=== PATIENT | male | born 1945 | race Caucasian/White ===

== ENCOUNTER → 2017-10-06 17:02 | Outpatient (CLI) | payer MEDICARE, OTHER, SELFPAY | PROVIDERS: Family Provider Family Medicine; PCP Family Medicine; Visit Provider Urology | DX: R30.0 Dysuria (principal) | CPT/HCPCS: 87086; 87088 ==

== ENCOUNTER → 2017-11-27 08:29 | Outpatient (CLI) | payer MEDICARE, OTHER, SELFPAY ==
[2017-11-27 11:16] LABS: Vitamin D,25 Hydroxy 25.7 ng/mL (29.95-100.01)
[2017-11-27 12:20] LABS: PSA,Total - Annual Screen 0.66 ng/mL (0.00-4.00)
== END ==
PROVIDERS: Family Provider Family Medicine; PCP Family Medicine; Referring Provider Family Medicine; Visit Provider Family Medicine
DX: E78.5 Hyperlipidemia, unspecified (principal); E55.9 Vitamin D deficiency, unspecified; E11.9 Type 2 diabetes mellitus without complications; I10 Essential (primary) hypertension; Z12.5 Encounter for screening for malignant neoplasm of prostate
CPT/HCPCS: 36415; 82306; 84153; G0103

== ENCOUNTER → 2018-05-14 10:02 | Outpatient (CLI) | payer MEDICARE, OTHER, SELFPAY ==
[2018-05-14 12:35] LABS: Absolute Lymphocyte Count 1.92 X10^3/ul (0.83-4.51); Absolute Neutrophil Count 3.7 X10^3/uL (2.0-7.7); Basophil# 0.01 X10^3/uL; Basophil% 0.2 % (0-1); Eosinophil# 0.13 X10^3/uL; Hematocrit 42.5 % (40-54); Hemoglobin 13.8 g/dl (13.0-16.5); Lymphocyte # 1.92 X10^3/ul (4.0); Mean Corp Hgb Conc 32.5 g/gl (32-36); Mean Corpuscular Hgb 29.9 pg (27.0-32.0); Mean Corpuscular Volume 92.2 fL (80-94); Mean Platelet Vol. 10.4 fl (6.2-12.0); Monocyte% 9.4 % (0-10); Neutrophil # 3.71 X10^3/uL (2.7-7.7); Neutrophil % 57.9 % (47-70); Platelet Count 213 K/mm3 (150-450); RBC Distribution Width CV 14.4 % (11.6-14.6); RBC Distribution Width SD 48.6 fl (35.1-43.9); Red Blood Count 4.61 M/mm3 (4.6-6.2); White Blood Count 6.4 K/mm3 (4.4-11.0)
[2018-05-14 12:37] LABS: POSITIVE COUNT NO; POSITIVE DIFFERENTIAL NO; POSITIVE MORPHOLOGY NO
[2018-05-14 12:51] LABS: Anion Gap 8 (5-15); BUN 19 mg/dL (7-18); BUN/Creat Ratio 20.5 RATIO (10-20); Calcium,Total 9.5 mg/dL (8.5-10.1); Chloride 108 mmol/L (98-107); Cholesterol 135 mg/dL (200); Creatinine, Serum 0.93 mg/dL (0.70-1.30); EST Glomerular Filtration Rate 85 mL/min (>60); Est Glom Filt Rate - Afr Amer 102 mL/min (>60); Glucose 148 mg/dL (74-106); High Density Lipoprotein 42 mg/dL; Potassium 4.3 mmol/L (3.5-5.1); Sodium Level 140 mmol/L (136-145); Triglycerides 131 mg/dL; Very Low Density Lipoprotein 26 mg/dL (5-40)
[2018-05-14 13:04] LABS: Vitamin D,25 Hydroxy 47.9 ng/mL (29.95-100.01)
[2018-05-14 13:07] LABS: Hemoglobin A1c 7.2 % (4.2-6.3)
== END ==
PROVIDERS: Family Provider Family Medicine; PCP Family Medicine; Referring Provider Family Medicine; Visit Provider Family Medicine
DX: I10 Essential (primary) hypertension (principal); E11.9 Type 2 diabetes mellitus without complications; E78.5 Hyperlipidemia, unspecified; E55.9 Vitamin D deficiency, unspecified
CPT/HCPCS: 36415; 80048; 80061; 82306; 83036; 85025

== ENCOUNTER → 2018-11-11 08:19 | Outpatient (CLI) | payer MEDICARE, OTHER, SELFPAY ==
[2018-11-11 10:29] LABS: Absolute Lymphocyte Count 2.22 X10^3/uL (0.83-4.51); Absolute Neutrophil Count 2.9 X10^3/uL (2.0-7.7); Basophil# 0.02 X10^3/uL; Basophil% 0.3 % (0-1); Eosinophil# 0.17 X10^3/uL; Eosinophils% 2.9 % (0-5); Hematocrit 40.7 % (40-54); Hemoglobin 13.2 g/dL (13.0-16.5); Lymphocyte # 2.22 X10^3/ul (4.0); Lymphocyte % 37.3 % (19-41); Mean Corp Hgb Conc 32.4 g/dL (32-36); Mean Corpuscular Volume 92.5 fL (80-94); Mean Platelet Vol. 10.1 fl (6.2-12.0); Monocyte# 0.55 X10^3/uL; Monocyte% 9.2 % (0-10); NRBC Flagged by Analyzer 0 % (0-5); Neutrophil # 2.92 X10^3/uL (2.7-7.7); Neutrophil % 49.1 % (47-70); Platelet Count 192 K/mm3 (150-450); RBC Distribution Width CV 13.9 % (11.6-14.6); RBC Distribution Width SD 47.8 fl (35.1-43.9)
[2018-11-11 10:51] LABS: Anion Gap 8 (5-15); BUN 20 mg/dL (7-18); BUN/Creat Ratio 22.9 RATIO (10-20); Chloride 107 mmol/L (98-107); Cholesterol 158 mg/dL (200); Creatinine, Serum 0.87 mg/dL (0.70-1.30); EST Glomerular Filtration Rate 90 mL/min (>60); Est Glom Filt Rate - Afr Amer 109 mL/min (>60); Glucose 152 mg/dL (74-106); High Density Lipoprotein 49 mg/dL; Potassium 4.4 mmol/L (3.5-5.1); Sodium Level 143 mmol/L (136-145); Triglycerides 152 mg/dL; Very Low Density Lipoprotein 30 mg/dL (5-40)
[2018-11-11 10:55] LABS: Hemoglobin A1c 7.5 % (4.2-6.3)
== END ==
PROVIDERS: Family Provider Family Medicine; PCP Family Medicine; Referring Provider Family Medicine; Visit Provider Family Medicine
DX: E11.9 Type 2 diabetes mellitus without complications (principal); E78.5 Hyperlipidemia, unspecified; E55.9 Vitamin D deficiency, unspecified; I10 Essential (primary) hypertension
CPT/HCPCS: 36415; 80048; 80061; 82306; 83036; 85025

== ENCOUNTER 2018-11-25 12:47 | Emergency (ER) | payer MEDICARE, OTHER, SELFPAY ==
[2018-11-25 12:48] VITALS: BP 189/96; PULSE 90; RESP 18; TEMP 35.8; O2SAT 94; BMI 35.9
--- NOTE | 2018-11-25 13:01 | EKG12_ITS ---
Test Reason : HALL/SCHWKENDRA Blood Pressure : / mmHG Vent. Rate : 080 BPM Atrial Rate : 080 BPM P-R Int : 210 ms QRS Dur : 086 ms QT Int : 370 ms P-R-T Axes : 027 -03 010 degrees QTc Int : 426 ms Sinus rhythm with 1st degree A-V block Inferior infarct , age undetermined Abnormal ECG Confirmed by ARLETTE REED ([id number]), magazine editor LA ARRINGTON ([id number]) on 11/29/2018 12:25:06 PM Referred By: DIZZINESS Confirmed By:ARLETTE REED
[2018-11-25] MEDS: Ondansetron 4 MG/2 ML Vial IV ×2 (13:04→14:05)
--- NOTE | 2018-11-25 13:34 | CT_ITS ---
STUDY: CT BRAIN WITHOUT CONTRAST REASON FOR EXAM: Male, 73 years old. Dizziness. RADIATION DOSAGE (If Supplied By Facility): CTDIvol = ( 44.99 ) mGy, DLP = ( 846.73 ) mGycm TECHNIQUE: Transaxial CT imaging of the brain was performed without administration of intravenous contrast material. Individualized dose optimization techniques were used for this CT. COMPARISON: No relevant priors. FINDINGS: Normal soft tissue structures. Normal calvarium. There is mild cerebral atrophy with widening of the extra-axial spaces and ventricular dilatation. There are areas of decreased attenuation within the white matter tracts of the supratentorial brain, consistent with microvascular disease changes. Normal basal ganglia and thalami. Normal brainstem. Normal cerebellum. There is no intracranial hemorrhage. There are no findings of an acute ischemic infarction. Atherosclerotic calcification of the cavernous portions of the internal carotid arteries bilaterally. Opacification of the right maxillary sinus and right ethmoid sinus with soft tissue prominence in the right ostiomeatal complex suggestive of nasal polyposis. CT/Brain/Head without Contrast IMPRESSION: Chronic involutional changes of the brain. Opacification of the right maxillary sinus and right ethmoid sinus. Electronically Signed: Souleymane So, at 14:55 EDT , Service support ,
--- NOTE | 2018-11-25 13:39 | ED.DCSUM_ITS ---
- ER Visit Summary Date of Service: 11/25/18 Chief Complaint: Severe dizziness had nausea and vomiting History of Present Illness: The patient is a 73 M history of jxg-knlcrxu-qhknroret diabetes and kidney stones. States he ate lunch and he had sudden onset of right spinning dizziness. Really denied any headache. No chest pain or shortness of breath. No abdominal pain. No recent falls or trauma. He is on no blood thinners. He states never had anything like this before. Said to move his head against a lot worse and starts throwing up. Physical Examination: Older male vital signs stable afebrile. Does not look septic or toxic. Holding an emesis bag. HEENT exam pupils are unreactive light. No facial droop. Normal speech. No signs of trauma to his face or head. Neck nontender. Lungs clear to auscultation. Heart regular rhythm rate about 85 no murmur. Chest were nontender. Abdomen soft nontender. Normal bowel sounds no peritoneal signs. Nondistended. No signs of obstruction. Patient is moving all 4 extremities. Neurovascular intact. Calves are nonten nadira without edema. Equal symmetrical bull bucker strength 5 out of 5. Dorsi plantarflexion intact. Neurologically is awake and alert. He has a positive Hallpike. Otherwise his NIH is negative. He has normal bull bucker strength bilaterally. And dorsi and plantarflexion intact. Test Results: CBC normal. Chemistries normal. EKG sinus rhythm no acute signs of IL or ischemia. No dysrhythmia. CT of his brain showed chronic changes but no acute process. No bleed, mass or stroke. Read by the radiologist. Emergency Department Course and Treatment: Treated with IV fluids. He was given Zofran initially still nausea give a second dose. Also be given p.o. Valium. Multiple repeat exams patient progressively is getting better. Currently his dizziness is resolved at 1720. He has no neurological findings. He was able to ambulate with nurses on any difficulty. He and his are comfortable being discharged home. He feels much improved. Treatment Plan: Antivert 3 times a day. Valium as needed. Follow-up with primary care physician. Return if worse. Disposition: Discharge Impression: Acute sudden onset dizziness secondary to vertigo This note was generated with [employer] dictation software. It may contain incorrect words, spelling, and punctuation that were not noted in review of the chart prior to signing ED Disposition - Plan for ED Patient: Disposition: Home or Assisted Living Instructions: VERTIGO, Unspecified Prescriptions: Meclizine HCl [Antivert] 25 mg PO TID PRN PRN #20 tab PRN Reason: Vertigo Transmission Status: Sent to [facility] #30 Diazepam [Valium] 5 mg PO Q8 PRN #14 tab PRN Reason: Muscle Spasm Transmission Status: Received by [facility] #30 Referrals: Anup Mcadams MD [STAFF PHYSICIAN] - 3-5 Days if not improving Additional Instructions: Fluids and rest. Antivert 1 pill 3 times a day for the next 3 days. Valium if the Antivert is not controlling her dizziness. Do not drive if you are taking the Valium. I would not drive for the next couple days until you are sure that her dizziness is resolved. Follow-up with your doctor for further evaluation. Return to the ER if you are feeling worse or develop any strokelike symptoms such as weakness in your arms or legs or numbness.
[2018-11-25 13:57] LABS: Absolute Lymphocyte Count 2.91 X10^3/uL (0.83-4.51); Basophil# 0.05 X10^3/uL; Basophil% 0.6 % (0-1); Eosinophil# 0.13 X10^3/uL; Eosinophils% 1.6 % (0-5); Hematocrit 40.6 % (40-54); Hemoglobin 13.2 g/dL (13.0-16.5); Lymphocyte # 2.91 X10^3/ul (4.0); Lymphocyte % 36.8 % (19-41); Mean Corp Hgb Conc 32.5 g/dL (32-36); Mean Corpuscular Hgb 30.4 pg (27.0-32.0); Mean Corpuscular Volume 93.5 fL (80-94); Mean Platelet Vol. 9.8 fl (6.2-12.0); Monocyte% 8.8 % (0-10); NRBC Flagged by Analyzer 0 % (0-5); Neutrophil # 3.98 X10^3/uL (2.7-7.7); Neutrophil % 50.4 % (47-70); Platelet Count 200 K/mm3 (150-450); RBC Distribution Width CV 13.7 % (11.6-14.6); RBC Distribution Width SD 47.1 fl (35.1-43.9); Red Blood Count 4.34 M/mm3 (4.6-6.2); White Blood Count 7.9 K/mm3 (4.4-11.0)
[2018-11-25] MEDS: diazePAM 5 MG Tablet PO (14:05)
[2018-11-25 14:10] LABS: Anion Gap 7 (5-15); BUN 21 mg/dL (7-18); BUN/Creat Ratio 22.4 RATIO (10-20); Chloride 107 mmol/L (98-107); Creatinine, Serum 0.94 mg/dL (0.70-1.30); EST Glomerular Filtration Rate 83 mL/min (>60); Est Glom Filt Rate - Afr Amer 101 mL/min (>60); Estimated Creatinine Clearance 70.11 ml/min; Glucose 170 mg/dL (74-106); Potassium 3.7 mmol/L (3.5-5.1); Sodium Level 138 mmol/L (136-145)
[2018-11-25] MEDS: proMETHazine 25 MG/ML Syringe 12.5 MG IV (15:28)
[2018-11-25 15:29] VITALS: BP 164/95; PULSE 80; RESP 16; O2SAT 99
--- NOTE | 2018-11-25 16:45 | ED.RN ---
PATIENT AMBULATED IN HALLWAY WITH NO DIZZINESS OR LIGHTHEADEDNESS.
--- NOTE | 2018-11-25 17:14 | ED.DEP ---
ED Disposition - Plan for ED Patient: Disposition: Home or Assisted Living Instructions: VERTIGO, Unspecified Prescriptions: Meclizine HCl [Antivert] 25 mg PO TID PRN PRN #20 tab PRN Reason: Vertigo Transmission Status: Pending to [facility] #30 Diazepam [Valium] 5 mg PO Q8 PRN #14 tablet PRN Reason: Muscle Spasm Transmission Status: Sent to [facility] #30 Referrals: Anup Mcadams MD [STAFF PHYSICIAN] - 3-5 Days if not improving Additional Instructions: Fluids and rest. Antivert 1 pill 3 times a day for the next 3 days. Valium if the Antivert is not controlling her dizziness. Do not drive if you are taking the Valium. I would not drive for the next couple days until you are sure that her dizziness is resolved. Follow-up with your doctor for further evaluation. Return to the ER if you are feeling worse or develop any strokelike symptoms such as weakness in your arms or legs or numbness.
--- NOTE | 2018-11-25 17:24 | ED.DEP ---
ED Disposition - Plan for ED Patient: Disposition: Home or Assisted Living Instructions: VERTIGO, Unspecified Prescriptions: Meclizine HCl [Antivert] 25 mg PO TID PRN PRN #20 tab PRN Reason: Vertigo Transmission Status: Sent to [facility] #30 Diazepam [Valium] 5 mg PO Q8 PRN #14 tab PRN Reason: Muscle Spasm Transmission Status: Received by [facility] #30 Referrals: Anup Mcadams MD [STAFF PHYSICIAN] - 3-5 Days if not improving Additional Instructions: Fluids and rest. Antivert 1 pill 3 times a day for the next 3 days. Valium if the Antivert is not controlling her dizziness. Do not drive if you are taking the Valium. I would not drive for the next couple days until you are sure that her dizziness is resolved. Follow-up with your doctor for further evaluation. Return to the ER if you are feeling worse or develop any strokelike symptoms such as weakness in your arms or legs or numbness.
[2018-11-25 17:31] VITALS: BP 150/85; PULSE 90; RESP 18; O2SAT 96
== END 2018-11-25 17:32 | disposition home or self-care (01) ==
PROVIDERS: Emergency Provider Emergency Medicine; Family Provider Family Medicine; PCP Family Medicine
DX: R42 Dizziness and giddiness (principal); R11.2 Nausea with vomiting, unspecified; E11.9 Type 2 diabetes mellitus without complications; Z79.84 Long term (current) use of oral hypoglycemic drugs; Z79.899 Other long term (current) drug therapy
CPT/HCPCS: 70450; 80048; 85025; 93005; 96374; 96375; 96376; 99285; A4216; J2405

== ENCOUNTER → 2019-08-15 09:52 | Outpatient (CLI) | payer MEDICARE, OTHER, SELFPAY ==
[2019-08-15 12:24] LABS: Absolute Lymphocyte Count 2.04 X10^3/uL (0.83-4.51); Absolute Neutrophil Count 3.8 X10^3/uL (2.0-7.7); Basophil# 0.04 X10^3/uL; Basophil% 0.6 % (0-1); Eosinophil# 0.14 X10^3/uL; Eosinophils% 2.1 % (0-5); Hematocrit 42.5 % (40-54); Hemoglobin 13.6 g/dL (13.0-16.5); Lymphocyte # 2.04 X10^3/ul (4.0); Lymphocyte % 30.6 % (19-41); Mean Corpuscular Hgb 30.2 pg (27.0-32.0); Mean Corpuscular Volume 94.4 fL (80-94); Mean Platelet Vol. 10.6 fl (6.2-12.0); Monocyte# 0.57 X10^3/uL; Monocyte% 8.5 % (0-10); NRBC Flagged by Analyzer 0 % (0-5); Platelet Count 210 K/mm3 (150-450); RBC Distribution Width CV 14.2 % (11.6-14.6); RBC Distribution Width SD 49.2 fl (35.1-43.9); White Blood Count 6.7 K/mm3 (4.4-11.0)
[2019-08-15 12:47] LABS: Thyroid Stim Hormone (TSH) 1.53 uIU/mL (0.358-3.74)
[2019-08-15 13:54] LABS: Vitamin B12 436 pg/mL (211-911); Vitamin D,25 Hydroxy 37.3 ng/mL
[2019-08-16 17:20] LABS: PSA,Total - Annual Screen 0.65 ng/mL (0.00-4.00)
== END ==
PROVIDERS: PCP Family Medicine; Referring Provider Family Medicine; Visit Provider Family Medicine
DX: R53.83 Other fatigue (principal); Z12.5 Encounter for screening for malignant neoplasm of prostate
CPT/HCPCS: 36415; 82306; 82607; 84153; 84443; 85025; G0103

== ENCOUNTER → 2019-08-25 13:57 | Outpatient (CLI) | payer MEDICARE, OTHER, SELFPAY ==
--- NOTE | 2019-08-25 14:05 | ECHOD_ITS ---
Reason For Study: MURMUR Procedure This was a 2D Doppler, Color Flow transthoracic echocardiogram. The study was technically difficult. Due to body habitus. Contrast injection was performed. Exam performed in department. Left Ventricle Mild concentric left ventricular hypertrophy. The estimated ejection fraction is 65 %. Stage 1 diastolic dysfunction. No regional wall motion abnormalities noted. Right Ventricle Moderately dilated right ventricle. Normal systolic function. Atria Normal left atrium. Normal right atrium. Normal atrial septum. Mitral Valve The mitral valve is structurally normal. No prolapse or stenosis seen. Tricuspid Valve Normal tricuspid valve. Unable to estimate RV systolic pressure due to insufficient tricuspid regurgitant envelope. Aortic Valve Trisinus/trileaflet aortic valve. Mild diffuse aortic valve thickening. Moderate focal aortic valve thickening. Mild aortic stenosis. Peak aortic valve gradient 15 mmHg. Mean aortic valve gradient 8 mmHg. Pulmonic Valve The pulmonic valve is not well visualized. Great Vessels Normal aortic root. Mild atherosclerosis of the aortic arch. Normal inferior vena cava. Inferior vena cava collapse with sniff. Pericardium/Pleural No pericardial effusion. Medication 22 gauge I.V. with prn adaptor inserted into left arm. Diluted definity 3.0ml given slow IV push to enhance endocardial definition. MMode/2D Measurements & Calculations LVIDd: 4.4 cm IVSd: 1.3 cm Ao root diam: 3.6 cm LVIDs: 3.4 cm LVPWd: 1.2 cm RVDd: 3.8 cm FS: 23.4 % LAV(MOD-bp): 68.4 ml EDV(MOD-sp4): 116.5 ml EDV(MOD-sp2): 67.4 ml LAV(MOD-bp) Indexed: 30.5 ml/m2 ESV(MOD-sp4): 49.5 ml EF(MOD-sp2): 54.9 % LAV(MOD-sp2): 67.2 ml EF(MOD-sp4): 57.5 % LAV(MOD-sp4): 66.2 ml SV(MOD-sp4): 67.0 ml SV(MOD-sp2): 37.0 ml LA A4 area: 21.3 cm2 LA dimension(2D): 4.9 cm Time Measurements MV dec time: 0.20 sec Doppler Measurements & Calculations MV E max jose angel: 92.1 cm/sec Lat Peak E' Jose Angel: 4.9 cm/sec Med Peak E' Jose Angel: 4.7 cm/sec MV A max jose angel: 133.5 cm/sec E/E' lat: 18.8 E/E' med: 19.6 MV E/A: 0.69 Ao V2 max: 193.7 cm/sec LV V1 max: 110.9 cm/sec PA V2 max: 151.9 cm/sec Ao max P.0 mmHg LV V1 max P.9 mmHg Ao V2 mean: 132.5 cm/sec LV V1 mean P.6 mmHg Ao mean P.9 mmHg LV V1 mean: 76.8 cm/sec Ao V2 VTI: 34.6 cm LV V1 VTI: 19.6 cm Interpretation Summary Mild concentric left ventricular hypertrophy. The estimated ejection fraction is 65 %. Stage 1 diastolic dysfunction. Moderately dilated right ventricle. Mild aortic stenosis. Peak aortic valve gradient 15 mmHg. Mean aortic valve gradient 8 mmHg. The study was technically difficult. Contrast injection was performed. There is no comparison study available. Ordering Physician: Anup Wu Referring Physician: Anup Wu Performed By: Rhoda Marti, KELSY, RVT
== END ==
PROVIDERS: PCP Family Medicine; Referring Provider Family Medicine; Visit Provider Family Medicine
DX: R01.1 Cardiac murmur, unspecified (principal)
CPT/HCPCS: 93306; Q9957; A4216

== ENCOUNTER 2020-01-25 10:12 | Emergency (ER) | payer MEDICARE, OTHER, SELFPAY ==
[2020-01-25 10:13] VITALS: BP 154/85; PULSE 103; RESP 16; TEMP 36.3; O2SAT 97; BMI 31.4
--- NOTE | 2020-01-25 10:22 | US_ITS ---
STUDY: SCROTUM ULTRASOUND REASON FOR EXAM: Male, 74 years old. SWELLING AND ABRUPT LEFT TESTICULAR PAIN BEGINNING AT 8AM THIS MORNING TECHNIQUE: Ultrasound evaluation of the scrotum was performed with color Doppler and static jaime-scale imaging. COMPARISON: None. FINDINGS: RIGHT TESTICLE INTRATESTICULAR: There is a normal size of the right testicle. The right testicle measures 4.2 cm x 3.2 cm x 2.8 cm. There is a homogenous echotexture. There is normal arterial and normal venous vascularity. There is no demonstrated right testicular mass or cyst. EXTRATESTICULAR: The epididymis is normal in size. The epididymis head measures 0.9 cm x 1.5 cm x 1.2 cm. There is normal vascularity of the epididymis. There is no demonstrated epididymal cystic structure. There is a small hydrocele. There is no demonstrated varicocele. There is no demonstrated extratesticular mass or cyst. LEFT TESTICLE INTRATESTICULAR: There is a normal size of the left testicle. The left testicle measures 4.6 cm x 2.3 cm x 3.0 cm. There is a homogenous echotexture. There is normal arterial and normal venous vascularity. There is a 3 mm x 3 mm x 4 mm testicular cyst. EXTRATESTICULAR: The epididymis is normal in size. The epididymis head measures 0.8 cm x 1.1 cm x 1.1 cm. There is normal vascularity of the epididymis. There is a well-defined cystic structure within the epididymis, without internal echoes, consistent with an epididymal cyst. This measures 8 mm x 6 mm x 6 mm. There is a small hydrocele. There is no demonstrated varicocele. There is no demonstrated extratesticular mass or cyst. US/Testicular with Arterial Flow IMPRESSION: Small bilateral hydroceles. Small left epididymal cyst. Small left testicular cyst. Electronically Signed: Souleymane So, at 11:17 EST , Service support ,
--- NOTE | 2020-01-25 10:30 | ED.VISSUMM ---
- ER Visit Summary Date of Service: 01/25/20 Chief Complaint: Left testicle pain History of Present Illness: The patient is a [address] Wu and Dr. Gordon. He reports that he woke up at 8:00 this morning with the abrupt onset of severe left testicle pain. He reports the pain is 10 of 10 with touching it and 2 out of 10 at rest. Describes it as an aching pain. He denies any flank pain. He denies abdominal pain. No nausea, vomiting, dysuria or frequency. He has never had anything like this before. Physical Examination: Vitals: Stable. Afebrile. General: Well-nourished and well-developed. Head: Normocephalic atraumatic. Neck: Supple, no lymphadenopathy. No JVD. Nontender. Cardiovascular: Regular rate and rhythm. No murmurs. Respiratory: No respiratory distress. Clear to auscultation bilaterally. Abdominal: Soft, nontender, nondistended, normal bowel sounds. No guarding, rebound, or peritoneal signs. : Normal circumcised male. He has no inguinal hernias bilaterally. He was examined while standing. He has moderate tenderness to palpation over the left testicle. He does have a normal lie and he does have a cremasteric reflex. There is no tenderness to palpation over his epididymis. He does have mild tenderness palpation over the lower pole of the left testicle. There is no palpable mass. There is no scrotal swelling. There is no erythema or induration to suggest infection. Back: Nontender. Extremities: Nontender, no edema. Skin: Normal color, no rash. Neurologic: Alert and oriented ?3. Cranial nerves II through XII are intact. Normal strength and sensation. Psych: Normal affect. Test Results: Clinical Impression(s) from Imaging Studies Testicular Ultrasound 01/25/20 10:22 IMPRESSION: Small bilateral hydroceles. Small left epididymal cyst. Small left testicular cyst. Electronically Signed: Souleymane So, at 11:17 EST , Service support , Emergency Department Course and Treatment: Patient refused pain medications. He is resting comfortably. Treatment Plan: Patient will be discharged with symptomatic care. Use supportive underwear, ice, Tylenol/ibuprofen for pain. He will be given a prescription for 10 [place] for severe pain. Follow-up with Dr. Gordon in 3 to 5 days if not improving. Return to the emergency department for any worsening symptoms. Disposition: To home in improved and stable condition. Impression: 1. Left testicle pain, acute. This note was generated with [employer] dictation software. It may contain incorrect words, spelling, and punctuation that were not noted in review of the chart prior to signing ED Disposition - Plan for ED Patient: Instructions: ED Orchitis Prescriptions: Docusate Sodium [Colace] 100 mg PO DAILY #20 capsule Hydrocodone Bitart/Apap 5-325 [[place] 5MG-325MG] 1 tablet PO Q4H PRN PRN 2 Days #10 tablet PRN Reason: Pain Referrals: Ronald Gordon MD [STAFF PHYSICIAN] - 3-5 Days if not improving
[2020-01-25 11:45] VITALS: BP 137/66; PULSE 82; RESP 15; O2SAT 98
== END 2020-01-25 11:47 | disposition home or self-care (01) ==
PROVIDERS: Emergency Provider Emergency Medicine; PCP Family Medicine
DX: N44.2 Benign cyst of testis (principal); N50.3 Cyst of epididymis; N43.3 Hydrocele, unspecified; E11.9 Type 2 diabetes mellitus without complications; Z79.84 Long term (current) use of oral hypoglycemic drugs; Z79.899 Other long term (current) drug therapy
CPT/HCPCS: 76870; 93976; 99282; A4216

== ENCOUNTER → 2020-01-26 08:29 | Outpatient (CLI) | payer MEDICARE, OTHER, SELFPAY ==
[2020-01-25 10:13] VITALS: BMI 31.4
== END ==
PROVIDERS: PCP Family Medicine; Referring Provider Urology; Visit Provider Urology
DX: Z12.5 Encounter for screening for malignant neoplasm of prostate (principal)

== ENCOUNTER 2020-03-13 12:14 | Emergency (ER) | payer MEDICARE, OTHER, SELFPAY ==
[2020-03-13 12:15] VITALS: BP 132/78; PULSE 108; RESP 16; TEMP 36.6; O2SAT 96; BMI 33.7
--- NOTE | 2020-03-13 12:26 | EKG12_ITS ---
Test Reason : GENERAL ILLNESS Blood Pressure : / mmHG Vent. Rate : 101 BPM Atrial Rate : 101 BPM P-R Int : 176 ms QRS Dur : 086 ms QT Int : 318 ms P-R-T Axes : 032 003 030 degrees QTc Int : 412 ms Sinus tachycardia Inferior infarct (cited on or before 25-NOV-2018) Abnormal ECG Confirmed by SANGITA ALICEA, LM ([id number]), slot editor LA ARRINGTON ([id number]) on 03/19/2020 12:46:11 PM Referred By: TAYLOR Confirmed By:LM QUESADA MD
--- NOTE | 2020-03-13 12:29 | ED.DCSUM_ITS ---
History of Present Illness Chief Complaint: General Illness Informant: Patient Onset: Days Context: Gradual Onset Timing: Continuous Current Severity: Mild Maximum Severity: Moderate Narrative: Patient is a 74-year-old male with history of pcs-cqucbxp-uhjjmkeij diabetes and hypertension who presents to the emergency department with generalized malaise. The patient is Covid positive. He did test positive on the 14th of this month. He states that he has been monitoring his pulse ox at home. He states sometimes, it will be around 90. He states that today was actually the best that he is felt. He had discussed this with his primary care who was trying to set the patient up with outpatient monoclonal antibody, but given his reported hypoxia he was sent in for further evaluation. He states is not had a fever in 3 days. Has been mildly nauseated, but still states he has been eating and drinking. He had a scant cough. He denies any chest pain orthopnea. Prior similar symptoms: No Recent Illness/Hospitalization: No Past Medical History - Allergies and Home Meds Allergies/Adverse Reactions: Allergies Penicillins [PCN] Allergy (Verified 03/13/20 12:19) Hives tolmetin [From Tolectin] Allergy (Verified 03/13/20 12:19) Hives Primary Care Physician: Anup Wu MD [Primary Care Provider] - Prior records reviewed: Yes Past Medical History: - - Diabetes, hypertension Surgical History: noncontributory Smoking Status: Former smoker Review of Systems General: Reports: Malaise. Denies: Chills, Fever, Sweats Eyes: Denies: Visual changes - bilaterally, Diplopia ENT: Denies: Rhinorrhea, Sore throat Cardiovascular: Denies: Chest pain, Palpitations Respiratory: Reports: Cough. Denies: Dyspnea, Dyspnea on exertion Gastrointestinal: Reports: Nausea. Denies: Abdominal pain, Vomiting, Diarrhea, Melena, Hematochezia Genitourinary: Denies: Dysuria, Hematuria, Frequency Musculoskeletal: Denies: Back pain, Extremity Pain Skin: Denies: Rash, Wounds Neurological: Denies: Headache, Weakness, Numbness Physical Exam Vital Signs/Narrative: Vital Signs Temp Pulse Resp BP Pulse Ox 03/13/20 12:15 97.8 F 108 H 16 132/78 H 96 Inital Vital Signs reviewed: Yes General: Well nourished, Well developed, No Acute Distress Head: Normocephalic, Atraumatic Eyes: Perrl, EOMI ENT: Moist mucous membranes, No rhinorrhea Neck: Supple, Nontender Cardiovascular: Regular rate, Regular rhythm, No murmurs Respiratory: No distress, CTA bilaterally, Chest nontender Abdomen: Soft, Nontender, Nondistended, Normal bowel sounds Back: Nontender, Normal Inspection Extremities: Nontender, No edema Skin: Normal color, No rash Neurological: Alert, Oriented x3, Cranial nerves II-XII grossly intact, Normal Strength, Normal Sensation Psychological: Normal affect, Normal Mood Diagnostic/Tx/Re-eval Clinical Impression(s) from Imaging Studies Chest X-Ray 03/13/20 12:45 IMPRESSION: Mild degree of increased linear markings at the lung bases. These have improved as compared to prior study. Electronically Signed: Souleymane So MD at 13:03 EST , Service support , Abnormal Lab Results 03/13/20 03/13/20 13:05 13:05 WBC 4.8 RBC 4.40 L Hgb 13.6 Hct 39.8 L MCV 90.5 MCH 30.9 MCHC 34.2 RDW Std Deviation 45.6 H RDW Coeff of Osman 13.6 Plt Count 143 L MPV 9.6 Immature Gran % (Auto) 1.300 H Neut % (Auto) 63.0 Lymph % (Auto) 24.4 Woodson % (Auto) 9.2 Eos % (Auto) 1.5 Baso % (Auto) 0.6 Absolute Neuts (auto) 3.0 Absolute Lymphs (auto) 1.17 Nucleated RBC % 0 Sodium 135 L Potassium 4.2 Chloride 104 Carbon Dioxide 26.0 Anion Gap 5 BUN 20 H Creatinine 1.00 Estim Creat Clear Calc 64.89 Est GFR (MDRD) Af Amer 93 Est GFR (MDRD) Non-Af 77 BUN/Creatinine Ratio 20.0 Glucose 209 H Calcium 8.8 Total Bilirubin 0.50 AST 17 ALT 18 Alkaline Phosphatase 90 Total Protein 7.1 Albumin 3.3 Globulin 3.8 Albumin/Globulin Ratio 0.9 - Medical Decision Making The patient's Covid symptoms and was concerned because he had some borderline hypoxia at home. On arrival, the patient is not tachypneic or hypoxic. His oxygen saturations have been 93 to 95% without supplemental oxygen. EKG was obtained. He was sinus rhythm without evidence of acute ischemia. Patient states he is actually started to feel improvement over the past 24 hours. Labs were obtained were unremarkable. The patient is resting comfortably. He is interested in getting referral for monoclonal antibodies. I do feel that he meets criteria. Referral was made. At this point, the patient to be discharged home with outpatient follow-up for potential enrollment for antibiotic treatment. Impression 1. COVID-19 ED Disposition - Plan for ED Patient: Instructions: ED - COVID Monoclonal AB Infusion ..., Coronavirus Disease 2019 (COVID-19): Overview Referrals: Anup Wu MD [Primary Care Provider] -
--- NOTE | 2020-03-13 12:45 | RAD_ITS ---
STUDY: X-RAY CHEST REASON FOR EXAM: Male, 74 years old. RECENT COVID Dx. WEAKNESS, BODY ACHES TECHNIQUE: Single AP portable view of the chest. COMPARISON: Comparison is made with prior study dated 11/16/2015. FINDINGS: Mild residual increased linear markings at the lung bases although these have improved as compared to prior examination. No focal infiltrate is seen. The lungs are clear and expanded. There is no demonstrated pleural abnormality. Normal size heart. Normal mediastinum and robe. Normal visualized pulmonary arteries. There is atherosclerotic tortuosity of the aortic arch and descending thoracic aorta. There are diffuse degenerative changes of the visualized thoracic spine. Normal visualized ribs, clavicles, and shoulders. There is no demonstrated abnormality of the visualized soft tissue structures of the upper abdomen. RAD/Chest 1 View (Portable) IMPRESSION: Mild degree of increased linear markings at the lung bases. These have improved as compared to prior study. Electronically Signed: Souleymane So MD at 13:03 EST , Service support ,
[2020-03-13] MEDS: Acetaminophen 500 MG Tablet 1000 MG PO (12:55)
[2020-03-13 13:25] LABS: Absolute Lymphocyte Count 1.17 X10^3/uL (0.83-4.51); Basophil# 0.03 X10^3/uL; Basophil% 0.6 % (0-1); Eosinophil# 0.07 X10^3/uL; Eosinophils% 1.5 % (0-5); Hematocrit 39.8 % (40-54); Hemoglobin 13.6 g/dL (13.0-16.5); Lymphocyte # 1.17 X10^3/ul (4.0); Lymphocyte % 24.4 % (19-41); Mean Corp Hgb Conc 34.2 g/dL (32-36); Mean Corpuscular Hgb 30.9 pg (27.0-32.0); Mean Corpuscular Volume 90.5 fL (80-94); Mean Platelet Vol. 9.6 fl (6.2-12.0); Monocyte# 0.44 X10^3/uL; Monocyte% 9.2 % (0-10); NRBC Flagged by Analyzer 0 % (0-5); Neutrophil # 3.02 X10^3/uL (2.7-7.7); Platelet Count 143 K/mm3 (150-450); RBC Distribution Width CV 13.6 % (11.6-14.6); RBC Distribution Width SD 45.6 fl (35.1-43.9); White Blood Count 4.8 K/mm3 (4.4-11.0)
[2020-03-13 13:33] LABS: ALB/GLOB Ratio 0.9 RATIO (0.9-2.4); AST(SGOT) 17 U/L (15-37); Alanine Aminotransfer ALT/SGPT 18 U/L (16-61); Albumin, Serum 3.3 g/dL (3.2-5.0); Alkaline Phosphatase 90 U/L (45-117); Anion Gap 5 (5-15); BUN 20 mg/dL (7-18); Calcium,Total 8.8 mg/dL (8.5-10.1); Chloride 104 mmol/L (98-107); EST Glomerular Filtration Rate 77 mL/min (>60); Est Glom Filt Rate - Afr Amer 93 mL/min (>60); Estimated Creatinine Clearance 64.89 ml/min; Globulin 3.8 g/dL (2.2-4.2); Glucose 209 mg/dL (74-106); Potassium 4.2 mmol/L (3.5-5.1); Protein, Total 7.1 g/dL (6.4-8.2); Sodium Level 135 mmol/L (136-145)
[2020-03-13 13:51] VITALS: O2SAT 94
== END 2020-03-13 13:52 | disposition home or self-care (01) ==
LOC: ED 12:39
PROVIDERS: Emergency Provider Emergency Medicine; PCP Family Medicine
DX: U07.1 COVID-19 (principal); I10 Essential (primary) hypertension; E11.9 Type 2 diabetes mellitus without complications; Z79.84 Long term (current) use of oral hypoglycemic drugs; Z87.891 Personal history of nicotine dependence
CPT/HCPCS: 36415; 71045; 80053; 85025; 93005; 99285; A4216

== ENCOUNTER 2020-03-15 12:09 | Outpatient (CLI) | payer MEDICARE, OTHER, SELFPAY ==
[2020-03-15] VITALS (7 sets, daily range): BP systolic 117–141; BP diastolic 60–69; PULSE 103–111; RESP 18; TEMP 36.7–37.8; O2SAT 93–96; BMI 32.8
== END 2020-03-15 15:49 | disposition home or self-care (01) ==
LOC: MS2OUT 12:09
PROVIDERS: PCP Family Medicine; Referring Provider Nurse Practitioner Acute Care; Visit Provider Nurse Practitioner Acute Care
DX: U07.1 COVID-19 (principal)
CPT/HCPCS: J7050; M0239; Q0239

== ENCOUNTER → 2020-03-20 11:49 | Outpatient (CLI) | payer MEDICARE, OTHER, SELFPAY ==
[2020-03-15 12:37] VITALS: BMI 32.8
[2020-03-20 15:59] LABS: ALB/GLOB Ratio 0.8 RATIO (0.9-2.4); AST(SGOT) 15 U/L (15-37); Alanine Aminotransfer ALT/SGPT 18 U/L (16-61); Alkaline Phosphatase 85 U/L (45-117); Anion Gap 8 (5-15); BUN 19 mg/dL (7-18); BUN/Creat Ratio 20.5 RATIO (10-20); Calcium,Total 9.2 mg/dL (8.5-10.1); Chloride 105 mmol/L (98-107); Creatinine, Serum 0.93 mg/dL (0.70-1.30); EST Glomerular Filtration Rate 84 mL/min (>60); Est Glom Filt Rate - Afr Amer 102 mL/min (>60); Glucose 178 mg/dL (74-106); Potassium 4.1 mmol/L (3.5-5.1); Sodium Level 138 mmol/L (136-145)
[2020-03-20 16:02] LABS: Microalbumin,Random Urine 23.9 mg/L (NO RANGE EST.); Microalbumin:Creatinine Ratio 13.7 mg/g CRE (<30 mg/g CRE)
[2020-03-20 16:20] LABS: Hemoglobin A1c 7.6 % (3.8-5.6)
== END ==
PROVIDERS: PCP Family Medicine; Referring Provider Family Medicine; Visit Provider Family Medicine
DX: E11.9 Type 2 diabetes mellitus without complications (principal)
CPT/HCPCS: 36415; 80053; 82043; 82570; 83036

== ENCOUNTER → 2020-06-12 15:21 | Outpatient (CLI) | payer MEDICARE, OTHER, SELFPAY ==
[2020-03-15 12:37] VITALS: BMI 32.8
[2020-06-12 18:49] LABS: ALB/GLOB Ratio 1.2 RATIO (0.9-2.4); AST(SGOT) 16 U/L (15-37); Alanine Aminotransfer ALT/SGPT 23 U/L (16-61); Albumin, Serum 3.9 g/dL (3.2-5.0); Alkaline Phosphatase 87 U/L (45-117); Anion Gap 8 (5-15); BUN 21 mg/dL (7-18); BUN/Creat Ratio 22.8 RATIO (10-20); Calcium,Total 9.4 mg/dL (8.5-10.1); Chloride 107 mmol/L (98-107); Cholesterol 151 mg/dL (200); Creatinine, Serum 0.92 mg/dL (0.70-1.30); EST Glomerular Filtration Rate 85 mL/min (>60); Est Glom Filt Rate - Afr Amer 102 mL/min (>60); Globulin 3.3 g/dL (2.2-4.2); Glucose 113 mg/dL (74-106); High Density Lipoprotein 43 mg/dL; Potassium 4.5 mmol/L (3.5-5.1); Protein, Total 7.2 g/dL (6.4-8.2); Sodium Level 140 mmol/L (136-145); Triglycerides 245 mg/dL; Very Low Density Lipoprotein 49 mg/dL (5-40)
[2020-06-12 19:05] LABS: Microalbumin,Random Urine 17.6 mg/L (NO RANGE EST.); Microalbumin:Creatinine Ratio 9.9 mg/g CRE (<30 mg/g CRE)
== END ==
PROVIDERS: PCP Family Medicine; Visit Provider Family Medicine
DX: E11.9 Type 2 diabetes mellitus without complications (principal)
CPT/HCPCS: 36415; 80053; 80061; 82043; 82570

== ENCOUNTER → 2020-08-14 08:14 | Outpatient (CLI) | payer MEDICARE, OTHER, SELFPAY ==
[2020-03-15 12:37] VITALS: BMI 32.8
[2020-08-14 10:51] LABS: PSA,Total - Annual Screen 0.69 ng/mL (0.00-4.00)
== END ==
PROVIDERS: PCP Family Medicine; Referring Provider Urology; Visit Provider Urology
DX: Z12.5 Encounter for screening for malignant neoplasm of prostate (principal)
CPT/HCPCS: 36415; 84153; G0103

== ENCOUNTER → 2020-12-10 14:34 | Outpatient (CLI) | payer MEDICARE, OTHER, SELFPAY ==
--- NOTE | 2020-12-10 14:37 | CT_ITS ---
INDICATION: LLQ pain EXAMINATION: CT Abdomen And Pelvis W/ Contrast Injection TECHNIQUE: Helically acquired images were obtained of the abdomen and pelvis after IV contrast. A radiation dose optimization technique was used for this scan. IV Contrast dosage and agent: Oral and amp;amp; IV Gastrografin and amp;amp; 100mL Isovue-300 Oral contrast: Yes. COMPARISON: None. FINDINGS: Visualized lung bases: Unremarkable Liver: Unremarkable Gallbladder: Few small intraluminal stones seen. Spleen: Unremarkable Pancreas: Fatty atrophic changes. Adrenal Glands: Unremarkable Kidneys: Unremarkable Vasculature: Unremarkable GI Tract: Scattered diverticula throughout the colon without evidence of inflammation. Lymphadenopathy: None Peritoneum: No ascites. Bladder: Unremarkable Reproductive organs: The prostate is mildly enlarged. Bones/Soft tissues: Mild scattered degenerative changes of the visualized spine. CT/Abdomen/Pelvis WITH Contrast IMPRESSION: No acute abnormalities in the abdomen or pelvis. Diverticulosis. Cholelithiasis. Mild prostatomegaly. Correlate with PSA levels. Electronically Signed: John Sheikh MD at 18:28 EDT Tel , Service support ,
[2020-12-10 15:46] LABS: Hematocrit 39.5 % (40-54); Hemoglobin 13.1 g/dL (13.0-16.5); Mean Corp Hgb Conc 33.2 g/dL (32-36); Mean Corpuscular Hgb 30.5 pg (27.0-32.0); Mean Corpuscular Volume 92.1 fL (80-94); Mean Platelet Vol. 10.4 fl (6.2-12.0); Platelet Count 230 K/mm3 (150-450); RBC Distribution Width CV 13.5 % (11.6-14.6); RBC Distribution Width SD 45.2 fl (35.1-43.9); Red Blood Count 4.29 M/mm3 (4.6-6.2); White Blood Count 8.1 K/mm3 (4.4-11.0)
[2020-12-10 15:52] LABS: Anion Gap 7 (5-15); BUN 19 mg/dL (7-18); BUN/Creat Ratio 23.7 RATIO (10-20); Calcium,Total 9.2 mg/dL (8.5-10.1); Chloride 106 mmol/L (98-107); EST Glomerular Filtration Rate 99 mL/min (>60); Est Glom Filt Rate - Afr Amer 120 mL/min (>60); Glucose 159 mg/dL (74-106); Potassium 4.1 mmol/L (3.5-5.1); Sodium Level 139 mmol/L (136-145)
== END ==
PROVIDERS: PCP Family Medicine; Referring Provider Nurse Practitioner Family; Visit Provider Nurse Practitioner Family
DX: N20.0 Calculus of kidney (principal); N39.0 Urinary tract infection, site not specified; K80.20 Calculus of gallbladder without cholecystitis without obstruction; K57.92 Diverticulitis of intestine, part unspecified, without perforation or abscess without bleeding
CPT/HCPCS: 36415; 74177; 80048; 85027; 87086; Q9967

== ENCOUNTER 2021-04-09 09:51 | Outpatient (CLI) | payer MEDICARE, OTHER, SELFPAY ==
[2021-04-09 12:14] LABS: Absolute Neutrophil Count 5.2 X10^3/uL (2.0-7.7); Basophil# 0.06 X10^3/uL; Basophil% 0.7 % (0-1); Eosinophil# 0.17 X10^3/uL; Hematocrit 42.8 % (40-54); Hemoglobin 14.5 g/dL (13.0-16.5); Lymphocyte % 26.4 % (19-41); Mean Corp Hgb Conc 33.9 g/dL (32-36); Mean Corpuscular Hgb 31.2 pg (27.0-32.0); Mean Platelet Vol. 10.2 fl (6.2-12.0); Monocyte# 0.61 X10^3/uL; Monocyte% 7.3 % (0-10); NRBC Flagged by Analyzer 0 % (0-5); Neutrophil # 5.19 X10^3/uL (2.7-7.7); Neutrophil % 62.5 % (47-70); Platelet Count 200 K/mm3 (150-450); RBC Distribution Width CV 13.2 % (11.6-14.6); RBC Distribution Width SD 44.4 fl (35.1-43.9); Red Blood Count 4.65 M/mm3 (4.6-6.2); White Blood Count 8.3 K/mm3 (4.4-11.0)
[2021-04-09 12:41] LABS: AST(SGOT) 20 U/L (15-37); Alanine Aminotransfer ALT/SGPT 33 U/L (16-61); Albumin, Serum 3.6 g/dL (3.2-5.0); Alkaline Phosphatase 85 U/L (45-117); Anion Gap 8 (5-15); BUN 14 mg/dL (7-18); BUN/Creat Ratio 16.1 RATIO (10-20); Chloride 106 mmol/L (98-107); Cholesterol 168 mg/dL (200); Creatinine, Serum 0.87 mg/dL (0.70-1.30); EST Glomerular Filtration Rate 91 mL/min (>60); Est Glom Filt Rate - Afr Amer 110 mL/min (>60); Globulin 3.6 g/dL (2.2-4.2); Glucose 209 mg/dL (74-106); High Density Lipoprotein 46 mg/dL; Potassium 3.9 mmol/L (3.5-5.1); Protein, Total 7.2 g/dL (6.4-8.2); Sodium Level 139 mmol/L (136-145); Triglycerides 240 mg/dL; Very Low Density Lipoprotein 48 mg/dL (5-40)
[2021-04-09 12:46] LABS: Hemoglobin A1c 7.6 % (3.8-5.6)
[2021-04-09 15:37] LABS: Microalbumin,Random Urine 23.9 mg/L (NO RANGE EST.); Microalbumin:Creatinine Ratio 23.9 mg/g CRE (<30 mg/g CRE)
== END 2021-04-09 23:59 | disposition home or self-care (01) ==
LOC: MTLAB 09:53
PROVIDERS: PCP Family Medicine; Referring Provider Family Medicine; Visit Provider Family Medicine
DX: E11.9 Type 2 diabetes mellitus without complications (principal)
CPT/HCPCS: 36415; 80053; 80061; 82043; 82570; 83036; 85025

== ENCOUNTER 2021-04-25 16:59 | Outpatient (CLI) | payer MEDICARE, OTHER, SELFPAY ==
--- NOTE | 2021-04-25 17:02 | RAD_ITS ---
STUDY: X-RAY - RIGHT KNEE REASON FOR EXAM: Male, 75 years old. Pain TECHNIQUE: 3 view(s) of the knee. COMPARISON: None. FINDINGS: Normal visualized distal femur. Normal visualized proximal tibia and fibula. Normal proximal tibiofibular articulation. Normal medial femorotibial compartment. Normal lateral femorotibial compartment. Normal patellofemoral articulation. There are atherosclerotic calcifications. RAD/Knee 3 Views IMPRESSION: Normal x-ray examination of the knee. Electronically Signed: Perry Pardo MD at 10:53 EST ,
--- NOTE | 2021-04-25 17:05 | RAD_ITS ---
STUDY: X-RAY - PELVIS AND RIGHT HIP REASON FOR EXAM: Male, 75 years old. Pain, decreased range of motion TECHNIQUE: 3 views of the pelvis and hip. COMPARISON: None. FINDINGS: There is a non-specific bowel gas pattern. Normal visualized soft tissue structures. There is diffuse demineralization of the osseous structures. There is narrowing with cortical sclerosis and osteophyte formation of the sacroiliac joint consistent with degenerative osteoarthritic changes. Normal bilateral superior and inferior pubic rami. Normal pubic symphysis. Normal bilateral ischial tuberosities. Normal visualized femoral head. Normal acetabulum. There is moderate articular joint space narrowing of the hip. RAD/HIP, UNI W/ Pelvis 2-3 Views IMPRESSION: Age consistent degenerative changes, no acute findings. However, hip and pelvic fractures in patients of this age can be subtle, if there is strong clinical suspicion of a fracture, recommend further evaluation with CT Electronically Signed: Perry Pardo MD at 10:53 EST ,
== END 2021-04-25 23:59 | disposition home or self-care (01) ==
LOC: MTRAD 17:01
PROVIDERS: PCP Family Medicine; Referring Provider Nurse Practitioner Family; Visit Provider Nurse Practitioner Family
DX: M25.551 Pain in right hip (principal); M25.561 Pain in right knee
CPT/HCPCS: 73502; 73562

== ENCOUNTER 2021-05-30 08:42 | Outpatient (CLI) | payer MEDICARE, OTHER, SELFPAY ==
--- NOTE | 2021-05-30 08:48 | ECHOCS_ITS ---
Reason For Study: MURMUR Procedure This was a 2D Doppler, Color Flow transthoracic echocardiogram. The study was technically difficult. Exam performed in department. Left Ventricle Normal LV size. Left ventricular systolic function is normal. The estimated ejection fraction is 60 %. Stage 1 diastolic dysfunction. No regional wall motion abnormalities noted. Right Ventricle Normal RV size. Normal systolic function. Atria Normal left atrium. Normal right atrium. Mitral Valve Normal mitral valve. Tricuspid Valve Normal tricuspid valve. Aortic Valve Trisinus/trileaflet aortic valve. Peak aortic valve gradient 21 mmHg. Mean aortic valve gradient 11 mmHg. Mild aortic stenosis. Pulmonic Valve The pulmonic valve is not well visualized. Great Vessels Normal aortic root. The pulmonary artery is normal size. Normal inferior vena cava. Pericardium/Pleural No pericardial effusion. Medication 22 gauge I.V. with prn adaptor inserted into right arm. Diluted definity 3ml given slow IV push to enhance endocardial definition. MMode/2D Measurements & Calculations RVDd: 3.4 cm LVOT diam: 2.1 cm Ao root diam: 3.6 cm LVOT area: 3.3 cm2 LAV(MOD-sp4): 44.7 ml LVAd ap4: 34.0 cm2 LVAd ap2: 31.6 cm2 LVLd ap4: 8.2 cm LVLd ap2: 8.6 cm EDV(MOD-sp4): 113.0 ml EDV(MOD-sp2): 95.2 ml EDV(sp4-el): 120.0 ml EDV(sp2-el): 97.7 ml LVAs ap4: 20.6 cm2 LVAs ap2: 19.1 cm2 LVLs ap4: 7.5 cm LVLs ap2: 7.9 cm ESV(MOD-sp4): 50.7 ml ESV(MOD-sp2): 40.6 ml ESV(sp4-el): 48.0 ml ESV(sp2-el): 39.3 ml EF(MOD-sp4): 55.1 % EF(MOD-sp2): 57.3 % EF(sp4-el): 60.0 % SV(MOD-sp4): 62.3 ml SV(MOD-sp2): 54.6 ml SV(sp4-el): 72.0 ml LA A4 area: 16.6 cm2 LA dimension(2D): 4.3 cm RA A4 area: 7.7 cm2 Doppler Measurements & Calculations MV E max jose angel: 85.8 cm/sec Lat Peak E' Jose Angel: 3.8 cm/sec Med Peak E' Jose Angel: 2.8 cm/sec MV A max jose angel: 139.6 cm/sec E/E' lat: 22.5 E/E' med: 30.8 MV E/A: 0.61 MV V2 max: 133.3 cm/sec Ao V2 max: 231.4 cm/sec LV V1 max: 88.0 cm/sec MV max P.1 mmHg Ao max P.4 mmHg LV V1 max P.1 mmHg MV V2 mean: 82.7 cm/sec Ao V2 mean: 155.1 cm/sec LV V1 mean P.3 mmHg MV mean P.1 mmHg Ao mean P.2 mmHg LV V1 mean: 52.7 cm/sec MV V2 VTI: 25.3 cm Ao V2 VTI: 39.5 cm LV V1 VTI: 15.8 cm MVA(VTI): 2.1 cm2 TRACY(I,D): 1.3 cm2 TRACY(V,D): 1.3 cm2 SV(LVOT): 52.4 ml PA V2 max: 121.2 cm/sec ECHO/Echo Complete W/ Contrast Interpretation Summary Normal LV size. Left ventricular systolic function is normal. The estimated ejection fraction is 60 %. Stage 1 diastolic dysfunction. Mild aortic stenosis. Mean aortic valve gradient 11 mmHg. Contrast injection was performed. Ordering Physician: Leti^Anup^Lennie^^ Referring Physician: Anup Landeros Performed By: Pinky Mora RCS
== END 2021-05-30 23:59 | disposition home or self-care (01) ==
LOC: CVS 08:44
PROVIDERS: PCP Family Medicine; Referring Provider Family Medicine; Visit Provider Family Medicine
DX: R01.1 Cardiac murmur, unspecified (principal)
CPT/HCPCS: 93306; Q9957; A4216; C8929

== ENCOUNTER → 2021-07-31 | Outpatient (CLI) | payer MEDICARE, OTHER, SELFPAY ==
[2021-07-31 10:21] LABS: Absolute Lymphocyte Count 2.72 X10^3/uL (0.83-4.51); Absolute Neutrophil Count 4.6 X10^3/uL (2.0-7.7); Basophil# 0.05 X10^3/uL; Basophil% 0.6 % (0-1); Eosinophil# 0.44 X10^3/uL; Eosinophils% 5.1 % (0-5); Hemoglobin 14.8 g/dL (13.0-16.5); Lymphocyte # 2.72 X10^3/ul (0.83-4.51); Lymphocyte % 31.4 % (19-41); Mean Corp Hgb Conc 32.9 g/dL (32-36); Mean Corpuscular Hgb 30.4 pg (27.0-32.0); Mean Corpuscular Volume 92.4 fL (80-94); Mean Platelet Vol. 10.1 fl (6.2-12.0); Monocyte# 0.79 X10^3/uL; Monocyte% 9.1 % (0-10); NRBC Flagged by Analyzer 0 % (0-5); Neutrophil # 4.56 X10^3/uL (2.7-7.7); Neutrophil % 52.6 % (47-70); Platelet Count 206 K/mm3 (150-450); RBC Distribution Width CV 13.8 % (11.6-14.6); RBC Distribution Width SD 46.5 fl (35.1-43.9); Red Blood Count 4.87 M/mm3 (4.6-6.2); White Blood Count 8.7 K/mm3 (4.4-11.0)
[2021-07-31 10:39] LABS: Hemoglobin A1c 6.7 % (3.8-5.6); Vitamin D,25 Hydroxy 30.5 ng/mL
[2021-07-31 10:41] LABS: AST(SGOT) 15 U/L (15-37); Alanine Aminotransfer ALT/SGPT 28 U/L (16-61); Albumin, Serum 3.7 g/dL (3.2-5.0); Alkaline Phosphatase 94 U/L (45-117); Anion Gap 8 (5-15); BUN 14 mg/dL (7-18); Calcium,Total 9.3 mg/dL (8.5-10.1); Chloride 108 mmol/L (98-107); Cholesterol 139 mg/dL (200); Creatinine, Serum 0.93 mg/dL (0.70-1.30); EST Glomerular Filtration Rate 83 mL/min (>60); Est Glom Filt Rate - Afr Amer 101 mL/min (>60); Globulin 3.6 g/dL (2.2-4.2); Glucose 159 mg/dL (74-106); High Density Lipoprotein 41 mg/dL; Potassium 3.9 mmol/L (3.5-5.1); Protein, Total 7.3 g/dL (6.4-8.2); Sodium Level 140 mmol/L (136-145); Triglycerides 155 mg/dL; Very Low Density Lipoprotein 31 mg/dL (5-40)
[2021-07-31 18:26] LABS: Microalbumin,Random Urine 8.4 mg/L (NO RANGE EST.)
== END | disposition home or self-care (01) ==
LOC: MTLAB 08:09
PROVIDERS: PCP Family Medicine; Referring Provider Family Medicine; Visit Provider Family Medicine
DX: E11.9 Type 2 diabetes mellitus without complications (principal); E55.9 Vitamin D deficiency, unspecified
CPT/HCPCS: 36415; 80053; 80061; 82043; 82306; 82570; 83036; 85025

== ENCOUNTER → 2021-11-06 | Outpatient (CLI) | payer MEDICARE, OTHER, SELFPAY ==
[2021-11-06 12:18] LABS: Absolute Lymphocyte Count 2.28 X10^3/uL (0.83-4.51); Absolute Neutrophil Count 5.3 X10^3/uL (2.0-7.7); Basophil# 0.05 X10^3/uL; Basophil% 0.6 % (0-1); Eosinophil# 0.15 X10^3/uL; Eosinophils% 1.7 % (0-5); Hematocrit 48.1 % (40-54); Hemoglobin 15.6 g/dL (13.0-16.5); Lymphocyte # 2.28 X10^3/ul (0.83-4.51); Lymphocyte % 26.4 % (19-41); Mean Corp Hgb Conc 32.4 g/dL (32-36); Mean Corpuscular Hgb 30.1 pg (27.0-32.0); Mean Corpuscular Volume 92.9 fL (80-94); Mean Platelet Vol. 10.3 fl (6.2-12.0); Monocyte# 0.72 X10^3/uL; Monocyte% 8.3 % (0-10); NRBC Flagged by Analyzer 0 % (0-5); Neutrophil # 5.33 X10^3/uL (2.7-7.7); Neutrophil % 61.8 % (47-70); Platelet Count 195 K/mm3 (150-450); RBC Distribution Width CV 14.6 % (11.6-14.6); RBC Distribution Width SD 49.7 fl (35.1-43.9); Red Blood Count 5.18 M/mm3 (4.6-6.2); White Blood Count 8.6 K/mm3 (4.4-11.0)
[2021-11-06 12:33] LABS: Vitamin D,25 Hydroxy 32.3 ng/mL
[2021-11-06 12:42] LABS: AST(SGOT) 14 U/L (15-37); Alanine Aminotransfer ALT/SGPT 27 U/L (16-61); Albumin, Serum 3.6 g/dL (3.2-5.0); Alkaline Phosphatase 95 U/L (45-117); Anion Gap 7 (5-15); BUN 17 mg/dL (7-18); BUN/Creat Ratio 16.7 RATIO (10-20); Calcium,Total 9.5 mg/dL (8.5-10.1); Chloride 108 mmol/L (98-107); Cholesterol 159 mg/dL (200); Creatinine, Serum 1.02 mg/dL (0.70-1.30); EST Glomerular Filtration Rate 75 mL/min (>60); Est Glom Filt Rate - Afr Amer 91 mL/min (>60); Globulin 3.6 g/dL (2.2-4.2); Glucose 157 mg/dL (74-106); High Density Lipoprotein 42 mg/dL; Potassium 4.2 mmol/L (3.5-5.1); Protein, Total 7.2 g/dL (6.4-8.2); Sodium Level 140 mmol/L (136-145); Triglycerides 211 mg/dL; Very Low Density Lipoprotein 42 mg/dL (5-40)
[2021-11-06 13:06] LABS: Hemoglobin A1c 7.3 % (3.8-5.6)
== END | disposition home or self-care (01) ==
LOC: MFPLAB 10:30
PROVIDERS: PCP Family Medicine; Referring Provider Family Medicine; Visit Provider Family Medicine
DX: E11.69 Type 2 diabetes mellitus with other specified complication (principal); E55.9 Vitamin D deficiency, unspecified
CPT/HCPCS: 36415; 80053; 80061; 82306; 83036; 85025

== ENCOUNTER → 2022-04-02 | Outpatient (CLI) | payer MEDICARE, OTHER, SELFPAY ==
[2022-04-02 10:13] LABS: Absolute Lymphocyte Count 2.72 X10^3/uL (0.83-4.51); Absolute Neutrophil Count 4.2 X10^3/uL (2.0-7.7); Basophil# 0.06 X10^3/uL; Basophil% 0.7 % (0-1); Eosinophil# 0.31 X10^3/uL; Eosinophils% 3.7 % (0-5); Hematocrit 48.8 % (40-54); Hemoglobin 15.8 g/dL (13.0-16.5); Lymphocyte # 2.72 X10^3/ul (0.83-4.51); Lymphocyte % 32.9 % (19-41); Mean Corp Hgb Conc 32.4 g/dL (32-36); Mean Corpuscular Hgb 30.6 pg (27.0-32.0); Mean Corpuscular Volume 94.4 fL (80-94); Mean Platelet Vol. 10.1 fl (6.2-12.0); Monocyte# 0.88 X10^3/uL; Monocyte% 10.6 % (0-10); NRBC Flagged by Analyzer 0 % (0-5); Neutrophil % 50.9 % (47-70); Platelet Count 186 K/mm3 (150-450); RBC Distribution Width SD 48.6 fl (35.1-43.9); Red Blood Count 5.17 M/mm3 (4.6-6.2); White Blood Count 8.3 K/mm3 (4.4-11.0)
[2022-04-02 10:27] LABS: Vitamin D,25 Hydroxy 47.5 ng/mL
[2022-04-02 10:30] LABS: Hemoglobin A1c 6.8 % (3.8-5.6)
[2022-04-02 10:36] LABS: AST(SGOT) 17 U/L (15-37); Alanine Aminotransfer ALT/SGPT 25 U/L (16-61); Albumin, Serum 3.7 g/dL (3.2-5.0); Alkaline Phosphatase 90 U/L (45-117); Anion Gap 7 (5-15); BUN 18 mg/dL (7-18); Calcium,Total 9.3 mg/dL (8.5-10.1); Chloride 110 mmol/L (98-107); Cholesterol 158 mg/dL (200); EST Glomerular Filtration Rate 77 mL/min (>60); Est Glom Filt Rate - Afr Amer 93 mL/min (>60); Globulin 3.6 g/dL (2.2-4.2); Glucose 154 mg/dL (74-106); High Density Lipoprotein 39 mg/dL; Potassium 4.3 mmol/L (3.5-5.1); Protein, Total 7.3 g/dL (6.4-8.2); Sodium Level 142 mmol/L (136-145); Thyroid Stim Hormone (TSH) 1.74 uIU/mL (0.358-3.74); Triglycerides 185 mg/dL; Very Low Density Lipoprotein 37 mg/dL (5-40)
[2022-04-02 10:39] LABS: Microalbumin,Random Urine 6.6 mg/L (NO RANGE EST.); Microalbumin:Creatinine Ratio 7.4 mg/g CRE (<30 mg/g CRE)
== END | disposition home or self-care (01) ==
PROVIDERS: PCP Family Medicine; Referring Provider Family Medicine; Visit Provider Family Medicine
DX: E11.9 Type 2 diabetes mellitus without complications (principal); E55.9 Vitamin D deficiency, unspecified
CPT/HCPCS: 36415; 80053; 80061; 82043; 82306; 82570; 83036; 84443; 85025

== ENCOUNTER → 2022-07-07 | Outpatient (CLI) | payer MEDICARE, OTHER, SELFPAY ==
[2022-07-07 10:27] LABS: Absolute Lymphocyte Count 2.37 X10^3/uL (0.83-4.51); Absolute Neutrophil Count 4.4 X10^3/uL (2.0-7.7); Basophil# 0.05 X10^3/uL; Basophil% 0.6 % (0-1); Eosinophil# 0.14 X10^3/uL; Eosinophils% 1.8 % (0-5); Hematocrit 49.3 % (40-54); Hemoglobin 16.2 g/dL (13.0-16.5); Lymphocyte # 2.37 X10^3/ul (0.83-4.51); Lymphocyte % 30.7 % (19-41); Mean Corp Hgb Conc 32.9 g/dL (32-36); Mean Corpuscular Hgb 31.3 pg (27.0-32.0); Mean Corpuscular Volume 95.4 fL (80-94); Mean Platelet Vol. 9.9 fl (6.2-12.0); Monocyte# 0.69 X10^3/uL; Monocyte% 8.9 % (0-10); NRBC Flagged by Analyzer 0 % (0-5); Neutrophil # 4.39 X10^3/uL (2.7-7.7); Neutrophil % 56.8 % (47-70); Platelet Count 178 K/mm3 (150-450); RBC Distribution Width CV 14.1 % (11.6-14.6); RBC Distribution Width SD 49.9 fl (35.1-43.9); Red Blood Count 5.17 M/mm3 (4.6-6.2); White Blood Count 7.7 K/mm3 (4.4-11.0)
[2022-07-07 10:42] LABS: Vitamin D,25 Hydroxy 65.7 ng/mL
[2022-07-07 10:50] LABS: ALB/GLOB Ratio 1.1 RATIO (0.9-2.4); AST(SGOT) 17 U/L (15-37); Alanine Aminotransfer ALT/SGPT 28 U/L (16-61); Albumin, Serum 3.7 g/dL (3.2-5.0); Alkaline Phosphatase 92 U/L (45-117); Anion Gap 6 (5-15); BUN 16 mg/dL (7-18); BUN/Creat Ratio 17.4 RATIO (10-20); Calcium,Total 9.2 mg/dL (8.5-10.1); Chloride 109 mmol/L (98-107); Cholesterol 157 mg/dL (200); Creatinine, Serum 0.92 mg/dL (0.70-1.30); EST Glomerular Filtration Rate 84 mL/min (>60); Est Glom Filt Rate - Afr Amer 102 mL/min (>60); Globulin 3.5 g/dL (2.2-4.2); Glucose 150 mg/dL (74-106); High Density Lipoprotein 44 mg/dL; PSA,Total - Annual Screen 0.77 ng/mL (0.00-4.00); Potassium 3.9 mmol/L (3.5-5.1); Protein, Total 7.2 g/dL (6.4-8.2); Sodium Level 141 mmol/L (136-145); Triglycerides 194 mg/dL; Very Low Density Lipoprotein 39 mg/dL (5-40)
[2022-07-07 10:55] LABS: Hemoglobin A1c 6.9 % (3.8-5.6)
== END | disposition home or self-care (01) ==
LOC: MTLAB 08:30
PROVIDERS: PCP Family Medicine; Referring Provider Urology; Visit Provider Urology
DX: Z12.5 Encounter for screening for malignant neoplasm of prostate (principal); E11.9 Type 2 diabetes mellitus without complications; E55.9 Vitamin D deficiency, unspecified
CPT/HCPCS: 36415; 80053; 80061; 82306; 83036; 84153; 85025; G0103

== ENCOUNTER → 2022-09-22 | Outpatient (CLI) | payer MEDICARE, OTHER, SELFPAY ==
[2022-09-22 10:15] LABS: Absolute Lymphocyte Count 2.56 X10^3/uL (0.83-4.51); Absolute Neutrophil Count 7.7 X10^3/uL (2.0-7.7); Basophil# 0.04 X10^3/uL; Basophil% 0.4 % (0-1); Eosinophil# 0.19 X10^3/uL; Eosinophils% 1.7 % (0-5); Hematocrit 48.2 % (40-54); Hemoglobin 16.4 g/dL (13.0-16.5); Lymphocyte # 2.56 X10^3/ul (0.83-4.51); Lymphocyte % 22.6 % (19-41); Mean Corpuscular Hgb 31.7 pg (27.0-32.0); Mean Corpuscular Volume 93.2 fL (80-94); Mean Platelet Vol. 9.9 fl (6.2-12.0); Monocyte# 0.77 X10^3/uL; Monocyte% 6.8 % (0-10); NRBC Flagged by Analyzer 0 % (0-5); Neutrophil # 7.67 X10^3/uL (2.7-7.7); Neutrophil % 67.7 % (47-70); Platelet Count 176 K/mm3 (150-450); RBC Distribution Width CV 13.8 % (11.6-14.6); RBC Distribution Width SD 47.6 fl (35.1-43.9); Red Blood Count 5.17 M/mm3 (4.6-6.2); White Blood Count 11.3 K/mm3 (4.4-11.0)
[2022-09-22 10:38] LABS: Microalbumin,Random Urine 8.1 mg/L (NO RANGE EST.)
[2022-09-22 10:39] LABS: ALB/GLOB Ratio 1.1 RATIO (0.9-2.4); AST(SGOT) 17 U/L (15-37); Alanine Aminotransfer ALT/SGPT 26 U/L (16-61); Albumin, Serum 3.7 g/dL (3.2-5.0); Alkaline Phosphatase 98 U/L (45-117); Anion Gap 5 (5-15); BUN 13 mg/dL (7-18); BUN/Creat Ratio 14.3 RATIO (10-20); Calcium,Total 9.1 mg/dL (8.5-10.1); Chloride 106 mmol/L (98-107); Cholesterol 159 mg/dL (200); Creatinine, Serum 0.91 mg/dL (0.70-1.30); EST Glomerular Filtration Rate 85 mL/min (>60); Est Glom Filt Rate - Afr Amer 103 mL/min (>60); Globulin 3.4 g/dL (2.2-4.2); Glucose 156 mg/dL (74-106); Hemoglobin A1c 6.3 % (3.8-5.6); High Density Lipoprotein 40 mg/dL; Potassium 3.8 mmol/L (3.5-5.1); Protein, Total 7.1 g/dL (6.4-8.2); Sodium Level 136 mmol/L (136-145); Triglycerides 244 mg/dL; Very Low Density Lipoprotein 49 mg/dL (5-40)
[2022-09-22 11:58] LABS: Vitamin D,25 Hydroxy 70.7 ng/mL
== END | disposition home or self-care (01) ==
PROVIDERS: PCP Family Medicine; Referring Provider Family Medicine; Visit Provider Family Medicine
DX: E11.69 Type 2 diabetes mellitus with other specified complication (principal); E55.9 Vitamin D deficiency, unspecified
CPT/HCPCS: 36415; 80053; 80061; 82043; 82306; 82570; 83036; 85025

== ENCOUNTER → 2022-11-12 | Outpatient (CLI) | payer MEDICARE, OTHER, SELFPAY ==
[2022-11-14 14:08] LABS: Deamidated Gliadin IgA 5 units (0-19); Deamidated Gliadin IgG 3 units (0-19); Endomysial Antibody IgA Negative (Negative); Immunoglobulin A 347 mg/dL (61-437); t-Transglutaminase IgA <2 U/mL (0-3)
[2022-11-17 19:08] LABS: Fats, Neutral Normal (.); Fats, Total Normal (.)
[2022-11-20 14:09] LABS: Pancreatic Elastase, Fecal 58 (>200)
== END | disposition home or self-care (01) ==
PROVIDERS: PCP Family Medicine; Referring Provider Family Medicine; Visit Provider Family Medicine
DX: R19.7 Diarrhea, unspecified (principal)
CPT/HCPCS: 36415; 82653; 82705; 82784; 83516; 83630; 86255

== ENCOUNTER → 2022-12-26 | Outpatient (CLI) | payer MEDICARE, OTHER, SELFPAY ==
[2022-12-26 10:12] LABS: Absolute Lymphocyte Count 2.38 X10^3/uL (0.83-4.51); Absolute Neutrophil Count 3.8 X10^3/uL (2.0-7.7); Basophil# 0.05 X10^3/uL; Basophil% 0.7 % (0-1); Eosinophil# 0.22 X10^3/uL; Hematocrit 48.4 % (40-54); Lymphocyte # 2.38 X10^3/ul (0.83-4.51); Lymphocyte % 32.6 % (19-41); Mean Corp Hgb Conc 33.1 g/dL (32-36); Mean Corpuscular Hgb 31.3 pg (27.0-32.0); Mean Corpuscular Volume 94.5 fL (80-94); Mean Platelet Vol. 10.2 fl (6.2-12.0); Monocyte# 0.74 X10^3/uL; Monocyte% 10.1 % (0-10); NRBC Flagged by Analyzer 0 % (0-5); Neutrophil # 3.84 X10^3/uL (2.7-7.7); Neutrophil % 52.5 % (47-70); Platelet Count 170 K/mm3 (150-450); RBC Distribution Width CV 13.6 % (11.6-14.6); RBC Distribution Width SD 47.6 fl (35.1-43.9); Red Blood Count 5.12 M/mm3 (4.6-6.2); White Blood Count 7.3 K/mm3 (4.4-11.0)
[2022-12-26 10:32] LABS: AST(SGOT) 14 U/L (15-37); Alanine Aminotransfer ALT/SGPT 27 U/L (16-61); Albumin, Serum 3.5 g/dL (3.2-5.0); Alkaline Phosphatase 80 U/L (45-117); Anion Gap 4 (5-15); BUN 17 mg/dL (7-18); BUN/Creat Ratio 17.7 RATIO (10-20); Calcium,Total 9.1 mg/dL (8.5-10.1); Chloride 109 mmol/L (98-107); Cholesterol 162 mg/dL (200); Creatinine, Serum 0.96 mg/dL (0.70-1.30); EST Glomerular Filtration Rate 80 mL/min (>60); Est Glom Filt Rate - Afr Amer 97 mL/min (>60); Globulin 3.4 g/dL (2.2-4.2); Glucose 169 mg/dL (74-106); High Density Lipoprotein 44 mg/dL; Potassium 4.3 mmol/L (3.5-5.1); Protein, Total 6.9 g/dL (6.4-8.2); Sodium Level 138 mmol/L (136-145); Triglycerides 138 mg/dL; Very Low Density Lipoprotein 28 mg/dL (5-40)
[2022-12-26 10:33] LABS: Hemoglobin A1c 7.2 % (3.8-5.6)
[2022-12-26 10:36] LABS: Vitamin D,25 Hydroxy 85.1 ng/mL
[2022-12-26 10:46] LABS: Microalbumin,Random Urine < 5.0 mg/L (NO RANGE EST.)
== END | disposition home or self-care (01) ==
LOC: MTLAB 08:33
PROVIDERS: PCP Family Medicine; Referring Provider Family Medicine; Visit Provider Family Medicine
DX: E11.8 Type 2 diabetes mellitus with unspecified complications (principal); E55.9 Vitamin D deficiency, unspecified
CPT/HCPCS: 36415; 80053; 80061; 82043; 82306; 82570; 83036; 85025

== ENCOUNTER → 2023-03-30 | Outpatient (CLI) | payer MEDICARE, OTHER, SELFPAY ==
--- OUTSIDE RECORDS SUMMARY | 2023-03-30 08:56 | XMS RPT_ITS | CCD ---
Author Name Unknown Address [address] [place] [address] [facility], [place] [address] [place] [address] Organization [facility] Care Team Providers Care Election Assistant Name Role Phone KATHY APONTE Attending KATHY Kendall Primary Care Unavailable KATHY APONTE Admitting Unavailable Problems Problem Classification Problem Date Documented Da te Episodic/Chronic Unclassified (2 sources) Invalid ICD10 Description; Translations: [Invalid ICD10 Description] Onset: 03-08-2020 Unclassified (1 source) COVID-19; Translations: [COVID-19] Onset: 03-08-2020 Results Test Name Value Interpretation Reference Range Facil ity Encounters Encounter Date Encounter Type Care Provider Facility Start: 03-08-2020 End: 03-08-2020 Patient encounter procedure KATHY APONTE [facility] Payers Date Payer Category Payer Unknown [id number] Medicare [id number] Unknown [id number] Summary Purpose Family History No Family History Records Found Advance Directives No Advanced Directives Records Found Additional Source Comments (unrecognized sect ion and content) No Status Records Found INFORMATION SOURCE (unrecogn ized section and content) FOR RECORDS PERTAINING TO PATIENTS WHO ARE OR HAVE BEEN ENROLLED IN A CHEMICAL DEPENDENCY/SUBSTANCEABUSE PROGRAM, SOME INFORMATION MAY BE OMITTED. This clinical summary was aggregated from multiple sources. Caution should be exercised in using it in the provision of clinical care. This summary normalizes information from multiple sources, and as a consequence, information in this document may materially change the coding, format and clinical context of patient data. In addition, data may be omitted in some cases. CLINICAL DECISIONS SHOULD BE BASED ON THE PRIMARY CLINICAL RECORDS. [facility] [email or web address] [facility]. provides no warranty or guarantee of the accuracy or completeness of information in this document.
[2023-03-30 10:15] LABS: Absolute Lymphocyte Count 2.53 X10^3/uL (0.83-4.51); Absolute Neutrophil Count 4.3 X10^3/uL (2.0-7.7); Basophil# 0.07 X10^3/uL; Basophil% 0.9 % (0-1); Eosinophil# 0.29 X10^3/uL; Eosinophils% 3.6 % (0-5); Hematocrit 46.3 % (40-54); Hemoglobin 15.5 g/dL (13.0-16.5); Lymphocyte # 2.53 X10^3/ul (0.83-4.51); Lymphocyte % 31.7 % (19-41); Mean Corp Hgb Conc 33.5 g/dL (32-36); Mean Corpuscular Hgb 31.3 pg (27.0-32.0); Mean Corpuscular Volume 93.3 fL (80-94); Mean Platelet Vol. 10.1 fl (6.2-12.0); Monocyte# 0.69 X10^3/uL; Monocyte% 8.7 % (0-10); NRBC Flagged by Analyzer 0 % (0-5); Neutrophil # 4.31 X10^3/uL (2.7-7.7); Neutrophil % 54.1 % (47-70); Platelet Count 166 K/mm3 (150-450); RBC Distribution Width CV 13.4 % (11.6-14.6); RBC Distribution Width SD 45.3 fl (35.1-43.9); Red Blood Count 4.96 M/mm3 (4.6-6.2)
[2023-03-30 10:32] LABS: Vitamin D,25 Hydroxy 114.8 ng/mL
[2023-03-30 10:47] LABS: ALB/GLOB Ratio 0.9 RATIO (0.9-2.4); AST(SGOT) 14 U/L (15-37); Alanine Aminotransfer ALT/SGPT 23 U/L (16-61); Albumin, Serum 3.5 g/dL (3.2-5.0); Alkaline Phosphatase 90 U/L (45-117); Anion Gap 6 (5-15); BUN 17 mg/dL (7-18); BUN/Creat Ratio 17.6 RATIO (10-20); Calcium,Total 9.6 mg/dL (8.5-10.1); Chloride 109 mmol/L (98-107); Cholesterol 177 mg/dL (200); Creatinine, Serum 0.97 mg/dL (0.70-1.30); EST Glomerular Filtration Rate 79 mL/min (>60); Est Glom Filt Rate - Afr Amer 96 mL/min (>60); Globulin 3.9 g/dL (2.2-4.2); Glucose 161 mg/dL (74-106); High Density Lipoprotein 48 mg/dL; Protein, Total 7.4 g/dL (6.4-8.2); Sodium Level 139 mmol/L (136-145); Triglycerides 192 mg/dL; Very Low Density Lipoprotein 38 mg/dL (5-40)
[2023-03-30 12:00] LABS: Hemoglobin A1c 7.4 % (3.8-5.6)
== END | disposition home or self-care (01) ==
LOC: MTLAB 08:22
PROVIDERS: PCP Family Medicine; Referring Provider Family Medicine; Visit Provider Family Medicine
DX: E11.8 Type 2 diabetes mellitus with unspecified complications (principal); E55.9 Vitamin D deficiency, unspecified
CPT/HCPCS: 36415; 80053; 80061; 82306; 83036; 85025

== ENCOUNTER 2023-06-18 17:30 | Outpatient (RCR) | payer SELFPAY | END 2023-06-23 23:59 | LOC: NS 17:30 | PROVIDERS: PCP Family Medicine | DX: Z71.3 Dietary counseling and surveillance (principal) ==

== ENCOUNTER → 2023-06-29 | Outpatient (CLI) | payer MEDICARE, OTHER, SELFPAY ==
[2023-06-29 10:30] LABS: Absolute Lymphocyte Count 2.45 X10^3/uL (0.83-4.51); Absolute Neutrophil Count 3.7 X10^3/uL (2.0-7.7); Basophil# 0.06 X10^3/uL; Basophil% 0.8 % (0-1); Eosinophil# 0.13 X10^3/uL; Eosinophils% 1.8 % (0-5); Hematocrit 47.5 % (40-54); Hemoglobin 15.8 g/dL (13.0-16.5); Lymphocyte # 2.45 X10^3/ul (0.83-4.51); Lymphocyte % 34.6 % (19-41); Mean Corp Hgb Conc 33.3 g/dL (32-36); Mean Corpuscular Hgb 30.9 pg (27.0-32.0); Monocyte# 0.68 X10^3/uL; Monocyte% 9.6 % (0-10); NRBC Flagged by Analyzer 0 % (0-5); Neutrophil # 3.69 X10^3/uL (2.7-7.7); Neutrophil % 52.2 % (47-70); Platelet Count 175 K/mm3 (150-450); RBC Distribution Width CV 13.7 % (11.6-14.6); RBC Distribution Width SD 46.5 fl (35.1-43.9); Red Blood Count 5.11 M/mm3 (4.6-6.2); White Blood Count 7.1 K/mm3 (4.4-11.0)
[2023-06-29 11:02] LABS: Hemoglobin A1c 7.3 % (3.8-5.6)
[2023-06-29 11:29] LABS: ALB/GLOB Ratio 1.1 RATIO (0.9-2.4); AST(SGOT) 16 U/L (15-37); Alanine Aminotransfer ALT/SGPT 21 U/L (16-61); Albumin, Serum 3.6 g/dL (3.2-5.0); Alkaline Phosphatase 69 U/L (45-117); Anion Gap 4 (5-15); BUN 17 mg/dL (7-18); BUN/Creat Ratio 20.6 RATIO (10-20); Calcium,Total 9.5 mg/dL (8.5-10.1); Chloride 108 mmol/L (98-107); Cholesterol 163 mg/dL (200); Creatinine, Serum 0.83 mg/dL (0.70-1.30); EST Glomerular Filtration Rate 95 mL/min (>60); Est Glom Filt Rate - Afr Amer 115 mL/min (>60); Globulin 3.2 g/dL (2.2-4.2); Glucose 163 mg/dL (74-106); High Density Lipoprotein 47 mg/dL; Potassium 4.6 mmol/L (3.5-5.1); Protein, Total 6.8 g/dL (6.4-8.2); Sodium Level 137 mmol/L (136-145); Triglycerides 155 mg/dL; Very Low Density Lipoprotein 31 mg/dL (5-40)
== END | disposition home or self-care (01) ==
PROVIDERS: PCP Family Medicine; Referring Provider Family Medicine; Visit Provider Family Medicine
DX: E11.8 Type 2 diabetes mellitus with unspecified complications (principal); E55.9 Vitamin D deficiency, unspecified
CPT/HCPCS: 36415; 80053; 80061; 82306; 83036; 85025

== ENCOUNTER → 2023-07-09 | Outpatient (CLI) | payer MEDICARE, OTHER, SELFPAY | END | disposition home or self-care (01) | LOC: MTLAB 15:06 | PROVIDERS: PCP Family Medicine; Referring Provider Urology; Visit Provider Urology | DX: R97.20 Elevated prostate specific antigen [PSA] (principal) | CPT/HCPCS: 36415; 84153 ==

== ENCOUNTER → 2023-08-10 | Outpatient (CLI) | payer MEDICARE, OTHER, SELFPAY ==
[2023-08-10 12:45] LABS: Vitamin D,25 Hydroxy 62.6 ng/mL
[2023-08-10 12:46] LABS: Absolute Lymphocyte Count 2.14 X10^3/uL (0.83-4.51); Absolute Neutrophil Count 4.3 X10^3/uL (2.0-7.7); Basophil# 0.06 X10^3/uL; Basophil% 0.8 % (0-1); Eosinophil# 0.11 X10^3/uL; Eosinophils% 1.5 % (0-5); Hematocrit 45.5 % (40-54); Hemoglobin 15.1 g/dL (13.0-16.5); Lymphocyte # 2.14 X10^3/ul (0.83-4.51); Lymphocyte % 29.2 % (19-41); Mean Corp Hgb Conc 33.2 g/dL (32-36); Mean Corpuscular Hgb 31.1 pg (27.0-32.0); Mean Corpuscular Volume 93.8 fL (80-94); Mean Platelet Vol. 10.6 fl (6.2-12.0); Monocyte# 0.62 X10^3/uL; Monocyte% 8.5 % (0-10); NRBC Flagged by Analyzer 0 % (0-5); Neutrophil # 4.33 X10^3/uL (2.7-7.7); Platelet Count 186 K/mm3 (150-450); RBC Distribution Width CV 13.9 % (11.6-14.6); RBC Distribution Width SD 47.4 fl (35.1-43.9); Red Blood Count 4.85 M/mm3 (4.6-6.2); White Blood Count 7.3 K/mm3 (4.4-11.0)
[2023-08-10 12:50] LABS: Hemoglobin A1c 7.2 % (3.8-5.6)
[2023-08-10 13:42] LABS: ALB/GLOB Ratio 1.1 RATIO (0.9-2.4); AST(SGOT) 18 U/L (15-37); Alanine Aminotransfer ALT/SGPT 22 U/L (16-61); Albumin, Serum 3.5 g/dL (3.2-5.0); Alkaline Phosphatase 69 U/L (45-117); Anion Gap 9 (5-15); BUN 22 mg/dL (7-18); BUN/Creat Ratio 21.6 RATIO (10-20); Calcium,Total 9.6 mg/dL (8.5-10.1); Chloride 108 mmol/L (98-107); Cholesterol 164 mg/dL (200); Creatinine, Serum 1.02 mg/dL (0.70-1.30); EST Glomerular Filtration Rate 75 mL/min (>60); Est Glom Filt Rate - Afr Amer 90 mL/min (>60); Globulin 3.2 g/dL (2.2-4.2); Glucose 184 mg/dL (74-106); High Density Lipoprotein 43 mg/dL; Potassium 3.6 mmol/L (3.5-5.1); Protein, Total 6.7 g/dL (6.4-8.2); Sodium Level 140 mmol/L (136-145); Triglycerides 190 mg/dL; Very Low Density Lipoprotein 38 mg/dL (5-40)
== END | disposition home or self-care (01) ==
LOC: MFPLAB 09:44
PROVIDERS: PCP Family Medicine; Visit Provider Family Medicine
DX: E11.8 Type 2 diabetes mellitus with unspecified complications (principal); E55.9 Vitamin D deficiency, unspecified
CPT/HCPCS: 36415; 80053; 80061; 82306; 83036; 85025

== ENCOUNTER → 2023-08-31 | Outpatient (CLI) | payer MEDICARE, OTHER, SELFPAY ==
--- NOTE | 2023-08-31 11:02 | ECHOD_ITS ---
Reason For Study: AORTIC STENOSIS Procedure This was a 2D Doppler, Color Flow transthoracic echocardiogram. The study was technically difficult. Exam performed in department. Left Ventricle Normal LV size. Left ventricular systolic function is normal. Stage 1 diastolic dysfunction. No regional wall motion abnormalities noted. Right Ventricle Normal RV size. Normal systolic function. Atria Normal left atrium. Normal right atrium. Mitral Valve There is mild mitral annular calcification. Tricuspid Valve Normal tricuspid valve. Aortic Valve Trisinus/trileaflet aortic valve. Mild focal aortic valve calcification. Peak aortic valve gradient 27 mmHg. Mean aortic valve gradient 16 mmHg. Mild aortic stenosis. Pulmonic Valve Normal pulmonic valve. Great Vessels Normal aortic root. The pulmonary artery is normal size. Normal inferior vena cava. Pericardium/Pleural No pericardial effusion. MMode/2D Measurements & Calculations LVIDd: 4.0 cm IVSd: 0.97 cm LVOT diam: 2.1 cm LVIDs: 2.1 cm LVPWd: 0.92 cm LVOT area: 3.5 cm2 RVDd: 3.3 cm FS: 48.3 % Ao root diam: 3.8 cm LAV(MOD-bp): 61.2 ml LVAd ap4: 24.5 cm2 LAV(MOD-bp) Indexed: 29.0 ml/m2 LVLd ap4: 7.7 cm LAV(MOD-sp2): 68.7 ml EDV(MOD-sp4): 62.2 ml LAV(MOD-sp4): 54.9 ml EDV(sp4-el): 66.3 ml LVAs ap4: 13.9 cm2 LVLs ap4: 6.7 cm ESV(MOD-sp4): 24.3 ml ESV(sp4-el): 24.5 ml EF(MOD-sp4): 60.9 % EF(sp4-el): 63.0 % LVAd ap2: 20.8 cm2 SV(MOD-sp4): 37.9 ml SV(MOD-sp2): 28.5 ml LVLd ap2: 7.6 cm EDV(MOD-sp2): 46.7 ml EDV(sp2-el): 48.2 ml LVAs ap2: 11.6 cm2 LVLs ap2: 6.2 cm ESV(MOD-sp2): 18.2 ml ESV(sp2-el): 18.5 ml EF(MOD-sp2): 61.1 % SV(sp4-el): 41.8 ml LA dimension(2D): 4.4 cm LA A4 area: 19.6 cm2 RA A4 area: 11.0 cm2 TAPSE: 1.4 cm Time Measurements MV dec time: 0.23 sec Doppler Measurements & Calculations MV E max jose angel: 94.4 cm/sec Lat Peak E' Jose Angel: 4.9 cm/sec Med Peak E' Jose Angel: 3.5 cm/sec MV A max jose angel: 130.2 cm/sec E/E' lat: 19.2 E/E' med: 27.3 MV E/A: 0.73 MV V2 max: 150.0 cm/sec Ao V2 max: 262.7 cm/sec MV max P.0 mmHg MV dec slope: 411.1 cm/sec2 Ao max P.7 mmHg MV V2 mean: 87.4 cm/sec Ao V2 mean: 189.3 cm/sec MV mean P.4 mmHg Ao mean P.0 mmHg MV V2 VTI: 32.4 cm Ao V2 VTI: 50.9 cm AV (velocity ratio): 0.28 MVA(VTI): 1.5 cm2 TRACY(I,D): 0.98 cm2 TRACY(V,D): 1.0 cm2 LV V1 max: 76.7 cm/sec SV(LVOT): 49.8 ml PA V2 max: 153.7 cm/sec LV V1 max P.4 mmHg PA max PG (full): 12.2 mmHg LV V1 mean P.1 mmHg PA V2 mean: 166.0 cm/sec LV V1 mean: 50.5 cm/sec LV V1 VTI: 14.4 cm ECHO/Echo Complete Interpretation Summary Normal LV size. Left ventricular systolic function is normal. No regional wall motion abnormalities noted. Stage 1 diastolic dysfunction. Mean aortic valve gradient 16 mmHg. Mild focal aortic valve calcification. Mild aortic stenosis. Ordering Physician: Wood Harris Referring Physician: Anup Landeros Performed By: Stacie Downing RDCS
== END | disposition home or self-care (01) ==
LOC: CVS 10:59
PROVIDERS: PCP Family Medicine; Referring Provider Family Medicine; Visit Provider Family Medicine
DX: I35.0 Nonrheumatic aortic (valve) stenosis (principal)
CPT/HCPCS: 93306

== ENCOUNTER → 2024-01-01 | Outpatient (CLI) | payer MEDICARE, OTHER, SELFPAY ==
[2024-01-01 10:18] LABS: Absolute Lymphocyte Count 2.53 X10^3/uL (0.83-4.51); Absolute Neutrophil Count 4.1 X10^3/uL (2.0-7.7); Basophil# 0.06 X10^3/uL; Basophil% 0.8 % (0-1); Eosinophil# 0.15 X10^3/uL; Hematocrit 47.5 % (40-54); Hemoglobin 15.7 g/dL (13.0-16.5); Lymphocyte # 2.53 X10^3/ul (0.83-4.51); Lymphocyte % 32.9 % (19-41); Mean Corp Hgb Conc 33.1 g/dL (32-36); Mean Corpuscular Hgb 30.4 pg (27.0-32.0); Mean Corpuscular Volume 92.1 fL (80-94); Mean Platelet Vol. 9.9 fl (6.2-12.0); Monocyte# 0.71 X10^3/uL; Monocyte% 9.2 % (0-10); NRBC Flagged by Analyzer 0 % (0-5); Neutrophil # 4.14 X10^3/uL (2.7-7.7); Neutrophil % 53.9 % (47-70); Platelet Count 173 K/mm3 (150-450); RBC Distribution Width CV 13.4 % (11.6-14.6); RBC Distribution Width SD 45.5 fl (35.1-43.9); Red Blood Count 5.16 M/mm3 (4.6-6.2); White Blood Count 7.7 K/mm3 (4.4-11.0)
[2024-01-01 10:59] LABS: ALB/GLOB Ratio 1.2 RATIO (0.9-2.4); AST(SGOT) 16 U/L (15-37); Alanine Aminotransfer ALT/SGPT 22 U/L (16-61); Albumin, Serum 3.9 g/dL (3.2-5.0); Alkaline Phosphatase 89 U/L (45-117); Anion Gap 6 (5-15); BUN 18 mg/dL (7-18); BUN/Creat Ratio 19.9 RATIO (10-20); Calcium,Total 9.3 mg/dL (8.5-10.1); Chloride 108 mmol/L (98-107); Cholesterol 178 mg/dL (200); EST Glomerular Filtration Rate 86 mL/min (>60); Est Glom Filt Rate - Afr Amer 104 mL/min (>60); Globulin 3.2 g/dL (2.2-4.2); Glucose 158 mg/dL (74-106); High Density Lipoprotein 47 mg/dL; Potassium 4.3 mmol/L (3.5-5.1); Protein, Total 7.1 g/dL (6.4-8.2); Sodium Level 139 mmol/L (136-145); Triglycerides 163 mg/dL; Very Low Density Lipoprotein 33 mg/dL (5-40)
[2024-01-01 11:10] LABS: Hemoglobin A1c 7.6 % (3.8-5.6)
[2024-01-01 11:31] LABS: Microalbumin,Random Urine < 5.0 mg/L (NO RANGE EST.)
== END | disposition home or self-care (01) ==
LOC: MTLAB 08:50
PROVIDERS: PCP Family Medicine; Referring Provider Family Medicine; Visit Provider Family Medicine
DX: E11.8 Type 2 diabetes mellitus with unspecified complications (principal); E55.9 Vitamin D deficiency, unspecified
CPT/HCPCS: 36415; 80053; 80061; 82043; 82306; 82570; 83036; 85025

== ENCOUNTER → 2024-04-05 | Outpatient (CLI) | payer MEDICARE, OTHER, SELFPAY ==
[2024-04-05 10:07] LABS: Color, Urine Yellow (Yellow); Glucose, Dipstick 1000 mg/dl (Normal); Ketone-Dipstick Negative (Negative); Leukocyte Esterase-Dipstick Negative /ul (Negative); Nitrite-Dipstick Negative (Negative); Occult Blood-Urine Negative /ul (Negative); Protein-Dipstick Negative (Negative); Urine Bilirubin Dipstick Negative (Negative); Urine Clarity Clear (Clear); Urine Urobilinogen Normal (Normal)
[2024-04-05 10:16] LABS: Absolute Lymphocyte Count 2.74 X10^3/uL (0.83-4.51); Basophil# 0.09 X10^3/uL; Basophil% 1.2 % (0-1); Eosinophil# 0.19 X10^3/uL; Eosinophils% 2.4 % (0-5); Hematocrit 47.2 % (40-54); Hemoglobin 16.3 g/dL (13.0-16.5); Lymphocyte # 2.74 X10^3/ul (0.83-4.51); Lymphocyte % 35.1 % (19-41); Mean Corp Hgb Conc 34.5 g/dL (32-36); Mean Corpuscular Hgb 31.8 pg (27.0-32.0); NRBC Flagged by Analyzer 0 % (0-5); Neutrophil # 3.96 X10^3/uL (2.7-7.7); Neutrophil % 50.8 % (47-70); Platelet Count 167 K/mm3 (150-450); RBC Distribution Width SD 47.2 fl (35.1-43.9); Red Blood Count 5.13 M/mm3 (4.6-6.2); White Blood Count 7.8 K/mm3 (4.4-11.0)
[2024-04-05 10:25] LABS: Vitamin D,25 Hydroxy 37.7 ng/mL
[2024-04-05 11:01] LABS: ALB/GLOB Ratio 1.1 RATIO (0.9-2.4); AST(SGOT) 19 U/L (15-37); Alanine Aminotransfer ALT/SGPT 24 U/L (16-61); Albumin, Serum 3.6 g/dL (3.2-5.0); Alkaline Phosphatase 78 U/L (45-117); Anion Gap 7 (5-15); BUN 19 mg/dL (7-18); BUN/Creat Ratio 22.9 RATIO (10-20); Calcium,Total 9.5 mg/dL (8.5-10.1); Chloride 110 mmol/L (98-107); Cholesterol 161 mg/dL (200); Creatinine, Serum 0.83 mg/dL (0.70-1.30); EST Glomerular Filtration Rate 95 mL/min (>60); Est Glom Filt Rate - Afr Amer 115 mL/min (>60); Globulin 3.4 g/dL (2.2-4.2); Glucose 132 mg/dL (74-106); High Density Lipoprotein 49 mg/dL; Potassium 3.7 mmol/L (3.5-5.1); Sodium Level 140 mmol/L (136-145); Triglycerides 201 mg/dL; Very Low Density Lipoprotein 40 mg/dL (5-40)
[2024-04-05 11:10] LABS: Microalbumin,Random Urine 5.1 mg/L (NO RANGE EST.); Microalbumin:Creatinine Ratio 6.9 mg/g CRE (<30 mg/g CRE)
[2024-04-05 14:14] LABS: Hemoglobin A1c 6.9 % (3.8-5.6)
== END | disposition home or self-care (01) ==
LOC: MTLAB 07:45
PROVIDERS: PCP Family Medicine; Referring Provider Family Medicine; Visit Provider Family Medicine
DX: E55.9 Vitamin D deficiency, unspecified (principal); E11.69 Type 2 diabetes mellitus with other specified complication
CPT/HCPCS: 36415; 80053; 80061; 81002; 82043; 82306; 82570; 83036; 85025

== ENCOUNTER → 2024-05-13 | Outpatient (CLI) | payer MEDICARE, OTHER, SELFPAY ==
--- NOTE | 2024-05-13 13:17 | RAD_ITS ---
EXAM: XR Lumbosacral Spine, 2 or 3 Views CLINICAL INDICATION: PAIN, FACET ARTHROPATHY TECHNIQUE: Frontal and lateral views of the lumbar spine and sacrum. COMPARISON: No relevant prior studies available. FINDINGS: VERTEBRAE: Moderate endplate degenerative changes of L3-S1. Moderate facet arthropathy of L4-S1. No acute fracture. Normal alignment. SACRUM/COCCYX: Unremarkable as visualized. No acute fracture. DISC SPACES: No acute findings. No significant narrowing. SOFT TISSUES: Unremarkable. VASCULATURE: Scattered calcified atherosclerotic disease of aorta. RAD/Lumbar Spine 2 or 3 Views IMPRESSION: Degenerative changes as above. Reading Location: [facility]
--- NOTE | 2024-05-13 13:17 | RAD_ITS ---
EXAM: XR Right Knee, 3 Views CLINICAL INDICATION: PAIN TECHNIQUE: Three views of the right knee. COMPARISON: No relevant prior studies available. FINDINGS: BONES/JOINTS: Mild joint space narrowing of the medial compartment of the knee joint. No acute fracture. No dislocation. SOFT TISSUES: Unremarkable. RAD/Knee 3 Views IMPRESSION: Degenerative changes as above. Reading Location: [facility]
--- NOTE | 2024-05-13 13:17 | RAD_ITS ---
EXAM: XR Right Hip With Pelvis When Performed, 2 or 3 Views CLINICAL INDICATION: PAIN TECHNIQUE: Two or three views of the right hip with pelvis when performed. COMPARISON: No relevant prior studies available. FINDINGS: BONES/JOINTS: Mild to moderate degenerative changes of the right hip joint. No acute fracture. No dislocation. SOFT TISSUES: Soft tissue swelling. RAD/HIP, UNI W/ Pelvis 2-3 Views IMPRESSION: Degenerative changes as above. Reading Location[facility]
== END | disposition home or self-care (01) ==
LOC: MTRAD 13:13
PROVIDERS: PCP Family Medicine; Referring Provider Family Medicine; Visit Provider Family Medicine
DX: M25.561 Pain in right knee (principal); M47.819 Spondylosis without myelopathy or radiculopathy, site unspecified
CPT/HCPCS: 72100; 73502; 73562

== ENCOUNTER → 2024-07-05 | Outpatient (CLI) | payer MEDICARE, OTHER, SELFPAY ==
--- NOTE | 2024-07-05 15:42 | MRI_ITS ---
PROCEDURE: SPINE LUMBAR (ROUTINE) 07/05/2024 REASON FOR EXAM: RADICULOPATHY TECHNIQUE: Multiplanar and multisequence images were obtained without IV contrast administration. COMPARISON: Lumbar spine radiograph from 05/13/2024. FINDINGS: Lumbar vertebral bodies maintain a normal height and alignment. Multilevel vertebral body hemangiomas are identified with the largest at T12 and L1. There is diminished signal intensity involving the discs from L2-L5 related to degenerative disc disease with mild disc space narrowing. No acute fracture or subluxation is identified. The tip of the conus medullaris terminates at L1 and signal intensity of the included spinal cord is within normal limits. There is mild atrophy of the paraspinous musculature. Individual levels: L1-L2: Minimal disc bulge and facet arthropathy with no significant central canal stenosis or neural foraminal narrowing. L2-L3: Mild disc bulge with facet/flavum hypertrophy results in mild central canal stenosis. There is mild left neural foraminal narrowing. Right neural foramina is patent. L3-L4: Disc bulge and facet/flavum hypertrophy with no significant central canal stenosis. Moderate right and mild left neural foraminal narrowing is present. L4-L5: Disc bulge and facet/flavum hypertrophy with no significant central canal stenosis. Moderate bilateral neural foraminal narrowing is present. L5-S1: Mild disc bulge with mild facet arthropathy. No significant central canal stenosis. Moderate left and mild right neural foraminal narrowing is present. MRI/Spine Lumbar (Routine) IMPRESSION: Multilevel degenerative disc disease and spondylosis with mild central canal st enosis at L2-L3. Multilevel varying degrees of neural foraminal narrowing are identified as above. Reading Location: [facility]
== END | disposition home or self-care (01) ==
LOC: MRI 15:35
PROVIDERS: PCP Family Medicine; Referring Provider Anesthesiology; Visit Provider Anesthesiology
DX: M54.16 Radiculopathy, lumbar region (principal)
CPT/HCPCS: 72148

== ENCOUNTER → 2024-07-20 | Outpatient (CLI) | payer MEDICARE, OTHER, SELFPAY ==
[2024-07-20 11:07] LABS: Absolute Lymphocyte Count 2.41 X10^3/uL (0.83-4.51); Absolute Neutrophil Count 6.8 X10^3/uL (2.0-7.7); Basophil% 0.9 % (0-1); Eosinophil# 0.28 X10^3/uL; Eosinophils% 2.6 % (0-5); Hematocrit 47.7 % (40-54); Hemoglobin 16.1 g/dL (13.0-16.5); Lymphocyte # 2.41 X10^3/ul (0.83-4.51); Lymphocyte % 22.8 % (19-41); Mean Corp Hgb Conc 33.8 g/dL (32-36); Mean Corpuscular Hgb 31.9 pg (27.0-32.0); Mean Corpuscular Volume 94.5 fL (80-94); Mean Platelet Vol. 10.3 fl (6.2-12.0); Monocyte# 0.82 X10^3/uL; Monocyte% 7.8 % (0-10); NRBC Flagged by Analyzer 0 % (0-5); Neutrophil # 6.76 X10^3/uL (2.7-7.7); Neutrophil % 63.9 % (47-70); Platelet Count 197 K/mm3 (150-450); RBC Distribution Width CV 14.1 % (11.6-14.6); RBC Distribution Width SD 48.7 fl (35.1-43.9); Red Blood Count 5.05 M/mm3 (4.6-6.2); White Blood Count 10.6 K/mm3 (4.4-11.0)
[2024-07-20 11:23] LABS: Hemoglobin A1c 7.6 % (<=5.6)
[2024-07-20 13:25] LABS: ALB/GLOB Ratio 1.5 RATIO (0.9-2.4); AST(SGOT) 16 U/L (<=37); Alanine Aminotransfer ALT/SGPT 11 U/L (<=46); Albumin, Serum 4.2 g/dL (3.4-4.8); Alkaline Phosphatase 97 U/L (40-129); Anion Gap 13 (5-15); BUN 29 mg/dL (4-19); BUN/Creat Ratio 31.3 RATIO (10-20); Calcium,Total 9.9 mg/dL (7.6-11.0); Carbon Dioxide 20.9 mmol/L (21.0-32.0); Chloride 103 mmol/L (98-108); Cholesterol 167 mg/dL (<=200); Creatinine, Serum 0.94 mg/dL (0.70-1.20); EST Glomerular Filtration Rate 82 (>60); Globulin 2.8 g/dL (2.2-4.2); Glucose 149 mg/dL (70-99); High Density Lipoprotein 43 mg/dL; Low Density Lipoprotein Calc. 97 mg/dL; PSA,Total- Diagnostic 0.98 ng/mL (0.00-4.00); Potassium 4.4 mmol/L (3.3-5.1); Protein, Total 6.9 g/dL (5.9-8.4); Sodium Level 137 mmol/L (133-145); Triglycerides 133 mg/dL; Very Low Density Lipoprotein 27 mg/dL (5-40); Vitamin D,25 Hydroxy 49.4 ng/mL (30-100); cholesterol:hdl ratio screen 3.87
== END | disposition home or self-care (01) ==
LOC: MTLAB 07:23
PROVIDERS: PCP Family Medicine; Referring Provider Family Medicine; Visit Provider Family Medicine
DX: E11.8 Type 2 diabetes mellitus with unspecified complications (principal); E55.9 Vitamin D deficiency, unspecified; R97.20 Elevated prostate specific antigen [PSA]
CPT/HCPCS: 36415; 80053; 80061; 82306; 83036; 84153; 85025

== ENCOUNTER 2024-09-28 14:07 | Emergency (ER) | payer MEDICARE, OTHER, SELFPAY ==
[2024-09-28 14:07] VITALS: BP 115/76; PULSE 100; RESP 16; TEMP 36.7; O2SAT 96; BMI 30.9
--- NOTE | 2024-09-28 14:26 | CT_ITS ---
PROCEDURE: BRAIN/HEAD WITHOUT CONTRAST 09/28/2024 REASON FOR EXAM: TRAUMA, GCS 14 Laceration to the left side of the skull. Confusion. TECHNIQUE: BRAIN/HEAD WITHOUT CONTRAST Coronal and Sagittal reconstruction series were provided. One or more dose reduction techniques were used (e.g., Automated exposure control, adjustment of the mA and/or kV according to patient size, use of iterative reconstruction technique. RADIATION DOSE SUMMARY: CTDlvol: 44.99 mGy DLP: 846.73 mGycm COMPARISON: Prior study dated November 25, 2018. FINDINGS: Brain: Low density in the periventricular white matter suggests mild chronic small vessel ischemic changes. CSF Spaces: Mild generalized cerebral atrophy atherosclerotic calcification of the cavernous portions of the internal carotid arteries. Sinuses/Mastoids: Opacification of the right maxillary sinus. Partial opacification of the right ethmoid sinus. Bones: There is evidence of scalp hematoma overlying the left posterior parietal occipital bone. CT/Brain/Head without Contrast IMPRESSION: CHRONIC CHANGES. Scalp hematoma overlying the posterior left parietal bone and left occipital bone. Reading Location: [id number]
--- NOTE | 2024-09-28 14:27 | EDS_ITS ---
HPI History of Present Illness Chief Complaint: Laceration Detail of Chief Complaint: Fall with head trauma Informant: patient Onset/Context/Timing Onset: Today and Hours Mechanism/Context: Blunt Injury and Fall Location of pain/injuries: - (Occiput region) Quality of Pain: Dull Location: Back of the head Current Severity: Mild Maximum Severity: Moderate Worsened by: Fall and blunt trauma Relieved by: Nothing Associated Symptoms Associated Symptoms: Positive for Loss of consciousness; Negative for Parasthesias, Weakness, Loss of function, Inability to ambulate or Amnesia Length of loss of consciousness: Uncertain, suspect brief per 's account of what happened Narrative Narrative: Patient is an 79-year-old male. He has history of hypertension, hyperlipidemia, type 2 diabetes, mild aortic stenosis, BPH who presents after mechanical fall. He was going up the steps. He lost his balance and fell backwards. He had brief loss of conscious. states he was not appropriate. He does complain of headache. He is on no antithrombotic or anticoagulant. He denies double vision, blurred vision or loss of vision. Eyes casey ears or decreased hearing. He does complain of jaw pain. He denies chest pain. He denies shortness of breath. He denies nausea or vomiting. He denies low back pain. He denies pain in his upper or lower extremity other than hip pain is chronic and scheduled for total hip arthroplasty. Prior similar symptoms: No Recent Illness/Hospitalization: No [facility] Medical History Benign essential hypertension Hyperlipidemia Type 2 diabetes mellitus Mild aortic stenosis Hypotension Obesity BPH (benign prostatic hyperplasia) Urine frequency History of colon polyps Acute maxillary sinusitis, unspecified Diabetes Home Medications ?Medication ?Instructions ?Recorded ?Last Taken ?Type cholecalciferol (vitamin D3) 25 1,000 unit PO DAILY Unknown History mcg (1,000 unit) capsule finasteride 5 mg tablet 5 mg PO DAILY 04/25/16 Unkno wn History tamsulosin 0.4 mg capsule 0.4 mg PO BID 04/25/16 Unkno wn History ascorbic acid (vitamin C) 1,000 mg 1,000 mg PO DAILY 0 03/13/20 Unknown History tablet cyanocobalamin (vitamin B-12) 5,000 mcg PO DAILY 03/13 Unknown History 1,000 mcg capsule glucosamine HCl 500 mg tablet 1,000 mg PO DAILY Unknown History rosuvastatin 5 mg tablet 5 mg PO QHS 03/13/20 Unknown History vitamin E 100 unit capsule 100 unit PO DAILY 03/13/20 Unknown History zinc 50 mg tablet 50 mg PO DAILY 03/13/20 Unkn own History empagliflozin 25 mg tablet 25 mg PO DAILY 08/18/23 Unk nown History (Jardiance) ketoconazole 2 % shampoo topical 08/18/23 Unknown His tory semaglutide 2 mg/dose (8 mg/3 mL) mg subcut 08/18/23 U nknown History subcutaneous pen injector (Ozempic) duloxetine 30 mg capsule,delayed 30 mg PO DAILY Unknown History release glimepiride 2 mg tablet 2 mg PO DAILY 09/28/24 Unkno wn History naproxen 500 mg tablet 500 mg PO BID PRN PRN pain 0 09/28/24 Unknown History Allergy/AdvReac Type Severity Reaction Status Date / Time Penicillins (PCN) Allergy Hives Verified 09/28/24 14:10 tolmetin (From Tolectin) Allergy Hives Verified 09/28/24 14:10 metformin AdvReac Diarrhea Verified 09/28/24 14:10 Family History Mother Heart disease Father Cancer Myocardial infarction Brother Cancer Surgical History History of wisdom tooth extraction History of bunionectomy History of adenoidectomy History of bilateral cataract extraction History of tonsillectomy Social History (Updated 09/28/24 @ 14:[address] Karthik Shaw MD) household members: spouse Smoking Status: Former smoker how long ago did patient quit smokin years ago alcohol intake: never substance use type: does not use caffeine: Yes ROS ROS ED Constitutional Constitutional ED: Denies chills or fever(s) Eyes Eyes: Denies blurry vision or change in vision ENT ENT ED: Denies rhinorrhea Cardiovascular Cardiovascular: Denies chest pain or palpitations Respiratory/Chest Respiratory/Chest: Denies cough, dyspnea or dyspnea on exertion Gastrointestinal Gastrointestinal: Denies nausea or vomiting Musculoskeletal Musculoskeletal: Denies back pain or neck pain Integumentary Reports other Details: Laceration occipital area. Neurologic Neurologic: Reports headache(s); Denies paresthesias or weakness Hematologic/Lymphatic Hematologic/Lymphatic: Denies easy bleeding or easy bruising EXAM Physical Exam Const Vital Signs: 09/28/24 14:07 Temperature 98.1 F Temperature Source Oral Pulse Rate 100 Respiratory Rate 16 Blood Pressure 115/76 Blood Pressure Mean 89 Pulse Ox 96 Oxygen Delivery Method Room Air Positive well nourished and well developed General Appearance ED: well developed and NAD HEENT HEENT Narrative: Occipital area. There is no depression. There is no clinical findings of basilar skull fracture. There is no tenderness over the right or left TMJ joint. He is able to open and close his mouth completely. His teeth are ali gned. There is no dental trauma. There is no epistaxis. trauma and tenderness Nose: Negative for septum abnormal Eyes PERRL and EOMs intact bilaterally General Eye ED: Yes other Other Details: There is no subconjunctival hemorrhage. There is no nystagmus. Neck full ROM Neck Narrative: There is no midline posterior neck pain he has full active range of motion without discomfort. General: Negative for tenderness Resp normal respiratory effort and clear to auscultation bilaterally Cardio regular rhythm, S1 normal heart sound, S2 normal heart sound and no murmurs Rate: regular rate GI normal to inspection, nondistended, normoactive bowel sounds, non-tender and no masses Back/Spine normal to inspection Extremity normal to inspection and full ROM Neuro No oriented x3, CN's II-XII intact bilaterally, moves all extremities, no focal motor deficits and no sensory deficits noted Neuro Narrative: Equivocal Babinski on the left. There is no clonus at the ankles. There is no dysmetria. Sasabe Coma Scale: document GCS findings Spontaneous Obeys Commands Confused 14 Psych mental status grossly normal and thought process normal Skin no rashes or lesions noted, No no wounds, skin turgor normal and no jaundice Skin Narrative: Scalp laceration occipital region. PROC Procedures Other Procedures Procedure(s): Scalp laceration 1.3 cm Patient was prepped draped sterile manner. The wound was cleansed. There is no palpable pression. There is no foreign body noted. Patient's wound was anesthetized with 1% lidocaine by local infiltration. A total of 1 cc was infiltrated. Wound was closed using sona. 2 sona were placed. Patient tolerated procedure. He was informed of the CAT scan results. MDM MDM MDM Narrative Medical decision making narrative: With complaint of headache, loss of conscious, GCS of [address] head rule imaging is required. Imaging of the head was obtained. Since he has no midline posterior neck pain full active range of motion without pain and a nonfocal neurologic exam imaging of the neck was not obtained. Will staple his laceration once imaging has been done and I have reviewed. He has been made NPO. Prior records were reviewed. History & Record Review Additional record(s) reviewed:: Prior outpatient record (Outpatient cardiovascular exam for orthopedic clearance. Seen at urgent care for sinusitis. Seen at urgent care November 2021 for upper respiratory tract infection.) and Prior ED visit (Most recent ER visit was November 2018 for dizziness. He was seen by Dr. Cohen.) Radiography Diagnostic Testing: Clinical Impression(s) from Imaging Studies Brain CT 09/28/24 14:26 IMPRESSION: CHRONIC CHANGES. Scalp hematoma overlying the posterior left parietal bone and left occipital bone. Reading Location: [id number] of the head reveals no evidence of subdural hematoma, epidural hematoma, traumatic subarachnoid hemorrhage or intraparenchymal contusion. There is ev idence of right frontal and maxillary sinus disease and some mild right sided ethmoid disease. Awaiting formal read by radiologist [id number]. Discharge Plan Triage Chief Complaint: Laceration ED Provider: Karthik Shaw Dx/Rx/DC Orders Clinical Impression: Concussion with loss of consciousness, Type 2 diabetes mellitus, Hyperlipidemia, Benign essential hypertension, Aortic valve stenosis, Laceration of occipital region of scalp, Skin tear of left elbow without complication, Injury due to fall Instructions: ED Concussion, ED Laceration Scalp Stitches or [place] Prescriptions: No Action Jardiance 25 mg tablet 25 mg PO DAILY Patient Comments: TAKE 1 TABLET BY MOUTHCONCE DAILYC Ozempic 2 mg/dose (8 mg/3 mL) pen injector subcut Patient Comments: INJECT 2MG SUBCUTANEOUSLYNONCE A WEEK ketoconazole 2 % shampoo topical Patient Comments: Use one Application twice a week, leave in for 5 minutes before rinsing out tamsulosin 0.4 MG capsule 0.4 mg PO BID finasteride 5 MG tablet 5 mg PO DAILY cholecalciferol (vitamin D3) 1,000 UNIT capsule 1,000 unit PO DAILY rosuvastatin 5 MG tablet 5 mg PO QHS ascorbic acid (vitamin C) 1,000 MG tablet 1,000 mg PO DAILY vitamin E 100 UNIT capsule 100 unit PO DAILY zinc 50 MG tablet 50 mg PO DAILY glucosamine HCl 500 MG tablet 1,000 mg PO DAILY cyanocobalamin (vitamin B-12) 1,000 MCG capsule 5,000 mcg PO DAILY duloxetine 30 mg capsule,delayed release(DR/EC) 30 mg PO DAILY glimepiride 2 mg tablet 2 mg PO DAILY naproxen 500 mg tablet 500 mg PO BID PRN PRN (Reason: pain) Primary Care Provider: Anup Landeros Referrals: Anup Landeros MD [Primary Care Provider] - 10 Day for suture removal Print Language: Nepali Disposition Disposition: Home, Self Care
[2024-09-28] MEDS: Lidocaine 1% (20 ml mdv) 20 ML Vial INFILT (14:38)
[2024-09-28 15:10] VITALS: BP 136/78; PULSE 100; RESP 18; TEMP 36.8; O2SAT 95
== END 2024-09-28 15:21 | disposition home or self-care (01) ==
PROVIDERS: Emergency Provider Emergency Medicine; PCP Family Medicine; Visit Provider Emergency Medicine
DX: S06.0X9A Concussion with loss of consciousness of unspecified duration, initial encounter (principal); E11.9 Type 2 diabetes mellitus without complications; S01.01XA Laceration without foreign body of scalp, initial encounter; S59.902A Unspecified injury of left elbow, initial encounter; I10 Essential (primary) hypertension; E78.5 Hyperlipidemia, unspecified; I35.0 Nonrheumatic aortic (valve) stenosis; Z87.891 Personal history of nicotine dependence; W10.9XXA Fall (on) (from) unspecified stairs and steps, initial encounter
CPT/HCPCS: 12001; 70450; 99285

== ENCOUNTER 2024-09-30 10:52 | Outpatient (CLI) | payer MEDICARE, OTHER, SELFPAY ==
--- NOTE | 2024-09-30 11:03 | RAD_ITS ---
PROCEDURE: HIPS B/L MIN 2 VIEWS W/ PELVIS 09/30/2024 REASON FOR EXAM: RECENT FALL, BACK AND HIP PAIN TECHNIQUE: HIPS B/L MIN 2 VIEWS W/ PELVIS Laterality: Bilateral. COMPARISON: Prior study dated May 13, 2024. FINDINGS: Marked degree of joint space narrowing of the right hip joint with a subchondral sclerosis. This is in keeping with severe osteoarthritis and possible avascular necrosis. This has worsened as compared to prior study. Moderate degree of joint space narrowing involving the left hip joint. Mild degenerative changes of the sacroiliac joints bilaterally. No acute fracture is seen. Calcified phleboliths. RAD/Hips B/L min 2 views w/ Pelvis IMPRESSION: Joint space narrowing of both hip joints worse on the right side with the marke d degree of osteoarthritis and possible avascular necrosis. This has progressed as compared to prior study. Reading Location: [id number]
--- NOTE | 2024-09-30 11:03 | RAD_ITS ---
PROCEDURE: CLAVICLE 09/30/2024 REASON FOR EXAM: FALL Pain following a fall. TECHNIQUE: CLAVICLE COMPARISON: None FINDINGS: RIGHT CLAVICLE: Bones right: No fracture seen. Joints right: Osteoarthritis of the acromioclavicular joint. Soft tissues right: No soft tissue swelling RAD/Clavicle IMPRESSION: Osteoarthritis of the acromioclavicular joint. No fracture seen. Reading Location: [id number]
--- NOTE | 2024-09-30 11:03 | RAD_ITS ---
PROCEDURE: L/S SPINE MIN 4 VIEWS 09/30/2024 REASON FOR EXAM: RECENT FALL, BACK AND HIP PAIN TECHNIQUE: L/S SPINE MIN 4 VIEWS COMPARISON: Prior study dated May 13, 2024. FINDINGS: Curvature: No significant scoliosis is seen. Other findings: Anterior spondylosis at the L1-L2 as well as the L3-L4 levels. Disc space narrowing at the L5-S1 level as well as at the T12-L1 and L1-L2 levels. Facet joint osteoarthritis. Degenerative changes of the sacroiliac joints as well as both hip joints worse on the right side. RAD/L/S Spine Min 4 Views IMPRESSION: Degenerative changes as described. There has been essentially no change. Reading Location: [facility]
--- NOTE | 2024-09-30 11:03 | RAD_ITS ---
PROCEDURE: CLAVICLE 09/30/2024 REASON FOR EXAM: RECENT FALL TECHNIQUE: CLAVICLE. Two views of the left clavicle were obtained COMPARISON: None FINDINGS: LEFT CLAVICLE: Osteoarthritis of the left acromioclavicular joint. No clavicular fracture or dislocation. RAD/Clavicle IMPRESSION: Degenerative changes of the left acromioclavicular joint. No evidence of fracture or dislocation. Reading Location: [facility]
--- NOTE | 2024-09-30 11:05 | RAD_ITS ---
PROCEDURE: RIBS BILAT 3V NO CXR 09/30/2024 REASON FOR EXAM: FELL 2 DAYS AGO, CHEST DISCOMFORT/PAIN TECHNIQUE: RIBS BILAT 3V NO CXR. Multiple views of both right and left ribs were obtained. COMPARISON: None FINDINGS: There is no evidence of rib fracture. Increased markings at the lung bases suggestive of bibasilar scarring. Osteoarthritis of both shoulder joints. RAD/Ribs Bilat 3V No CXR IMPRESSION: No acute fracture seen. Findings suggestive of mild bibasilar linear scarring. Reading Location: [id number]
--- NOTE | 2024-09-30 11:05 | RAD_ITS ---
PROCEDURE: STERNUM MIN 2 VIEWS 09/30/2024 REASON FOR EXAM: FALL TECHNIQUE: STERNUM MIN 2 VIEWS COMPARISON: None FINDINGS: Three views were obtained. No sternal fracture is seen. RAD/Sternum min 2 Views IMPRESSION: No sternal fracture is seen. Reading Location: [id number]
== END 2024-09-30 23:59 | disposition home or self-care (01) ==
LOC: MTRAD 10:53
PROVIDERS: PCP Family Medicine; Referring Provider Family Medicine; Visit Provider Family Medicine
DX: M25.551 Pain in right hip (principal); M25.552 Pain in left hip; M54.50 Low back pain, unspecified; R07.89 Other chest pain; W19.XXXA Unspecified fall, initial encounter
CPT/HCPCS: 71110; 71120; 72110; 73000; 73521

== ENCOUNTER → 2024-10-13 | Outpatient (CLI) | payer MEDICARE, OTHER, SELFPAY ==
[2024-10-13 13:41] LABS: AST(SGOT) 14 U/L (<=37); Alanine Aminotransfer ALT/SGPT 12 U/L (<=46); Albumin, Serum 4.0 g/dL (3.4-4.8); Alkaline Phosphatase 145 U/L (40-129); Anion Gap 16 (5-15); BUN 26 mg/dL (4-19); BUN/Creat Ratio 26.5 RATIO (10-20); Calcium,Total 9.9 mg/dL (7.6-11.0); Carbon Dioxide 19.4 mmol/L (21.0-32.0); Chloride 102 mmol/L (98-108); Globulin 2.9 g/dL (2.2-4.2); Glucose 141 mg/dL (70-99); Potassium 4.0 mmol/L (3.3-5.1)
== END | disposition home or self-care (01) ==
LOC: MFPLAB 10:54
PROVIDERS: PCP Family Medicine; Visit Provider Family Medicine
DX: R19.7 Diarrhea, unspecified (principal)
CPT/HCPCS: 36415; 80053; 87177; 87209; 87493

== ENCOUNTER → 2025-01-09 | Outpatient (CLI) | payer MEDICARE, OTHER, SELFPAY ==
--- OUTSIDE RECORDS SUMMARY | 2025-01-09 07:33 | XMS RPT_ITS | CCD ---
Author Organization [facility] Care Team Providers Care Ambulance Assistant Name Role Phone KATHY APONTE Attending Unavailable KATHY APONTE Primary Care Unavailable KATHY APONTE Admitting Unavailable Dr. Keke Landeros Primary Care Provider [phone] Dr. Xavier Huber Attending Provider Dr. Keke Landeros Primary Care Provider [phone] Dr. Keke Landeros Referring Provider [phone] KRUPA Cope Attending Provider Dr. Keke Landeros Primary Care Provider [phone] Dr. Keke Landeros Referring Provider KRUPA Leroy Attending Provider [phone] Keke Landeros Primary Care Provider [phone] Dr. Keke Landeros Referring Provider KRUPA Leroy Attending Provider [phone] Keke Landeros MD Primary Care Provider Dr. Keke Landeros MD Referring Provider [phone] Will Leroy Attending Provider [phone] Roof PUBLIC HEALTH POLICY ANALYST-C, Keke Henriquez Attending Provider Dr. Keke Landeros MD Attending Provider [phone] Dr. Orion Yadav MD Attending Provider Dr. Keke Landeros MD Primary Care Provider [phone] Dr. Keke Landeros MD Referring Provider [phone] Alesha ALICEA, Dr. Peraza Attending Provider Alesha ALICEA, Dr. Peraza Referring Provider Vani ALICEA, Dr. Ronald Arteaga Other Provider Leti ALICEA, Dr. Keke Hogue Primary Care Provider [phone] Leti ALICEA, Dr. Keke Hogue Attending Provider Leti ALICEA, Dr. Keke Hogue Referring Provider Colin ALICEA, Dr. Angeles Emergency Provider Colin ALICEA, Dr. Angeles Attending Provider Steven ALICEA, Dr. Muir Attending Provider Steven ALICEA, Dr. Muir Referring Provider LETI ALICEA, KEKE Primary Care Physician Yaima Gordon Attending Provider [phone] Mike SNELL, Dr. Oreilly Attending Provider Lisbeth Babcock Unavailable Unavailable Schinner, Keke E Primary Care Unavailable Stu Eduardo Attending Unavailable Stu Eduardo Referring Unavailable SchinnerKeke Attending Unavailable Ronald Ludwig Consulting Unavailable Schinner, Keke E Referring Unavailable Schinner, Keke E Primary Care Unavailable Schinner, Keke E Attending Unavailable Schinner, Keke E Primary Care Unavailable Wood Harris Attending Unavailable Wood Harris Referring Unavailable Schinner, Keke E Primary Care Unavailable Will Leroy Attending Unavailable Schinner, Keke E Referring Unavailable Schinner, Keke E Primary Care Unavailable Schinner, Keke E Referring Unavailable Schinner, Keke E Primary Care Unavailable Keke Mckeon NP Attending Unavailable Orion Yadav Attending Unavailable Schinner, Keke E Referring Unavailable Schinner, Keke E Primary Care Unavailable Yaima Gordon Attending Unavail able Schinner, Keke E Referring Unavailable Schinner, Keke E Primary Care Unavailable Schinner, Keke E Primary Care Unavailable Denilson Mckeon Attending Unavailable Schinner, Keke E Referring Unavailable Wood Harris Attending Unavailable Schinner, Keke E Primary Care Unavailable Schinner, Keke E Attending Unavailable Schinner, Keke E Primary Care Unavailable Schinner, Keke E Referring Unavailable Keke Landeros Primary Care Unavailable Keke Landeros Attending Unavailable Keke Landeros Referring Unavailable Keke Landeros Primary Care Unavailable Keke Landeros Attending Unavailable Keke Landeros Referring Unavailable Shaw, Karthik Attending Unavailable Keke Landeros Primary Care Unavailable ANAMIKA TUMBLING INSTRUCTOR-LIVERY CAR DRIVER, ADALBERTO M Consulting Capri SOSA MD, DR RHIANNON Morelos Admitting Telma Mercado MD, DR RHIANNON Morelos Attending Unavailab Pedro ALICEA, KEKE Primary Care Unavailable SHEILA ALICEA, DR RHIANNON Morelos Consulting Unavailab Jess ALICEA, DR RHIANNON Morelos Attending UnavailKEKE Law MD Primary Care Unavailable Allergies Allergy Classification Reported Allergen(s) Allergy Type Date of Onset Reaction(s) Facility (18 sources) Penicillins; Translations: [Penicillins] Allergy to substance 03-14-19 [facility] (19 sources) Tolmetin; Translations: [tolmetin] Drug Allergy 03-14-19 [facility] (15 sources) metFORMIN; Translations: [metformin] Drug Allergy 07-20-19 Gastrointestinal irritation (disorder) [facility] (2 sources) Penicillin; Translations: [penicillin] Drug Allergy [facility] (1 source) metFORMIN Drug Allergy 10-12-19 [facility] (1 source) Tolmetin Drug Allergy 10-12-19 [facility] Medications Current Medications Medication Drug Class(es) Dates Sig (Normalized) Sig (Original) 3 ML semaglutide 2.68 MG/ML Pen Injector [Ozempic] (2 sources) Start: 10-10-2024 inject 1 dose by subcutaneous injection every week Ozempic 8 mg/3 mL (2 mg dose) subcutaneous solution Dose : 2 mg =, Subcutaneous, qWeek, in the abdomen, thigh, or upper arm, # 3 mL, 0 Refill(s) Start Date: 10/10/24 Status: Ordered Medication Dispense Status: Completed Quantity: 3.0 Unit: mL Total Allowed Fills: 1 Fills Dispensed: 0 acetaminophen 1000 mg oral tablet (2 sources) Start: 11-02-2024 take 1 tablet by mouth once daily Tylenol Dose : 1,000 mg = 2 tab(s), Oral, TID, not to exceed 3000 mg/day, 0 Refill(s) Start Date: 11/02/24 Status: Ordered Medication Dispense Status: Completed Total Allowed Fills: 1 Fills Dispensed: 0 Start: 10-10-2024 acetaminophen 500 mg oral capsule Dose : 500 mg = 1 cap(s), Oral, q4h, PRN for pain, # 60 cap(s), 0 Refill(s) Start Date: 10/10/24 Status: Ordered Medication Dispense Status: Completed Quantity: 60.0 Unit: cap(s) Total Allowed Fills: 1 Fills Dispensed: 0 ascorbic acid 1000 mg oral tablet (17 sources) Vitamin C Start: 03-13-2020 take 1 tablet by mouth once daily Ascorbic Acid (Vitamin C) 1,000 MG tablet Active 1000 mg PO DAILY March 13, 2020 1:00am aspirin 81 mg oral tablet (1 source) Platelet Aggregation Inhibitor, Nonsteroidal Anti-inflammatory Drug Start: 11-02-2024 End: 12-01-2024 take 1 tablet by mouth twice daily at mealtime aspirin Dose : 81 mg = 1 tab(s), Oral, BIDM, Take 81 mg aspirin twice daily with food for 4 weeks postoperatively for DVT prophylaxis., 0 Refill(s) Start Date: 11/02/24 Stop Date: 12/01/24 Status: Ordered Medication Dispense Status: Completed Total Allowed Fills: 1 Fills Dispensed: 0 atropine sulfate 0.025 mg / diphenoxylate hydrochloride 2.5 mg oral tablet (1 source) Anticholinergic, Cholinergic Muscarinic Antagonist, Antidiarrheal Start: 10-19-2024 Diphenoxylate-Atrop ine (Lomotil) 2.5-0.025 mg tablet Active 1 {tbl} PO THREE TIMES A DAY as needed for diarrhea 90 0 October 19, 2024 12:00am cholecalciferol 0.125 mg oral capsule (20 sources) Vitamin D Start: 10-11-2024 take 1 capsule by mouth once daily Cholecalciferol (Vitamin D3) 125 mcg (5,000 unit) capsule Active 125 ug PO daily October 11, 2024 12:00am Start: 10-10-2024 take 1 capsule by mouth once V itamin D (3) 45 units oral capsule 0 Refill(s) Start Date: 10/10/24 Status: Ordered Medication Dispense Status: Completed Total Allowed Fills: 1 Fills Dispensed: 0 Start: 04-25-2016 End: 10-11-2024 take 1 capsule by mouth once daily Cholecalciferol (Vitamin D3) 1,000 UNIT capsule Discontinued 1000 U PO DAILY April 25, 2016 1:00am October 11, 2024 2:39pm cyclobenzaprine hydrochloride 5 mg oral tablet (5 sources) Muscle Relaxant Start: 10-10-2024 End: 10-19-2024 cyclobenzaprine 5 mg oral tablet Dose : 5 mg = 1 tab(s), Oral, TID, # 30 tab(s), 0 Refill(s) Start Date: 10/10/24 Status: Ordered Medication Dispense Status: Completed Quantity: 30.0 Unit: tab(s) Total Allowed Fills: 1 Fills Dispensed: 0 docusate sodium 50 mg / sennosides, nursing home 8.6 mg oral tablet (1 source) Start: 11-02-2024 End: 11-05-2024 take 1 tablet by mouth twice daily Senokot S 50 mg-8.6 mg oral tablet Dose = 2 tab(s), Oral, BID, Take until first bowel movement, then as needed, X 3 day(s), # 12 tab(s), 0 Refill(s), Pharmacy: [id number], 177.8, cm, 11/01/24 13:57:00 EDT, Height, kg, 11/01/24 13:57:00 EDT, Dosing Weight Start Date: 11/02/24 Stop Date: 11/05/24 Status: Ordered Medication Dispense Status: Completed Quantity: 12.0 Unit: tab(s) Total Allowed Fills: 1 Fills Dispensed: 0 DULoxetine 30 mg delayed release oral capsule (10 sources) Serotonin and Norepinephrine Reuptake Inhibitor Start: 10-10-2024 DULoxetine 30 mg oral delayed release capsule Dose : 30 mg = 1 cap(s), Oral, BID, 0 Refill(s) Start Date: 10/10/24 Status: Ordered Medication Dispense Status: Completed Total Allowed Fills: 1 Fills Dispensed: 0 Start: 09-28-2024 End: 10-11-2024 take 1 capsule by mouth once daily Duloxetine 30 mg capsule,delayed release(DR/EC) Discontinued 30 mg PO DAILY September 28, 2024 12:00am October 11, 2024 2:41pm empagliflozin 25 mg oral tablet (9 sources) Sodium-Glucose Cotransporter 2 Inhibitor Start: 08-18-2023 Jardiance 25 mg oral tablet Dose : 25 mg = 1 tab(s), Oral, qAM, # 30 tab(s), 0 Refill(s) Start Date: 10/10/24 Status: Ordered Medication Dispense Status: Completed Quantity: 30.0 Unit: tab(s) Total Allowed Fills: 1 Fills Dispensed: 0 famotidine 20 mg oral tablet (1 source) Histamine-2 Receptor Antagonist Start: 11-02-2024 Pepcid 20 mg oral tablet Dose : 20 mg = 1 tab(s), Oral, qDay, # 30 tab(s), 0 Refill(s), Pharmacy: [id number], 177.8, cm, 11/01/24 13:57:00 EDT, Height, kg, 11/01/24 13:57:00 EDT, Dosing Weight Start Date: 11/02/24 Status: Ordered Medication Dispense Status: Completed Quantity: 30.0 Unit: tab(s) Total Allowed Fills: 1 Fills Dispensed: 0 finasteride 5 mg oral tablet (19 sources) 5-alpha Reductase Inhibitor Start: 04-25-2016 finasteride 5 mg oral tablet Dose : 5 mg = 1 tab(s), Oral, Daily, 0 Refill(s) Start Date: 10/10/24 Status: Ordered Medication Dispense Status: Completed Total Allowed Fills: 1 Fills Dispensed: 0 glimepiride 2 mg oral tablet (14 sources) Sulfonylurea Start: 09-28-2024 glimepiride 2 mg oral tablet Dose : 2 mg = 1 tab(s), Oral, qDay, Take with food, 0 Refill(s) Start Date: 10/10/24 Status: Ordered Medication Dispense Status: Completed Total Allowed Fills: 1 Fills Dispensed: 0 Start: 04-19-2024 End: 09-28-2024 take 1 tablet by mouth once daily Glimepiride 1 mg tablet Discontinued 1 mg PO daily April 19, 2024 1:00am September 28, 2024 2:09pm ketoconazole 20 mg/ml medicated shampoo (7 sources) Azole Antifungal Start: 08-18-2023 Ketoconazole 2 % shampoo Active TOPICAL August 18, 2023 12:00am meloxicam 7.5 mg oral tablet (1 source) Nonsteroidal Anti-inflammatory Drug Start: 11-02-2024 Mobic 7.5 mg oral tablet Dose : 7.5 mg = 1 tab(s), Oral, BIDM, Do not take any other nonsteroidal anti-inflammatorie s while on meloxicam/Mobic., # 60 tab(s), 0 Refill(s), Pharmacy: [facility] #[id number], 177.8, cm, 11/01/24 13:57:00 EDT, Height, kg, 11/01/24 13:57:00 EDT, Dosing Weight Start Date: 11/02/24 Status: Ordered Medication Dispense Status: Completed Quantity: 60.0 Unit: tab(s) Total Allowed Fills: 1 Fills Dispensed: 0 oxyCODONE hydrochloride 5 mg oral tablet (1 source) Opioid Agonist Start: 11-02-2024 End: 11-09-2024 take 1-2 tablets by mouth every four hours as needed for pain oxyCODONE 5 mg oral tablet ( IMMEDIATE release ) See Instructions, PRN as needed for pain, 1-2 tab(s) Oral q4h, # 42 tab(s), 0 Refill(s), 11/09/24 7:56:00 AM EDT, Pharmacy: [facility] #[id number], S/P total right hip arthroplasty, 177.8, cm, 11/01/24 13:57:00 EDT, Height, 92.5, kg, 11/01/24 13:57:00 EDT, Dosing Weight Start Date: 11/02/24 Stop Date: 11/09/24 Status: Ordered Medication Dispense Status: Completed Quantity: 42.0 Unit: tab(s) Total Allowed Fills: 1 Fills Dispensed: 0 Indications: Presence of right artificial hip joint; Probiotic Formula (Bacillus Coagulans) oral capsule (2 sources) Start: 10-10-2024 take 1 capsule by mouth once daily Probiotic Formula (Bacillus Coagulans) oral capsule Dose = 1 cap(s), Oral, qDay, # 30 cap(s), 0 Refill(s) Start Date: 10/10/24 Status: Ordered Medication Dispense Status: Completed Quantity: 30.0 Unit: cap(s) Total Allowed Fills: 1 Fills Dispensed: 0 rosuvastatin calcium 5 mg oral tablet (19 sources) HMG-CoA Reductase Inhibitor Start: 03-13-2020 rosuvastatin 5 mg oral tablet Dose : 5 mg = 1 tab(s), Oral, Daily, 0 Refill(s) Start Date: 10/10/24 Status: Ordered Medication Dispense Status: Completed Total Allowed Fills: 1 Fills Dispensed: 0 Semaglutide (Ozempic) 2 mg/dose (8 mg/3 mL) pen injector (10 sources) Start: 10-11-2024 Semaglutide (Ozempic) 2 mg/dose (8 mg/3 mL) pen injector Active mg SC .weekly October 11, 2024 2:40pm Start: 08-18-2023 End: 10-11-2024 Semaglutide (Ozempic) 2 mg/d ose (8 mg/3 mL) pen injector Discontinued mg SC August 18, 2023 12:00am October 11, 2024 2:41pm Start: 08-18-2023 Semaglutide (O zempic) 2 mg/dose (8 mg/3 mL) pen injector Active mg SC August 18, 2023 12:00am tamsulosin hydrochloride 0.4 mg oral capsule (19 sources) alpha-Adrenergic Maris Start: 04-25-2016 tamsulosin 0.4 mg oral capsule Dose : 0.4 mg = 1 cap(s), Oral, BID, 0 Refill(s) Start Date: 10/10/24 Status: Ordered Medication Dispense Status: Completed Total Allowed Fills: 1 Fills Dispensed: 0 vitamin b12 1 mg oral capsule (17 sources) Vitamin B12 Start: 03-13-2020 take 5 capsules by mouth once daily Cyanocobalamin (Vitamin B-12) 1,000 MCG capsule Active 5000 ug PO DAILY March 13, 2020 1:00am Start: 03-13-2020 take 5000 ug by mout h once daily Cyanocobalamin (Vitamin B-12) Active 5000 MCG PO DAILY March 13, 2020 1:00am Vitamin B12 50 mcg oral tabl et (2 sources) Start: 10-10-2024 Vitamin B12 50 mcg oral tablet Dose : 50 mcg = 1 tab(s), Oral, Daily, 0 Refill(s) Start Date: 10/10/24 Status: Ordered Medication Dispense Status: Completed Total Allowed Fills: 1 Fills Dispensed: 0 Vitamin C 250 mg oral tablet (2 sources) Start: 10-10-2024 Vitamin C 250 mg oral tablet Dose : 250 mg = 1 tab(s), Oral, qDay, # 30 tab(s), 0 Refill(s) Start Date: 10/10/24 Status: Ordered Medication Dispense Status: Completed Quantity: 30.0 Unit: tab(s) Total Allowed Fills: 1 Fills Dispensed: 0 vitamin e 100 unt oral capsu le (19 sources) Start: 10-10-2024 vitamin E 100 intl units oral capsule Dose : 100 unit(s) = 1 cap(s), Oral, Daily, 0 Refill(s) Start Date: 10/10/24 Status: Ordered Medication Dispense Status: Completed Total Allowed Fills: 1 Fills Dispensed: 0 Start: 03-13-2020 take 1 capsule by mouth once d aily Vitamin E 100 UNIT capsule Active 100 U PO DAILY March 13, 2020 1:00am Start: 03-13-2020 take 100 [IU] by mouth once da tyra Vitamin E Active 100 UNIT PO DAILY March 13, 2020 12:00am Zinc (17 sources) Start: 03-13-2020 take 50 mg by mouth once daily Zinc Active 50 MG PO DAILY March 13, 2020 1:44pm Start: 03-13-2020 take 1 tablet by mouth once da tyra Zinc 50 MG tablet Active 50 mg PO DAILY March 13, 2020 1:00am Start: 03-13-2020 take 50 mg by mouth once daily Zinc Active 50 MG PO DAILY March 13, 2020 12:00am Start: 03-13-2020 take 50 mg by mouth once daily Zinc Active 50 MG PO DAILY March 13, 2020 1:00am zinc acetate 50 mg oral caps ule (2 sources) Start: 10-10-2024 zinc (as aceta te) 50 mg oral capsule Dose : 50 mg = 1 cap(s), Oral, TID, # 250 cap(s), 0 Refill(s) Start Date: 10/10/24 Status: Ordered Medication Dispense Status: Completed Quantity: 250.0 Unit: cap(s) Total Allowed Fills: 1 Fills Dispensed: 0 Completed/Discontinued Medications Medication Drug Class(es) Dates Sig (Normalized) Sig (Original) acetaminophen 325 mg / HYDROcodone bitartrate 5 mg oral tablet (17 sources) Opioid Agonist Start: 01-25-2020 End: 01-27-2020 Hydrocodone-Acetami nophen 1 TABLET tablet Discontinued 1 {tbl} PO EVERY 4 HOURS NEEDED as needed for Pain 10 2 January 25, 2020 January 26, 2020 1:00am January 27, 2020 1:03am Pain in testicle Testicular pain, unspecified Start: 01-25-2020 End: 01-27-2020 take 1 tablet by mouth every four hours as needed Hydrocodone-Acetaminophen Discontinued 1 TABLET PO EVERY 4 HOURS NEEDED 10 2 January 25, 2020 January 27, 2020 1:03am azithromycin 250 mg oral tablet (20 sources) Macrolide Antimicrobial Start: 02-21-2024 End: 04-19-2024 Azithromycin (Zithromax Z-Manoj) 250 mg tablet Discontinued 0 PO .COMPLEX 6 0 February 21, 2024 1:00am April 19, 2024 1:57pm For 250 mg dose pack: take 500 mg today (day 1), then 250 mg for 4 days (days 2-5) PO Start: 07-19-2022 End: 08-31-2023 Azithromycin 250 mg tablet D iscontinued 250 mg PO daily 12 July 19, 2022 12:00am August 31, 2023 1:00pm 2 tablets today, then 1 tablet daily on days 2 through 11 benzonatate 200 mg oral capsule (20 sources) Non-narcotic Antitussive Start: 07-19-2022 End: 08-31-2023 take 1 capsule by mouth three times daily as needed for cough Benzonatate 200 mg capsule Discontinued 200 mg PO THREE TIMES A DAY as needed for cough 20 July 19, 2022 12:00am August 31, 2023 1:00pm Start: 12-08-2021 End: 08-31-2023 take 1 capsule by mouth three times daily as needed for cough Benzonatate 100 mg capsule Discontinued 100 mg PO THREE TIMES A DAY as needed for cough 30 December 08, 2021 12:00am August 31, 2023 1:00pm doxycycline monohydrate 100 mg oral capsule (7 sources) Tetracycline-class Drug Start: 02-04-2024 End: 02-14-2024 take 1 capsule by mouth twice daily Doxycycline Monohydrate 100 mg capsule Discontinued 100 mg PO TWICE A DAY 20 10 February 04, 2024 1:00am February 13, 2024 1:00am February 14, 2024 1:11am glucosamine 500 mg oral tablet (17 sources) Start: 03-13-2020 End: 10-19-2024 take 2 tablets by mouth once daily Glucosamine Hcl 500 MG tablet Discontinued 1000 mg PO DAILY March 13, 2020 1:00am October 19, 2024 10:54am Start: 03-13-2020 take 1000 mg by mout h once daily Glucosamine Hcl Active 1000 MG PO DAILY March 13, 2020 1:00am meclizine hydrochloride 25 mg oral tablet (17 sources) Antiemetic Start: 11-25-2018 End: 08-31-2023 take 1 tablet by mouth three times daily as needed Meclizine 25 MG tablet Discontinued 25 mg PO 3 TIMES DAILY NEEDED as needed for Vertigo November 25, 2018 5:14pm August 31, 2023 1:00pm metFORMIN hydrochloride 850 mg oral tablet (17 sources) Biguanide Start: 04-25-2016 End: 08-31-2023 take 1 tablet by mouth twice daily at mealtime Metformin 850 MG tablet Discontinued 850 mg PO TWICE DAILY WITH MEALS April 25, 2016 1:00am August 31, 2023 1:00pm naproxen 500 mg oral tablet (5 sources) Nonsteroidal Anti-inflammatory Drug Start: 09-28-2024 End: 10-11-2024 take 1 tablet by mouth twice daily as needed for pain Naproxen 500 mg tablet Discontinued 500 mg PO TWICE DAILY NEEDED as needed for pain September 28, 2024 12:00am October 11, 2024 2:41pm pioglitazone 15 mg oral tablet (17 sources) Peroxisome Proliferator Receptor alpha Agonist, Peroxisome Proliferator Receptor gamma Agonist, Thiazolidinedione Start: 04-25-2016 End: 08-31-2023 take 2 tablets by mouth once daily Pioglitazone 15 MG tablet Discontinued 30 mg PO DAILY April 25, 2016 1:00am August 31, 2023 1:00pm Start: 04-25-2016 take 30 mg by mouth once daily Pioglitazone Active 30 MG PO DAILY April 25, 2016 1:00am predniSONE 20 mg oral tablet (7 sources) Start: 02-21-2024 End: 02-26-2024 take 2 tablets by mouth once daily Prednisone 20 mg tablet Discontinued 40 mg PO daily 10 5 0 February 21, 2024 1:00am February 25, 2024 1:00am February 26, 2024 1:11am Problems Active Problems Problem Classification Problem Date Documented Da te Episodic/Chronic Allergic reactions (1 source) Allergy status to other drugs, medicaments and biological substances status; Translations: [Allergy status to other drugs, medicaments and biological substances] Onset: 11-01-2024 Episodic Cardiac dysrhythmias (6 sources) Tachycardia; Translations: [Tachycardia, unspecified] Onset: 10-11-2024 10-11-2024 Episodic Diabetes mellitus with complications (1 source) Type 2 diabetes mellitus with unspecified complications; Translations: [Type 2 diabetes mellitus with unspecified complications] Onset: 08-16-2024 Chronic Diabetes mellitus without complication (20 sources) Diabetes mellitus; Translations: [Type 2 diabetes mellitus without complications] Onset: 11-01-2024 03-14-2020 Chronic Diseases of white blood cells (1 source) Other elevated white blood cell count; Translations: [Other elevated white blood cell count] Onset: 11-01-2024 Chronic Disorders of lipid metabolism (13 sources) Hyperlipidemia; Translations: [Hyperlipidemia, unspecified] Onset: 11-01-2024 08-31-2023 Chronic E Codes: Fall (5 sources) Falling injury; Translations: [Unspecified fall, initial encounter] 09-28-2024 Episodic Esophageal disorders (1 source) Gastro-esophageal reflux disease without esophagitis; Translations: [Gastro-esophageal reflux disease without esophagitis] Onset: 11-01-2024 Chronic Essential hypertension (10 sources) Benign essential hypertension; Translations: [Essential (primary) hypertension] 08-18-2023 Chronic Genitourinary symptoms and ill-defined conditions (7 sources) Increased frequency of urination; Translations: [Frequency of micturition] 08-18-2023 Episodic Headache; including migraine (1 source) Headache; including migraine; Translations: [Headache, unspecified] Onset: 10-03-2024 Heart valve disorders (19 sources) Aortic valve stenosis; Translations: [Nonrheumatic aortic (valve) stenosis] 08-31-2023 Chronic Hyperplasia of prostate (10 sources) Benign prostatic hyperplasia; Translations: [Benign prostatic hyperplasia without lower urinary tract symptoms] Onset: 11-01-2024 08-18-2023 Chronic Intracranial injury (5 sources) Concussion with loss of consciousness; Translations: [Concussion with loss of consciousness of unspecified duration, initial encounter] 09-28-2024 Episodic Nutritional deficiencies (1 source) Vitamin D deficiency, unspecified; Translations: [Vitamin D deficiency, unspecified] Onset: 04-20-2024 Chronic Open wounds of extremities (5 sources) Tear of skin; Translations: [Laceration without foreign body of left elbow, initial encounter] 09-28-2024 Episodic Open wounds of head; neck; and trunk (5 sources) Scalp laceration; Translations: [Laceration without foreign body of scalp, initial encounter] 09-28-2024 Episodic Osteoarthritis (1 source) Unilateral primary osteoarthritis, right hip; Translations: [Unilateral primary osteoarthritis, right hip] Onset: 11-01-2024 Chronic Other aftercare (1 source) penitentiary (current) use of oral hypoglycemic drugs; Translations: [penitentiary (current) use of oral hypoglycemic drugs] Onset: 11-01-2024 Episodic Other aftercare (1 source) Other prison (current) drug therapy; Translations: [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] Onset: 11-01-2024 Episodic Other aftercare (1 source) Encounter for therapeutic drug level monitoring; Translations: [Encounter for therapeutic drug level monitoring] Onset: 11-01-2024 Episodic Other circulatory disease (9 sources) Low blood pressure; Translations: [Hypotension, unspecified] 08-31-2023 Episodic Other connective tissue disease (1 source) Hip joint prosthesis present; Translations: [Presence of right artificial hip joint] Onset: 11-02-2024 Chronic Other connective tissue disease (1 source) Presence of right artificial hip joint; Translations: [Presence of right artificial hip joint] Onset: 11-01-2024 Chronic Other gastrointestinal disorders (2 sources) Diarrhea; Translations: [Diarrhea, unspecified] 10-19-2024 Episodic Other gastrointestinal disorders (1 source) Diarrhea, unspecified; Translations: [Diarrhea, unspecified] Onset: 10-20-2024 Episodic Other hematologic conditions (1 source) Precipitous drop in hematocrit; Translations: [Precipitous drop in hematocrit] Onset: 11-01-2024 Episodic Other non-traumatic joint disorders (1 source) Pain in right hip; Translations: [Pain in right hip] Onset: 10-06-2024 Episodic Other non-traumatic joint disorders (1 source) Osteophyte, right hip; Translations: [Osteophyte, right hip] Onset: 11-01-2024 Episodic Other nutritional; endocrine; and metabolic disorders (7 sources) Obesity; Translations: [Obesity, unspecified] 08-18-2023 Chronic Screening and history of mental health and substance abuse codes (1 source) Personal history of nicotine dependence; Translations: [Personal history of nicotine dependence] Onset: 11-01-2024 Episodic Unclassified (2 sources) Invalid ICD10 Description; Translations: [Invalid ICD10 Description] Onset: 03-08-2020 Unclassified (1 source) COVID-19; Translations: [COVID-19] Onset: 03-08-2020 Unclassified (1 source) Cough, unspecified; Translations: [Cough, unspecified] Onset: 02-04-2024 Unclassified (1 source) Long-term (current) use of injectable non-insulin antidiabetic drugs; Translations: [Long-term (current) use of injectable non-insulin antidiabetic drugs] Onset: 11-01-2024 Viral infection (12 sources) Disease caused by 2019-nCoV; Translations: [COVID-19] 02-25-2023 Episodic Past or Other Problems Problem Classification Problem Date Documented Da te Episodic/Chronic Other non-traumatic joint disorders (2 sources) Pain in right knee; Translations: [Pain in right knee] Onset: 05-20-2024 Episodic Other upper respiratory infections (20 sources) Acute maxillary sinusitis; Translations: [Acute maxillary sinusitis, unspecified] Onset: 02-04-2024 07-19-2022 Episodic Spondylosis; intervertebral disc disorders; other back problems (1 source) Radiculopathy, lumbar region; Translations: [Radiculopathy, lumbar region] Onset: 07-14-2024 Episodic Results Test Name Value Interpretation Reference Range Facility .Auto Diffon 11-02-2024 Basophil, Absolute 0.0 10 3/mcL Normal 0.0-0.3 [facility] Comment on above: Performed By: #### G FR, ADIFF, A1C, ALB, ABOGEL, CBC, BMP, ANEU, ABSGEL #### [address] [address] Basophils/100 WBC (Bld) 0.1 % Normal 0.0-2.5 [facility] Comment on above: Performed By: #### G FR, ADIFF, A1C, ALB, ABOGEL, CBC, BMP, ANEU, ABSGEL #### [address] [address] Eosinophil, Absolute 0.0 10 3/mcL Normal 0.0-0.7 [facility] Comment on above: Performed By: #### G FR, ADIFF, A1C, ALB, ABOGEL, CBC, BMP, ANEU, ABSGEL #### [address] [address] Eosinophils/100 WBC (Bld) 0.1 % Normal 0.0-6.0 [facility] Comment on above: Performed By: #### G FR, ADIFF, A1C, ALB, ABOGEL, CBC, BMP, ANEU, ABSGEL #### [address] [address] Lymphocyte, Absolute 1.3 10 3/mcL Normal 0.9-4.3 [facility] Comment on above: Performed By: #### G FR, ADIFF, A1C, ALB, ABOGEL, CBC, BMP, ANEU, ABSGEL #### [address] [address] Lymphocytes/100 WBC (Bld) 8.8 % Low 20.0-40.0 [facility] Comment on above: Performed By: #### G FR, ADIFF, A1C, ALB, ABOGEL, CBC, BMP, ANEU, ABSGEL #### [address] [address] Monocyte, Absolute 1.4 10 3/mcL Normal 0.1-1.4 [facility] Comment on above: Performed By: #### G FR, ADIFF, A1C, ALB, ABOGEL, CBC, BMP, ANEU, ABSGEL #### [address] [address] Monocytes/100 WBC (Bld) 8.8 % Normal 2.0-13.0 [facility] Comment on above: Performed By: #### G FR, ADIFF, A1C, ALB, ABOGEL, CBC, BMP, ANEU, ABSGEL #### [address] [place], [place] [address] Neutrophils/100 WBC (Bld) 82.2 % High 50.0-75.0 [facility] Comment on above: Performed By: #### G FR, ADIFF, A1C, ALB, ABOGEL, CBC, BMP, ANEU, ABSGEL #### [address] [address] .GFRon 11-02-2024 Estimated Glomerular Filtration Rate 86 ml/min/1.73sqm Normal [facility] Comment on above: Result Comment: Stages of Chronic Kidney Disease (CKD) Stage Description eGFR(ml/min/1.73 sq.m.) CKD 1 Normal kidney function or >=90 normal kindney function with possible kidney damage (ex. Proteinuria) CKD 2 Kidney damage with mild loss 60-89 of kidney function CKD 3a Mild to moderate loss of kidney 45-59 function CKD 3b Moderate to severe loss of 30-44 of kindey function CKD 4 Severe loss of kidney function 15-29 CKD 5 Kidney failure <15 Note: (go live 2024) the eGFR calculation was updated to the 2020 CKD-EPI creatinine equation without a race factor to calculate the eGFR results. Performed By: #### G FR, ADIFF, A1C, ALB, ABOGEL, CBC, BMP, ANEU, ABSGEL #### [address] [address] .NEUABSon 11-02-2024 Neutrophil, Absolute 12.6 10 3/mcL High 2.3-8.1 [facility] Comment on above: Performed By: #### G FR, ADIFF, A1C, ALB, ABOGEL, CBC, BMP, ANEU, ABSGEL #### [address] [address] BMPon 11-02-2024 BUN/Creatinine Ratio 30 ratio High 7-27 [facility] Comment on above: Performed By: #### G FR, ADIFF, A1C, ALB, ABOGEL, CBC, BMP, ANEU, ABSGEL #### [address] [address] Calcium [Mass/Vol] 9.0 mg/dL Normal 8.4-10.2 [facility] Comment on above: Performed By: #### G FR, ADIFF, A1C, ALB, ABOGEL, CBC, BMP, ANEU, ABSGEL #### [address] [address] Chloride [Moles/Vol] 102 mmol/L Normal 98-107 [facility] Comment on above: Performed By: #### G FR, ADIFF, A1C, ALB, ABOGEL, CBC, BMP, ANEU, ABSGEL #### [place] [address] CO2 [Moles/Vol] 25 mmol/L Normal 23-31 [facility] Comment on above: Performed By: #### G FR, ADIFF, A1C, ALB, ABOGEL, CBC, BMP, ANEU, ABSGEL #### [place] [address] Creatinine [Mass/Vol] 0.88 mg/dL Normal 0.67-1.17 [facility] Comment on above: Performed By: #### G FR, ADIFF, A1C, ALB, ABOGEL, CBC, BMP, ANEU, ABSGEL #### [address] [address] Electrolyte Balance 9.0 mEq/L Normal 4.0-15.0 [facility] Comment on above: Performed By: #### G FR, ADIFF, A1C, ALB, ABOGEL, CBC, BMP, ANEU, ABSGEL #### [place] [id number] Glucose [Mass/Vol] 200 mg/dL High 83-110 [facility] Comment on above: Performed By: #### G FR, ADIFF, A1C, ALB, ABOGEL, CBC, BMP, ANEU, ABSGEL #### [address] [address] Potassium [Moles/Vol] 4.2 mmol/L Normal 3.5-5.1 [facility] Comment on above: Performed By: #### G FR, ADIFF, A1C, ALB, ABOGEL, CBC, BMP, ANEU, ABSGEL #### [place] [id number] Sodium [Moles/Vol] 136 mmol/L Normal 136-145 [facility] Comment on above: Performed By: #### G FR, ADIFF, A1C, ALB, ABOGEL, CBC, BMP, ANEU, ABSGEL #### [place] [id number] Urea nitrogen [Mass/Vol] 26 mg/dL High 7-18 [facility] Comment on above: Performed By: #### G FR, ADIFF, A1C, ALB, ABOGEL, CBC, BMP, ANEU, ABSGEL #### [address] [address] CBCon 11-02-2024 Erythrocyte distribution width (RBC) [Ratio] 14.7 % Normal 11.5-15.5 [facility] Comment on above: Performed By: #### G FR, ADIFF, A1C, ALB, ABOGEL, CBC, BMP, ANEU, ABSGEL #### [address] [address] Hematocrit (Bld) [Volume fraction] 37.7 % Low 40.0-52.0 [facility] Comment on above: Performed By: #### G FR, ADIFF, A1C, ALB, ABOGEL, CBC, BMP, ANEU, ABSGEL #### [address] [address] Hgb 12.9 G/dL Low 13.0-17.5 [facility] Comment on above: Performed By: #### G FR, ADIFF, A1C, ALB, ABOGEL, CBC, BMP, ANEU, ABSGEL #### [address] [address] MCH (RBC) [Entitic mass] 32.3 pg Normal 27.0-33.0 [facility] Comment on above: Performed By: #### G FR, ADIFF, A1C, ALB, ABOGEL, CBC, BMP, ANEU, ABSGEL #### [address] [address] MCHC 34.2 G/dL Normal 32.0-36.0 [facility] Comment on above: Performed By: #### G FR, ADIFF, A1C, ALB, ABOGEL, CBC, BMP, ANEU, ABSGEL #### [address] [address] MCV (RBC) [Entitic vol] 94.7 fL Normal 81.0-100.0 [facility] Comment on above: Performed By: #### G FR, ADIFF, A1C, ALB, ABOGEL, CBC, BMP, ANEU, ABSGEL #### [address] [address] Platelet 191 10 3/mcL Normal 150-450 [facility] Comment on above: Performed By: #### G FR, ADIFF, A1C, ALB, ABOGEL, CBC, BMP, ANEU, ABSGEL #### [address] [address] Platelet mean volume (Bld) [Entitic vol] 7.6 fL Normal 6.4-10.5 [facility] Comment on above: Performed By: #### G FR, ADIFF, A1C, ALB, ABOGEL, CBC, BMP, ANEU, ABSGEL #### [address] [address] RBC 3.98 10 6/mcL Low 4.50-6.00 [facility] Comment on above: Performed By: #### G FR, ADIFF, A1C, ALB, ABOGEL, CBC, BMP, ANEU, ABSGEL #### [address] [address] WBC 15.3 10 3/mcL High 4.5-10.8 [facility] Comment on above: Performed By: #### G FR, ADIFF, A1C, ALB, ABOGEL, CBC, BMP, ANEU, ABSGEL #### [address] [place], [place] [address] LABORATORYOrdered By: Naveed Good on 11-02-2024 Blood Glucose Testing Reason Routine (11/02/24 7:22 AM) [facility] Work Phone: Glucose [Mass/Vol] 163 mg/dL High 82 - 115 mg/dL [facility] Work Phone: LABORATORYOrdered By: SYSTEM SYSTEM on 11-02-2024 Basophils (Bld) [#/Vol] 0.0 103/mcL Normal 0.0 - 0.3 10^3/mcL AO Workflow SS Basophils/100 WBC (Bld) 0.1 % Normal 0.0 - 2.5 % AO Workflow SS Calcium [Mass/Vol] 9.0 mg/dL Normal 8.4 - 10. 2 mg/dL AO ADM SS Chloride [Moles/Vol] 102 mmol/L Normal 98 - 10 7 mmol/L AO ADM SS CO2 [Moles/Vol] 25 mmol/L Normal 23 - 31 mmol/L AO ADM SS Creatinine [Mass/Vol] 0.88 mg/dL Normal 0.67 - 1.17 mg/dL AO ADM SS Electrolyte Balance 9.0 mEq/L Normal 4.0 - 15 .0 mEq/L AO ADM SS Eosinophil, Absolute 0.0 103/mcL Normal 0.0 - 0 .7 10^3/mcL AO Workflow SS Eosinophils/100 WBC (Bld) 0.1 % Normal 0.0 - 6.0 % AO Workflow SS Erythrocyte distribution width (RBC) [Ratio] 14.7 % Normal 11.5 - 15.5 % AO Workflow SS Estimated Glomerular Filtration Rate 86 ml/min/1.73sqm Invalid Interpretation Code AO Chemistry S Comment on above: Interpretive Data: Stages of Chronic Kidney Disease (CKD) Stage Description eGFR(ml/min/1.73 sq.m.) CKD 1 Normal kidney function or >=90 normal kindney function with possible kidney damage (ex. Proteinuria) CKD 2 Kidney damage with mild loss 60-89 of kidney function CKD 3a Mild to moderate loss of kidney 45-59 function CKD 3b Moderate to severe loss of 30-44 of kindey function CKD 4 Severe loss of kidney function 15-29 CKD 5 Kidney failure <15 Note: (go live 2024) the eGFR calculation was updated to the 2020 CKD-EPI creatinine equation without a race factor to calculate the eGFR results. Glucose [Mass/Vol] 200 mg/dL High 83 - 110 mg/dL AO ADM SS Hematocrit (Bld) [Volume fraction] 37.7 % Low 40.0 - 52.0 % AO Workflow SS Hemoglobin (Bld) [Mass/Vol] 12.9 G/dL Low 13.0 - 17.5 G/dL AO Workflow SS Lymphocytes (Bld) [#/Vol] 1.3 103/mcL Normal 0. 9 - 4.3 10^3/mcL AO Workflow SS Lymphocytes/100 WBC (Bld) 8.8 % Low 20 .0 - 40.0 % AO Workflow SS MCH (RBC) [Entitic mass] 32.3 pg Normal 27. 0 - 33.0 pg AO Workflow SS MCHC 34.2 G/dL Normal 32.0 - 36.0 G/dL AO Workflow SS MCV (RBC) [Entitic vol] 94.7 fL Normal 81.0 - 100.0 fL AO Workflow SS Monocytes (Bld) [#/Vol] 1.4 103/mcL Normal 0.1 - 1.4 10^3/mcL AO Workflow SS Monocytes/100 WBC (Bld) 8.8 % Normal 2.0 - 13.0 % AO Workflow SS Neutrophils (Bld) [#/Vol] 12.6 103/mcL High 2. 3 - 8.1 10^3/mcL AO Workflow SS Neutrophils/100 WBC (Bld) 82.2 % High 50 .0 - 75.0 % AO Workflow SS Platelet mean volume (Bld) [Entitic vol] 7.6 fL Normal 6.4 - 10.5 fL AO Workflow SS Platelets (Bld) [#/Vol] 191 103/mcL Normal 150 - 450 10^3/mcL AO Workflow SS Potassium [Moles/Vol] 4.2 mmol/L Normal 3.5 - 5.1 mmol/L AO ADM SS RBC (Bld) [#/Vol] 3.98 106/mcL Low 4.50 - 6.0 0 10^6/mcL AO Workflow SS Sodium [Moles/Vol] 136 mmol/L Normal 136 - 145 mmol/L AO ADM SS Urea nitrogen [Mass/Vol] 26 mg/dL High 7 - 18 mg/dL AO ADM SS Urea nitrogen/Creatinine [Mass ratio] 30 ratio High 7 - 27 ratio AO ADM SS WBC (Bld) [#/Vol] 15.3 103/mcL High 4.5 - 10.8 10^3/mcL AO Workflow SS ABO/Rh (Gel)on 11-01-2024 ABO/Rh Interp AB POS Invalid Interpretation Code [facility] Comment on above: Performed By: #### G FR, ADIFF, A1C, ALB, ABOGEL, CBC, BMP, ANEU, ABSGEL #### [facility] [address] [place], [place] [address] ABS (Gel)on 11-01-2024 ABSC Interp (Gel) Negative Normal [facility] Comment on above: Performed By: #### G FR, ADIFF, A1C, ALB, ABOGEL, CBC, BMP, ANEU, ABSGEL #### [address] [place], [place] [address] LABORATORYOrdered By: Noa Amanda on 11-01-2024 Blood Glucose Testing Reason Routine (11/01/24 9:25 PM) [facility] Work Phone: Glucose [Mass/Vol] 192 mg/dL High 82 - 115 mg/dL [facility] Work Phone: LABORATORYOrdered By: Naveed Good on 11-01-2024 Blood Glucose Testing Reason Routine (11/01/24 4:11 PM) [facility] Work Phone: Glucose [Mass/Vol] 176 mg/dL High 82 - 115 mg/dL [facility] Work Phone: LABORATORYOrdered By: Carla Palm on 11-01-2024 ABO and Rh group Nom (Bld) Blood group A B Rh(D) positive Invalid Interpretation Code AO BB Auto SS Blood group antibody screen Ql Negative ABSC (11/01/24 7:35 AM) Normal AO BB Auto SS Ova and Parasites 8623on OP OVA AND PARASITES EXAM, ROUTINE These results were obtained using wet preparation(s) and trichrome stained smear. This test does not include testing for Crytosporidium parvum, Cyclospora, or Microsporidia. One negative specimen does not rule out the possibility of a parasitic infection. TESTING PERFORMED AT [facility]. ORIGINAL REPORT ON FILE IN LAB CONTAINS ADDITIONAL TEST SITE INFORMATION. Ova/Parasite Exam NO OVA, CYSTS, OR PARASITES FOUND. Normal [facility] Comment on above: Performed By: #### L 3410.9992, M100.6796, M600.5000 ####[facility] [id number] [place], [address] XR FLUORO 1-2 HRS TECH TIMEo n 11-01-2024 XR FLUORO 1-2 HRS TECH TIME ORIGINAL Images acquired, not reported on this accession number. Normal [facility] XR HIP RIGHT W/PELVIS 4 VIEW Son 11-01-2024 XR HIP RIGHT W/PELVIS 4 VIEWS ORIGINAL EXAMINATION: 1 x-ray view of the pelvis and 2 x-ray views of the right hip. COMPARISON: None. HISTORY: ORDERING SYSTEM PROVIDED HISTORY: Reason for Exam: Status Post Arthroplasty FINDINGS: Status post right hip arthroplasty. Hardware appears intact without evidence of loosening. No acute periprosthetic fracture. Moderate degenerative changes of the left hip. Pelvic ring is intact. SI joints are symmetric. Degenerative changes are noted within the lower lumbar spine. Soft tissue gas along the right hip is postoperative in etiology. IMPRESSION: Expected postsurgical changes of right hip arthroplasty. Interpreted by: Theo Moeller Preliminary Report By: Theo Moeller Electronically signed By Theo Moeller Dictated Date: 11/01/2024 12:10:18 PM Prelim Date: 11/01/2024 12:11:22 PM Sign Date: 11/01/2024 12:11:22 PM Ordering Provider: RHIANNON Alonzo [facility] Gastroenterology Visit Repor ton 10-19-2024 Gastroenterology Visit Report [facility] [address] [place] [address] OFFICE VISIT Date of Service: 10/19/24 MR#: [id number] Acct: [id number] Name: DINAH VALIENTE Rep #: [id number] : 1945 Provider: Denilson Mckeon DO Age/Sex: 79/M Location: [facility] Status: Signed Intake Vital Signs 10/11/24 14:35 Height 5 ft 10 in Weight: 208 lb BMI 29.8 BP 103/70 Blood Pressure Location Rt brachial Position Sitting Respiration 16 Pulse 103 H Pulse Source Monitor Intake Visit Reasons: DIARRHEA HAS HIP REPLACEMENT SCHED 11/01/24 Allergies Penicillins (PCN) Allergy (Verified 10/11/24 14:37) Hives tolmetin (From Tolectin) Allergy (Verified 10/11/24 14:37) Hives metformin Adverse Reaction (Verified 10/11/24 14:37) Diarrhea Medications ???Medication ???Instructions ???Recorded ???Confirmed ???Type finasteride 5 mg tablet 5 mg PO DAILY 04/25/16 10/19/24 Hi story tamsulosin 0.4 mg capsule 0.4 mg PO BID 04/25/16 10/19/24 Hi story ascorbic acid (vitamin C) 1,000 mg 1,000 mg PO DAILY 03/13/2010/19 History tablet cyanocobalamin (vitamin B-12) 5,000 mcg PO DAILY 03/13/20 History 1,000 mcg capsule rosuvastatin 5 mg tablet 5 mg PO QHS 03/13/20 10/19/24 Hist ory vitamin E 100 unit capsule 100 unit PO DAILY 03/13/20 5 History zinc 50 mg tablet 50 mg PO DAILY 03/13/20 10/19/24 H istory empagliflozin 25 mg tablet 25 mg PO DAILY 08/18/23 10/19/24 H istory (Jardiance) ketoconazole 2 % shampoo topical 08/18/23 10/19/24 History glimepiride 2 mg tablet 2 mg PO DAILY 09/28/24 10/19/24 Hi story cholecalciferol (vitamin D3) 125 125 mcg PO QDAY 10/11/24 10/19/24 History mcg (5,000 unit) capsule duloxetine 30 mg capsule,delayed 30 mg PO BID 10/11/24 10/19/24 His tory release semaglutide 2 mg/dose (8 mg/3 mL) mg subcut .weekly 10/11/24 History subcutaneous pen injector (Ozempic) diphenoxylate-atropi ne 2.5 1 tab PO TID PRN diarrhea #90 tabs 10/19/24 Rx mg-0.025 mg tablet (Lomotil) Have you fallen in the past year?: Yes (09.28.24) PFSH Medical History (Updated 10/19/24 @ 17:[address] Oreilly Friend, DO) Tuberculosis Tachycardia Benign essential hypertension Hyperlipidemia Type 2 diabetes mellitus Mild aortic stenosis Hypotension Obesity BPH (benign prostatic hyperplasia) Urine frequency History of colon polyps Acute maxillary sinusitis, unspecified Diabetes Surgical History History of wisdom tooth extraction History of bunionectomy History of adenoidectomy History of bilateral cataract extraction History of tonsillectomy Family History (Updated 10/19/24 @ 11:20 by Leonor Chow) Mother Heart disease Diabetes Father Cancer Myocardial infarction Brother Cancer Social History household members: spouse Smoking Status: Former smoker how long ago did patient quit smokin years ago alcohol intake: never substance use type: does not use caffeine: Yes HPI HPI Details: DINAH VALIENTE, is a 79 M who presents to the office today for initial consult. *BGI established 10.19.24 pt reports that on 10.12.24 he began to have explosive diarrhea and was having uncontrollable diarrhea until 10.17.24. Pt reports he tried Imodium, pepto bismal, creon, BRAT diet. Pt reports he has not had a bm since Thursday. He is scheduled for a R hip replacement on 11.01.24 and wants to know what to do incase this happens again. ROS Const Constitutional: Positive for fatigue, frequent falls and weakness; No fever(s) or weight change ENT ENT: No difficulty swallowing Cardio Cardiology: Positive for leg pain with exertion Gastro GI: Positive for bloating, change in bowel habits, diarrhea and excessive flatus; No abdominal pain, belching, change in stool character, coffee ground emesis, constipation, cramping, heartburn, difficulty swallowing, feeling full early, incontinent of stools, Vomiting blood/hematemesis, Blood in stool, loose stools, Black,tarry stools, nausea/dyspepsia, pain with swallowing, vomiting or other Musc Musculoskeletal: Positive for abnormal gait, joint pain, back pain, muscle weakness, numbness, stiffness, tingling, Arthritis, leg pain at night and leg pain with exertion Skin Skin: Positive for dry skin; No yellowing of the eye or itchy eyes Neuro Neurology: Positive for abnormal gait, weakness, frequent falls, numbness and tingling Psych Psychiatric: No anxiety and No depression Endo Endocrine: Positive for fatigue; No weight change Aller/Imm Allergy/Immunologic: No itchy eyes Randall/Lymp Hematologic/Lymphati c: Positive for easy bruising; No easy bleeding Exam Const General: coop (more content not included)... Normal [facility] L3410.9992on 10-18-[address] [facility]. COMMENT Normal . [facility] Comment on above: Order Comment: [id number] 4STOOL CULTURE Result Comment: Test Ordered: [id number] Stool Culture Salmonella/Shigella Screen Note: Final report Reference Range: . Result 1 Comment Reference Range: . No Salmonella or Shigella recovered. Campylobacter Culture Note: Final report Reference Range: . Result 1 Comment Reference Range: . No Campylobacter species isolated. E coli Shiga Toxin EIA Negative Reference Range: Negative Performed at: - [facility] [address] [id number] Supervisor Beet End: Chris Murcia PhD, Phone: [phone] Performed By: #### L 7013.0998, K644.9754, E240.4946 ####[facility] [id number] [place], [address] Anion gap in Serum or Plasma Ordered By: Wood Harris on 10-13-2024 Anion gap [Moles/Vol] 16 mmol/L High 5-15 [facility] BUN/creatinine ratioOrdered By: Wood Harris on 10-13-2024 Urea nitrogen/Creatinine [Mass ratio] 26.5 mg/mg High 10-20 [facility] Bilirubin, totalOrdered By: Wood Harris on 10-13-2024 Bilirubin [Mass/Vol] 0.57 mg/dL 0.00-1.30 [facility] CDIFF (PCR)on 10-13-2024 CDIFF Pending [phone] [id number] Presumptive Negative *for epidemiolologic???us e C. Diff PCR Negative- No toxigenic C. Diff Detected Normal [facility] Comment on above: Performed By: #### L 3410.9992, M100.6796, M600.5000 ####[facility] [id number] [place], [address] Carbon dioxide, total [Moles /volume] in Central venous bloodOrdered By: Wood Harris on 10-13-2024 CO2 [Moles/Vol] 19.4 mmol/L Low 21.0-32.0 [facility] Chloride assayOrdered By: Krupa Harris on 10-13-2024 Chloride [Moles/Vol] 102 mmol/L 98-108 [facility] Clostridium difficile detect ion by polymerase chain reactionOrdered By: Wood Harris on 10-13-2024 C. difficile DNA LACEY+probe Ql (Unsp spec) [facility] Comprehensive Metabolic Prof ilon 10-13-2024 Albumin [Mass/Vol] 4.0 g/dL Normal 3.4-4.8 [facility] Comment on above: Performed By: #### L 500.4050 #### [facility] [address] [place], [address] Albumin/Globulin [Mass ratio] 1.4 {ratio} Normal 0.9-2.4 [facility] Comment on above: Performed By: #### L 500.4050 #### [facility] [address] [place], [address] ALK PHOS 145 U/L High 40-129 [facility] Comment on above: Performed By: #### L 500.4050 #### [facility] [address] [place], [address] ALT [Catalytic activity/Vol] 12 U/L Normal <=46 [facility] Comment on above: Performed By: #### L 500.4050 #### [facility] [address] [place], [address] AST [Catalytic activity/Vol] 14 U/L Normal <=37 [facility] Comment on above: Performed By: #### L 500.4050 #### [facility] [address] [place], [address] Bilirubin [Mass/Vol] 0.57 mg/dL Normal 0.00-1.30 [facility] Comment on above: Performed By: #### L 500.4050 #### [facility] [address] [place], [address] BUN/CRE 26.5 RATIO High 10-20 [facility] Comment on above: Performed By: #### L 500.4050 #### [facility] [address] [place], [address] Calcium [Mass/Vol] 9.9 mg/dL Normal 7.6-11.0 [facility] Comment on above: Performed By: #### L 500.4050 #### [facility] [address] [place], [address] Chloride [Moles/Vol] 102 mmol/L Normal 98-108 [facility] Comment on above: Performed By: #### L 500.4050 #### [facility] [address] [place], [address] CO2 [Moles/Vol] 19.4 mmol/L Low 21.0-32.0 [facility] Comment on above: Performed By: #### L 500.4050 #### [facility] [address] [place], [address] Creatinine [Mass/Vol] 0.99 mg/dL Normal 0.70-1.20 [facility] Comment on above: Performed By: #### L 500.4050 #### [facility] [address] [place], [address] GAP 16 High 5-15 [facility] Comment on above: Performed By: #### L 500.4050 #### [facility] [address] [place], [address] GFR/1.73 sq M.predicted among non-blacks MDRD (S/P/Bld) [Vol rate/Area] 77 mL/min/{1.73_m2} Normal >60 [facility] Comment on above: Result Comment: mL/m in/1.73m2 CKD-EPI Creatinine Equation (2020) Performed By: #### L 500.4050 #### [facility] [address] [place], [address] Globulin (S) [Mass/Vol] 2.9 g/dL Normal 2.2-4.2 [facility] Comment on above: Performed By: #### L 500.4050 #### [facility] [address] [place], [address] Glucose [Mass/Vol] 141 mg/dL High 70-99 [facility] Comment on above: Performed By: #### L 500.4050 #### [facility] [address] [place], [address] Potassium [Moles/Vol] 4.0 mmol/L Normal 3.3-5.1 [facility] Comment on above: Performed By: #### L 500.4050 #### [facility] [address] [place], [address] Sodium [Moles/Vol] 138 mmol/L Normal 133-145 [facility] Comment on above: Performed By: #### L 500.4050 #### [facility] [address] [place], [place], [id number] T PROT 6.9 g/dL Normal 5.9-8.4 [facility] Comment on above: Performed By: #### L 500.4050 #### [facility] [address] [place], [place], [id number] Urea nitrogen [Mass/Vol] 26 mg/dL High 4-19 [facility] Comment on above: Performed By: #### L 500.4050 #### [facility] [address] [place], [place], [id number] Glomerular filtration rate ( GFR) estimation/1.73 sq m using serum, plasma, or whole bOrdered By: Wood Harris on 10-13-2024 GFR/1.73 sq M.predicted among non-blacks MDRD (S/P/Bld) [Vol rate/Area] 77 mL/min/{1.73_m2} >60 [facility] Comment on above: mL/min/1.73m2 CKD-EP I Creatinine Equation (2020) Laboratory - Chemistry and C hemistry - challengeOrdered By: Wood Harris on 10-13-2024 AST [Catalytic activity/Vol] 14 U/L <38 [facility] Potassium measurement (mass/ volume)Ordered By: Wood Harris on 10-13-2024 Potassium (Unsp spec) [Mass/Vol] 4.0 mmol/L 3.3-5.1 [facility] Serum creatinine measurement (mass/volume)Ordered By: Wood Harris on 10-13-2024 Creatinine [Mass/Vol] 0.99 mg/dL 0.70-1.20 [facility] Serum globulin measurementOr dered By: Wood Harris on 10-13-2024 Globulin (S) [Mass/Vol] 2.9 g/dL 2.2-4.2 [facility] Serum glucose measurement (m ass/volume)Ordered By: Wood Harris on 10-13-2024 Glucose [Mass/Vol] 141 mg/dL High 70-99 [facility] Serum or plasma alanine magallanes otransferase (ALT) measurementOrdered By: Wood Harris on 10-13-2024 ALT [Catalytic activity/Vol] 12 U/L <47 [facility] Serum or plasma albumin shameka urement (mass/volume)Ordered By: Wood Harris on 10-13-2024 Albumin [Mass/Vol] 4.0 g/dL 3.4-4.8 [facility] Serum or plasma albumin/glob ulin mass ratioOrdered By: Wood Harris on 10-13-2024 Albumin/Globulin [Mass ratio] 1.4 {ratio} 0.9-2.4 [facility] Serum or plasma alkaline taylor sphatase measurementOrdered By: Wood Harris on 10-13-2024 ALP [Catalytic activity/Vol] 145 U/L High 40-129 [facility] Serum or plasma calcium shameka urement (mass/volume)Ordered By: Wood Harris on 10-13-2024 Calcium [Mass/Vol] 9.9 mg/dL 7.6-11.0 [facility] Serum or plasma urea nitroge n measurement (mass/volume)Ordered By: Wood Harris on 10-13-2024 Urea nitrogen [Mass/Vol] 26 mg/dL High 4-19 [facility] Sodium levelOrdered By: Wood Harris on 10-13-2024 Sodium [Moles/Vol] 138 mmol/L 133-145 [facility] Total proteinOrdered By: Heather Hraris on 10-13-2024 Protein [Mass/Vol] 6.9 g/dL 5.9-8.4 [facility] Cardiology Visit Reporton Cardiology Visit Report [facility] [address] [place], [place] [id number] OFFICE VISIT Date of Service: 10/11/24 MR#: [id number] Acct: [id number] Name: DINAH VALIENTE Rep #: [id number] : 1945 Provider: KRUPA Crystal Age/Sex: 79/M Location: [facility] Status: Signed HPI HPI History of Present Illness Details: This is an 79-year-old gentleman that has a history of mild aortic stenosis, hypertension, hyperlipidemia and diabetes. Echocardiogram from 2023 demonstrated mild aortic stenosis with a mean gradient of 16. Pt is scheduled for a right hip replacement on 11/01/[address] Sosa at [facility]. Yesterday at his OV with them he was noted to have an elevated HR and a low BP. He is not symptomatic with this. He does not have any lightheadedness/dizz iness. He does not have any near syncope. He does not have any chest pain. He does have some SOB with exertion but feels that this is baseline. EKG today demonstates ST with a HR of 111 Intake Vital Signs 09/28/24 14:07 10/11/24 14:35 Height 5 ft 10 in 5 ft 10 in Weight: 208 lb BMI 29.8 BP 103/70 Blood Pressure Location Rt brachial Position Sitting Respiration 16 Pulse 103 H Pulse Source Monitor Intake Visit Reasons: Hypotension/Tachycar rissa/Surgery Clearance Review Allergies Penicillins (PCN) Allergy (Verified 10/11/24 14:37) Hives tolmetin (From Tolectin) Allergy (Verified 10/11/24 14:37) Hives metformin Adverse Reaction (Verified 10/11/24 14:37) Diarrhea Medications ???Medication ???Instructions ???Recorded ???Confirmed ???Type finasteride 5 mg tablet 5 mg PO DAILY 04/25/16 10/11/24 Hi story tamsulosin 0.4 mg capsule 0.4 mg PO BID 04/25/16 10/11/24 Hi story ascorbic acid (vitamin C) 1,000 mg 1,000 mg PO DAILY 03/13/2010/11 History tablet cyanocobalamin (vitamin B-12) 5,000 mcg PO DAILY 03/13/20 History 1,000 mcg capsule glucosamine HCl 500 mg tablet 1,000 mg PO DAILY 03/13/20 5 History rosuvastatin 5 mg tablet 5 mg PO QHS 03/13/20 10/11/24 Hist ory vitamin E 100 unit capsule 100 unit PO DAILY 03/13/20 5 History zinc 50 mg tablet 50 mg PO DAILY 03/13/20 10/11/24 H istory empagliflozin 25 mg tablet 25 mg PO DAILY 08/18/23 10/11/24 H istory (Jardiance) ketoconazole 2 % shampoo topical 08/18/23 10/11/24 History glimepiride 2 mg tablet 2 mg PO DAILY 09/28/24 10/11/24 Hi story cholecalciferol (vitamin D3) 125 125 mcg PO QDAY 10/11/24 10/11/24 History mcg (5,000 unit) capsule cyclobenzaprine 5 mg tablet 5 mg PO TID PRN 10/11/24 10/11/24 History duloxetine 30 mg capsule,delayed 30 mg PO BID 10/11/24 10/11/24 His tory release semaglutide 2 mg/dose (8 mg/3 mL) mg subcut .weekly 10/11/24 History subcutaneous pen injector (Ozempic) Have you fallen in the past year?: Yes (missed step and fell backwards 2 weeks ago) PFSH Medical History Tachycardia Benign essential hypertension Hyperlipidemia Type 2 diabetes mellitus Mild aortic stenosis Hypotension Obesity BPH (benign prostatic hyperplasia) Urine frequency History of colon polyps Acute maxillary sinusitis, unspecified Diabetes Surgical History History of wisdom tooth extraction History of bunionectomy History of adenoidectomy History of bilateral cataract extraction History of tonsillectomy Family History Mother Heart disease Father Cancer Myocardial infarction Brother Cancer Social History household members: spouse Smoking Status: Former smoker how long ago did patient quit smokin years ago alcohol intake: never substance use type: does not use caffeine: Yes ROS Const Const: Negative for fatigue or weakness Eyes Eyes: Negative for change in vision ENT ENT: Negative for dizziness or balance problems Cardio Chest Pain: No Palpitations: No Edema: None Resp Respiratory: Positive for SOB with activity; Negative for SOB at rest or SOB orthopnea SOB lying down GI GI: Negative nausea or heartburn Musc Musc: Negative for balance problems Neuro Neuro: Negative for dizziness, lightheadedness, near syncope, syncope or weakness Endo Endo: Negative for fatigue Cardiology Exam Const Appearance: cooperative, comfortable, no acute distress and well developed Head Head: normal to inspection Eyes General: appearance normal, both eyes and all related structures Neck Neck: normal visual inspection and no JVD Carotids: Negative bruit Chest Chest inspection: normal inspection of the chest Ausc (more content not included)... Normal [facility] .Auto Diffon 10-10-2024 Basophil, Absolute 0.0 10 3/mcL Normal 0.0-0.3 [facility] Comment on above: Performed By: #### G FR, ADIFF, A1C, ALB, ABOGEL, CBC, BMP, ANEU, ABSGEL #### [address] [address] Basophils/100 WBC (Bld) 0.5 % Normal 0.0-2.5 [facility] Comment on above: Performed By: #### G FR, ADIFF, A1C, ALB, ABOGEL, CBC, BMP, ANEU, ABSGEL #### [address] [address] Eosinophil, Absolute 0.3 10 3/mcL Normal 0.0-0.7 [facility] Comment on above: Performed By: #### G FR, ADIFF, A1C, ALB, ABOGEL, CBC, BMP, ANEU, ABSGEL #### [address] [address] Eosinophils/100 WBC (Bld) 3.5 % Normal 0.0-6.0 [facility] Comment on above: Performed By: #### G FR, ADIFF, A1C, ALB, ABOGEL, CBC, BMP, ANEU, ABSGEL #### [address] [address] Lymphocyte, Absolute 2.0 10 3/mcL Normal 0.9-4.3 [facility] Comment on above: Performed By: #### G FR, ADIFF, A1C, ALB, ABOGEL, CBC, BMP, ANEU, ABSGEL #### [address] [address] Lymphocytes/100 WBC (Bld) 24.6 % Normal 20.0-40.0 [facility] Comment on above: Performed By: #### G FR, ADIFF, A1C, ALB, ABOGEL, CBC, BMP, ANEU, ABSGEL #### [address] [address] Monocyte, Absolute 0.9 10 3/mcL Normal 0.1-1.4 [facility] Comment on above: Performed By: #### G FR, ADIFF, A1C, ALB, ABOGEL, CBC, BMP, ANEU, ABSGEL #### [address] [address] Monocytes/100 WBC (Bld) 10.7 % Normal 2.0-13.0 [facility] Comment on above: Performed By: #### G FR, ADIFF, A1C, ALB, ABOGEL, CBC, BMP, ANEU, ABSGEL #### [address] [address] Neutrophils/100 WBC (Bld) 60.7 % Normal 50.0-75.0 [facility] Comment on above: Performed By: #### G FR, ADIFF, A1C, ALB, ABOGEL, CBC, BMP, ANEU, ABSGEL #### [address] [address] .GFRon 10-10-2024 Estimated Glomerular Filtration Rate 87 ml/min/1.73sqm Normal [facility] Comment on above: Result Comment: Stages of Chronic Kidney Disease (CKD) Stage Description eGFR(ml/min/1.73 sq.m.) CKD 1 Normal kidney function or >=90 normal kindney function with possible kidney damage (ex. Proteinuria) CKD 2 Kidney damage with mild loss 60-89 of kidney function CKD 3a Mild to moderate loss of kidney 45-59 function CKD 3b Moderate to severe loss of 30-44 of kindey function CKD 4 Severe loss of kidney function 15-29 CKD 5 Kidney failure <15 Note: (go live 2024) the eGFR calculation was updated to the 2020 CKD-EPI creatinine equation without a race factor to calculate the eGFR results. Performed By: #### G FR, ADIFF, A1C, ALB, ABOGEL, CBC, BMP, ANEU, ABSGEL #### [address] [address] .NEUABSon 10-10-2024 Neutrophil, Absolute 5.0 10 3/mcL Normal 2.3-8.1 [facility] Comment on above: Performed By: #### G FR, ADIFF, A1C, ALB, ABOGEL, CBC, BMP, ANEU, ABSGEL #### [address] [address] A1Con 10-10-2024 Glucose [Mass/Vol] 137 mg/dL Normal [facility] Comment on above: Result Comment: Pamela mated Average Glucose calculated by equation ((28.7xA1C)-46.7) Estimated average glucose (eAG) is a calculated value from Hemoglobin A1C and is financial foundations representative of the average blood glucose level in the last 2-3 month period. Normal range: less than 114 mg/dL Performed By: #### G FR, ADIFF, A1C, ALB, ABOGEL, CBC, BMP, ANEU, ABSGEL #### [address] [address] HbA1c (Bld) [Mass fraction] 6.4 % Normal 4.3-6.4 [facility] Comment on above: Performed By: #### G FR, ADIFF, A1C, ALB, ABOGEL, CBC, BMP, ANEU, ABSGEL #### [address] [address] ABO/Rh (Gel)on 10-10-2024 ABO/Rh Interp AB POS Invalid Interpretation Code [facility] Comment on above: Order Comment: SURG MAURO 9/9 -AC Performed By: #### G FR, ADIFF, A1C, ALB, ABOGEL, CBC, BMP, ANEU, ABSGEL #### [address] [address] ABS (Gel)on 10-10-2024 ABSC Interp (Gel) Negative Normal [facility] Comment on above: Order Comment: SURG MAURO 9/9 -AC Performed By: #### G FR, ADIFF, A1C, ALB, ABOGEL, CBC, BMP, ANEU, ABSGEL #### [address] [address] ALBon 10-10-2024 Albumin Level 3.5 G/dL Normal 3.4-4.8 [facility] Comment on above: Performed By: #### G FR, ADIFF, A1C, ALB, ABOGEL, CBC, BMP, ANEU, ABSGEL #### [address] [address] BMPon 10-10-2024 BUN/Creatinine Ratio 30 ratio High 7-27 [facility] Comment on above: Performed By: #### G FR, ADIFF, A1C, ALB, ABOGEL, CBC, BMP, ANEU, ABSGEL #### [address] [address] Calcium [Mass/Vol] 10.1 mg/dL Normal 8.4-10.2 [facility] Comment on above: Performed By: #### G FR, ADIFF, A1C, ALB, ABOGEL, CBC, BMP, ANEU, ABSGEL #### [address] [address] Chloride [Moles/Vol] 103 mmol/L Normal 98-107 [facility] Comment on above: Performed By: #### G FR, ADIFF, A1C, ALB, ABOGEL, CBC, BMP, ANEU, ABSGEL #### [address] [address] CO2 [Moles/Vol] 27 mmol/L Normal 23-31 [facility] Comment on above: Performed By: #### G FR, ADIFF, A1C, ALB, ABOGEL, CBC, BMP, ANEU, ABSGEL #### [address] [address] Creatinine [Mass/Vol] 0.87 mg/dL Normal 0.67-1.17 [facility] Comment on above: Performed By: #### G FR, ADIFF, A1C, ALB, ABOGEL, CBC, BMP, ANEU, ABSGEL #### [address] [address] Electrolyte Balance 9.0 mEq/L Normal 4.0-15.0 [facility] Comment on above: Performed By: #### G FR, ADIFF, A1C, ALB, ABOGEL, CBC, BMP, ANEU, ABSGEL #### [address] [address] Glucose [Mass/Vol] 97 mg/dL Normal 83-110 [facility] Comment on above: Performed By: #### G FR, ADIFF, A1C, ALB, ABOGEL, CBC, BMP, ANEU, ABSGEL #### [address] [address] Potassium [Moles/Vol] 4.0 mmol/L Normal 3.5-5.1 [facility] Comment on above: Performed By: #### G FR, ADIFF, A1C, ALB, ABOGEL, CBC, BMP, ANEU, ABSGEL #### [address] [address] Sodium [Moles/Vol] 139 mmol/L Normal 136-145 [facility] Comment on above: Performed By: #### G FR, ADIFF, A1C, ALB, ABOGEL, CBC, BMP, ANEU, ABSGEL #### [address] [address] Urea nitrogen [Mass/Vol] 26 mg/dL High 09-09 [facility] Comment on above: Performed By: #### G FR, ADIFF, A1C, ALB, ABOGEL, CBC, BMP, ANEU, ABSGEL #### [address] [address] CBCon 10-10-2024 Erythrocyte distribution width (RBC) [Ratio] 15.2 % Normal 11.5-15.5 [facility] Comment on above: Order Comment: Pre-A dmission Testing Performed By: #### G FR, ADIFF, A1C, ALB, ABOGEL, CBC, BMP, ANEU, ABSGEL #### [address] [address] Hematocrit (Bld) [Volume fraction] 42.8 % Normal 40.0-52.0 [facility] Comment on above: Order Comment: Pre-A dmission Testing Performed By: #### G FR, ADIFF, A1C, ALB, ABOGEL, CBC, BMP, ANEU, ABSGEL #### [address] [address] Hgb 14.5 G/dL Normal 13.0-17.5 [facility] Comment on above: Order Comment: Pre-A dmission Testing Performed By: #### G FR, ADIFF, A1C, ALB, ABOGEL, CBC, BMP, ANEU, ABSGEL #### [address] [address] MCH (RBC) [Entitic mass] 32.5 pg Normal 27.0-33.0 [facility] Comment on above: Order Comment: Pre-A dmission Testing Performed By: #### G FR, ADIFF, A1C, ALB, ABOGEL, CBC, BMP, ANEU, ABSGEL #### [place] [address] MCHC 33.9 G/dL Normal 32.0-36.0 [facility] Comment on above: Order Comment: Pre-A dmission Testing Performed By: #### G FR, ADIFF, A1C, ALB, ABOGEL, CBC, BMP, ANEU, ABSGEL #### [place] [id number] MCV (RBC) [Entitic vol] 95.9 fL Normal 81.0-100.0 [facility] Comment on above: Order Comment: Pre-A dmission Testing Performed By: #### G FR, ADIFF, A1C, ALB, ABOGEL, CBC, BMP, ANEU, ABSGEL #### [address] [address] Platelet 256 10 3/mcL Normal 150-450 [facility] Comment on above: Order Comment: Pre-A dmission Testing Performed By: #### G FR, ADIFF, A1C, ALB, ABOGEL, CBC, BMP, ANEU, ABSGEL #### [address] [address] Platelet mean volume (Bld) [Entitic vol] 7.6 fL Normal 6.4-10.5 [facility] Comment on above: Order Comment: Pre-A dmission Testing Performed By: #### G FR, ADIFF, A1C, ALB, ABOGEL, CBC, BMP, ANEU, ABSGEL #### [address] [address] RBC 4.46 10 6/mcL Low 4.50-6.00 [facility] Comment on above: Order Comment: Pre-A dmission Testing Performed By: #### G FR, ADIFF, A1C, ALB, ABOGEL, CBC, BMP, ANEU, ABSGEL #### [place] [address] [place], [place] [address] WBC 8.2 10 3/mcL Normal 4.5-10.8 [facility] Comment on above: Order Comment: Pre-A dmission Testing Performed By: #### G FR, ADIFF, A1C, ALB, ABOGEL, CBC, BMP, ANEU, ABSGEL #### [address] [address] LABORATORYOrdered By: Abram Pardo on 10-10-2024 ABO and Rh group Nom (Bld) Blood group A B Rh(D) positive Invalid Interpretation Code AO BB Auto SS Blood group antibody screen Ql Negative ABSC (10/10/24 11:32 AM) Normal AO BB Auto SS LABORATORYOrdered By: SYSTEM SYSTEM on 10-10-2024 Albumin BCP dye [Mass/Vol] 3.5 G/dL Normal 3 .4 - 4.8 G/dL AO ADM SS Basophils (Bld) [#/Vol] 0.0 103/mcL Normal 0.0 - 0.3 10^3/mcL AO Workflow SS Basophils/100 WBC (Bld) 0.5 % Normal 0.0 - 2.5 % AO Workflow SS Calcium [Mass/Vol] 10.1 mg/dL Normal 8.4 - 10. 2 mg/dL AO ADM SS Chloride [Moles/Vol] 103 mmol/L Normal 98 - 10 7 mmol/L AO ADM SS CO2 [Moles/Vol] 27 mmol/L Normal 23 - 31 mmol/L AO ADM SS Creatinine [Mass/Vol] 0.87 mg/dL Normal 0.67 - 1.17 mg/dL AO ADM SS Electrolyte Balance 9.0 mEq/L Normal 4.0 - 15 .0 mEq/L AO ADM SS Eosinophil, Absolute 0.3 103/mcL Normal 0.0 - 0 .7 10^3/mcL AO Workflow SS Eosinophils/100 WBC (Bld) 3.5 % Normal 0.0 - 6.0 % AO Workflow SS Erythrocyte distribution width (RBC) [Ratio] 15.2 % Normal 11.5 - 15.5 % AO Workflow SS Estimated Glomerular Filtration Rate 87 ml/min/1.73sqm Invalid Interpretation Code AO Chemistry S Comment on above: Interpretive Data: Stages of Chronic Kidney Disease (CKD) Stage Description eGFR(ml/min/1.73 sq.m.) CKD 1 Normal kidney function or >=90 normal kindney function with possible kidney damage (ex. Proteinuria) CKD 2 Kidney damage with mild loss 60-89 of kidney function CKD 3a Mild to moderate loss of kidney 45-59 function CKD 3b Moderate to severe loss of 30-44 of kindey function CKD 4 Severe loss of kidney function 15-29 CKD 5 Kidney failure <15 Note: (go live 2024) the eGFR calculation was updated to the 2020 CKD-EPI creatinine equation without a race factor to calculate the eGFR results. Glucose [Mass/Vol] 97 mg/dL Normal 83 - 110 mg/dL AO ADM SS Glucose [Mass/Vol] 137 mg/dL Invalid Interpretation Code AO Chemistry S Comment on above: Interpretive Data: E stimated average glucose (eAG) is a calculated value from Hemoglobin A1C and is financial foundations representative of the average blood glucose level in the last 2-3 month period. Normal range: less than 114 mg/dL HbA1c (Bld) [Mass fraction] 6.4 % Normal 4.3 - 6.4 % AO ADM SS Hematocrit (Bld) [Volume fraction] 42.8 % Normal 40.0 - 52.0 % AO Workflow SS Hemoglobin (Bld) [Mass/Vol] 14.5 G/dL Normal 13.0 - 17.5 G/dL AO Workflow SS Lymphocytes (Bld) [#/Vol] 2.0 103/mcL Normal 0. 9 - 4.3 10^3/mcL AO Workflow SS Lymphocytes/100 WBC (Bld) 24.6 % Normal 20 .0 - 40.0 % AO Workflow SS MCH (RBC) [Entitic mass] 32.5 pg Normal 27. 0 - 33.0 pg AO Workflow SS MCHC 33.9 G/dL Normal 32.0 - 36.0 G/dL AO Workflow SS MCV (RBC) [Entitic vol] 95.9 fL Normal 81.0 - 100.0 fL AO Workflow SS Monocytes (Bld) [#/Vol] 0.9 103/mcL Normal 0.1 - 1.4 10^3/mcL AO Workflow SS Monocytes/100 WBC (Bld) 10.7 % Normal 2.0 - 13.0 % AO Workflow SS Neutrophils (Bld) [#/Vol] 5.0 103/mcL Normal 2. 3 - 8.1 10^3/mcL AO Workflow SS Neutrophils/100 WBC (Bld) 60.7 % Normal 50 .0 - 75.0 % AO Workflow SS Platelet mean volume (Bld) [Entitic vol] 7.6 fL Normal 6.4 - 10.5 fL AO Workflow SS Platelets (Bld) [#/Vol] 256 103/mcL Normal 150 - 450 10^3/mcL AO Workflow SS Potassium [Moles/Vol] 4.0 mmol/L Normal 3.5 - 5.1 mmol/L AO ADM SS RBC (Bld) [#/Vol] 4.46 106/mcL Low 4.50 - 6.0 0 10^6/mcL AO Workflow SS Sodium [Moles/Vol] 139 mmol/L Normal 136 - 145 mmol/L AO ADM SS Urea nitrogen [Mass/Vol] 26 mg/dL High 7 - 18 mg/dL AO ADM SS Urea nitrogen/Creatinine [Mass ratio] 30 ratio High 7 - 27 ratio AO ADM SS WBC (Bld) [#/Vol] 8.2 103/mcL Normal 4.5 - 10.8 10^3/mcL AO Workflow SS LABORATORYOrdered By: Sherif Stanley on 10-10-2024 MRSA (PCR) Not Detected 1 (10/10/24 11:32 AM) Normal Not Detected Auto Viro/Sero SS Comment on above: Result Comment: [place] [id number] MRSA PCR Int See Below 2 *NA* (10/10/24 11:32 AM) Invalid Interpretation Code Auto Viro/Sero SS Comment on above: Result Comment: Clinical Interpretation: MRSA DNA not detected by Real-Time Polymerase Chain Reaction (PCR). A negative result may be due to intermittent colonization. Colonization may vary depending on patient treatment, patient status, or exposure to high-risk environments. As with all PCR based in vitro diagnostic tests, extremely low levels of target below the limit of detection of the assay may be detected, but results may not be reproducible. MRSAPCRon 10-10-2024 MRSA (PCR) Not detected Normal Not Detected [facility] Comment on above: Result Comment: [place] s [id number] Performed By: #### G FR, ADIFF, A1C, ALB, ABOGEL, CBC, BMP, ANEU, ABSGEL #### [place] [address] [place], [place] [address] MRSA PCR Int See Below Normal [facility] Comment on above: Result Comment: Clinical Interpretation: MRSA DNA not detected by Real-Time Polymerase Chain Reaction (PCR). A negative result may be due to intermittent colonization. Colonization may vary depending on patient treatment, patient status, or exposure to high-risk environments. As with all PCR based in vitro diagnostic tests, extremely low levels of target below the limit of detection of the assay may be detected, but results may not be reproducible. Performed By: #### G FR, ADIFF, A1C, ALB, ABOGEL, CBC, BMP, ANEU, ABSGEL #### [facility] [address] [place], [place] [address] XR CHEST 2 VIEWSon XR CHEST 2 VIEWS ORIGINAL EXAMINATION: TWO XRAY VIEWS OF THE CHEST TECHNIQUE: CHEST PA and LATERAL COMPARISON: None. HISTORY: ORDERING SYSTEM PROVIDED HISTORY: Reason for Exam: History of TB, preoperative FINDINGS: The heart is normal in size. The mediastinal silhouette is unremarkable. Atherosclerosis of the aorta. No consolidation. No vascular congestion. No pleural effusion or pneumothorax. No aggressive osseous lesions. IMPRESSION: No acute radiographic finding. I have personally reviewed the images of this examination and agree with the resident's findings and interpretation. Interpreted by: Radha Luu MD Preliminary Report By: Shawn Man Electronically signed By Radha Luu MD Dictated Date: 10/10/2024 3:44:58 PM Prelim Date: 10/10/2024 5:16:30 PM Sign Date: 10/10/2024 5:16:30 PM Ordering Provider: RHIANNON SOSA Normal [facility] Clavicleon 09-30-2024 Clavicle [facility] Imaging Services [address] [place], [place] [id number] Clavicle MR#: [id number] Acct: [id number] Name: DINAH VALIENTE Rep #: [id number] : 1945 M 79 From: Souleymane myers MD PCP: Dr. Keke Landeros MD Status: REG CLI Study: Clavicle Date of Exam: 09/30/24 Exam# [id number] Ordering Dr: Wood Harris MD PROCEDURE: CLAVICLE 09/30/2024 REASON FOR EXAM: FALL Pain following a fall. TECHNIQUE: CLAVICLE COMPARISON: None FINDINGS: RIGHT CLAVICLE: Bones right: No fracture seen. Joints right: Osteoarthritis of the acromioclavicular joint. Soft tissues right: No soft tissue swelling RAD/Clavicle IMPRESSION: Osteoarthritis of the acromioclavicular joint. No fracture seen. Reading Location: [id number] CC: Dr. Keke Landeros MD; Dr. Wood Harris MD Automation Engineering Manager: Signed Normal [facility] Clavicle [facility] Imaging Services [address] [place], [place] [id number] Clavicle MR#: [id number] Acct: [id number] Name: DINAH VALIENTE Rep #: [id number] : 1945 M 79 From: Souleymane myers MD PCP: Dr. Keke Landeros MD Status: REG CLI Study: Clavicle Date of Exam: 09/30/24 Exam# [id number] Ordering Dr: Wood Harris MD PROCEDURE: CLAVICLE 09/30/2024 REASON FOR EXAM: RECENT FALL TECHNIQUE: CLAVICLE. Two views of the left clavicle were obtained COMPARISON: None FINDINGS: LEFT CLAVICLE: Osteoarthritis of the left acromioclavicular joint. No clavicular fracture or dislocation. RAD/Clavicle IMPRESSION: Degenerative changes of the left acromioclavicular joint. No evidence of fracture or dislocation. Reading Location: [id number] CC: Dr. Keke Landeros MD; Dr. Wodo Harris MD Automation Engineering Manager: Signed Normal [facility] Hips B/L min 2 views w/ Pelv marcela 09-30-2024 Hips B/L min 2 views w/ Pelvis [facility] Imaging Services [address] [place] [address] Hips B/L min 2 views w/ Pelvis MR#: [id number] Acct: [id number] Name: DINAH VALIENTE Rep #: [id number] : 1945 M 79 From: Souleymane myers MD PCP: Dr. Keke Landeros MD Status: REG CLI Study: Hips B/L min 2 views w/ Pelvis Date of Exam: 0 09/30/24 Exam# [id number] Ordering Dr: Wood Harris MD PROCEDURE: HIPS B/L MIN 2 VIEWS W/ PELVIS 09/30/2024 REASON FOR EXAM: RECENT FALL, BACK AND HIP PAIN TECHNIQUE: HIPS B/L MIN 2 VIEWS W/ PELVIS Laterality: Bilateral. COMPARISON: Prior study dated 2024. FINDINGS: Marked degree of joint space narrowing of the right hip joint with a subchondral sclerosis. This is in keeping with severe osteoarthritis and possible avascular necrosis. This has worsened as compared to prior study. Moderate degree of joint space narrowing involving the left hip joint. Mild degenerative changes of the sacroiliac joints bilaterally. No acute fracture is seen. Calcified phleboliths. RAD/Hips B/L min 2 views w/ Pelvis IMPRESSION: Joint space narrowing of both hip joints worse on the right side with the marked degree of osteoarthritis and possible avascular necrosis. This has progressed as compared to prior study. Reading Location: [id number] CC: Dr. Keke Landeros MD; Dr. Wood Harris MD Automation Engineering Manager: Signed Normal [facility] L/S Spine Min 4 Viewson L/S Spine Min 4 Views [facility] Imaging Services [address] [place], [place] [address] L/S Spine Min 4 Views MR#: [id number] Acct: [id number] Name: DINAH VALIENTE Rep #: [id number] : 1945 M 79 From: Souleymane myers MD PCP: Dr. Keke Landeros MD Status: REG CLI Study: L/S Spine Min 4 Views Date of Exam: 09/30/24 Exam# [id number] Ordering Dr: Wood Harris MD PROCEDURE: L/S SPINE MIN 4 VIEWS 09/30/2024 REASON FOR EXAM: RECENT FALL, BACK AND HIP PAIN TECHNIQUE: L/S SPINE MIN 4 VIEWS COMPARISON: Prior study dated 2024. FINDINGS: Curvature: No significant scoliosis is seen. Other findings: Anterior spondylosis at the L1-L2 as well as the L3-L4 levels. Disc space narrowing at the L5-S1 level as well as at the T12-L1 and L1-L2 levels. Facet joint osteoarthritis. Degenerative changes of the sacroiliac joints as well as both hip joints worse on the right side. RAD/L/S Spine Min 4 Views IMPRESSION: Degenerative changes as described. There has been essentially no change. Reading Location: [facility] CC: Dr. Keke Landeros MD; Dr. Wood Harris MD Automation Engineering Manager: Signed Normal [facility] Ribs Bilat 3V No CXRon 09-30 Ribs Bilat 3V No CXR [facility] Imaging Services [address] [place], [place] [address] Ribs Bilat 3V No CXR MR#: [id number] Acct: [id number] Name: DINAH VALIENTE Rep #: [id number] : 1945 M 79 From: Souleymane myers MD PCP: Dr. Keke Landeros MD Status: REG CLI Study: Ribs Bilat 3V No CXR Date of Exam: 09/30/24 Exam# [id number] Ordering Dr: Wood Harris MD PROCEDURE: RIBS BILAT 3V NO CXR 09/30/2024 REASON FOR EXAM: FELL 2 DAYS AGO, CHEST DISCOMFORT/PAIN TECHNIQUE: RIBS BILAT 3V NO CXR. Multiple views of both right and left ribs were obtained. COMPARISON: None FINDINGS: There is no evidence of rib fracture. Increased markings at the lung bases suggestive of bibasilar scarring. Osteoarthritis of both shoulder joints. RAD/Ribs Bilat 3V No CXR IMPRESSION: No acute fracture seen. Findings suggestive of mild bibasilar linear scarring. Reading Location: [id number] CC: Dr. Keke Landeros MD; Dr. Wood Harris MD Automation Engineering Manager: Signed Normal [facility] Sternum min 2 Viewson 2024 Sternum min 2 Views [facility] Imaging Services [address] [place] [id number] Sternum min 2 Views MR#: [id number] Acct: [id number] Name: DINAH VALIENTE Rep #: [id number] : 1945 79 From: Souleymane myers MD PCP: Dr. Keke Landeros MD Status: REG CL Study: Sternum min 2 Views Date of Exam: 09/30/24 Exam# [id number] Ordering Dr: Wood Harris MD PROCEDURE: STERNUM MIN 2 VIEWS 09/30/2024 REASON FOR EXAM: FALL TECHNIQUE: STERNUM MIN 2 VIEWS COMPARISON: None FINDINGS: Three views were obtained. No sternal fracture is seen. RAD/Sternum min 2 Views IMPRESSION: No sternal fracture is seen. Reading Location: [id number] CC: Dr. eKke Landeros MD; Dr. Wood Harris MD Automation Engineering Manager: Signed Normal [facility] Brain/Head without Contrasto n 09-28-2024 Brain/Head without Contrast [facility] Imaging Services [address] [place] [address] Brain/Head without Contrast MR#: [id number] Acct: [id number] Name: DINAH VALIENTE Rep #: [id number] : 1945 M 79 From: Souleymane myers MD PCP: Dr. Keke Landeros MD Status: REG ER Study: Brain/Head without Contrast Date of Exam: 08/17 Exam# [id number] Ordering Dr: Karthik Shaw MD PROCEDURE: BRAIN/HEAD WITHOUT CONTRAST 09/28/2024 REASON FOR EXAM: TRAUMA, GCS 14 Laceration to the left side of the skull. Confusion. TECHNIQUE: BRAIN/HEAD WITHOUT CONTRAST Coronal and Sagittal reconstruction series were provided. One or more dose reduction techniques were used (e.g., Automated exposure control, adjustment of the mA and/or kV according to patient size, use of iterative reconstruction technique. RADIATION DOSE SUMMARY: CTDlvol: 44.99 mGy DLP: 846.73 mGycm COMPARISON: Prior study dated November 25, 2018. FINDINGS: Brain: Low density in the periventricular white matter suggests mild chronic small vessel ischemic changes. CSF Spaces: Mild generalized cerebral atrophy atherosclerotic calcification of the cavernous portions of the internal carotid arteries. Sinuses/Mastoids: Opacification of the right maxillary sinus. Partial opacification of the right ethmoid sinus. Bones: There is evidence of scalp hematoma overlying the left posterior parietal occipital bone. CT/Brain/Head without Contrast IMPRESSION: CHRONIC CHANGES. Scalp hematoma overlying the posterior left parietal bone and left occipital bone. Reading Location: [id number] CC: Dr. Keke Landeros MD; Dr. Karthik Shaw MD Automation Engineering Manager: Signed Normal [facility] Emergency Department Summary on 09-28-2024 Emergency Department Summary [facility] Medical Records Department [address] [place] [address] Emergency Department Summary 09/28/24 MR#: [id number] Acct: [id number] Name: DINAH VALIENTE Rep #: [id number] : 1945 79 From: Karthik Shaw MD PCP: Dr. Keke Landeros MD Status:REG ER Location: ED HPI History of Present Illness Chief Complaint: Laceration Detail of Chief Complaint: Fall with head trauma Informant: patient Onset/Context/Timing Onset: Today and Hours Mechanism/Context: Blunt Injury and Fall Location of pain/injuries: - (Occiput region) Quality of Pain: Dull Location: Back of the head Current Severity: Mild Maximum Severity: Moderate Worsened by: Fall and blunt trauma Relieved by: Nothing Associated Symptoms Associated Symptoms: Positive for Loss of consciousness; Negative for Parasthesias, Weakness, Loss of function, Inability to ambulate or Amnesia Length of loss of consciousness: Uncertain, suspect brief per 's account of what happened Narrative Narrative: Patient is an 79-year-old male. He has history of hypertension, hyperlipidemia, type 2 diabetes, mild aortic stenosis, BPH who presents after mechanical fall. He was going up the steps. He lost his balance and fell backwards. He had brief loss of conscious. states he was not appropriate. He does complain of headache. He is on no antithrombotic or anticoagulant. He denies double vision, blurred vision or loss of vision. Eyes casey ears or decreased hearing. He does complain of jaw pain. He denies chest pain. He denies shortness of breath. He denies nausea or vomiting. He denies low back pain. He denies pain in his upper or lower extremity other than hip pain is chronic and scheduled for total hip arthroplasty. Prior similar symptoms: No Recent Illness/Hospitalizat ion: No PFSH PFSH Medical History Benign essential hypertension Hyperlipidemia Type 2 diabetes mellitus Mild aortic stenosis Hypotension Obesity BPH (benign prostatic hyperplasia) Urine frequency History of colon polyps Acute maxillary sinusitis, unspecified Diabetes Home Medications ???Medication ???Instructions ???Recorded ???Last Taken ???Type cholecalciferol (vitamin D3) 25 1,000 unit PO DAILY 04/25/16 Unkno wn History mcg (1,000 unit) capsule finasteride 5 mg tablet 5 mg PO DAILY 04/25/16 Unknown His tory tamsulosin 0.4 mg capsule 0.4 mg PO BID 04/25/16 Unknown His tory ascorbic acid (vitamin C) 1,000 mg 1,000 mg PO DAILY 03/13/20 Unkno wn History tablet cyanocobalamin (vitamin B-12) 5,000 mcg PO DAILY 03/13/20 Unknow n History 1,000 mcg capsule glucosamine HCl 500 mg tablet 1,000 mg PO DAILY 03/13/20 Unknown History rosuvastatin 5 mg tablet 5 mg PO QHS 03/13/20 Unknown Histo ry vitamin E 100 unit capsule 100 unit PO DAILY 03/13/20 Unknown History zinc 50 mg tablet 50 mg PO DAILY 03/13/20 Unknown Hi story empagliflozin 25 mg tablet 25 mg PO DAILY 08/18/23 Unknown Hi story (Jardiance) ketoconazole 2 % shampoo topical 08/18/23 Unknown History semaglutide 2 mg/dose (8 mg/3 mL) mg subcut 08/18/23 Unknown Histor y subcutaneous pen injector (Ozempic) duloxetine 30 mg capsule,delayed 30 mg PO DAILY 09/28/24 Unknown Hi story release glimepiride 2 mg tablet 2 mg PO DAILY 09/28/24 Unknown His tory naproxen 500 mg tablet 500 mg PO BID PRN PRN pain 5 Unknown History Allergy/AdvReac Type Severity Reaction Status Date / Time Penicillins (PCN) Allergy Hives Verified 09/28/24 14:10 tolmetin (From Tolectin) Allergy Hives Verified 09/28/24 14:10 metformin AdvReac Diarrhea Verified 09/28/24 14:10 Family History Mother Heart disease Father Cancer Myocardial infarction Brother Cancer Surgical History History of wisdom tooth extraction History of bunionectomy History of adenoidectomy History of bilateral cataract extraction History of tonsillectomy Social History (Updated 09/28/24 @ 14:[address] Karthik Shaw MD) household members: spouse Smoking Status: Former smoker how long ago did patient quit smokin years ago alcohol intake: never substance use type: does not use caffeine: Yes ROS ROS ED Constitutional Constitutional ED: Denies chills or fever(s) Eyes Eyes: Denies blurry vision or change in vision ENT ENT ED: Denies rhinorrhea Cardiovascular Cardiovascular: Denies chest pain or palpitations Respiratory/Chest Respiratory/Chest: Denies cough, dyspnea or dyspnea on exertion Gastrointestinal Gastrointestinal: Denies nausea or vomiting Musculoskeletal Musculoskeletal: Denies back pain or neck pain Integumentary Reports other Details: Laceration occipital (more content not included)... Normal [facility] Absolute lymphocyte countOrd ered By: Keke Landeros on 07-20-2024 Lymphocytes Auto (Unsp spec) [#/Vol] 2.41 10*3/uL 0.83-4.51 [facility] Absolute neutrophil countOrd ered By: Keke Landeros on 07-20-2024 Neutrophils (Bld) [#/Vol] 6.8 10*3/uL 2.0-7.7 [facility] Anion gap in Serum or Plasma Ordered By: Keke Landeros on 07-20-2024 Anion gap [Moles/Vol] 13 mmol/L 5-15 [facility] Automated lymphocyte count a s percentage of total leukocytesOrdered By: Keke Landeros on 07-20-2024 Lymphocytes/100 WBC Auto (Unsp spec) 22.8 % - [facility] BUN/creatinine ratioOrdered By: Keke Landeros on 07-20-2024 Urea nitrogen/Creatinine [Mass ratio] 31.3 mg/mg High 10- [facility] Basophil percentageOrdered B y: Keke Landeros on 07-20-2024 Basophils/100 WBC (Bld) 0.9 % 0-1 [facility] Bilirubin, totalOrdered By: Keke Landeros on 07-20-2024 Bilirubin [Mass/Vol] 0.60 mg/dL 0.00-1.30 [facility] CBC W/Diff, Automatedon 06-24 Absolute Lymph 2.41 X10 3/uL Normal 0.83-4.51 [facility] Comment on above: Order Comment: Order Date: 04/07/24Order Info: 0184-1 - CBCD Performed By: #### L 500.4100, L501.9985, L100.0100, L500.4050 ####[facility] [address] [place], [address] Absolute Neut 6.8 X10 3/uL Normal 2.0-7.7 [facility] Comment on above: Order Comment: Order Date: 04/07/24Order Info: 0184-1 - CBCD Performed By: #### L 500.4100, L501.9985, L100.0100, L500.4050 ####[facility] [address] [place], [address] Basophils/100 WBC (Bld) 0.9 % Normal 0-1 [facility] Comment on above: Order Comment: Order Date: 04/07/24Order Info: 0184-1 - CBCD Performed By: #### L 500.4100, L501.9985, L100.0100, L500.4050 ####[facility] [address] [place], [address] Eosinophils/100 WBC (Bld) 2.6 % Normal 0-5 [facility] Comment on above: Order Comment: Order Date: 04/07/24Order Info: 0184-1 - CBCD Performed By: #### L 500.4100, L501.9985, L100.0100, L500.4050 ####[facility] [address] [place], [address] Erythrocyte distribution width (RBC) [Ratio] 14.1 % Normal 11.6-14.6 [facility] Comment on above: Order Comment: Order Date: 04/07/24Order Info: 0184-1 - CBCD Performed By: #### L 500.4100, L501.9985, L100.0100, L500.4050 ####[facility] [address] [place], [address] Hematocrit (Bld) [Volume fraction] 47.7 % Normal 40-54 [facility] Comment on above: Order Comment: Order Date: 04/07/24Order Info: 0184-1 - CBCD Performed By: #### L 500.4100, L501.9985, L100.0100, L500.4050 ####[facility] [address] [place], [address] Hemoglobin (Bld) [Mass/Vol] 16.1 g/dL Normal 13.0-16.5 [facility] Comment on above: Order Comment: Order Date: 04/07/24Order Info: 018- - CBCD Performed By: #### L 500.4100, L501.9985, L100.0100, L500.4050 ####[facility] [address] [place], [address] IG% 2.000 High 0.0-0.9 [facility] Comment on above: Order Comment: Order Date: 04/07/24Order Info: 018- - CBCD Result Comment: IG% - Immature Granulocytes (promyelocytes, myelocytes and metamyelocytes) > 1% indicates that a LEFT SHIFT is Present. Performed By: #### L 500.4100, L501.9985, L100.0100, L500.4050 ####[facility] [address] [place], [address] Lymphocytes/100 WBC (Bld) 22.8 % Normal 19-41 [facility] Comment on above: Order Comment: Order Date: 04/07/24Order Info: 018- - CBCD Performed By: #### L 500.4100, L501.9985, L100.0100, L500.4050 ####[facility] [address] [place], [address] MCH (RBC) [Entitic mass] 31.9 pg Normal 27.0-32.0 [facility] Comment on above: Order Comment: Order Date: 04/07/24Order Info: 018- - CBCD Performed By: #### L 500.4100, L501.9985, L100.0100, L500.4050 ####[facility] [address] [place], [address] MCHC (RBC) [Mass/Vol] 33.8 g/dL Normal 32-36 [facility] Comment on above: Order Comment: Order Date: 04/07/24Order Info: 0184-1 - CBCD Performed By: #### L 500.4100, L501.9985, L100.0100, L500.4050 ####[facility] [address] [place], [address] MCV (RBC) [Entitic vol] 94.5 fL High 80-94 [facility] Comment on above: Order Comment: Order Date: 04/07/24Order Info: 0184-1 - CBCD Performed By: #### L 500.4100, L501.9985, L100.0100, L500.4050 ####[facility] [address] [place], [address] Monocytes/100 WBC (Bld) 7.8 % Normal 0-10 [facility] Comment on above: Order Comment: Order Date: 04/07/24Order Info: 0184-1 - CBCD Performed By: #### L 500.4100, L501.9985, L100.0100, L500.4050 ####[facility] [address] [place], [address] Neutrophils/100 WBC (Bld) 63.9 % Normal 47-70 [facility] Comment on above: Order Comment: Order Date: 04/07/24Order Info: 0184-1 - CBCD Performed By: #### L 500.4100, L501.9985, L100.0100, L500.4050 ####[facility] [address] [place], [address] Nucleated RBC (Bld) [#/Vol] 0 10*3/uL Normal 0-5 [facility] Comment on above: Order Comment: Order Date: 04/07/24Order Info: 0184-1 - CBCD Performed By: #### L 500.4100, L501.9985, L100.0100, L500.4050 ####[facility] [address] [place], [address] Platelet mean volume (Bld) [Entitic vol] 10.3 fL Normal 6.2-12.0 [facility] Comment on above: Order Comment: Order Date: 04/07/24Order Info: 0184-1 - CBCD Performed By: #### L 500.4100, L501.9985, L100.0100, L500.4050 ####[facility] [address] [place], [address] Platelets (Bld) [#/Vol] 197 10*3/uL Normal 150-450 [facility] Comment on above: Order Comment: Order Date: 04/07/24Order Info: 0184-1 - CBCD Performed By: #### L 500.4100, L501.9985, L100.0100, L500.4050 ####[facility] [address] [place], [address] RBC (Bld) [#/Vol] 5.05 10*6/uL Normal 4.6-6.2 [facility] Comment on above: Order Comment: Order Date: 04/07/24Order Info: 0184-1 - CBCD Performed By: #### L 500.4100, L501.9985, L100.0100, L500.4050 ####[facility] [address] [place], [address] RDW SD 48.7 fl High 35.1-43.9 [facility] Comment on above: Order Comment: Order Date: 04/07/24Order Info: 0184-1 - CBCD Performed By: #### L 500.4100, L501.9985, L100.0100, L500.4050 ####[facility] [address] [place], [address] WBC (Bld) [#/Vol] 10.6 10*3/uL Normal 4.4-11.0 [facility] Comment on above: Order Comment: Order Date: 04/07/24Order Info: 0184-1 - CBCD Performed By: #### L 500.4100, L501.9985, L100.0100, L500.4050 ####[facility] [address] [place], [address] Calculated very low density lipoprotein (VLDL) cholesterol measurementOrdered By: Keke Landeros on 07-20-2024 Calculated very low density lipoprotein (VLDL) cholesterol measurement 27 mg/dL 5-40 [facility] Carbon dioxide, total [Moles /volume] in Central venous bloodOrdered By: Keke Landeros on 07-20-2024 CO2 [Moles/Vol] 20.9 mmol/L Low 21.0-32.0 [facility] Chloride assayOrdered By: Sierra Landeros on 07-20-2024 Chloride [Moles/Vol] 103 mmol/L 98-108 [facility] Comprehensive Metabolic Prof ilon 07-20-2024 Albumin [Mass/Vol] 4.2 g/dL Normal 3.4-4.8 [facility] Comment on above: Order Comment: Order Date: 04/07/24Order Info: 0786-1 - CMPOrder Info: [id number] - LIPIDPSA RESULTS GO TO DR. LUDWIG ALL OTHERS GO TO DR. LANDEROS Performed By: #### L 500.4100, L501.9985, L100.0100, L500.4050 ####[facility] [address] [place], [address] Albumin/Globulin [Mass ratio] 1.5 {ratio} Normal 0.9-2.4 [facility] Comment on above: Order Comment: Order Date: 04/07/24Order Info: 0786-1 - CMPOrder Info: [id number] - LIPIDPSA RESULTS GO TO DR. LUDWIG ALL OTHERS GO TO DR. LANDEROS Performed By: #### L 500.4100, L501.9985, L100.0100, L500.4050 ####[facility] [address] [place], [address] ALK PHOS 97 U/L Normal 40-129 [facility] Comment on above: Order Comment: Order Date: 04/07/24Order Info: 0786-1 - CMPOrder Info: [id number] - LIPIDPSA RESULTS GO TO DR. LUDWIG ALL OTHERS GO TO DR. LANDEROS Performed By: #### L 500.4100, L501.9985, L100.0100, L500.4050 ####[facility] [address] [place], [address] ALT [Catalytic activity/Vol] 11 U/L Normal <=46 [facility] Comment on above: Order Comment: Order Date: 04/07/24Order Info: 07- - CMPOrder Info: [id number] - LIPIDPSA RESULTS GO TO DR. LUDWIG ALL OTHERS GO TO DR. LANDEROS Performed By: #### L 500.4100, L501.9985, L100.0100, L500.4050 ####[facility] [address] [place], [address] AST [Catalytic activity/Vol] 16 U/L Normal <=37 [facility] Comment on above: Order Comment: Order Date: 04/07/24Order Info: 0786-1 - CMPOrder Info: [id number] - LIPIDPSA RESULTS GO TO DR. LUDWIG ALL OTHERS GO TO DR. LANDEROS Performed By: #### L 500.4100, L501.9985, L100.0100, L500.4050 ####[facility] [address] [place], [address] Bilirubin [Mass/Vol] 0.60 mg/dL Normal 0.00-1.30 [facility] Comment on above: Order Comment: Order Date: 04/07/24Order Info: 0786-1 - CMPOrder Info: [id number] - LIPIDPSA RESULTS GO TO DR. LUDWIG ALL OTHERS GO TO DR. LANDEROS Performed By: #### L 500.4100, L501.9985, L100.0100, L500.4050 ####[facility] [address] [place], [address] BUN/CRE 31.3 RATIO High 10-20 [facility] Comment on above: Order Comment: Order Date: 04/07/24Order Info: 0786-1 - CMPOrder Info: [id number] - LIPIDPSA RESULTS GO TO DR. LUDWIG ALL OTHERS GO TO DR. LANDEROS Performed By: #### L 500.4100, L501.9985, L100.0100, L500.4050 ####[facility] [address] [place], [address] Calcium [Mass/Vol] 9.9 mg/dL Normal 7.6-11.0 [facility] Comment on above: Order Comment: Order Date: 04/07/24Order Info: 0786-1 - CMPOrder Info: [id number] - LIPIDPSA RESULTS GO TO DR. LUDWIG ALL OTHERS GO TO DR. LANDEROS Performed By: #### L 500.4100, L501.9985, L100.0100, L500.4050 ####[facility] [address] [place], [address] Chloride [Moles/Vol] 103 mmol/L Normal 98-108 [facility] Comment on above: Order Comment: Order Date: 04/07/24Order Info: 0786-1 - CMPOrder Info: [id number] - LIPIDPSA RESULTS GO TO DR. LUDWIG ALL OTHERS GO TO DR. LANDEROS Performed By: #### L 500.4100, L501.9985, L100.0100, L500.4050 ####[facility] [address] [place], [address] CO2 [Moles/Vol] 20.9 mmol/L Low 21.0-32.0 [facility] Comment on above: Order Comment: Order Date: 04/07/24Order Info: 0786-1 - CMPOrder Info: [id number] - LIPIDPSA RESULTS GO TO DR. LUDWIG ALL OTHERS GO TO DR. LANDEROS Performed By: #### L 500.4100, L501.9985, L100.0100, L500.4050 ####[facility] [address] [place], [address] Creatinine [Mass/Vol] 0.94 mg/dL Normal 0.70-1.20 [facility] Comment on above: Order Comment: Order Date: 04/07/24Order Info: 0786-1 - CMPOrder Info: [id number] - LIPIDPSA RESULTS GO TO DR. LUDWIG ALL OTHERS GO TO DR. LANDEROS Performed By: #### L 500.4100, L501.9985, L100.0100, L500.4050 ####[facility] [address] [place], [address] GAP 13 Normal 5-15 [facility] Comment on above: Order Comment: Order Date: 04/07/24Order Info: 0786-1 - CMPOrder Info: [id number] - LIPIDPSA RESULTS GO TO DR. LUDWIG ALL OTHERS GO TO DR. LANDEROS Performed By: #### L 500.4100, L501.9985, L100.0100, L500.4050 ####[facility] [address] [place], [address] GFR/1.73 sq M.predicted among non-blacks MDRD (S/P/Bld) [Vol rate/Area] 82 mL/min/{1.73_m2} Normal >60 [facility] Comment on above: Order Comment: Order Date: 04/07/24Order Info: 0786-1 - CMPOrder Info: [id number] - LIPIDPSA RESULTS GO TO DR. LUDWIG ALL OTHERS GO TO DR. LANDEROS Result Comment: mL/m in/1.73m2 CKD-EPI Creatinine Equation (2020) Performed By: #### L 500.4100, L501.9985, L100.0100, L500.4050 ####[facility] [address] [place], [address] Globulin (S) [Mass/Vol] 2.8 g/dL Normal 2.2-4.2 [facility] Comment on above: Order Comment: Order Date: 04/07/24Order Info: [id number] - CMPOrder Info: [id number] - LIPIDPSA RESULTS GO TO DR. LUDWIG ALL OTHERS GO TO DR. LANDEROS Performed By: #### L 500.4100, L501.9985, L100.0100, L500.4050 ####[facility] [address] [place], [address] Glucose [Mass/Vol] 149 mg/dL High 70-99 [facility] Comment on above: Order Comment: Order Date: 04/07/24Order Info: [id number] - CMPOrder Info: [id number] - LIPIDPSA RESULTS GO TO DR. LUDWIG ALL OTHERS GO TO DR. LANDEROS Performed By: #### L 500.4100, L501.9985, L100.0100, L500.4050 ####[facility] [address] [place], [address] Potassium [Moles/Vol] 4.4 mmol/L Normal 3.3-5.1 [facility] Comment on above: Order Comment: Order Date: 04/07/24Order Info: [id number] - CMPOrder Info: [id number] - LIPIDPSA RESULTS GO TO DR. LUDWIG ALL OTHERS GO TO DR. LANDEROS Performed By: #### L 500.4100, L501.9985, L100.0100, L500.4050 ####[facility] [address] [place], [address] Sodium [Moles/Vol] 137 mmol/L Normal 133-145 [facility] Comment on above: Order Comment: Order Date: 04/07/24Order Info: [id number] - CMPOrder Info: [id number] - LIPIDPSA RESULTS GO TO DR. LUDWIG ALL OTHERS GO TO DR. LANDEROS Performed By: #### L 500.4100, L501.9985, L100.0100, L500.4050 ####[facility] [address] [place], [address] T PROT 6.9 g/dL Normal 5.9-8.4 [facility] Comment on above: Order Comment: Order Date: 04/07/24Order Info: [id number] - CMPOrder Info: [id number] - LIPIDPSA RESULTS GO TO DR. LUDWIG ALL OTHERS GO TO DR. LANDEROS Performed By: #### L 500.4100, L501.9985, L100.0100, L500.4050 ####[facility] [address] [place], [address] Urea nitrogen [Mass/Vol] 29 mg/dL High 4-19 [facility] Comment on above: Order Comment: Order Date: 04/07/24Order Info: [id number] - CMPOrder Info: [id number] - LIPIDPSA RESULTS GO TO DR. ULDWIG ALL OTHERS GO TO DR. LANDEROS Performed By: #### L 500.4100, L501.9985, L100.0100, L500.4050 ####[facility] [address] [place], [address] Eosinophil percentageOrdered By: Keke Landeros on 07-20-2024 Eosinophils/100 WBC (Bld) 2.6 % 0-5 [facility] Erythrocyte distribution wid th ratioOrdered By: Keke Landeros on 07-20-2024 Erythrocyte distribution width (RBC) [Ratio] 14.1 % 11.6-14.6 [facility] Erythrocyte distribution wid th standard deviationOrdered By: Keke Landeros on 07-20-2024 Erythrocyte distribution width (RBC) [Ratio] 48.7 fl High 35.1-43.9 [facility] Glomerular filtration rate ( GFR) estimation/1.73 sq m using serum, plasma, or whole bOrdered By: Keke Landeros on 07-20-2024 GFR/1.73 sq M.predicted among non-blacks MDRD (S/P/Bld) [Vol rate/Area] 82 mL/min/{1.73_m2} >60 [facility] Comment on above: mL/min/1.73m2 CKD-EP I Creatinine Equation (2020) Hematocrit Auto (Bld) [Volum e fraction]Ordered By: Keke Landeros on 07-20-2024 Hematocrit (Bld) [Volume fraction] 47.7 % 40-54 [facility] Hemoglobin A1con 07-20-2024 HbA1c (Bld) [Mass fraction] 7.6 % High <=5.6 [facility] Comment on above: Order Comment: Order Date: 04/07/24Order Info: [id number] - A1C Result Comment: Norm al < 5.7 % Prediabetic 5.7 - 6.4 % Diabetic >or= 6.5 % Please note range changes. Performed By: #### L 500.4100, L501.9985, L100.0100, L500.4050 ####[facility] [address] [place], [address] Hemoglobin A1c percentageOrd ered By: Keke Landeros on 07-20-2024 HbA1c (Bld) [Mass fraction] 7.6 % High <5.7 [facility] Comment on above: Normal < 5.7 % Predi abetic 5.7 - 6.4 % Diabetic >or= 6.5 % Please note range changes. Hemoglobin measurementOrdere d By: Keke Landeros on 07-20-2024 Hemoglobin (Bld) [Mass/Vol] 16.1 g/dL 13.0-16.5 [facility] Immature granulocytes/100 WB C Auto (Bld)Ordered By: Keke Landeros on 07-20-2024 Immature granulocytes/100 WBC (Bld) 2.000 % High 0.0-0.9 [facility] Comment on above: IG% - Immature Granu locytes (promyelocytes, myelocytes and metamyelocytes) > 1% indicates that a LEFT SHIFT is Present. LDL calc ser/plasOrdered By: Keke Landeros on 05-28-2025 Cholesterol in LDL [Mass/Vol] 97 mg/dL [facility] Comment on above: Wywxsphqoc=971-457 m g/dL & Higher Pyvr=952 mg/dL or greater Laboratory - Chemistry and C hemistry - challengeOrdered By: Keke Landeros on 07-20-2024 AST [Catalytic activity/Vol] 16 U/L <38 [facility] Lipid Profileon 07-20-2024 CHOL:HDL 3.87 Normal [facility] Comment on above: Order Comment: Order Date: 04/07/24Order Info: [id number] - CMPOrder Info: [id number] - LIPIDPSA RESULTS GO TO DR. LUDWIG ALL OTHERS GO TO DR. LANDEROS Performed By: #### L 500.4100, L501.9985, L100.0100, L500.4050 ####[facility] [address] [place], [address] Cholesterol [Mass/Vol] 167 mg/dL Normal <=200 [facility] Comment on above: Order Comment: Order Date: 04/07/24Order Info: [id number] - CMPOrder Info: [id number] - LIPIDPSA RESULTS GO TO DR. LUDWIG ALL OTHERS GO TO DR. LANDEROS Result Comment: Chol esterol level, Desirable <200 mg/dL Borderline high cholesterol 200-239 mg/dL High cholesterol >=240 mg/dL Recommendations of the NCEP Adult Treatment Panel for the following risk-cutoff thresholds for the [place] population. Performed By: #### L 500.4100, L501.9985, L100.0100, L500.4050 ####[facility] [address] [place], [address] Cholesterol in HDL [Mass/Vol] 43 mg/dL Normal [facility] Comment on above: Order Comment: Order Date: 04/07/24Order Info: [id number] - CMPOrder Info: [id number] - LIPIDPSA RESULTS GO TO DR. LUDWIG ALL OTHERS GO TO DR. LANDEROS Result Comment: Saskia onal Cholesterol Education Program (NCEP) guidelines: <40 mg/dL: Low HDL-cholesterol (major risk factor for CHD) >= 60 mg/dL: High HDL-cholesterol (negative risk factor for CHD) HDL-cholesterol is affected by a number of factors, e.g. smoking, exercise, hormones, sex and age. Performed By: #### L 500.4100, L501.9985, L100.0100, L500.4050 ####[facility] [address] [place], [address] Cholesterol in LDL [Mass/Vol] 97 mg/dL Normal [facility] Comment on above: Order Comment: Order Date: 04/07/24Order Info: [id number] - CMPOrder Info: [id number] - LIPIDPSA RESULTS GO TO DR. LUDWIG ALL OTHERS GO TO DR. LANDEROS Result Comment: Bord jloruy=244-539 mg/dL Higher Fqrk=866 mg/dL or greater Performed By: #### L 500.4100, L501.9985, L100.0100, L500.4050 ####[facility] [address] [place], [address] Cholesterol in VLDL [Mass/Vol] 27 mg/dL Normal 5-40 [facility] Comment on above: Order Comment: Order Date: 04/07/24Order Info: [id number] - CMPOrder Info: [id number] - LIPIDPSA RESULTS GO TO DR. LUDWIG ALL OTHERS GO TO DR. LANDEROS Performed By: #### L 500.4100, L501.9985, L100.0100, L500.4050 ####[facility] [address] [place], [address] Triglyceride [Mass/Vol] 133 mg/dL Normal [facility] Comment on above: Order Comment: Order Date: 04/07/24Order Info: [id number] - CMPOrder Info: [id number] - LIPIDPSA RESULTS GO TO DR. LUDWIG ALL OTHERS GO TO DR. LANDEROS Result Comment: The drugs N-Acetylcysteine and Metamizole may falsely depress this assay. Normal range: <150 mg/dL Borderline High: 150-199 mg/dL High: 200-499 mg/dL Very High: >500 mg/dL Performed By: #### L 500.4100, L501.9985, L100.0100, L500.4050 ####[facility] [address] [place], [address] MCV (mean corpuscular volume ) determinationOrdered By: Keke Landeros on 07-20-2024 MCV (RBC) [Entitic vol] 94.5 fL High 80-94 [facility] Mean corpuscular hemoglobin (MCH) determinationOrdered By: Keke Landeros on 07-20-2024 MCH (RBC) [Entitic mass] 31.9 pg 27.0-32.0 [facility] Mean corpuscular hemoglobin concentration (MCHC) determinationOrdered By: Keke Landeros on 07-20-2024 MCHC (RBC) [Mass/Vol] 33.8 g/dL 32-36 [facility] Mean platelet volume determi nationOrdered By: Keke Landeros on 07-20-2024 Platelet mean volume (Bld) [Entitic vol] 10.3 fL 6.2-12.0 [facility] Monocyte percentageOrdered B y: Keke Landeros on 07-20-2024 Monocytes/100 WBC (Bld) 7.8 % 0-10 [facility] Neutrophil percentageOrdered By: Keke Landeros on 07-20-2024 Neutrophils/100 WBC (Bld) 63.9 % 47-70 [facility] Nucleated red blood cell per centageOrdered By: Keke Landeros on 07-20-2024 Nucleated RBC/100 WBC (Bld) [Ratio] 0 % 0-5 [facility] PSA,Total- Diagn[employer]icon - PSA, DIAGNOSTIC 0.98 ng/mL Normal 0.00-4.00 [facility] Comment on above: Order Comment: Order Date: 04/07/24Order Info: [id number] - CMPOrder Info: [id number] - LIPIDPSA RESULTS GO TO DR. LUDWIG ALL OTHERS GO TO DR. LANDEROS Result Comment: This test was performed using the [employer] tPSA method. Measured values of a patient??sample can vary depending on the testing procedure used. PSA values determined on patient samples by different testing procedures cannot be used interchangeably. If there is a change in PSA assays while monitoring therapy, sequential testing should be performed to confirm baseline values. Performed By: #### L 501.9940, L506.1001 ####[facility] [address] [place], [address] Platelet countOrdered By: Sierra Landeros on 07-20-2024 Platelets (Bld) [#/Vol] 197 10*3/uL 150-450 [facility] Potassium measurement (mass/ volume)Ordered By: Keke Landeros on 07-20-2024 Potassium (Unsp spec) [Mass/Vol] 4.4 mmol/L 3.3-5.1 [facility] RBC Auto (Bld) [#/Vol]Ordere d By: Keke Landeros on 07-20-2024 RBC (Bld) [#/Vol] 5.05 10*6/uL 4.6-6.2 [facility] Screening total cholesterol/ high density lipoprotein (HDL) cholesterol ratioOrdered By: Keke Landeros on 07-20-2024 Cholesterol.total/Choleste rol in HDL [Mass ratio] 3.87 {ratio} [facility] Serum creatinine measurement (mass/volume)Ordered By: Keke Landeros on 07-20-2024 Creatinine [Mass/Vol] 0.94 mg/dL 0.70-1.20 [facility] Serum globulin measurementOr dered By: Keke Landeros on 07-20-2024 Globulin (S) [Mass/Vol] 2.8 g/dL 2.2-4.2 [facility] Serum glucose measurement (m ass/volume)Ordered By: Keke Landeros on 07-20-2024 Glucose [Mass/Vol] 149 mg/dL High 70-99 [facility] Serum or plasma alanine magallanes otransferase (ALT) measurementOrdered By: Keke Landeros on 07-20-2024 ALT [Catalytic activity/Vol] 11 U/L <47 [facility] Serum or plasma albumin shameka urement (mass/volume)Ordered By: Keke Landeros on 07-20-2024 Albumin [Mass/Vol] 4.2 g/dL 3.4-4.8 [facility] Serum or plasma albumin/glob ulin mass ratioOrdered By: Keke Landeros on 07-20-2024 Albumin/Globulin [Mass ratio] 1.5 {ratio} 0.9-2.4 [facility] Serum or plasma alkaline taylor sphatase measurementOrdered By: Keke Landeros on 07-20-2024 ALP [Catalytic activity/Vol] 97 U/L 40-129 [facility] Serum or plasma calcium shameka urement (mass/volume)Ordered By: Keke Landeros on 07-20-2024 Calcium [Mass/Vol] 9.9 mg/dL 7.6-11.0 [facility] Serum or plasma cholesterol in HDL measurement (mass/volume)Ordered By: Keke Landeros on 07-20-2024 Cholesterol in HDL [Mass/Vol] 43 mg/dL >40 [facility] Comment on above: National Cholesterol Education Program (NCEP) guidelines:<40 mg/dL: Low HDL-cholesterol (major risk factor for CHD)>= 60 mg/dL: High HDL-cholesterol (negative risk factor for CHD)HDL-cholesterol is affected by a number of factors, e.g. smoking, exercise, hormones, sex and age. Serum or plasma cholesterol measurement (mass/volume)Ordered By: Keke Landeros on 07-20-2024 Cholesterol [Mass/Vol] 167 mg/dL <201 [facility] Comment on above: Cholesterol level, D esirable <200 mg/dLBorderline high cholesterol 200-239 mg/dLHigh cholesterol >=240 mg/dLRecommendations of the NCEP Adult Treatment Panel for the following risk-cutoff thresholds for the [place] population. Serum or plasma urea nitroge n measurement (mass/volume)Ordered By: Keke Landeros on 07-20-2024 Urea nitrogen [Mass/Vol] 29 mg/dL High 4-19 [facility] Sodium levelOrdered By: Keke Landeros on 07-20-2024 Sodium [Moles/Vol] 137 mmol/L 133-145 [facility] Total proteinOrdered By: Josh Landeros on 07-20-2024 Protein [Mass/Vol] 6.9 g/dL 5.9-8.4 [facility] Triglycerides measurementOrd ered By: Keke Landeros on 07-20-2024 Triglyceride [Mass/Vol] 133 mg/dL <199 [facility] Comment on above: The drugs N-Acetylcy steine and Metamizole may falsely depress this assay. Normal range: <150 mg/dLBorderline High: 150-199 mg/dLHigh: 200-499 mg/dLVery High: >500 mg/dL Vitamin D,25 Hydroxyon 07-20 Vitamin D 25-OH 49.4 ng/mL Normal 30-100 [facility] Comment on above: Order Comment: Order Date: 04/07/24Order Info: [id number] - CMPOrder Info: [id number] - LIPIDPSA RESULTS GO TO DR. LUDWIG ALL OTHERS GO TO DR. LANDEROS Result Comment: Olivia min D Status Deficiency: <20 ng/mL (50nmol/L) Insufficiency: 20-30 ng/mL (50-75 nmol/L) Sufficiency: 30-100 ng/mL (75-250 nmol/L) Toxicity: >100 ng/mL (>250 nmol/L) Performed By: #### L 501.9940, L506.1001 ####[facility] [address] [facility] [place], [place], [address] White blood cell (WBC) count Ordered By: Keke Landeros on 07-20-2024 WBC (Bld) [#/Vol] 10.6 10*3/uL 4.4-11.0 [facility] Spine Lumbar (Routine)on Spine Lumbar (Routine) [facility] Imaging Services [address], [place] [address] Spine Lumbar (Routine) MR#: [id number] Acct: [id number] Name: DINAH VALIENTE Rep #: [id number] : 1945 M 79 From: [facility] PCP: Dr. Keke Landeros MD Status: REG CLI Study: Spine Lumbar (Routine) Date of Exam: 07/05/24 Exam# [id number] Ordering Dr: Stu Eduardo MD PROCEDURE: SPINE LUMBAR (ROUTINE) 07/05/2024 REASON FOR EXAM: RADICULOPATHY TECHNIQUE: Multiplanar and multisequence images were obtained without IV contrast administration. COMPARISON: Lumbar spine radiograph from 2024. FINDINGS: Lumbar vertebral bodies maintain a normal height and alignment. Multilevel vertebral body hemangiomas are identified with the largest at T12 and L1. There is diminished signal intensity involving the discs from L2-L5 related to degenerative disc disease with mild disc space narrowing. No acute fracture or subluxation is identified. The tip of the conus medullaris terminates at L1 and signal intensity of the included spinal cord is within normal limits. There is mild atrophy of the paraspinous musculature. Individual levels: L1-L2: Minimal disc bulge and facet arthropathy with no significant central canal stenosis or neural foraminal narrowing. L2-L3: Mild disc bulge with facet/flavum hypertrophy results in mild central canal stenosis. There is mild left neural foraminal narrowing. Right neural foramina is patent. L3-L4: Disc bulge and facet/flavum hypertrophy with no significant central canal stenosis. Moderate right and mild left neural foraminal narrowing is present. L4-L5: Disc bulge and facet/flavum hypertrophy with no significant central canal stenosis. Moderate bilateral neural foraminal narrowing is present. L5-S1: Mild disc bulge with mild facet arthropathy. No significant central canal stenosis. Moderate left and mild right neural foraminal narrowing is present. MRI/Spine Lumbar (Routine) IMPRESSION: Multilevel degenerative disc disease and spondylosis with mild central canal stenosis at L2-L3. Multilevel varying degrees of neural foraminal narrowing are identified as above. [facility] CC: Dr. Keke Landeros MD; Dr. Stu Eduardo MD Automation Engineering Manager: Signed Normal [facility] HIP, UNI W/ Pelvis 2-3 Views on 2024 HIP, UNI W/ Pelvis 2-3 Views [facility] Imaging Services [address] [place] [address] HIP, UNI W/ Pelvis 2-3 Views MR#: [id number] Acct: [id number] Name: DINAH VALIENTE Rep #: [id number] : 1945 M 79 From: Daryl Blount MD PCP: Dr. Keke Landeros MD Status: REG CLI Study: HIP, UNI W/ Pelvis 2-3 Views Date of Exam: Exam# [id number] Ordering Dr: Kkee Landeros MD EXAM: XR Right Hip With Pelvis When Performed, 2 or 3 Views CLINICAL INDICATION: PAIN TECHNIQUE: Two or three views of the right hip with pelvis when performed. COMPARISON: No relevant prior studies available. FINDINGS: BONES/JOINTS: Mild to moderate degenerative changes of the right hip joint. No acute fracture. No dislocation. SOFT TISSUES: Soft tissue swelling. RAD/HIP, UNI W/ Pelvis 2-3 Views IMPRESSION: Degenerative changes as above. Reading Location: [facility] CC: Dr. Keke Landeros MD Automation Engineering Manager: Signed Normal [facility] Knee 3 Viewson 2024 Knee 3 Views [facility] Imaging Services [address] [place] [address] Knee 3 Views MR#: [id number] Acct: [id number] Name: DINAH VALIENTE Rep #: [id number] : 1945 M 79 From: Daryl Blount MD PCP: Dr. Keke Landeros MD Status: REG CLI Study: Knee 3 Views Date of Exam: 05/13/24 Exam# [id number] Ordering Dr: Keke Landeros MD EXAM: XR Right Knee, 3 Views CLINICAL INDICATION: PAIN TECHNIQUE: Three views of the right knee. COMPARISON: No relevant prior studies available. FINDINGS: BONES/JOINTS: Mild joint space narrowing of the medial compartment of the knee joint. No acute fracture. No dislocation. SOFT TISSUES: Unremarkable. RAD/Knee 3 Views IMPRESSION: Degenerative changes as above. Reading Location: [facility] CC: Dr. Keke Landeros MD Automation Engineering Manager: Signed Normal [facility] Lumbar Spine 2 or 3 Viewson 2024 Lumbar Spine 2 or 3 Views [facility] Imaging Services [address] [place] [address] Lumbar Spine 2 or 3 Views MR#: [id number] Acct: [id number] Name: DINAH VALIENTE Rep #: [id number] : 1945 M 79 From: Daryl Blount MD PCP: Dr. Keke Landeros MD Status: REG CLI Study: Lumbar Spine 2 or 3 Views Date of Exam: Exam# [id number] Ordering Dr: Keke Landeros MD EXAM: XR Lumbosacral Spine, 2 or 3 Views CLINICAL INDICATION: PAIN, FACET ARTHROPATHY TECHNIQUE: Frontal and lateral views of the lumbar spine and sacrum. COMPARISON: No relevant prior studies available. FINDINGS: VERTEBRAE: Moderate endplate degenerative changes of L3-S1. Moderate facet arthropathy of L4-S1. No acute fracture. Normal alignment. SACRUM/COCCYX: Unremarkable as visualized. No acute fracture. DISC SPACES: No acute findings. No significant narrowing. SOFT TISSUES: Unremarkable. VASCULATURE: Scattered calcified atherosclerotic disease of aorta. RAD/Lumbar Spine 2 or 3 Views IMPRESSION: Degenerative changes as above. Reading Location: [facility] CC: Dr. Keke Landeros MD Automation Engineering Manager: Signed Normal [facility] 12 Lead EKG performed by [facility] on 04-19-2024 12 Lead EKG performed by [facility] [address] [place] [address] 12 Lead EKG performed by [facility] 04/19/24 1303 MR#: [id number] Acct: [id number] Name: DINAH VALIENTE Rep #: [id number] : 1945 78 From: Orion Yadav MD Attending Dr: Dr. Orion Yadav MD Status: DE P KIRAN Ordering Dr: Orion Yadav MD Date: 04/19/24 Location: [facility] Sex: M C Admitted: [facility]/12 Lead EKG performed by [facility] ECG Report Interpretation ------Sinus Rhythm - occasional ectopic ventricular beat WITHIN NORMAL LIMITSElectronically signed on 04/19/2024 at 13:[address] Orion Yadav [employer] Version [id number] 04/19/24 1328 Date Orion Yadav MD CC: Dr. Keke Landeros MD Date Dictated: 04/19/24 1303 Date Transcribed: 04/19/24 130 Automation Engineering Manager: NATALEE Signed Normal [facility] Cardiology Visit Reporton Cardiology Visit Report [facility] [address] [place] [address] OFFICE VISIT Date of Service: 04/19/24 MR#: [id number] Acct: [id number] Name: DINAH VALIENTE Rep #: [id number] : 1945 Provider: Dr. Orion washington MD Age/Sex: 78/M Location: [facility] Status: Signed HPI HPI History of Present Illness Details: Patient is a pleasant 78-year-old white male that comes in with his today for monitoring of his valvular heart disease. Patient carries a history of mild aortic stenosis echocardiogram August 2023 showed a mean gradient of 16 mmHg. Left-ventricular function was normal. The patient reports that he is walking a treadmill several days a week for 15 to 20 minutes. He denies any anginal type symptoms denies any lightheaded or dizzy spells denies any lower extremity edema or signs or symptoms of congestive failure. He remains active he is really not had any change in his exercise tolerance in the last 6 months. Patient's diabetes is better controlled his hemoglobin A1c is 6.9 on his last check his lipids are adequately controlled with an LDL of 98 in December 2023 both are monitored to the primary service. The patient's blood pressure is well-controlled on his current meds. He does have a history of heart rates in the 90 to 100 bpm range routinely. His heart rate on arrival today was 105 and an EKG done showed sinus rhythm at 96 bpm with occasional PVC and otherwise was unremarkable. 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 Accompanied by: Is patient in pain?: No Allergies Penicillins (PCN) Allergy (Verified 04/19/24 12:57) Hives tolmetin (From Tolectin) Allergy (Verified 04/19/24 12:57) Hives metformin Adverse Reaction (Verified 04/19/24 12:57) Diarrhea Medications ???Medication ???Instructions ???Recorded ???Confirmed ???Type cholecalciferol (vitamin D3) 25 1,000 unit PO DAILY 04/25/1604/19 History mcg (1,000 unit) capsule finasteride 5 mg tablet 5 mg PO DAILY 04/25/16 04/19/24 Hi story tamsulosin 0.4 mg capsule 0.4 mg PO BID 04/25/16 04/19/24 Hi story ascorbic acid (vitamin C) 1,000 mg 1,000 mg PO DAILY 03/13/2004/19 History tablet cyanocobalamin (vitamin B-12) 5,000 mcg PO DAILY 03/13/20 History 1,000 mcg capsule glucosamine HCl 500 mg tablet 1,000 mg PO DAILY 03/13/20 5 History rosuvastatin 5 mg tablet 5 mg PO QHS 03/13/20 04/19/24 Hist ory vitamin E 100 unit capsule 100 unit PO DAILY 03/13/20 5 History zinc 50 mg tablet 50 mg PO DAILY 03/13/20 04/19/24 H istory empagliflozin 25 mg tablet mg PO 08/18/23 04/19/24 History (Jardiance) ketoconazole 2 % shampoo topical 08/18/23 04/19/24 History semaglutide 2 mg/dose (8 mg/3 mL) mg subcut 08/18/23 04/19/24 Histo ry subcutaneous pen injector (Ozempic) glimepiride 1 mg tablet 1 mg PO QDAY 04/19/24 04/19/24 His tory Have you fallen in the past year?: No PFSH Medical History Benign essential hypertension Hyperlipidemia Type 2 diabetes mellitus Mild aortic stenosis Hypotension Obesity BPH (benign prostatic hyperplasia) Urine frequency History of colon polyps Acute maxillary sinusitis, unspecified Diabetes Surgical History History of wisdom tooth extraction History of bunionectomy History of adenoidectomy History of bilateral cataract extraction History of tonsillectomy Family History Mother Heart disease Father Cancer Myocardial infarction Brother Cancer Social History Smoking Status: Former smoker how long ago did patient quit smokin years ago alcohol intake: never substance use type: does not use caffeine: Yes ROS Const Const: Positive for weakness; Negative for fatigue ENT ENT: Positive for balance problems (relates to vertigo); Negative for dizziness Cardio Chest Pain: No Palpitations: No Edema: None Muscle aches with walking: None Resp Respiratory: Negative for SOB with activity, SOB at rest or SOB orthopnea SOB lying down GI GI: Negative nausea, vomiting or heartburn Musc Musc: Positive for balance problems (relates to vertigo); Negative for muscle weakness Neuro Neuro: Pos (more content not included)... Normal [facility] [id number] DOrdered By: Claudia Landeros on 04-05-2024 Vitamin D 25-Hydroxy 37.7 ng/mL [facility] Comment on above: Vitamin D 25(OH) Sta tus Range Deficiency <20 ng/mL (50nmol/L) Insufficiency 20 - 30 ng/mL (50 - 75 nmol/L) Sufficiency 30 - 100 ng/mL (75 - 250 nmol/L) Toxicity >100 ng/mL (>250 nmol/L) Absolute lymphocyte countOrd ered By: Keke Landeros on 04-05-2024 Lymphocytes Auto (Unsp spec) [#/Vol] 2.74 10*3/uL 0.83-4.51 [facility] Absolute neutrophil countOrd ered By: Keke Landeros on 04-05-2024 Neutrophils (Bld) [#/Vol] 4.0 10*3/uL 2.0-7.7 [facility] Albumin to globulin ratioOrd ered By: Keke Landeros on 04-05-2024 Albumin/Globulin [Mass ratio] 1.1 {ratio} 0.9-2.4 [facility] Automated lymphocyte count a s percentage of total leukocytesOrdered By: Keke Landeros on 04-05-2024 Lymphocytes/100 WBC Auto (Unsp spec) 35.1 % 19-41 [facility] Basophil percentageOrdered B y: Keke Landeros on 04-05-2024 Basophils/100 WBC (Bld) 1.2 % High 0-1 [facility] Bilirubin Test strip Ql (U)O rdered By: Keke Landeros on 04-05-2024 Bilirubin Ql (U) Negative Negative [facility] Bilirubin, totalOrdered By: Keke Landeros on 04-05-2024 Bilirubin [Mass/Vol] 1.00 mg/dL 0.20-1.00 [facility] Comment on above: For patients on eltr ombopag therapy, use of Dimension [place] TBIL is not recommended. Blood urea nitrogen (BUN)/cr eatinine ratioOrdered By: Keke Landeros on 04-05-2024 Urea nitrogen/Creatinine [Mass ratio] 22.9 mg/mg High 10-20 [facility] CBC W/Diff, Automatedon 03-26 Absolute Lymph 2.74 X10 3/uL Normal 0.83-4.51 [facility] Comment on above: Order Comment: Order Date: 01/06/24 Order Info: [id number] - CBCD Performed By: #### L 500.4050, L500.4100, L501.9985, L100.0100, L502.0250, L506.1000 #### [facility] [address] [place], [address] Absolute Neut 4.0 X10 3/uL Normal 2.0-7.7 [facility] Comment on above: Order Comment: Order Date: 01/06/24 Order Info: [id number] - CBCD Performed By: #### L 500.4050, L500.4100, L501.9985, L100.0100, L502.0250, L506.1000 #### [facility] [address] [place], [address] Basophils/100 WBC (Bld) 1.2 % High 0-1 [facility] Comment on above: Order Comment: Order Date: 01/06/24 Order Info: [id number] - CBCD Performed By: #### L 500.4050, L500.4100, L501.9985, L100.0100, L502.0250, L506.1000 #### [facility] [address] [place], [address] Eosinophils/100 WBC (Bld) 2.4 % Normal 0-5 [facility] Comment on above: Order Comment: Order Date: 01/06/24 Order Info: [id number] - CBCD Performed By: #### L 500.4050, L500.4100, L501.9985, L100.0100, L502.0250, L506.1000 #### [facility] [address] [place], [address] Erythrocyte distribution width (RBC) [Ratio] 14.0 % Normal 11.6-14.6 [facility] Comment on above: Order Comment: Order Date: 01/06/24 Order Info: [id number] - CBCD Performed By: #### L 500.4050, L500.4100, L501.9985, L100.0100, L502.0250, L506.1000 #### [facility] [address] [place], [address] Hematocrit (Bld) [Volume fraction] 47.2 % Normal 40-54 [facility] Comment on above: Order Comment: Order Date: 01/06/24 Order Info: [id number] - CBCD Performed By: #### L 500.4050, L500.4100, L501.9985, L100.0100, L502.0250, L506.1000 #### [facility] [address] [place], [address] Hemoglobin (Bld) [Mass/Vol] 16.3 g/dL Normal 13.0-16.5 [facility] Comment on above: Order Comment: Order Date: 01/06/24 Order Info: [id number]- - CBCD Performed By: #### L 500.4050, L500.4100, L501.9985, L100.0100, L502.0250, L506.1000 #### [facility] [address] [place], [address] IG% 1.500 High 0.0-0.9 [facility] Comment on above: Order Comment: Order Date: 01/06/24 Order Info: [id number] - CBCD Result Comment: IG% - Immature Granulocytes (promyelocytes, myelocytes and metamyelocytes) > 1% indicates that a LEFT SHIFT is Present. Performed By: #### L 500.4050, L500.4100, L501.9985, L100.0100, L502.0250, L506.1000 #### [facility] [address] [place], [address] Lymphocytes/100 WBC (Bld) 35.1 % Normal 19-41 [facility] Comment on above: Order Comment: Order Date: 01/06/24 Order Info: [id number]- - CBCD Performed By: #### L 500.4050, L500.4100, L501.9985, L100.0100, L502.0250, L506.1000 #### [facility] [address] [place], [address] MCH (RBC) [Entitic mass] 31.8 pg Normal 27.0-32.0 [facility] Comment on above: Order Comment: Order Date: 01/06/24 Order Info: [id number] - CBCD Performed By: #### L 500.4050, L500.4100, L501.9985, L100.0100, L502.0250, L506.1000 #### [facility] [address] [place], [address] MCHC (RBC) [Mass/Vol] 34.5 g/dL Normal 32-36 [facility] Comment on above: Order Comment: Order Date: 01/06/24 Order Info: [id number]- - CBCD Performed By: #### L 500.4050, L500.4100, L501.9985, L100.0100, L502.0250, L506.1000 #### [facility] [address] [place], [address] MCV (RBC) [Entitic vol] 92.0 fL Normal 80-94 [facility] Comment on above: Order Comment: Order Date: 01/06/24 Order Info: [id number]- - CBCD Performed By: #### L 500.4050, L500.4100, L501.9985, L100.0100, L502.0250, L506.1000 #### [facility] [address] [place], [address] Monocytes/100 WBC (Bld) 9.0 % Normal 0-10 [facility] Comment on above: Order Comment: Order Date: 01/06/24 Order Info: [id number]- - CBCD Performed By: #### L 500.4050, L500.4100, L501.9985, L100.0100, L502.0250, L506.1000 #### [facility] [address] [place], [address] Neutrophils/100 WBC (Bld) 50.8 % Normal 47-70 [facility] Comment on above: Order Comment: Order Date: 01/06/24 Order Info: [id number]- - CBCD Performed By: #### L 500.4050, L500.4100, L501.9985, L100.0100, L502.0250, L506.1000 #### [facility] [address] [place], [address] Nucleated RBC (Bld) [#/Vol] 0 10*3/uL Normal 0-5 [facility] Comment on above: Order Comment: Order Date: 01/06/24 Order Info: [id number] - CBCD Performed By: #### L 500.4050, L500.4100, L501.9985, L100.0100, L502.0250, L506.1000 #### [facility] [address] [place], [address] Platelet mean volume (Bld) [Entitic vol] 10.0 fL Normal 6.2-12.0 [facility] Comment on above: Order Comment: Order Date: 01/06/24 Order Info: [id number] - CBCD Performed By: #### L 500.4050, L500.4100, L501.9985, L100.0100, L502.0250, L506.1000 #### [facility] [address] [place], [address] Platelets (Bld) [#/Vol] 167 10*3/uL Normal 150-450 [facility] Comment on above: Order Comment: Order Date: 01/06/24 Order Info: [id number] - CBCD Performed By: #### L 500.4050, L500.4100, L501.9985, L100.0100, L502.0250, L506.1000 #### [facility] [address] [place], [address] RBC (Bld) [#/Vol] 5.13 10*6/uL Normal 4.6-6.2 [facility] Comment on above: Order Comment: Order Date: 01/06/24 Order Info: [id number] - CBCD Performed By: #### L 500.4050, L500.4100, L501.9985, L100.0100, L502.0250, L506.1000 #### [facility] [address] [place], [address] RDW SD 47.2 fl High 35.1-43.9 [facility] Comment on above: Order Comment: Order Date: 01/06/24 Order Info: [id number] - CBCD Performed By: #### L 500.4050, L500.4100, L501.9985, L100.0100, L502.0250, L506.1000 #### [facility] [address] [place], [address] WBC (Bld) [#/Vol] 7.8 10*3/uL Normal 4.4-11.0 [facility] Comment on above: Order Comment: Order Date: 01/06/24 Order Info: [id number] - CBCD Performed By: #### L 500.4050, L500.4100, L501.9985, L100.0100, L502.0250, L506.1000 #### [facility] [address] [place], [address] Carbon dioxide measurementOr dered By: Keke Landeros on 04-05-2024 CO2 [Moles/Vol] 23.0 mmol/L 21.0-32.0 [facility] Chloride measurementOrdered By: Keke Landeros on 04-05-2024 Chloride [Moles/Vol] 110 mmol/L High 98-107 [facility] Comprehensive Metabolic Prof ilon 04-05-2024 Albumin [Mass/Vol] 3.6 g/dL Normal 3.2-5.0 [facility] Comment on above: Order Comment: Order Date: 01/06/24 Order Info: [id number] - CMP Order Info: [id number] - LIPID Performed By: #### L 500.4050, L500.4100, L501.9985, L100.0100, L502.0250, L506.1000 #### [facility] [address] [place], [address] Albumin/Globulin [Mass ratio] 1.1 {ratio} Normal 0.9-2.4 [facility] Comment on above: Order Comment: Order Date: 01/06/24 Order Info: [id number] - CMP Order Info: [id number] - LIPID Performed By: #### L 500.4050, L500.4100, L501.9985, L100.0100, L502.0250, L506.1000 #### [facility] [address] [place], [address] ALK P 78 U/L Normal 45-117 [facility] Comment on above: Order Comment: Order Date: 01/06/24 Order Info: [id number] - CMP Order Info: [id number] - LIPID Performed By: #### L 500.4050, L500.4100, L501.9985, L100.0100, L502.0250, L506.1000 #### [facility] [address] [place], [address] ALT [Catalytic activity/Vol] 24 U/L Normal 16-61 [facility] Comment on above: Order Comment: Order Date: 01/06/24 Order Info: [id number] - CMP Order Info: [id number] - LIPID Performed By: #### L 500.4050, L500.4100, L501.9985, L100.0100, L502.0250, L506.1000 #### [facility] [address] [place], [address] AST [Catalytic activity/Vol] 19 U/L Normal 15-37 [facility] Comment on above: Order Comment: Order Date: 01/06/24 Order Info: [id number] - CMP Order Info: [id number] - LIPID Performed By: #### L 500.4050, L500.4100, L501.9985, L100.0100, L502.0250, L506.1000 #### [facility] [address] [place], [address] Bilirubin [Mass/Vol] 1.00 mg/dL Normal 0.20-1.00 [facility] Comment on above: Order Comment: Order Date: 01/06/24 Order Info: [id number] - CMP Order Info: [id number] - LIPID Result Comment: For patients on eltrombopag therapy, use of Dimension [place] TBIL is not recommended. Performed By: #### L 500.4050, L500.4100, L501.9985, L100.0100, L502.0250, L506.1000 #### [facility] [address] [place], [address] BUN/CRE 22.9 RATIO High 10-20 [facility] Comment on above: Order Comment: Order Date: 01/06/24 Order Info: [id number]- - CMP Order Info: [id number] - LIPID Performed By: #### L 500.4050, L500.4100, L501.9985, L100.0100, L502.0250, L506.1000 #### [facility] [address] [place], [place], [id number] CA,Total 9.5 mg/dL Normal 8.5-10.1 [facility] Comment on above: Order Comment: Order Date: 01/06/24 Order Info: [id number]- - CMP Order Info: [id number] - LIPID Performed By: #### L 500.4050, L500.4100, L501.9985, L100.0100, L502.0250, L506.1000 #### [facility] [address] [place], [address] Chloride [Moles/Vol] 110 mmol/L High 98-107 [facility] Comment on above: Order Comment: Order Date: 01/06/24 Order Info: [id number] - CMP Order Info: [id number] - LIPID Performed By: #### L 500.4050, L500.4100, L501.9985, L100.0100, L502.0250, L506.1000 #### [facility] [address] [place], [place], [address] CO2 [Moles/Vol] 23.0 mmol/L Normal 21.0-32.0 [facility] Comment on above: Order Comment: Order Date: 01/06/24 Order Info: [id number]- - CMP Order Info: [id number] - LIPID Performed By: #### L 500.4050, L500.4100, L501.9985, L100.0100, L502.0250, L506.1000 #### [facility] [address] [place], [place], [address] Creatinine [Mass/Vol] 0.83 mg/dL Normal 0.70-1.30 [facility] Comment on above: Order Comment: Order Date: 01/06/24 Order Info: [id number] - CMP Order Info: [id number] - LIPID Result Comment: The validity of the calculated GFR GFRAA in patients over 70 years has not been determined. Clinical correlation is essential. Performed By: #### L 500.4050, L500.4100, L501.9985, L100.0100, L502.0250, L506.1000 #### [facility] [address] [place], [place], [address] EST GFR - AA 115 mL/min Normal >60 [facility] Comment on above: Order Comment: Order Date: 01/06/24 Order Info: [id number] - CMP Order Info: [id number] - LIPID Result Comment: Afri can [place] GFR Calc Performed By: #### L 500.4050, L500.4100, L501.9985, L100.0100, L502.0250, L506.1000 #### [facility] [address] [place], [place], [address] GAP 7 Normal 5-15 [facility] Comment on above: Order Comment: Order Date: 01/06/24 Order Info: [id number]- - CMP Order Info: [id number] - LIPID Performed By: #### L 500.4050, L500.4100, L501.9985, L100.0100, L502.0250, L506.1000 #### [facility] [address] [place], [address] GFR/1.73 sq M.predicted among non-blacks MDRD (S/P/Bld) [Vol rate/Area] 95 mL/min/{1.73_m2} Normal >60 [facility] Comment on above: Order Comment: Order Date: 01/06/24 Order Info: [id number] - CMP Order Info: [id number] - LIPID Result Comment: Non- GFR Calc Performed By: #### L 500.4050, L500.4100, L501.9985, L100.0100, L502.0250, L506.1000 #### [facility] [address] [place], [address] Globulin (S) [Mass/Vol] 3.4 g/dL Normal 2.2-4.2 [facility] Comment on above: Order Comment: Order Date: 01/06/24 Order Info: [id number] - CMP Order Info: [id number] - LIPID Performed By: #### L 500.4050, L500.4100, L501.9985, L100.0100, L502.0250, L506.1000 #### [facility] [address] [place], [address] Glucose [Mass/Vol] 132 mg/dL High 74-106 [facility] Comment on above: Order Comment: Order Date: 01/06/24 Order Info: [id number] - CMP Order Info: [id number] - LIPID Result Comment: Fast ing Glucose result greater than or equal to 126 mg/dL suggests DIABETES MELLITUS per A.D.A. criteria. Performed By: #### L 500.4050, L500.4100, L501.9985, L100.0100, L502.0250, L506.1000 #### [facility] [address] [place], [address] Potassium [Moles/Vol] 3.7 mmol/L Normal 3.5-5.1 [facility] Comment on above: Order Comment: Order Date: 01/06/24 Order Info: [id number] - CMP Order Info: [id number] - LIPID Performed By: #### L 500.4050, L500.4100, L501.9985, L100.0100, L502.0250, L506.1000 #### [facility] [address] [place], [address] Sodium [Moles/Vol] 140 mmol/L Normal 136-145 [facility] Comment on above: Order Comment: Order Date: 01/06/24 Order Info: [id number] - CMP Order Info: [id number] - LIPID Performed By: #### L 500.4050, L500.4100, L501.9985, L100.0100, L502.0250, L506.1000 #### [facility] [address] [place], [place], [id number] T PROT 7.0 g/dL Normal 6.4-8.2 [facility] Comment on above: Order Comment: Order Date: 01/06/24 Order Info: [id number] - CMP Order Info: [id number] - LIPID Performed By: #### L 500.4050, L500.4100, L501.9985, L100.0100, L502.0250, L506.1000 #### [facility] [address] [place], [place], [address] Urea nitrogen [Mass/Vol] 19 mg/dL High 7-18 [facility] Comment on above: Order Comment: Order Date: 01/06/24 Order Info: [id number] - CMP Order Info: [id number] - LIPID Performed By: #### L 500.4050, L500.4100, L501.9985, L100.0100, L502.0250, L506.1000 #### [facility] [address] [place], [address] Eosinophil percentageOrdered By: Keke Landeros on 04-05-2024 Eosinophils/100 WBC (Bld) 2.4 % 0-5 [facility] Erythrocyte distribution wid th ratioOrdered By: Keke Landeros on 04-05-2024 Erythrocyte distribution width (RBC) [Ratio] 14.0 % 11.6-14.6 [facility] Erythrocyte distribution wid th standard deviationOrdered By: Keke Landeros on 04-05-2024 Erythrocyte distribution width (RBC) [Entitic vol] 47.2 fL High 35.1-43.9 [facility] Erythrocyte distribution width (RBC) [Ratio] 47.2 fl High 35.1-43.9 [facility] Estimated glomerular filtrat ion rate (GFR) AmericanOrdered By: Keke Landeros on 04-05-2024 Estimated GFR (MDRD) Amer 115 mL/min >60 [facility] Comment on above: GFR Calc Glomerular filtration rate ( GFR) estimationOrdered By: Keke Landeros on 04-05-2024 Estimated GFR (MDRD) Non-Af Amer 95 mL/min >60 [facility] Comment on above: Non- GFR Calc GFR/1.73 sq M.predicted among non-blacks MDRD (S/P/Bld) [Vol rate/Area] 95 mL/min/{1.73_m2} >60 [facility] Comment on above: Non- GFR Calc Glucose Ql (U)Ordered By: Sierra Landeros on 04-05-2024 Glucose (U) [Mass/Vol] 1000 mg/dL High Normal [facility] Glucose measurementOrdered B y: Keke Landeros on 04-05-2024 Glucose [Mass/Vol] 132 mg/dL High 74-106 [facility] Comment on above: Fasting Glucose resu lt greater than or equal to 126 mg/dL suggests DIABETES MELLITUS per A.D.A. criteria. Hematocrit Auto (Bld) [Volum e fraction]Ordered By: Keke Landeros on 04-05-2024 Hematocrit (Bld) [Volume fraction] 47.2 % 40-54 [facility] Hemoglobin A1con 04-05-2024 HbA1c (Bld) [Mass fraction] 6.9 % High 3.8-5.6 [facility] Comment on above: Order Comment: Order Date: 01/06/24Order Info: [id number] - A1C Result Comment: Norm al < 5.7 % Prediabetic 5.7 - 6.4 % Diabetic >or= 6.5 % Please note range changes. Performed By: #### L 500.4050, L500.4100, L501.9985, L100.0100, L502.0250, L506.1000 ####[facility] [address] [place], [address] Hemoglobin A1c percentageOrd ered By: Keke Landeros on 04-05-2024 HbA1c (Bld) [Mass fraction] 6.9 % High 3.8-5.6 [facility] Comment on above: Normal < 5.7 % Predi abetic 5.7 - 6.4 % Diabetic >or= 6.5 % Please note range changes. Hemoglobin measurementOrdere d By: Keke Landeros on 04-05-2024 Hemoglobin (Bld) [Mass/Vol] 16.3 g/dL 13.0-16.5 [facility] High density lipoprotein (HD L) measurementOrdered By: Keke Landeros on 04-05-2024 Cholesterol in HDL [Mass/Vol] 49 mg/dL >40 [facility] Comment on above: The drugs N-Acetylcy steine and Metamizole may falsely depress this assay. Reference Range HDL <40 mg/dL Low HDL Cholesterol HDL >or= 60 mg/dL High HDL Cholesterol Immature granulocytes/100 WB C Auto (Bld)Ordered By: Keke Landeros on 04-05-2024 Immature granulocytes/100 WBC (Bld) 1.500 % High 0.0-0.9 [facility] Comment on above: IG% - Immature Granu locytes (promyelocytes, myelocytes and metamyelocytes) > 1% indicates that a LEFT SHIFT is Present. Ketones Test strip Ql (U)Ord ered By: Keke Landeros on 04-05-2024 Ketones Ql (U) Negative Negative [facility] - Chemistry and C hemistry - challengeOrdered By: Keke Landeros on 04-05-2024 AST [Catalytic activity/Vol] 19 U/L 15-37 [facility] Lipid Profileon 04-05-2024 Cholesterol [Mass/Vol] 161 mg/dL Normal 200 [facility] Comment on above: Order Comment: Order Date: 01/06/24 Order Info: [id number] - CMP Order Info: [id number] - LIPID Result Comment: <200 mg/dL Desirable 200-240 mg/dL Borderline >240 mg/dL High Risk Performed By: #### L 500.4050, L500.4100, L501.9985, L100.0100, L502.0250, L506.1000 #### [facility] [address] [place], [address] Cholesterol in HDL [Mass/Vol] 49 mg/dL Normal [facility] Comment on above: Order Comment: Order Date: 01/06/24 Order Info: [id number] - CMP Order Info: [id number] - LIPID Result Comment: The drugs N-Acetylcysteine and Metamizole may falsely depress this assay. Reference Range HDL <40 mg/dL Low HDL Cholesterol HDL >or= 60 mg/dL High HDL Cholesterol Performed By: #### L 500.4050, L500.4100, L501.9985, L100.0100, L502.0250, L506.1000 #### [facility] [address] [place], [address] Cholesterol in LDL [Mass/Vol] 72 mg/dL Normal 0-130 [facility] Comment on above: Order Comment: Order Date: 01/06/24 Order Info: [id number] - CMP Order Info: [id number] - LIPID Performed By: #### L 500.4050, L500.4100, L501.9985, L100.0100, L502.0250, L506.1000 #### [facility] [address] [place], [address] Cholesterol in VLDL [Mass/Vol] 40 mg/dL Normal 5-40 [facility] Comment on above: Order Comment: Order Date: 01/06/24 Order Info: [id number] - CMP Order Info: [id number] - LIPID Performed By: #### L 500.4050, L500.4100, L501.9985, L100.0100, L502.0250, L506.1000 #### [facility] [address] [place], [place], [id number] Triglyceride [Mass/Vol] 201 mg/dL High [facility] Comment on above: Order Comment: Order Date: 01/06/24 Order Info: [id number] - CMP Order Info: [id number] - LIPID Result Comment: The drugs N-Acetylcysteine and Metamizole may falsely depress this assay. Serum Triglycerides Reference Interval Normal <150 mg/dL Borderline high 150 - 199 mg/dL High 200 - 499 mg/dL Very High > or = 500 mg/dL Performed By: #### L 500.4050, L500.4100, L501.9985, L100.0100, L502.0250, L506.1000 #### [facility] [address] [place], [place], [id number] Low density lipoprotein (LDL ) cholesterol measurementOrdered By: Keke Landeros on 04-05-2024 Cholesterol in LDL [Mass/Vol] 72 mg/dL 0-130 [facility] Lymphocytes Auto (Unsp spec) [#/Vol]Ordered By: Keke Landeros on 04-05-2024 Lymphocytes (Bld) [#/Vol] 2.74 10*3/uL 0.83-4.5 1 [facility] Lymphocytes/100 WBC Auto (Un sp spec)Ordered By: Keke Landeros on 04-05-2024 Lymphocytes/100 WBC (Bld) 35.1 % 19-41 [facility] MCV (mean corpuscular volume ) determinationOrdered By: Keke Landeros on 04-05-2024 MCV (RBC) [Entitic vol] 92.0 fL 80-94 [facility] Mean corpuscular hemoglobin (MCH) determinationOrdered By: Keke Landeros on 04-05-2024 MCH (RBC) [Entitic mass] 31.8 pg 27.0-32.0 [facility] Mean corpuscular hemoglobin concentration (MCHC) determinationOrdered By: Keke Landeros on 04-05-2024 MCHC (RBC) [Mass/Vol] 34.5 g/dL 32-36 [facility] Mean platelet volume determi nationOrdered By: Keke Landeros on 04-05-2024 Platelet mean volume (Bld) [Entitic vol] 10.0 fL 6.2-12.0 [facility] Microalb:Creat Ratio,Random URon 04-05-2024 Creatinine [Mass/Vol] 74.10 mg/dL Normal NO RAN GE EST. [facility] Comment on above: Order Comment: Order Date: 01/06/24Order Info: [id number] - MIACRE Performed By: #### L 500.4050, L500.4100, L501.9985, L100.0100, L502.0250, L506.1000 ####[facility] [address] [place], [address] MALB:CRE 6.9 mg/g CRE Normal <30 mg/g CRE [facility] Comment on above: Order Comment: Order Date: 01/06/24Order Info: [id number] - MIACRE Performed By: #### L 500.4050, L500.4100, L501.9985, L100.0100, L502.0250, L506.1000 ####[facility] [address] [place], [place], [id number] MICROALBUMIN,UR 5.1 mg/L Normal NO RANGE EST. [facility] Comment on above: Order Comment: Order Date: 01/06/24Order Info: [id number] - MIACRE Performed By: #### L 500.4050, L500.4100, L501.9985, L100.0100, L502.0250, L506.1000 ####[facility] [address] [place], [place], [id number] Monocyte percentageOrdered B y: Keke Landeros on 04-05-2024 Monocytes/100 WBC (Bld) 9.0 % 0-10 [facility] Neutrophil percentageOrdered By: Keke Landeros on 04-05-2024 Neutrophils/100 WBC (Bld) 50.8 % 47-70 [facility] Nitrite Test strip Ql (U)Ord ered By: Keke Landeros on 04-05-2024 Nitrite Ql (U) Negative Negative [facility] Nucleated red blood cell per centageOrdered By: Keke Landeros on 04-05-2024 Nucleated RBC/100 WBC (Bld) [Ratio] 0 % 0-5 [facility] Platelet countOrdered By: Sierra Landeros on 04-05-2024 Platelets (Bld) [#/Vol] 167 10*3/uL 150-450 [facility] Potassium measurementOrdered By: Keke Landeros on 04-05-2024 Potassium [Moles/Vol] 3.7 mmol/L 3.5-5.1 [facility] Protein Test strip Ql (U)Ord ered By: Keke Landeros on 04-05-2024 Protein Ql (U) Negative Negative [facility] RBC Auto (Bld) [#/Vol]Ordere d By: Keke Landeros on 04-05-2024 RBC (Bld) [#/Vol] 5.13 10*6/uL 4.6-6.2 [facility] Random urine microalbumin me asurementOrdered By: Keke Landeros on 04-05-2024 Urine Random Microalbumin 5.1 mg/L NO RANGE EST. [facility] Serum anion gap measurementO rdered By: Keke Landeros on 04-05-2024 Anion gap [Moles/Vol] 7 mmol/L 5-15 [facility] Serum globulin measurementOr dered By: Keke Landeros on 04-05-2024 Globulin (S) [Mass/Vol] 3.4 g/dL 2.2-4.2 [facility] Serum or plasma alanine magallanes otransferase (ALT) measurementOrdered By: Keke Landeros on 04-05-2024 ALT [Catalytic activity/Vol] 24 U/L 16-61 [facility] Serum or plasma albumin shameka urement (mass/volume)Ordered By: Keke Landeros on 04-05-2024 Albumin [Mass/Vol] 3.6 g/dL 3.2-5.0 [facility] Serum or plasma alkaline taylor sphatase measurementOrdered By: Keke Landeros on 04-05-2024 ALP [Catalytic activity/Vol] 78 U/L 45-117 [facility] Serum or plasma calcium shameka urement (mass/volume)Ordered By: Keke Landeros on 04-05-2024 Calcium [Mass/Vol] 9.5 mg/dL 8.5-10.1 [facility] Serum or plasma cholesterol measurement (mass/volume)Ordered By: Keke Landeros on 04-05-2024 Cholesterol [Mass/Vol] 161 mg/dL <200 [facility] Comment on above: <200 mg/dL Desirable 200-240 mg/dL Borderline >240 mg/dL High Risk Serum or plasma creatinine m easurement (mass/volume)Ordered By: Keke Landeros on 04-05-2024 Creatinine [Mass/Vol] 0.83 mg/dL 0.70-1.30 [facility] Comment on above: The validity of the calculated GFR & GFRAA in patients over 70 years has not been determined. Clinical correlation is essential. Serum or plasma urea nitroge n measurement (mass/volume)Ordered By: Keke Landeros on 04-05-2024 Urea nitrogen [Mass/Vol] 19 mg/dL High 7-18 [facility] Sodium levelOrdered By: Keke Landeros on 04-05-2024 Sodium [Moles/Vol] 140 mmol/L 136-145 [facility] Total proteinOrdered By: Josh Landeros on 04-05-2024 Protein [Mass/Vol] 7.0 g/dL 6.4-8.2 [facility] Triglycerides measurementOrd ered By: Keke Landeros on 04-05-2024 Triglyceride [Mass/Vol] 201 mg/dL High <199 [facility] Comment on above: The drugs N-Acetylcy steine and Metamizole may falsely depress this assay.Serum Triglycerides Reference Interval Normal <150 mg/dL Borderline high 150 - 199 mg/dL High 200 - 499 mg/dL Very High > or = 500 mg/dL Urinalysis, Routine (Dipstic k)on 04-05-2024 BILIRUBIN URINE Negative Normal Negative [facility] Comment on above: Order Comment: Urine , Random Performed By: #### L 400.2010 ####[facility] [address] [place], [address] Clarity (U) Clear Normal Clear [facility] Comment on above: Order Comment: Urine , Random Performed By: #### L 400.2010 ####[facility] [address] [place], [address] Color (U) Yellow Normal Yellow [facility] Comment on above: Order Comment: Urine , Random Performed By: #### L 400.2010 ####[facility] [address] [place], [address] GLUCOSE, UR 1000 mg/dl Abnormal Normal [facility] Comment on above: Order Comment: Urine , Random Performed By: #### L 400.2010 ####[facility] [address] [place], [address] KETONE UR Negative Normal Negative [facility] Comment on above: Order Comment: Urine , Random Performed By: #### L 400.2010 ####[facility] [address] [place], [address] LEUK ESTERASE Negative Normal Negative [facility] Comment on above: Order Comment: Urine , Random Performed By: #### L 400.2010 ####[facility] [address] [place], [address] Nitrite Ql (U) Negative Normal Negative [facility] Comment on above: Order Comment: Urine , Random Performed By: #### L 400.2010 ####[facility] [address] [place], [address] OCCULT BLOOD-UR Negative Normal Negative [facility] Comment on above: Order Comment: Urine , Random Performed By: #### L 400.2010 ####[facility] [address] [place], [address] pH UR 5.0 Normal 5.0 - 8.0 [facility] Comment on above: Order Comment: Urine , Random Performed By: #### L 400.2010 ####[facility] [address] [place], [place], [address] PROT DIPSTX Negative Normal Negative [facility] Comment on above: Order Comment: Urine , Random Performed By: #### L 400.2010 ####[facility] [address] [place], [place], [address] SP.GR. DIPSTX 1.020 Normal 1.002-1.030 [facility] Comment on above: Order Comment: Urine , Random Performed By: #### L 400.2010 ####[facility] [address] [place], [address] UROBILI Normal Normal Normal [facility] Comment on above: Order Comment: Urine , Random Performed By: #### L 400.2010 ####[facility] [address] [place], [address] Urine albumin/creatinine rat io for detection of microalbuminuriaOrdered By: Keke Landeros on 04-05-2024 Urine Microalbumin/Creatinine Ratio 6.9 mg/g CRE <30 [facility] Urine blood detectionOrdered By: Keke Landeros on 04-05-2024 Urine Occult Blood Negative Negative [facility] Urine clarityOrdered By: Josh Landeros on 04-05-2024 Clarity (U) Clear Clear [facility] Urine color determinationOrd ered By: Keke Landeros on 04-05-2024 Color (U) Yellow Yellow [facility] Urine creatinine measurement (mass/volume)Ordered By: Keke Landeros on 04-05-2024 Creatinine (U) [Mass/Vol] 74.10 mg/dL NO RANGE EST. [facility] Urine glucose detectionOrder ed By: Keke Landeros on 04-05-2024 Glucose Ql (U) 1000 mg/dl High Normal [facility] Urine leukocyte esterase det ection by dipstickOrdered By: Keke Landeros on 04-05-2024 Leukocyte esterase Test strip Ql (U) Negative Negative [facility] Urine pHOrdered By: Keke allen on 04-05-2024 pH (U) 5.0 [pH] 5.0 - 8.0 [facility] Urine specific gravity measu rementOrdered By: Keke Landeros on 04-05-2024 Specific gravity (U) [Rel density] 1.020 1.002-1.030 [facility] Urine urobilinogen measureme ntOrdered By: Keke Landeros on 04-05-2024 Urobilinogen Ql (U) Normal mg/dl Normal [facility] Urobilinogen Ql (U)Ordered B y: Keke Landeros on 04-05-2024 Urine Urobilinogen Normal mg/dl Normal [facility] Very low density lipoprotein (VLDL) cholesterol measurementOrdered By: Keke Landeros on 04-05-2024 Very low density lipoprotein (VLDL) cholesterol measurement 40 mg/dL 5-40 [facility] VLDL Cholesterol 40 mg/dL -40 [facility] Vitamin D,25 Hydroxyon 04-05 Vitamin D 25-OH 37.7 ng/mL Normal [facility] Comment on above: Order Comment: Order Date: 01/06/24 Order Info: [id number] - VITD25 Result Comment: Olivia min D 25(OH) Status Range Deficiency <20 ng/mL (50nmol/L) Insufficiency 20 - 30 ng/mL (50 - 75 nmol/L) Sufficiency 30 - 100 ng/mL (75 - 250 nmol/L) Toxicity >100 ng/mL (>250 nmol/L) Performed By: #### L 500.4050, L500.4100, L501.9985, L100.0100, L502.0250, L506.1000 #### [facility] [address] [place], [place], [address] White blood cell (WBC) count Ordered By: Keke Landeros on 04-05-2024 WBC (Bld) [#/Vol] 7.8 10*3/uL 4.4-11.0 [facility] Urgent Care Visit Reporton 1 04-23-2023 Urgent Care Visit Report [facility] [address], [address] [place] [address] OFFICE VISIT Date of Service: 02/21/24 MR#: [id number] Acct: [id number] Name: DINAH VALIENTE Rep #: [id number] : 1945 Provider: [facility] Age/Sex: 78/M Location: [facility] Status: Signed Intake Vital Signs 02/04/24 10:09 02/21/24 13:07 Height 5 ft 10 in Weight: 205 lb BMI 29.4 BP 118/79 118/62 Blood Pressure Location Lt brachial Rt brachial Position Sitting Sitting Respiration 16 17 Pulse 105 H 69 Pulse Source Monitor NIBP Temp 98.2 F 98.2 F Temp Source Oral Oral Pulse Oximetry (%) 98 95 Oxygen Delivery Method room air room air Intake Visit Reasons: EARS RINGING Chief Complaint: face/eye pain, ears ringing 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 seen here two weeks ago, dxd with sinus infection and given Doxy. s/s improved but never resolved, when ATB ran out s/s worsened again. [facility] Medical History Benign essential hypertension Hyperlipidemia Type 2 diabetes mellitus Mild aortic stenosis Hypotension Obesity BPH (benign prostatic hyperplasia) Urine frequency History of colon polyps Acute maxillary sinusitis, unspecified Diabetes Surgical History History of wisdom tooth extraction History of bunionectomy History of adenoidectomy History of bilateral cataract extraction History of tonsillectomy Family History Mother Heart disease Father Cancer Myocardial infarction Brother Cancer Social History Smoking Status: Former smoker how long ago did patient quit smokin years ago alcohol intake: never substance use type: does not use caffeine: Yes HPI HPI Chief Complaint: face/eye pain, ears ringing Details: DINAH VALIENTE, is a 78 M who presents to the office today for face and eye pain. He states ringing in his ear for the last 3-4 days. He states his symptoms improved with antibiotic, doxycycline but return once antibiotic was finished and feels it to be worse. ROS Const Constitutional: No body ache, chills, fatigue, fever(s), headache(s) or change in appetite Eyes Eyes: Positive for eye pain; No blurry vision, change in vision, double vision, irritation, discharge, vision loss, dry eyes, bulging eyes, floaters, visual disturbances, Light sensitivity, spots in vision, tunnel vision or other ENT ENT: Positive for tinnitus, sinus pressure, sinus pain and facial pain; No ear or mastoid pain, ear discharge, ear pressure, dizziness/vertigo, nosebleed/epistaxis, nasal congestion, nose pain, nasal discharge, post nasal drip, headache(s), dental pain, difficulty swallowing, bad breath, hoarseness, lip swelling, mouth lesions, mouth pain, neck pain, sore throat, tongue swelling or throat swelling Resp Respiratory: No cough, change in phlegm color, chest congestion, hemoptysis, pain on inspiration, shortness of breath, pain with cough, stridor or wheezing Cardio Cardiology: No chest pain at rest, chest pain with exertion, shortness of breath, dyspnea on exertion or lightheadedness Gastro GI: No abdominal pain, change in bowel habits or difficulty swallowing Genitourinary Male: No burning urination or urinary frequency Musc Musculoskeletal: No joint pain or neck pain Skin Skin: No rash Neuro Neurology: No headache(s) or visual disturbances Psych Psychiatric: No change in appetite Endo Endocrine: No fatigue Aller/Imm Allergy/Immunologic: No lip swelling, throat swelling, tongue swelling or wheezing Exam Const General: cooperative, healthy appearing, comfortable and no acute distress Orientation: alert, awake and oriented x3 HENMT Head: normal to inspection and normocephalic Ears: hearing grossly normal bilaterally, external ears normal and TM's normal bilaterally Nose: external nose normal, nares normal and no nasal discharge Face and sinus: normal facial exam and sinuses nontender Mouth: oral mucosae normal, lip normal, tongue normal, oropharynx normal and moist mucous membranes Throat: posterior oropharynx normal, tonsils normal, uvula midline, no postnasal drainage and other (wheeze) Eyes General: appearance normal, both eyes and all related structures Neck Neck: normal visual inspection and no lymphadenopathy Carotids: normal carotid upstroke Lymphat (more content not included)... Normal [facility] No Panel Informationon 02-03 Influenza Types A,B Rapid (Clinic) Negative [facility] POC SARS CoV-2 Antigen Negative [facility] Urgent Care Visit Reporton 1 04-06-2023 Urgent Care Visit Report [facility] [address], [address] [place] [address] OFFICE VISIT Date of Service: 02/04/24 MR#: [id number] Acct: [id number] Name: DINAH VALIENTE Rep #: [id number] : 1945 Provider: KRUPA Bray Age/Sex: 78/M Location: [facility] Status: Signed Intake Vital Signs 08/31/23 12:56 02/04/24 10:09 Height 5 ft 10 in 5 ft 10 in Weight: 211 lb 205 lb BMI 30.2 29.4 BP 90/56 L 118/79 Blood Pressure Location Lt brachial Lt brachial Position Sitting Sitting Respiration 18 16 Pulse 89 105 H Pulse Source Monitor Monitor Temp 98.2 F Temp Source Oral Pulse Oximetry (%) 91 98 Oxygen Delivery Method room air room air Intake Visit Reasons: HEAD CONGESTION, SORE THROAT, COUGH Chief Complaint: KING/BA/cough, congestion, chills 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 Accompanied by: Is patient in pain?: No Allergies Penicillins (PCN) Allergy (Verified 02/04/24 10:10) Hives tolmetin (From Tolectin) Allergy (Verified 02/04/24 10:10) Hives metformin Adverse Reaction (Verified 02/04/24 10:10) Diarrhea Medications ???Medication ???Instructions ???Recorded ???Confirmed ???Type cholecalciferol (vitamin D3) 25 1,000 unit PO DAILY 04/25/16 02/04/24 History mcg (1,000 unit) capsule finasteride 5 mg tablet 5 mg PO DAILY 04/25/16 02/04/24 History tamsulosin 0.4 mg capsule 0.4 mg PO BID 04/25/16 02/04/24 History ascorbic acid (vitamin C) 1,000 mg 1,000 mg PO DAILY 03/13/20 02/04/24 History tablet cyanocobalamin (vitamin B-12) 5,000 mcg PO DAILY 03/13/20 02/04/24 History 1,000 mcg capsule glucosamine HCl 500 mg tablet 1,000 mg PO DAILY 03/13/20 02/04/24 History rosuvastatin 5 mg tablet 5 mg PO QHS 03/13/20 02/04/24 History vitamin E 100 unit capsule 100 unit PO DAILY 03/13/20 02/04/24 History zinc 50 mg tablet 50 mg PO DAILY 03/13/20 02/04/24 History empagliflozin 25 mg tablet mg PO 08/18/23 02/04/24 History (Jardiance) ketoconazole 2 % shampoo topical 08/18/23 02/04/24 History semaglutide 2 mg/dose (8 mg/3 mL) mg subcut 08/18/23 02/04/24 History subcutaneous pen injector (Ozempic) doxycycline monohydrate 100 mg 100 mg PO BID 10 days #20 caps 02/04/24 02/04/24 Rx capsule Have you fallen in the past year?: No Nurse's Note: pt states sx started thursday pt requested covid and flu testing today. cough jack [facility] nasal drainage PFSH Medical History Benign essential hypertension Hyperlipidemia Type 2 diabetes mellitus Mild aortic stenosis Hypotension Obesity BPH (benign prostatic hyperplasia) Urine frequency History of colon polyps Acute maxillary sinusitis, unspecified Diabetes Surgical History History of wisdom tooth extraction History of bunionectomy History of adenoidectomy History of bilateral cataract extraction History of tonsillectomy Family History Mother Heart disease Father Cancer Myocardial infarction Brother Cancer Social History Smoking Status: Former smoker how long ago did patient quit smokin years ago alcohol intake: never substance use type: does not use caffeine: Yes HPI HPI Chief Complaint: KING/BA/cough, congestion, chills Details: DINAH VALIENTE, is a 78 M who presents to the office today for complaint of headache, body aches, cough, sore throat and congestion. Patient states that the cough and congestion have improved slightly however the sinus congestion and pressure has worsened over the past several days. Patient denies hemoptysis, shortness of breath or difficulty breathing. No fever, chills, sweats. No other associated symptoms or alleviating/aggravat ing factors. ROS Const Constitutional: No other (as above) Exam Const General: cooperative and well developed HENMT Head: normal to inspection and atraumatic Ears: hearing grossly normal bilaterally Nose: nasal discharge clear Face and sinus: normal facial exam Mouth: oral mucosae normal Throat: abnormal tonsil bilaterally hypertrophy 1+ Resp Effort Inspection: normal respiratory effort and no audible wheezes Auscultation: Bilateral: Clear to Auscultation Cardio Rate: regular rate Rhythm: regular rhythm Neuro General: patient alert Psych Appearance: grossly normal Mental Status: mental status grossly normal Results POC FLU A B Office Flu A B Negative FLU A B Last Edit by Linsey Uriarte MA on 02/04/24 10:23 POC SARS AG POC SARS AG Negative Last Edit by Linsey Uriarte MA on 02/04/24 10:23 Coding Level of Care Code Off vis,new,level 3 Diagnoses Acute sinusitis J01.90 Assessment and Plan (more content not included)... Normal [facility] CBC W/Diff, Automatedon 11-0 Absolute Lymph 2.53 X10 3/uL Normal 0.83-4.51 [facility] Comment on above: Order Comment: Order Date: 11/04/23Order Info: [id number] - CBCD Performed By: #### L 100.0100, L506.1000, L500.4100, L502.0250, L501.9985, L500.4050 ####[facility] [address] [place], [place], [address] Absolute Neut 4.1 X10 3/uL Normal 2.0-7.7 [facility] Comment on above: Order Comment: Order Date: 11/04/23Order Info: [id number] - CBCD Performed By: #### L 100.0100, L506.1000, L500.4100, L502.0250, L501.9985, L500.4050 ####[facility] [address] [place], [address] Basophils/100 WBC (Bld) 0.8 % Normal 0-1 [facility] Comment on above: Order Comment: Order Date: 11/04/23Order Info: [id number] - CBCD Performed By: #### L 100.0100, L506.1000, L500.4100, L502.0250, L501.9985, L500.4050 ####[facility] [address] [place], [address] Eosinophils/100 WBC (Bld) 2.0 % Normal 0-5 [facility] Comment on above: Order Comment: Order Date: 11/04/23Order Info: [id number] - CBCD Performed By: #### L 100.0100, L506.1000, L500.4100, L502.0250, L501.9985, L500.4050 ####[facility] [address] [place], [address] Erythrocyte distribution width (RBC) [Ratio] 13.4 % Normal 11.6-14.6 [facility] Comment on above: Order Comment: Order Date: 11/04/23Order Info: [id number] - CBCD Performed By: #### L 100.0100, L506.1000, L500.4100, L502.0250, L501.9985, L500.4050 ####[facility] [address] [place], [address] Hematocrit (Bld) [Volume fraction] 47.5 % Normal 40-54 [facility] Comment on above: Order Comment: Order Date: 11/04/23Order Info: [id number] - CBCD Performed By: #### L 100.0100, L506.1000, L500.4100, L502.0250, L501.9985, L500.4050 ####[facility] [address] [place], [address] Hemoglobin (Bld) [Mass/Vol] 15.7 g/dL Normal 13.0-16.5 [facility] Comment on above: Order Comment: Order Date: 11/04/23Order Info: [id number] - CBCD Performed By: #### L 100.0100, L506.1000, L500.4100, L502.0250, L501.9985, L500.4050 ####[facility] [address] [place], [address] IG% 1.200 High 0.0-0.9 [facility] Comment on above: Order Comment: Order Date: 11/04/23Order Info: [id number]- - CBCD Result Comment: IG% - Immature Granulocytes (promyelocytes, myelocytes and metamyelocytes) > 1% indicates that a LEFT SHIFT is Present. Performed By: #### L 100.0100, L506.1000, L500.4100, L502.0250, L501.9985, L500.4050 ####[facility] [address] [place], [address] Lymphocytes/100 WBC (Bld) 32.9 % Normal 19-41 [facility] Comment on above: Order Comment: Order Date: 11/04/23Order Info: [id number] - CBCD Performed By: #### L 100.0100, L506.1000, L500.4100, L502.0250, L501.9985, L500.4050 ####[facility] [address] [place], [address] MCH (RBC) [Entitic mass] 30.4 pg Normal 27.0-32.0 [facility] Comment on above: Order Comment: Order Date: 11/04/23Order Info: [id number] - CBCD Performed By: #### L 100.0100, L506.1000, L500.4100, L502.0250, L501.9985, L500.4050 ####[facility] [address] [place], [address] MCHC (RBC) [Mass/Vol] 33.1 g/dL Normal 32-36 [facility] Comment on above: Order Comment: Order Date: 11/04/23Order Info: [id number]- - CBCD Performed By: #### L 100.0100, L506.1000, L500.4100, L502.0250, L501.9985, L500.4050 ####[facility] [address] [place], [address] MCV (RBC) [Entitic vol] 92.1 fL Normal 80-94 [facility] Comment on above: Order Comment: Order Date: 11/04/23Order Info: 018- - CBCD Performed By: #### L 100.0100, L506.1000, L500.4100, L502.0250, L501.9985, L500.4050 ####[facility] [address] [place], [address] Monocytes/100 WBC (Bld) 9.2 % Normal 0-10 [facility] Comment on above: Order Comment: Order Date: 11/04/23Order Info: 018- - CBCD Performed By: #### L 100.0100, L506.1000, L500.4100, L502.0250, L501.9985, L500.4050 ####[facility] [address] [place], [address] Neutrophils/100 WBC (Bld) 53.9 % Normal 47-70 [facility] Comment on above: Order Comment: Order Date: 11/04/23Order Info: [id number] - CBCD Performed By: #### L 100.0100, L506.1000, L500.4100, L502.0250, L501.9985, L500.4050 ####[facility] [address] [place], [address] Nucleated RBC (Bld) [#/Vol] 0 10*3/uL Normal 0-5 [facility] Comment on above: Order Comment: Order Date: 11/04/23Order Info: [id number] - CBCD Performed By: #### L 100.0100, L506.1000, L500.4100, L502.0250, L501.9985, L500.4050 ####[facility] [address] [place], [address] Platelet mean volume (Bld) [Entitic vol] 9.9 fL Normal 6.2-12.0 [facility] Comment on above: Order Comment: Order Date: 11/04/23Order Info: [id number]- - CBCD Performed By: #### L 100.0100, L506.1000, L500.4100, L502.0250, L501.9985, L500.4050 ####[facility] [address] [place], [address] Platelets (Bld) [#/Vol] 173 10*3/uL Normal 150-450 [facility] Comment on above: Order Comment: Order Date: 11/04/23Order Info: [id number] - CBCD Performed By: #### L 100.0100, L506.1000, L500.4100, L502.0250, L501.9985, L500.4050 ####[facility] [address] [place], [address] RBC (Bld) [#/Vol] 5.16 10*6/uL Normal 4.6-6.2 [facility] Comment on above: Order Comment: Order Date: 11/04/23Order Info: [id number] - CBCD Performed By: #### L 100.0100, L506.1000, L500.4100, L502.0250, L501.9985, L500.4050 ####[facility] [address] [place], [address] RDW SD 45.5 fl High 35.1-43.9 [facility] Comment on above: Order Comment: Order Date: 11/04/23Order Info: [id number] - CBCD Performed By: #### L 100.0100, L506.1000, L500.4100, L502.0250, L501.9985, L500.4050 ####[facility] [address] [place], [address] WBC (Bld) [#/Vol] 7.7 10*3/uL Normal 4.4-11.0 [facility] Comment on above: Order Comment: Order Date: 11/04/23Order Info: [id number] - CBCD Performed By: #### L 100.0100, L506.1000, L500.4100, L502.0250, L501.9985, L500.4050 ####[facility] [address] [place], [address] Comprehensive Metabolic Prof ilon 01-01-2024 Albumin [Mass/Vol] 3.9 g/dL Normal 3.2-5.0 [facility] Comment on above: Order Comment: Order Date: 11/04/23Order Info: [id number] - CMPOrder Info: [id number] - LIPID Performed By: #### L 100.0100, L506.1000, L500.4100, L502.0250, L501.9985, L500.4050 ####[facility] [address] [place], [address] Albumin/Globulin [Mass ratio] 1.2 {ratio} Normal 0.9-2.4 [facility] Comment on above: Order Comment: Order Date: 11/04/23Order Info: [id number] - CMPOrder Info: [id number] - LIPID Performed By: #### L 100.0100, L506.1000, L500.4100, L502.0250, L501.9985, L500.4050 ####[facility] [address] [place], [address] ALK P 89 U/L Normal 45-117 [facility] Comment on above: Order Comment: Order Date: 11/04/23Order Info: [id number] - CMPOrder Info: [id number] - LIPID Performed By: #### L 100.0100, L506.1000, L500.4100, L502.0250, L501.9985, L500.4050 ####[facility] [address] [place], [address] ALT [Catalytic activity/Vol] 22 U/L Normal 16-61 [facility] Comment on above: Order Comment: Order Date: 11/04/23Order Info: [id number] - CMPOrder Info: [id number] - LIPID Performed By: #### L 100.0100, L506.1000, L500.4100, L502.0250, L501.9985, L500.4050 ####[facility] [address] [place], [address] AST [Catalytic activity/Vol] 16 U/L Normal 15-37 [facility] Comment on above: Order Comment: Order Date: 11/04/23Order Info: [id number] - CMPOrder Info: [id number] - LIPID Performed By: #### L 100.0100, L506.1000, L500.4100, L502.0250, L501.9985, L500.4050 ####[facility] [address] [place], [address] Bilirubin [Mass/Vol] 1.10 mg/dL High 0.20-1.00 [facility] Comment on above: Order Comment: Order Date: 11/04/23Order Info: [id number] - CMPOrder Info: [id number] - LIPID Result Comment: For patients on eltrombopag therapy, use of Dimension [place] TBIL is not recommended. Performed By: #### L 100.0100, L506.1000, L500.4100, L502.0250, L501.9985, L500.4050 ####[facility] [address] [place], [address] BUN/CRE 19.9 RATIO Normal 10-20 [facility] Comment on above: Order Comment: Order Date: 11/04/23Order Info: [id number] - CMPOrder Info: [id number] - LIPID Performed By: #### L 100.0100, L506.1000, L500.4100, L502.0250, L501.9985, L500.4050 ####[facility] [address] [place], [address] CA,Total 9.3 mg/dL Normal 8.5-10.1 [facility] Comment on above: Order Comment: Order Date: 11/04/23Order Info: [id number] - CMPOrder Info: [id number] - LIPID Performed By: #### L 100.0100, L506.1000, L500.4100, L502.0250, L501.9985, L500.4050 ####[facility] [address] [place], [address] Chloride [Moles/Vol] 108 mmol/L High 98-107 [facility] Comment on above: Order Comment: Order Date: 11/04/23Order Info: [id number] - CMPOrder Info: [id number] - LIPID Performed By: #### L 100.0100, L506.1000, L500.4100, L502.0250, L501.9985, L500.4050 ####[facility] [address] [place], [address] CO2 [Moles/Vol] 26.0 mmol/L Normal 21.0-32.0 [facility] Comment on above: Order Comment: Order Date: 11/04/23Order Info: [id number] - CMPOrder Info: [id number] - LIPID Performed By: #### L 100.0100, L506.1000, L500.4100, L502.0250, L501.9985, L500.4050 ####[facility] [address] [place], [address] Creatinine [Mass/Vol] 0.90 mg/dL Normal 0.70-1.30 [facility] Comment on above: Order Comment: Order Date: 11/04/23Order Info: [id number] - CMPOrder Info: [id number] - LIPID Result Comment: The validity of the calculated GFR GFRAA in patients over 70 years has not been determined. Clinical correlation is essential. Performed By: #### L 100.0100, L506.1000, L500.4100, L502.0250, L501.9985, L500.4050 ####[facility] [address] [place], [address] EST GFR - AA 104 mL/min Normal >60 [facility] Comment on above: Order Comment: Order Date: 11/04/23Order Info: [id number] - CMPOrder Info: [id number] - LIPID Result Comment: Afri can [place] GFR Calc Performed By: #### L 100.0100, L506.1000, L500.4100, L502.0250, L501.9985, L500.4050 ####[facility] [address] [place], [address] GAP 6 Normal 5-15 [facility] Comment on above: Order Comment: Order Date: 11/04/23Order Info: [id number] - CMPOrder Info: [id number] - LIPID Performed By: #### L 100.0100, L506.1000, L500.4100, L502.0250, L501.9985, L500.4050 ####[facility] [address] [place], [address] GFR/1.73 sq M.predicted among non-blacks MDRD (S/P/Bld) [Vol rate/Area] 86 mL/min/{1.73_m2} Normal >60 [facility] Comment on above: Order Comment: Order Date: 11/04/23Order Info: 07- - CMPOrder Info: [id number] - LIPID Result Comment: Non- GFR Calc Performed By: #### L 100.0100, L506.1000, L500.4100, L502.0250, L501.9985, L500.4050 ####[facility] [address] [place], [address] Globulin (S) [Mass/Vol] 3.2 g/dL Normal 2.2-4.2 [facility] Comment on above: Order Comment: Order Date: 11/04/23Order Info: [id number] - CMPOrder Info: [id number] - LIPID Performed By: #### L 100.0100, L506.1000, L500.4100, L502.0250, L501.9985, L500.4050 ####[facility] [address] [place], [address] Glucose [Mass/Vol] 158 mg/dL High 74-106 [facility] Comment on above: Order Comment: Order Date: 11/04/23Order Info: [id number] - CMPOrder Info: [id number] - LIPID Result Comment: Fast ing Glucose result greater than or equal to 126 mg/dL suggests DIABETES MELLITUS per A.D.A. criteria. Performed By: #### L 100.0100, L506.1000, L500.4100, L502.0250, L501.9985, L500.4050 ####[facility] [address] [place], [address] Potassium [Moles/Vol] 4.3 mmol/L Normal 3.5-5.1 [facility] Comment on above: Order Comment: Order Date: 11/04/23Order Info: [id number] - CMPOrder Info: [id number] - LIPID Performed By: #### L 100.0100, L506.1000, L500.4100, L502.0250, L501.9985, L500.4050 ####[facility] [address] [place], [address] Sodium [Moles/Vol] 139 mmol/L Normal 136-145 [facility] Comment on above: Order Comment: Order Date: 11/04/23Order Info: [id number] - CMPOrder Info: [id number] - LIPID Performed By: #### L 100.0100, L506.1000, L500.4100, L502.0250, L501.9985, L500.4050 ####[facility] [address] [place], [place], [id number] T PROT 7.1 g/dL Normal 6.4-8.2 [facility] Comment on above: Order Comment: Order Date: 11/04/23Order Info: [id number] - CMPOrder Info: [id number] - LIPID Performed By: #### L 100.0100, L506.1000, L500.4100, L502.0250, L501.9985, L500.4050 ####[facility] [address] [place], [address] Urea nitrogen [Mass/Vol] 18 mg/dL Normal 7-18 [facility] Comment on above: Order Comment: Order Date: 11/04/23Order Info: [id number] - CMPOrder Info: [id number] - LIPID Performed By: #### L 100.0100, L506.1000, L500.4100, L502.0250, L501.9985, L500.4050 ####[facility] [address] [place], [address] Hemoglobin A1con 01-01-2024 HbA1c (Bld) [Mass fraction] 7.6 % High 3.8-5.6 [facility] Comment on above: Order Comment: Order Date: 11/04/23Order Info: [id number] - A1C Result Comment: Norm al < 5.7 % Prediabetic 5.7 - 6.4 % Diabetic >or= 6.5 % Please note range changes. Performed By: #### L 100.0100, L506.1000, L500.4100, L502.0250, L501.9985, L500.4050 ####[facility] [address] [place], [address] Lipid Profileon 01-01-2024 Cholesterol [Mass/Vol] 178 mg/dL Normal 200 [facility] Comment on above: Order Comment: Order Date: 11/04/23Order Info: [id number] - CMPOrder Info: [id number] - LIPID Result Comment: <200 mg/dL Desirable 200-240 mg/dL Borderline >240 mg/dL High Risk Performed By: #### L 100.0100, L506.1000, L500.4100, L502.0250, L501.9985, L500.4050 ####[facility] [address] [place], [address] Cholesterol in HDL [Mass/Vol] 47 mg/dL Normal [facility] Comment on above: Order Comment: Order Date: 11/04/23Order Info: [id number] - CMPOrder Info: [id number] - LIPID Result Comment: The drugs N-Acetylcysteine and Metamizole may falsely depress this assay. Reference Range HDL <40 mg/dL Low HDL Cholesterol HDL >or= 60 mg/dL High HDL Cholesterol Performed By: #### L 100.0100, L506.1000, L500.4100, L502.0250, L501.9985, L500.4050 ####[facility] [address] [place], [address] Cholesterol in LDL [Mass/Vol] 98 mg/dL Normal 0-130 [facility] Comment on above: Order Comment: Order Date: 11/04/23Order Info: [id number] - CMPOrder Info: [id number] - LIPID Performed By: #### L 100.0100, L506.1000, L500.4100, L502.0250, L501.9985, L500.4050 ####[facility] [address] [place], [place], [address] Cholesterol in VLDL [Mass/Vol] 33 mg/dL Normal 5-40 [facility] Comment on above: Order Comment: Order Date: 11/04/23Order Info: [id number] - CMPOrder Info: [id number] - LIPID Performed By: #### L 100.0100, L506.1000, L500.4100, L502.0250, L501.9985, L500.4050 ####[facility] [address] [place], [place], [id number] Triglyceride [Mass/Vol] 163 mg/dL Normal [facility] Comment on above: Order Comment: Order Date: 11/04/23Order Info: [id number] - CMPOrder Info: [id number] - LIPID Result Comment: The drugs N-Acetylcysteine and Metamizole may falsely depress this assay. Serum Triglycerides Reference Interval Normal <150 mg/dL Borderline high 150 - 199 mg/dL High 200 - 499 mg/dL Very High > or = 500 mg/dL Performed By: #### L 100.0100, L506.1000, L500.4100, L502.0250, L501.9985, L500.4050 ####[facility] [address] [facility] [address] [place], [address] Microalb:Creat Ratio,Random URon 01-01-2024 Creatinine [Mass/Vol] 64.10 mg/dL Normal NO RAN GE EST. [facility] Comment on above: Order Comment: Order Date: 11/04/23Order Info: [id number] - MIACRE Performed By: #### L 100.0100, L506.1000, L500.4100, L502.0250, L501.9985, L500.4050 ####[facility] [address] [place], [place], [address] MALB:CRE TNP Normal <30 mg/g CRE [facility] Comment on above: Order Comment: Order Date: 11/04/23Order Info: [id number] - MIACRE Performed By: #### L 100.0100, L506.1000, L500.4100, L502.0250, L501.9985, L500.4050 ####[facility] [address] [place], [address] MICROALBUMIN,UR < 5.0 Normal NO RANGE EST. [facility] Comment on above: Order Comment: Order Date: 11/04/23Order Info: [id number] - MIACRE Performed By: #### L 100.0100, L506.1000, L500.4100, L502.0250, L501.9985, L500.4050 ####[facility] [address] [place], [address] Vitamin D,25 Hydroxyon 12-31 Vitamin D 25-OH 40.0 ng/mL Normal [facility] Comment on above: Order Comment: Order Date: 11/04/23Order Info: [id number] - [id number] Result Comment: Olivia min D 25(OH) Status Range Deficiency <20 ng/mL (50nmol/L) Insufficiency 20 - 30 ng/mL (50 - 75 nmol/L) Sufficiency 30 - 100 ng/mL (75 - 250 nmol/L) Toxicity >100 ng/mL (>250 nmol/L) Performed By: #### L 100.0100, L506.1000, L500.4100, L502.0250, L501.9985, L500.4050 ####[facility] [address] [place], [address] Absolute lymphocyte countOrd ered By: Keke Landeros on 06-29-2023 Lymphocytes Auto (Unsp spec) [#/Vol] 2.45 10*3/uL 0.83-4.51 [facility] Automated lymphocyte count a s percentage of total leukocytesOrdered By: Keke Landeros on 06-29-2023 Lymphocytes/100 WBC Auto (Unsp spec) 34.6 % 19-41 [facility] Basophil percentageOrdered B y: Keke Landeros on 06-29-2023 Basophils/100 WBC (Bld) 0.8 % 0-1 [facility] Bilirubin [Mass/Vol] 0.90 mg/dL 0.20-1.00 [facility] Comment on above: For patients on eltr ombopag therapy, use of Dimension [place] TBIL is not recommended. Chloride [Moles/Vol] 108 mmol/L 98-107 [facility] Cholesterol [Mass/Vol] 163 mg/dL <200 [facility] Comment on above: <200 mg/dL Desirable 200-240 mg/dL Borderline >240 mg/dL High Risk Eosinophils/100 WBC (Bld) 1.8 % 0-5 [facility] Glucose [Mass/Vol] 163 mg/dL 74-106 [facility] Comment on above: Fasting Glucose resu lt greater than or equal to 126 mg/dL suggests DIABETES MELLITUS per A.D.A. criteria. Hemoglobin (Bld) [Mass/Vol] 15.8 g/dL 13.0-16.5 [facility] Monocytes/100 WBC (Bld) 9.6 % 0-10 [facility] Neutrophils (Bld) [#/Vol] 3.7 10*3/uL 2.0-7.7 [facility] Neutrophils/100 WBC (Bld) 52.2 % 47-70 [facility] Potassium [Moles/Vol] 4.6 mmol/L 3.5-5.1 [facility] Protein [Mass/Vol] 6.8 g/dL 6.4-8.2 [facility] Sodium [Moles/Vol] 137 mmol/L 136-145 [facility] Triglyceride [Mass/Vol] 155 mg/dL <199 [facility] Comment on above: The drugs N-Acetylcy steine and Metamizole may falsely depress this assay.Serum Triglycerides Reference Interval Normal <150 mg/dL Borderline high 150 - 199 mg/dL High 200 - 499 mg/dL Very High > or = 500 mg/dL WBC (Bld) [#/Vol] 7.1 10*3/uL 4.4-11.0 [facility] Determination of erythrocyte mean corpuscular volume (MCV)Ordered By: Keke Landeros on 06-29-2023 MCV (RBC) [Entitic vol] 93.0 fL 80-94 [facility] Erythrocyte distribution wid th ratioOrdered By: Keke Landeros on 06-29-2023 Erythrocyte distribution width (RBC) [Ratio] 13.7 % 11.6-14.6 [facility] Erythrocyte distribution wid th standard deviationOrdered By: Keke Landeros on 06-29-2023 Erythrocyte distribution width (RBC) [Entitic vol] 46.5 fL 35.1-43.9 [facility] Hematocrit Auto (Bld) [Volum e fraction]Ordered By: Keke Landeros on 06-29-2023 Hematocrit (Bld) [Volume fraction] 47.5 % 40-54 [facility] Immature granulocytes/100 WB C Auto (Bld)Ordered By: Keke Landeros on 06-29-2023 Immature granulocytes/100 WBC (Bld) 1.000 % 0.0-0.9 [facility] Comment on above: IG% - Immature Granu locytes (promyelocytes, myelocytes and metamyelocytes) > 1% indicates that a LEFT SHIFT is Present. Laboratory - Chemistry and C hemistry - challengeOrdered By: Keke Landeros on 06-29-2023 Albumin/Globulin [Mass ratio] 1.1 {ratio} 0.9-2.4 [facility] ALP [Catalytic activity/Vol] 69 U/L 45-117 [facility] ALT [Catalytic activity/Vol] 21 U/L 16-61 [facility] Cholesterol in HDL [Mass/Vol] 47 mg/dL >40 [facility] Comment on above: The drugs N-Acetylcy steine and Metamizole may falsely depress this assay. Reference Range HDL <40 mg/dL Low HDL Cholesterol HDL >or= 60 mg/dL High HDL Cholesterol Cholesterol in LDL [Mass/Vol] 85 mg/dL 0-130 [facility] CO2 [Moles/Vol] 25.0 mmol/L 21.0-32.0 [facility] Globulin (S) [Mass/Vol] 3.2 g/dL 2.2-4.2 [facility] Urea nitrogen/Creatinine [Mass ratio] 20.6 mg/mg 10-20 [facility] Laboratory - Hematology and Cell countsOrdered By: Keke Landeros on 06-29-2023 MCH (RBC) [Entitic mass] 30.9 pg 27.0-32.0 [facility] MCHC (RBC) [Mass/Vol] 33.3 g/dL 32-36 [facility] Nucleated RBC/100 WBC (Bld) [Ratio] 0 % 0-5 [facility] Platelet mean volume (Bld) [Entitic vol] 10.0 fL 6.2-12.0 [facility] Platelets (Bld) [#/Vol] 175 10*3/uL 150-450 [facility] No Panel InformationOrdered By: Keke Landeros on 06-29-2023 Estimated GFR (MDRD) Amer 115 mL/min >60 [facility] Comment on above: GFR Calc Estimated GFR (MDRD) Non-Af Amer 95 mL/min >60 [facility] Comment on above: Non- GFR Calc Vitamin D 25-Hydroxy 79.0 ng/mL [facility] Comment on above: Vitamin D 25(OH) Sta tus Range Deficiency <20 ng/mL (50nmol/L) Insufficiency 20 - 30 ng/mL (50 - 75 nmol/L) Sufficiency 30 - 100 ng/mL (75 - 250 nmol/L) Toxicity >100 ng/mL (>250 nmol/L) VLDL Cholesterol 31 mg/dL 5-40 [facility] RBC Auto (Bld) [#/Vol]Ordere d By: Keke Landeros on 06-29-2023 RBC (Bld) [#/Vol] 5.11 10*6/uL 4.6-6.2 [facility] Serum or plasma calcium shameka urement (mass/volume)Ordered By: Keke Landeros on 06-29-2023 Calcium [Mass/Vol] 9.5 mg/dL 8.5-10.1 [facility] Serum or plasma creatinine m easurement (mass/volume)Ordered By: Keke Landeros on 06-29-2023 Creatinine [Mass/Vol] 0.83 mg/dL 0.70-1.30 [facility] Comment on above: The validity of the calculated GFR & GFRAA in patients over 70 years has not been determined. Clinical correlation is essential. Serum or plasma urea nitroge n measurement (mass/volume)Ordered By: Keke Landeros on 06-29-2023 Urea nitrogen [Mass/Vol] 17 mg/dL 7-18 [facility] Thin prep Papanicolaou smear with manual screeningOrdered By: Keke Landeros on 06-29-2023 Thin prep Papanicolaou smear with manual screening 3.6 g/dL 3.2-5.0 [facility] Thin prep Papanicolaou smear with manual screening 16 U/L 15-37 [facility] Thin prep Papanicolaou smear with manual screening 4 5-15 [facility] Whole blood hemoglobin A1c/t otal hemoglobin ratio (mass fraction)Ordered By: Keke Landeros on 06-29-2023 HbA1c (Bld) [Mass fraction] 7.3 % 3.8-5.6 [facility] Comment on above: Normal < 5.7 % Predi abetic 5.7 - 6.4 % Diabetic >or= 6.5 % Please note range changes. Absolute lymphocyte countOrd ered By: Keke Landeros on 03-30-2023 Lymphocytes Auto (Unsp spec) [#/Vol] 2.53 10*3/uL 0.83-4.51 [facility] Automated lymphocyte count a s percentage of total leukocytesOrdered By: Keke Landeros on 03-30-2023 Lymphocytes/100 WBC Auto (Unsp spec) 31.7 % 19-41 [facility] Basophil percentageOrdered B y: Keke Landeros on 03-30-2023 Basophils/100 WBC (Bld) 0.9 % 0-1 [facility] Bilirubin [Mass/Vol] 0.90 mg/dL 0.20-1.00 [facility] Comment on above: For patients on eltr ombopag therapy, use of Dimension [place] TBIL is not recommended. Chloride [Moles/Vol] 109 mmol/L 98-107 [facility] Cholesterol [Mass/Vol] 177 mg/dL <200 [facility] Comment on above: <200 mg/dL Desirable 200-240 mg/dL Borderline >240 mg/dL High Risk Eosinophils/100 WBC (Bld) 3.6 % 0-5 [facility] Glucose [Mass/Vol] 161 mg/dL 74-106 [facility] Comment on above: Fasting Glucose resu lt greater than or equal to 126 mg/dL suggests DIABETES MELLITUS per A.D.A. criteria. Hemoglobin (Bld) [Mass/Vol] 15.5 g/dL 13.0-16.5 [facility] Monocytes/100 WBC (Bld) 8.7 % 0-10 [facility] Neutrophils (Bld) [#/Vol] 4.3 10*3/uL 2.0-7.7 [facility] Neutrophils/100 WBC (Bld) 54.1 % 47-70 [facility] Potassium [Moles/Vol] 4.0 mmol/L 3.5-5.1 [facility] Comment on above: Slight Hemolysis, Re sult may be falsely increased. Protein [Mass/Vol] 7.4 g/dL 6.4-8.2 [facility] Sodium [Moles/Vol] 139 mmol/L 136-145 [facility] Triglyceride [Mass/Vol] 192 mg/dL <199 [facility] Comment on above: The drugs N-Acetylcy steine and Metamizole may falsely depress this assay.Serum Triglycerides Reference Interval Normal <150 mg/dL Borderline high 150 - 199 mg/dL High 200 - 499 mg/dL Very High > or = 500 mg/dL WBC (Bld) [#/Vol] 8.0 10*3/uL 4.4-11.0 [facility] Determination of erythrocyte mean corpuscular volume (MCV)Ordered By: Keke Landeros on 03-30-2023 MCV (RBC) [Entitic vol] 93.3 fL 80-94 [facility] Erythrocyte distribution wid th ratioOrdered By: Keke Landeros on 03-30-2023 Erythrocyte distribution width (RBC) [Ratio] 13.4 % 11.6-14.6 [facility] Erythrocyte distribution wid th standard deviationOrdered By: Keke Landeros on 03-30-2023 Erythrocyte distribution width (RBC) [Entitic vol] 45.3 fL 35.1-43.9 [facility] Hematocrit Auto (Bld) [Volum e fraction]Ordered By: Keke Landeros on 03-30-2023 Hematocrit (Bld) [Volume fraction] 46.3 % 40-54 [facility] Immature granulocytes/100 WB C Auto (Bld)Ordered By: Keke Ladneros on 03-30-2023 Immature granulocytes/100 WBC (Bld) 1.000 % 0.0-0.9 [facility] Comment on above: IG% - Immature Granu locytes (promyelocytes, myelocytes and metamyelocytes) > 1% indicates that a LEFT SHIFT is Present. Laboratory - Chemistry and C hemistry - challengeOrdered By: Keke Landeros on 03-30-2023 Albumin/Globulin [Mass ratio] 0.9 {ratio} 0.9-2.4 [facility] ALP [Catalytic activity/Vol] 90 U/L 45-117 [facility] ALT [Catalytic activity/Vol] 23 U/L 16-61 [facility] Cholesterol in HDL [Mass/Vol] 48 mg/dL >40 [facility] Comment on above: The drugs N-Acetylcy steine and Metamizole may falsely depress this assay. Reference Range HDL <40 mg/dL Low HDL Cholesterol HDL >or= 60 mg/dL High HDL Cholesterol Cholesterol in LDL [Mass/Vol] 91 mg/dL 0-130 [facility] CO2 [Moles/Vol] 24.0 mmol/L 21.0-32.0 [facility] Globulin (S) [Mass/Vol] 3.9 g/dL 2.2-4.2 [facility] Urea nitrogen/Creatinine [Mass ratio] 17.6 mg/mg 10-20 [facility] Laboratory - Hematology and Cell countsOrdered By: Keke Landeros on 03-30-2023 MCH (RBC) [Entitic mass] 31.3 pg 27.0-32.0 [facility] MCHC (RBC) [Mass/Vol] 33.5 g/dL 32-36 [facility] Nucleated RBC/100 WBC (Bld) [Ratio] 0 % 0-5 [facility] Platelets (Bld) [#/Vol] 166 10*3/uL 150-450 [facility] No Panel InformationOrdered By: Keke Landeros on 03-30-2023 Estimated GFR (MDRD) Amer 96 mL/min >60 [facility] Comment on above: GFR Calc Estimated GFR (MDRD) Non-Af Amer 79 mL/min >60 [facility] Comment on above: Non- GFR Calc Vitamin D 25-Hydroxy 114.8 ng/mL [facility] Comment on above: Vitamin D 25(OH) Sta tus Range Deficiency <20 ng/mL (50nmol/L) Insufficiency 20 - 30 ng/mL (50 - 75 nmol/L) Sufficiency 30 - 100 ng/mL (75 - 250 nmol/L) Toxicity >100 ng/mL (>250 nmol/L)Evidence suggests that patients undergoing fluorescein dye angiography can retain small amounts of fluorescein in the body for up to 48 to 72 hours post-treatment. In the cases of patients with renal insufficiency, retention could be much longer. Samples containing fluorescein can produce falsely elevated values when tested with the [employer] Vitamin D assay. With fluorescein interference, observed Vitamin D values can be as high as >150 ng/mL (>375 nmol/L). Samples should be resubmitted post fluorescein clearance to ensure there is no interference with Vitamin D test results. VLDL Cholesterol 38 mg/dL 5-40 [facility] Platelet mean volume Gary-Ec ker (Bld) [Entitic vol]Ordered By: Keke Landeros on 03-30-2023 Platelet mean volume (Bld) [Entitic vol] 10.1 fL 6.2-12.0 [facility] RBC Auto (Bld) [#/Vol]Ordere d By: Keke Landeros on 03-30-2023 RBC (Bld) [#/Vol] 4.96 10*6/uL 4.6-6.2 [facility] Serum or plasma calcium shameka urement (mass/volume)Ordered By: Keke Landeros on 03-30-2023 Calcium [Mass/Vol] 9.6 mg/dL 8.5-10.1 [facility] Serum or plasma creatinine m easurement (mass/volume)Ordered By: Keke Landeros on 03-30-2023 Creatinine [Mass/Vol] 0.97 mg/dL 0.70-1.30 [facility] Comment on above: The validity of the calculated GFR & GFRAA in patients over 70 years has not been determined. Clinical correlation is essential. Serum or plasma urea nitroge n measurement (mass/volume)Ordered By: Keke Landeros on 03-30-2023 Urea nitrogen [Mass/Vol] 17 mg/dL 7-18 [facility] Thin prep Papanicolaou smear with manual screeningOrdered By: Keke Landeros on 03-30-2023 Thin prep Papanicolaou smear with manual screening 3.5 g/dL 3.2-5.0 [facility] Thin prep Papanicolaou smear with manual screening 14 U/L 15-37 [facility] Comment on above: Slight Hemolysis, Re sult may be falsely increased. Thin prep Papanicolaou smear with manual screening 6 5-15 [facility] Whole blood hemoglobin A1c/t otal hemoglobin ratio (mass fraction)Ordered By: Keke Landeros on 03-30-2023 HbA1c (Bld) [Mass fraction] 7.4 % 3.8-5.6 [facility] Comment on above: Normal < 5.7 % Predi abetic 5.7 - 6.4 % Diabetic >or= 6.5 % Please note range changes. No Panel Informationon 02-25 Influenza Types A,B Rapid (Clinic) Negative [facility] POC SARS CoV-2 Antigen Positive [facility] Absolute lymphocyte countOrd ered By: Keke Landeros on 12-26-2022 Lymphocytes Auto (Unsp spec) [#/Vol] 2.38 10*3/uL 0.83-4.51 [facility] Basophil percentageOrdered B y: Keke Landeros on 12-26-2022 Basophils/100 WBC (Bld) 0.7 % 0-1 [facility] Bilirubin [Mass/Vol] 1.00 mg/dL 0.20-1.00 [facility] Comment on above: For patients on eltr ombopag therapy, use of Dimension [place] TBIL is not recommended. Chloride [Moles/Vol] 109 mmol/L 98-107 [facility] Cholesterol [Mass/Vol] 162 mg/dL <200 [facility] Comment on above: <200 mg/dL Desirable 200-240 mg/dL Borderline >240 mg/dL High Risk Eosinophils/100 WBC (Bld) 3.0 % 0-5 [facility] Glucose [Mass/Vol] 169 mg/dL 74-106 [facility] Comment on above: Fasting Glucose resu lt greater than or equal to 126 mg/dL suggests DIABETES MELLITUS per A.D.A. criteria. Neutrophils (Bld) [#/Vol] 3.8 10*3/uL 2.0-7.7 [facility] Neutrophils/100 WBC (Bld) 52.5 % 47-70 [facility] Potassium [Moles/Vol] 4.3 mmol/L 3.5-5.1 [facility] Protein [Mass/Vol] 6.9 g/dL 6.4-8.2 [facility] Sodium [Moles/Vol] 138 mmol/L 136-145 [facility] Triglyceride [Mass/Vol] 138 mg/dL <199 [facility] Comment on above: The drugs N-Acetylcy steine and Metamizole may falsely depress this assay.Serum Triglycerides Reference Interval Normal <150 mg/dL Borderline high 150 - 199 mg/dL High 200 - 499 mg/dL Very High > or = 500 mg/dL WBC (Bld) [#/Vol] 7.3 10*3/uL 4.4-11.0 [facility] Blood erythrocytes count (nu mber/volume)Ordered By: Keke Landeros on 12-26-2022 RBC (Bld) [#/Vol] 5.12 10*6/uL 4.6-6.2 [facility] Blood hemoglobin measurement (mass/volume)Ordered By: Keke Landeros on 12-26-2022 Hemoglobin (Bld) [Mass/Vol] 16.0 g/dL 13.0-16.5 [facility] Blood lymphocytes/100 leukoc ytesOrdered By: Keke Landeros on 12-26-2022 Lymphocytes/100 WBC (Bld) 32.6 % 19-41 [facility] Blood monocytes/100 leukocyt esOrdered By: Keke Landeros on 12-26-2022 Monocytes/100 WBC (Bld) 10.1 % 0-10 [facility] Blood platelet mean volumeOr dered By: Keke Landeros on 12-26-2022 Platelet mean volume (Bld) [Entitic vol] 10.2 fL 6.2-12.0 [facility] Determination of erythrocyte mean corpuscular volume (MCV)Ordered By: Keke Landeros on 12-26-2022 MCV (RBC) [Entitic vol] 94.5 fL 80-94 [facility] Hematocrit Auto (Bld) [Volum e fraction]Ordered By: Keke Landeros on 12-26-2022 Hematocrit (Bld) [Volume fraction] 48.4 % 40-54 [facility] Laboratory - Chemistry and C hemistry - challengeOrdered By: Keke Landeros on 12-26-2022 ALP [Catalytic activity/Vol] 80 U/L 45-117 [facility] ALT [Catalytic activity/Vol] 27 U/L 16-61 [facility] CO2 [Moles/Vol] 25.0 mmol/L 21.0-32.0 [facility] Globulin (S) [Mass/Vol] 3.4 g/dL 2.2-4.2 [facility] Urea nitrogen/Creatinine [Mass ratio] 17.7 mg/mg 10-20 [facility] Laboratory - Hematology and Cell countsOrdered By: Keke Landeros on 12-26-2022 Erythrocyte distribution width (RBC) [Entitic vol] 47.6 fL 35.1-43.9 [facility] Erythrocyte distribution width (RBC) [Ratio] 13.6 % 11.6-14.6 [facility] Immature granulocytes/100 WBC (Bld) 1.100 % 0.0-0.9 [facility] Comment on above: IG% - Immature Granu locytes (promyelocytes, myelocytes and metamyelocytes) > 1% indicates that a LEFT SHIFT is Present. MCH (RBC) [Entitic mass] 31.3 pg 27.0-32.0 [facility] Nucleated RBC/100 WBC (Bld) [Ratio] 0 % 0-5 [facility] MCHC Auto (RBC) [Mass/Vol]Or dered By: Keke Landeros on 12-26-2022 MCHC (RBC) [Mass/Vol] 33.1 g/dL 32-36 [facility] No Panel InformationOrdered By: Keke Landeros on 12-26-2022 Estimated GFR (MDRD) Amer 97 mL/min >60 [facility] Comment on above: GFR Calc Estimated GFR (MDRD) Non-Af Amer 80 mL/min >60 [facility] Comment on above: Non- GFR Calc Urine Microalbumin/Creatinine Ratio TNP [facility] Comment on above: Test not performed Vitamin D 25-Hydroxy 85.1 ng/mL [facility] Comment on above: Vitamin D 25(OH) Sta tus Range Deficiency <20 ng/mL (50nmol/L) Insufficiency 20 - 30 ng/mL (50 - 75 nmol/L) Sufficiency 30 - 100 ng/mL (75 - 250 nmol/L) Toxicity >100 ng/mL (>250 nmol/L) Platelets bldOrdered By: Josh Landeros on 12-26-2022 Platelets (Bld) [#/Vol] 170 10*3/uL 150-450 [facility] Serum or plasma albumin shameka urement (mass/volume)Ordered By: Keke Landeros on 12-26-2022 Albumin [Mass/Vol] 3.5 g/dL 3.2-5.0 [facility] Serum or plasma albumin/glob ulin mass ratioOrdered By: Keke Landeros on 12-26-2022 Albumin/Globulin [Mass ratio] 1.0 {ratio} 0.9-2.4 [facility] Serum or plasma calcium shameka urement (mass/volume)Ordered By: Keke Landeros on 12-26-2022 Calcium [Mass/Vol] 9.1 mg/dL 8.5-10.1 [facility] Serum or plasma cholesterol in HDL measurement (mass/volume)Ordered By: Keke Landeros on 12-26-2022 Cholesterol in HDL [Mass/Vol] 44 mg/dL >40 [facility] Comment on above: The drugs N-Acetylcy steine and Metamizole may falsely depress this assay. Reference Range HDL <40 mg/dL Low HDL Cholesterol HDL >or= 60 mg/dL High HDL Cholesterol Serum or plasma cholesterol in VLDL measurement (mass/volume)Ordered By: Keke Landeros on 12-26-2022 Cholesterol in VLDL [Mass/Vol] 28 mg/dL 5-40 [facility] Serum or plasma creatinine m easurement (mass/volume)Ordered By: Keke Landeros on 12-26-2022 Creatinine [Mass/Vol] 0.96 mg/dL 0.70-1.30 [facility] Comment on above: The validity of the calculated GFR & GFRAA in patients over 70 years has not been determined. Clinical correlation is essential. Serum or plasma low density lipoprotein (LDL) cholesterol measurement (mass/volume)Ordered By: Keke Landeros on 12-26-2022 Cholesterol in LDL [Mass/Vol] 90 mg/dL 0-130 [facility] Serum or plasma urea nitroge n measurement (mass/volume)Ordered By: Keke Landeros on 12-26-2022 Urea nitrogen [Mass/Vol] 17 mg/dL 7-18 [facility] Thin prep Papanicolaou smear with manual screeningOrdered By: Keke Landeros on 12-26-2022 Thin prep Papanicolaou smear with manual screening 14 U/L 15-37 [facility] Thin prep Papanicolaou smear with manual screening 4 5-15 [facility] Thin prep Papanicolaou smear with manual screening < 5.0 mg/L NO RANGE EST. [facility] Urine creatinine measurement (mass/volume)Ordered By: Keke Landeros on 12-26-2022 Creatinine (U) [Mass/Vol] 68.20 mg/dL NO RANGE EST. [facility] Whole blood hemoglobin A1c/t otal hemoglobin ratio (mass fraction)Ordered By: Keke Landeros on 12-26-2022 HbA1c (Bld) [Mass fraction] 7.2 % 3.8-5.6 [facility] Comment on above: Normal < 5.7 % Predi abetic 5.7 - 6.4 % Diabetic >or= 6.5 % Please note range changes. No Panel InformationOrdered By: Keke Landeros on 11-12-2022 Stool Pancreatic Elastase 58 >200 [facility] Comment on above: Result Units: ug Niki st./gResults verified by repeat testing Severe Pancreatic Insufficiency: <100 Moderate Pancreatic Insufficiency: 100 - 200 Normal: >200Performed at: [facility] Lab[address] [id number] Director: Renetta Meneses MD, Phone: [phone] Stool Neutral Fats Normal . [facility] Comment on above: Normal (<60 Droplets /HPF) Anti-Gliadin IgA Antibody 5 units 0-19 [facility] Comment on above: Negative 0 - 19 Weak Positive 20 - 30 Moderate to Strong Positive >30 Anti-Gliadin IgG Antibody 3 units 0-19 [facility] Comment on above: Negative 0 - 19 Weak Positive 20 - 30 Moderate to Strong Positive >30 Endomysial IgA Antibody Negative Negative [facility] Comment on above: Serum is slightly li pemic. Tissue Transglutaminase IgG Ab <2 U/mL 0-5 [facility] Comment on above: Negative 0 - 5 Weak Positive 6 - 9 Positive >9 Qualitative fecal fat or lip idsOrdered By: Keke Landeros on 11-12-2022 Fat Ql (Stl) Normal . [facility] Comment on above: Normal (<100 Droplet s/HPF)Performed at: [facility] [address] [id number] Director: Chris Murcia PhD, Phone: [phone] Serum IgA measurement (units /volume)Ordered By: Keke Landeros on 11-12-2022 IgA Qn (S) 347 mg/dL 61-437 [facility] Comment on above: Performed at: [facility] [address] [id number] Director: Chris Murcia PhD, Phone: [phone] Serum tissue transglutaminas e IgA antibody assay (units/volume)Ordered By: Keke Landeros on 11-12-2022 tTG IgA Qn (S) <2 U/mL 0-3 [facility] Comment on above: Negative 0 - 3 Weak Positive 4 - 10 Positive >10 Tissue Transglutaminase (tTG) has been identified as the endomysial antigen. Studies have demonstr- ated that endomysial IgA antibodies have over 99% specificity for gluten sensitive enteropathy. Stool lactoferrin detection by immunoassayOrdered By: Keke Landeros on 11-12-2022 Lactoferrin IA Ql (Stl) [facility] Lactoferrin IA Ql (Stl) [facility] Absolute lymphocyte countOrd ered By: Keke Landeros on 09-22-2022 Lymphocytes Auto (Unsp spec) [#/Vol] 2.56 10*3/uL 0.83-4.51 [facility] Basophil percentageOrdered B y: Keke Landeros on 09-22-2022 Basophils/100 WBC (Bld) 0.4 % 0-1 [facility] Bilirubin [Mass/Vol] 1.00 mg/dL 0.20-1.00 [facility] Comment on above: For patients on eltr ombopag therapy, use of Dimension [place] TBIL is not recommended. Chloride [Moles/Vol] 106 mmol/L 98-107 [facility] Cholesterol [Mass/Vol] 159 mg/dL <200 [facility] Comment on above: <200 mg/dL Desirable 200-240 mg/dL Borderline >240 mg/dL High Risk Eosinophils/100 WBC (Bld) 1.7 % 0-5 [facility] Glucose [Mass/Vol] 156 mg/dL 74-106 [facility] Comment on above: Fasting Glucose resu lt greater than or equal to 126 mg/dL suggests DIABETES MELLITUS per A.D.A. criteria. Neutrophils (Bld) [#/Vol] 7.7 10*3/uL 2.0-7.7 [facility] Neutrophils/100 WBC (Bld) 67.7 % 47-70 [facility] Potassium [Moles/Vol] 3.8 mmol/L 3.5-5.1 [facility] Protein [Mass/Vol] 7.1 g/dL 6.4-8.2 [facility] Sodium [Moles/Vol] 136 mmol/L 136-145 [facility] Triglyceride [Mass/Vol] 244 mg/dL <199 [facility] Comment on above: The drugs N-Acetylcy steine and Metamizole may falsely depress this assay.Serum Triglycerides Reference Interval Normal <150 mg/dL Borderline high 150 - 199 mg/dL High 200 - 499 mg/dL Very High > or = 500 mg/dL WBC (Bld) [#/Vol] 11.3 10*3/uL 4.4-11.0 [facility] Blood erythrocytes count (nu mber/volume)Ordered By: Keke Landeros on 09-22-2022 RBC (Bld) [#/Vol] 5.17 10*6/uL 4.6-6.2 [facility] Blood hemoglobin measurement (mass/volume)Ordered By: Keke Landeros on 09-22-2022 Hemoglobin (Bld) [Mass/Vol] 16.4 g/dL 13.0-16.5 [facility] Blood lymphocytes/100 leukoc ytesOrdered By: Keke Landeros on 09-22-2022 Lymphocytes/100 WBC (Bld) 22.6 % 19-41 [facility] Blood monocytes/100 leukocyt esOrdered By: Keke Landeros on 09-22-2022 Monocytes/100 WBC (Bld) 6.8 % 0-10 [facility] Blood platelet mean volumeOr dered By: Keke Landeros on 09-22-2022 Platelet mean volume (Bld) [Entitic vol] 9.9 fL 6.2-12.0 [facility] Determination of erythrocyte mean corpuscular volume (MCV)Ordered By: Keke Landeros on 09-22-2022 MCV (RBC) [Entitic vol] 93.2 fL 80-94 [facility] Hematocrit Auto (Bld) [Volum e fraction]Ordered By: Keke Landeros on 09-22-2022 Hematocrit (Bld) [Volume fraction] 48.2 % 40-54 [facility] Laboratory - Chemistry and C hemistry - challengeOrdered By: Keke Landeros on 09-22-2022 ALP [Catalytic activity/Vol] 98 U/L 45-117 [facility] ALT [Catalytic activity/Vol] 26 U/L 16-61 [facility] CO2 [Moles/Vol] 25.0 mmol/L 21.0-32.0 [facility] Globulin (S) [Mass/Vol] 3.4 g/dL 2.2-4.2 [facility] Urea nitrogen/Creatinine [Mass ratio] 14.3 mg/mg 10-20 [facility] Laboratory - Hematology and Cell countsOrdered By: Keke Landeros on 09-22-2022 Erythrocyte distribution width (RBC) [Entitic vol] 47.6 fL 35.1-43.9 [facility] Erythrocyte distribution width (RBC) [Ratio] 13.8 % 11.6-14.6 [facility] Immature granulocytes/100 WBC (Bld) 0.800 % 0.0-0.9 [facility] Comment on above: IG% - Immature Granu locytes (promyelocytes, myelocytes and metamyelocytes) > 1% indicates that a LEFT SHIFT is Present. MCH (RBC) [Entitic mass] 31.7 pg 27.0-32.0 [facility] Nucleated RBC/100 WBC (Bld) [Ratio] 0 % 0-5 [facility] MCHC Auto (RBC) [Mass/Vol]Or dered By: Keke Landeros on 09-22-2022 MCHC (RBC) [Mass/Vol] 34.0 g/dL 32-36 [facility] No Panel InformationOrdered By: Keke Landeros on 09-22-2022 Estimated GFR (MDRD) Amer 103 mL/min >60 [facility] Comment on above: GFR Calc Estimated GFR (MDRD) Non-Af Amer 85 mL/min >60 [facility] Comment on above: Non- GFR Calc Urine Microalbumin/Creatinine Ratio 9.0 mg/g CRE <30 [facility] Vitamin D 25-Hydroxy 70.7 ng/mL [facility] Comment on above: Vitamin D 25(OH) Sta tus Range Deficiency <20 ng/mL (50nmol/L) Insufficiency 20 - 30 ng/mL (50 - 75 nmol/L) Sufficiency 30 - 100 ng/mL (75 - 250 nmol/L) Toxicity >100 ng/mL (>250 nmol/L) Platelets bldOrdered By: Josh Landeros on 09-22-2022 Platelets (Bld) [#/Vol] 176 10*3/uL 150-450 [facility] Serum or plasma albumin shameka urement (mass/volume)Ordered By: Keke Landeros on 09-22-2022 Albumin [Mass/Vol] 3.7 g/dL 3.2-5.0 [facility] Serum or plasma albumin/glob ulin mass ratioOrdered By: Keke Landeros on 09-22-2022 Albumin/Globulin [Mass ratio] 1.1 {ratio} 0.9-2.4 [facility] Serum or plasma calcium shaemka urement (mass/volume)Ordered By: Keke Landeros on 09-22-2022 Calcium [Mass/Vol] 9.1 mg/dL 8.5-10.1 [facility] Serum or plasma cholesterol in HDL measurement (mass/volume)Ordered By: Keke Landeros on 09-22-2022 Cholesterol in HDL [Mass/Vol] 40 mg/dL >40 [facility] Comment on above: The drugs N-Acetylcy steine and Metamizole may falsely depress this assay. Reference Range HDL <40 mg/dL Low HDL Cholesterol HDL >or= 60 mg/dL High HDL Cholesterol Serum or plasma cholesterol in VLDL measurement (mass/volume)Ordered By: Keke Landeros on 09-22-2022 Cholesterol in VLDL [Mass/Vol] 49 mg/dL 5-40 [facility] Serum or plasma creatinine m easurement (mass/volume)Ordered By: Keke Landeros on 09-22-2022 Creatinine [Mass/Vol] 0.91 mg/dL 0.70-1.30 [facility] Comment on above: The validity of the calculated GFR & GFRAA in patients over 70 years has not been determined. Clinical correlation is essential. Serum or plasma low density lipoprotein (LDL) cholesterol measurement (mass/volume)Ordered By: Keke Landeros on 09-22-2022 Cholesterol in LDL [Mass/Vol] 70 mg/dL 0-130 [facility] Serum or plasma urea nitroge n measurement (mass/volume)Ordered By: Keke Landeros on 09-22-2022 Urea nitrogen [Mass/Vol] 13 mg/dL 7-18 [facility] Thin prep Papanicolaou smear with manual screeningOrdered By: Keke Landeros on 09-22-2022 Thin prep Papanicolaou smear with manual screening 17 U/L 15-37 [facility] Thin prep Papanicolaou smear with manual screening 5 5-15 [facility] Thin prep Papanicolaou smear with manual screening 8.1 mg/L NO RANGE EST. [facility] Urine creatinine measurement (mass/volume)Ordered By: Keke Landeros on 09-22-2022 Creatinine (U) [Mass/Vol] 90.40 mg/dL NO RANGE EST. [facility] Whole blood hemoglobin A1c/t otal hemoglobin ratio (mass fraction)Ordered By: Keke Landeros on 09-22-2022 HbA1c (Bld) [Mass fraction] 6.3 % 3.8-5.6 [facility] Comment on above: Normal < 5.7 % Predi abetic 5.7 - 6.4 % Diabetic >or= 6.5 % Please note range changes. Absolute lymphocyte countOrd ered By: Keke Landeros on 07-07-2022 Lymphocytes Auto (Unsp spec) [#/Vol] 2.37 10*3/uL 0.83-4.51 [facility] Basophil percentageOrdered B y: Keke Landeros on 07-07-2022 Basophils/100 WBC (Bld) 0.6 % 0-1 [facility] Bilirubin [Mass/Vol] 0.80 mg/dL 0.20-1.00 [facility] Comment on above: For patients on eltr ombopag therapy, use of Dimension [place] TBIL is not recommended. Chloride [Moles/Vol] 109 mmol/L 98-107 [facility] Cholesterol [Mass/Vol] 157 mg/dL <200 [facility] Comment on above: <200 mg/dL Desirable 200-240 mg/dL Borderline >240 mg/dL High Risk Eosinophils/100 WBC (Bld) 1.8 % 0-5 [facility] Glucose [Mass/Vol] 150 mg/dL 74-106 [facility] Comment on above: Fasting Glucose resu lt greater than or equal to 126 mg/dL suggests DIABETES MELLITUS per A.D.A. criteria. Neutrophils (Bld) [#/Vol] 4.4 10*3/uL 2.0-7.7 [facility] Neutrophils/100 WBC (Bld) 56.8 % 47-70 [facility] Potassium [Moles/Vol] 3.9 mmol/L 3.5-5.1 [facility] Protein [Mass/Vol] 7.2 g/dL 6.4-8.2 [facility] Sodium [Moles/Vol] 141 mmol/L 136-145 [facility] Triglyceride [Mass/Vol] 194 mg/dL <199 [facility] Comment on above: The drugs N-Acetylcy steine and Metamizole may falsely depress this assay.Serum Triglycerides Reference Interval Normal <150 mg/dL Borderline high 150 - 199 mg/dL High 200 - 499 mg/dL Very High > or = 500 mg/dL WBC (Bld) [#/Vol] 7.7 10*3/uL 4.4-11.0 [facility] Blood erythrocytes count (nu mber/volume)Ordered By: Keke Landeros on 07-07-2022 RBC (Bld) [#/Vol] 5.17 10*6/uL 4.6-6.2 [facility] Blood hemoglobin measurement (mass/volume)Ordered By: Keke Landeros on 07-07-2022 Hemoglobin (Bld) [Mass/Vol] 16.2 g/dL 13.0-16.5 [facility] Blood lymphocytes/100 leukoc ytesOrdered By: Keke Landeros on 07-07-2022 Lymphocytes/100 WBC (Bld) 30.7 % 19-41 [facility] Blood monocytes/100 leukocyt esOrdered By: Keke Landeros on 07-07-2022 Monocytes/100 WBC (Bld) 8.9 % 0-10 [facility] Blood platelet mean volumeOr dered By: Keke Landeros on 07-07-2022 Platelet mean volume (Bld) [Entitic vol] 9.9 fL 6.2-12.0 [facility] Determination of erythrocyte mean corpuscular volume (MCV)Ordered By: Keke Landeros on 07-07-2022 MCV (RBC) [Entitic vol] 95.4 fL 80-94 [facility] Hematocrit Auto (Bld) [Volum e fraction]Ordered By: Keke Landeros on 07-07-2022 Hematocrit (Bld) [Volume fraction] 49.3 % 40-54 [facility] Laboratory - Chemistry and C hemistry - challengeOrdered By: Keke Landeros on 07-07-2022 ALP [Catalytic activity/Vol] 92 U/L 45-117 [facility] ALT [Catalytic activity/Vol] 28 U/L 16-61 [facility] CO2 [Moles/Vol] 26.0 mmol/L 21.0-32.0 [facility] Globulin (S) [Mass/Vol] 3.5 g/dL 2.2-4.2 [facility] Urea nitrogen/Creatinine [Mass ratio] 17.4 mg/mg 10-20 [facility] Laboratory - Hematology and Cell countsOrdered By: Keke Landeros on 07-07-2022 Erythrocyte distribution width (RBC) [Entitic vol] 49.9 fL 35.1-43.9 [facility] Erythrocyte distribution width (RBC) [Ratio] 14.1 % 11.6-14.6 [facility] Immature granulocytes/100 WBC (Bld) 1.200 % 0.0-0.9 [facility] Comment on above: IG% - Immature Granu locytes (promyelocytes, myelocytes and metamyelocytes) > 1% indicates that a LEFT SHIFT is Present. MCH (RBC) [Entitic mass] 31.3 pg 27.0-32.0 [facility] Nucleated RBC/100 WBC (Bld) [Ratio] 0 % 0-5 [facility] MCHC Auto (RBC) [Mass/Vol]Or dered By: Keke Landeros on 07-07-2022 MCHC (RBC) [Mass/Vol] 32.9 g/dL 32-36 [facility] No Panel InformationOrdered By: Keke Landeros on 07-07-2022 Estimated GFR (MDRD) Amer 102 mL/min >60 [facility] Comment on above: GFR Calc Estimated GFR (MDRD) Non-Af Amer 84 mL/min >60 [facility] Comment on above: Non- GFR Calc Prostate Specific Antigen Screen 0.77 ng/mL 0.00-4.00 [facility] Comment on above: This test was perfor med using the TPSA assay method for the[employer] chemistry system. Values obtained with differentassay methods cannot be used interchangably.When changing PSA assays in the course of monitoring apatient, additional sequential testing should be carriedout to confirm baseline values. Vitamin D 25-Hydroxy 65.7 ng/mL [facility] Comment on above: Vitamin D 25(OH) Sta tus Range Deficiency <20 ng/mL (50nmol/L) Insufficiency 20 - 30 ng/mL (50 - 75 nmol/L) Sufficiency 30 - 100 ng/mL (75 - 250 nmol/L) Toxicity >100 ng/mL (>250 nmol/L) Platelets bldOrdered By: Josh Landeros on 07-07-2022 Platelets (Bld) [#/Vol] 178 10*3/uL 150-450 [facility] Serum or plasma albumin shameka urement (mass/volume)Ordered By: Keke Landeros on 07-07-2022 Albumin [Mass/Vol] 3.7 g/dL 3.2-5.0 [facility] Serum or plasma albumin/glob ulin mass ratioOrdered By: Keke Landeros on 07-07-2022 Albumin/Globulin [Mass ratio] 1.1 {ratio} 0.9-2.4 [facility] Serum or plasma calcium shameka urement (mass/volume)Ordered By: Keke Landeros on 07-07-2022 Calcium [Mass/Vol] 9.2 mg/dL 8.5-10.1 [facility] Serum or plasma cholesterol in HDL measurement (mass/volume)Ordered By: Keke Landeros on 07-07-2022 Cholesterol in HDL [Mass/Vol] 44 mg/dL >40 [facility] Comment on above: The drugs N-Acetylcy steine and Metamizole may falsely depress this assay. Reference Range HDL <40 mg/dL Low HDL Cholesterol HDL >or= 60 mg/dL High HDL Cholesterol Serum or plasma cholesterol in VLDL measurement (mass/volume)Ordered By: Keke Landeros on 07-07-2022 Cholesterol in VLDL [Mass/Vol] 39 mg/dL 5-40 [facility] Serum or plasma creatinine m easurement (mass/volume)Ordered By: Keke Landeros on 07-07-2022 Creatinine [Mass/Vol] 0.92 mg/dL 0.70-1.30 [facility] Comment on above: The validity of the calculated GFR & GFRAA in patients over 70 years has not been determined. Clinical correlation is essential. Serum or plasma low density lipoprotein (LDL) cholesterol measurement (mass/volume)Ordered By: Keke Landeros on 07-07-2022 Cholesterol in LDL [Mass/Vol] 74 mg/dL 0-130 [facility] Serum or plasma urea nitroge n measurement (mass/volume)Ordered By: Keke Landeros on 07-07-2022 Urea nitrogen [Mass/Vol] 16 mg/dL 7-18 [facility] Thin prep Papanicolaou smear with manual screeningOrdered By: Keke Landeros on 07-07-2022 Thin prep Papanicolaou smear with manual screening 17 U/L 15-37 [facility] Thin prep Papanicolaou smear with manual screening 6 5-15 [facility] Whole blood hemoglobin A1c/t otal hemoglobin ratio (mass fraction)Ordered By: Keke Landeros on 07-07-2022 HbA1c (Bld) [Mass fraction] 6.9 % 3.8-5.6 [facility] Comment on above: Normal < 5.7 % Predi abetic 5.7 - 6.4 % Diabetic >or= 6.5 % Please note range changes. Absolute lymphocyte countOrd ered By: Dr. Landeros on 04-02-2022 Lymphocytes Auto (Unsp spec) [#/Vol] 2.72 10*3/uL 0.83-4.51 [facility] Basophil percentageOrdered B y: Dr. Landeros on 04-02-2022 Basophils/100 WBC (Bld) 0.7 % 0-1 [facility] Bilirubin [Mass/Vol] 0.70 mg/dL 0.20-1.00 [facility] Comment on above: For patients on eltr ombopag therapy, use of Dimension [place] TBIL is not recommended. Chloride [Moles/Vol] 110 mmol/L 98-107 [facility] Cholesterol [Mass/Vol] 158 mg/dL <200 [facility] Comment on above: <200 mg/dL Desirable 200-240 mg/dL Borderline >240 mg/dL High Risk Eosinophils/100 WBC (Bld) 3.7 % 0-5 [facility] Glucose [Mass/Vol] 154 mg/dL 74-106 [facility] Comment on above: Fasting Glucose resu lt greater than or equal to 126 mg/dL suggests DIABETES MELLITUS per A.D.A. criteria. Neutrophils (Bld) [#/Vol] 4.2 10*3/uL 2.0-7.7 [facility] Neutrophils/100 WBC (Bld) 50.9 % 47-70 [facility] Potassium [Moles/Vol] 4.3 mmol/L 3.5-5.1 [facility] Comment on above: Slight Hemolysis, Re sult may be falsely increased. Protein [Mass/Vol] 7.3 g/dL 6.4-8.2 [facility] Sodium [Moles/Vol] 142 mmol/L 136-145 [facility] Triglyceride [Mass/Vol] 185 mg/dL <199 [facility] Comment on above: The drugs N-Acetylcy steine and Metamizole may falsely depress this assay.Serum Triglycerides Reference Interval Normal <150 mg/dL Borderline high 150 - 199 mg/dL High 200 - 499 mg/dL Very High > or = 500 mg/dL WBC (Bld) [#/Vol] 8.3 10*3/uL 4.4-11.0 [facility] Blood erythrocytes count (nu mber/volume)Ordered By: Dr. Landeros on 04-02-2022 RBC (Bld) [#/Vol] 5.17 10*6/uL 4.6-6.2 [facility] Blood hemoglobin measurement (mass/volume)Ordered By: Dr. Landeros on 04-02-2022 Hemoglobin (Bld) [Mass/Vol] 15.8 g/dL 13.0-16.5 [facility] Blood lymphocytes/100 leukoc ytesOrdered By: Dr. Landeros on 04-02-2022 Lymphocytes/100 WBC (Bld) 32.9 % 19-41 [facility] Blood monocytes/100 leukocyt esOrdered By: Dr. Landeros on 04-02-2022 Monocytes/100 WBC (Bld) 10.6 % 0-10 [facility] Blood platelet mean volumeOr dered By: Dr. Landeros on 04-02-2022 Platelet mean volume (Bld) [Entitic vol] 10.1 fL 6.2-12.0 [facility] Determination of erythrocyte mean corpuscular volume (MCV)Ordered By: Dr. Landeros on 04-02-2022 MCV (RBC) [Entitic vol] 94.4 fL 80-94 [facility] Hematocrit Auto (Bld) [Volum e fraction]Ordered By: Dr. Landeros on 04-02-2022 Hematocrit (Bld) [Volume fraction] 48.8 % 40-54 [facility] Laboratory - Chemistry and C hemistry - challengeOrdered By: Dr. Landeros on 04-02-2022 ALP [Catalytic activity/Vol] 90 U/L 45-117 [facility] ALT [Catalytic activity/Vol] 25 U/L 16-61 [facility] CO2 [Moles/Vol] 25.0 mmol/L 21.0-32.0 [facility] Globulin (S) [Mass/Vol] 3.6 g/dL 2.2-4.2 [facility] Urea nitrogen/Creatinine [Mass ratio] 18.0 mg/mg 10-20 [facility] Laboratory - Hematology and Cell countsOrdered By: Dr. Landeros on 04-02-2022 Erythrocyte distribution width (RBC) [Entitic vol] 48.6 fL 35.1-43.9 [facility] Erythrocyte distribution width (RBC) [Ratio] 14.0 % 11.6-14.6 [facility] Immature granulocytes/100 WBC (Bld) 1.200 % 0.0-0.9 [facility] Comment on above: IG% - Immature Granu locytes (promyelocytes, myelocytes and metamyelocytes) > 1% indicates that a LEFT SHIFT is Present. MCH (RBC) [Entitic mass] 30.6 pg 27.0-32.0 [facility] Nucleated RBC/100 WBC (Bld) [Ratio] 0 % 0-5 [facility] MCHC Auto (RBC) [Mass/Vol]Or dered By: Dr. Landeros on 04-02-2022 MCHC (RBC) [Mass/Vol] 32.4 g/dL 32-36 [facility] No Panel InformationOrdered By: Dr. Landeros on 04-02-2022 Estimated GFR (MDRD) Amer 93 mL/min >60 [facility] Comment on above: GFR Calc Estimated GFR (MDRD) Non-Af Amer 77 mL/min >60 [facility] Comment on above: Non- GFR Calc Thyroid Stimulating Hormone (TSH) 1.74 uIU/mL 0.358-3.74 [facility] Urine Microalbumin/Creatinine Ratio 7.4 mg/g CRE <30 [facility] Vitamin D 25-Hydroxy 47.5 ng/mL [facility] Comment on above: Vitamin D 25(OH) Sta tus Range Deficiency <20 ng/mL (50nmol/L) Insufficiency 20 - 30 ng/mL (50 - 75 nmol/L) Sufficiency 30 - 100 ng/mL (75 - 250 nmol/L) Toxicity >100 ng/mL (>250 nmol/L) Platelets bldOrdered By: Dr. aLnderos on 04-02-2022 Platelets (Bld) [#/Vol] 186 10*3/uL 150-450 [facility] Serum or plasma albumin shameka urement (mass/volume)Ordered By: Dr. Landeros on 04-02-2022 Albumin [Mass/Vol] 3.7 g/dL 3.2-5.0 [facility] Serum or plasma albumin/glob ulin mass ratioOrdered By: Dr. Landeros on 04-02-2022 Albumin/Globulin [Mass ratio] 1.0 {ratio} 0.9-2.4 [facility] Serum or plasma calcium shameka urement (mass/volume)Ordered By: Dr. Landeros on 04-02-2022 Calcium [Mass/Vol] 9.3 mg/dL 8.5-10.1 [facility] Serum or plasma cholesterol in HDL measurement (mass/volume)Ordered By: Dr. Landeros on 04-02-2022 Cholesterol in HDL [Mass/Vol] 39 mg/dL >40 [facility] Comment on above: The drugs N-Acetylcy steine and Metamizole may falsely depress this assay. Reference Range HDL <40 mg/dL Low HDL Cholesterol HDL >or= 60 mg/dL High HDL Cholesterol Serum or plasma cholesterol in VLDL measurement (mass/volume)Ordered By: Dr. Landeros on 04-02-2022 Cholesterol in VLDL [Mass/Vol] 37 mg/dL 5-40 [facility] Serum or plasma creatinine m easurement (mass/volume)Ordered By: Dr. Landeros on 04-02-2022 Creatinine [Mass/Vol] 1.00 mg/dL 0.70-1.30 [facility] Comment on above: The validity of the calculated GFR & GFRAA in patients over 70 years has not been determined. Clinical correlation is essential. Serum or plasma low density lipoprotein (LDL) cholesterol measurement (mass/volume)Ordered By: Dr. Landeros on 04-02-2022 Cholesterol in LDL [Mass/Vol] 82 mg/dL 0-130 [facility] Serum or plasma urea nitroge n measurement (mass/volume)Ordered By: Dr. Landeros on 04-02-2022 Urea nitrogen [Mass/Vol] 18 mg/dL 7-18 [facility] Thin prep Papanicolaou smear with manual screeningOrdered By: Dr. Landeros on 04-02-2022 Thin prep Papanicolaou smear with manual screening 17 U/L 15-37 [facility] Comment on above: Slight Hemolysis, Re sult may be falsely increased. Thin prep Papanicolaou smear with manual screening 7 5-15 [facility] Thin prep Papanicolaou smear with manual screening 6.6 mg/L NO RANGE EST. [facility] Urine creatinine measurement (mass/volume)Ordered By: Dr. Landeros on 04-02-2022 Creatinine (U) [Mass/Vol] 88.90 mg/dL NO RANGE EST. [facility] Whole blood hemoglobin A1c/t otal hemoglobin ratio (mass fraction)Ordered By: Dr. Landeros on 04-02-2022 HbA1c (Bld) [Mass fraction] 6.8 % 3.8-5.6 [facility] Comment on above: Normal < 5.7 % Predi abetic 5.7 - 6.4 % Diabetic >or= 6.5 % Please note range changes. Absolute lymphocyte counton 11-06-2021 Lymphocytes Auto (Unsp spec) [#/Vol] 2.28 10*3/uL 0.83-4.51 [facility] Work Phone: Basophil percentageon 2021 Basophils/100 WBC (Bld) 0.6 % 0-1 [facility] Work Phone: Bilirubin [Mass/Vol] 0.60 mg/dL 0.20-1.00 [facility] Work Phone: Comment on above: For patients on eltr ombopag therapy, use of Dimension [place] TBIL is not recommended. Chloride [Moles/Vol] 108 mmol/L 98-107 [facility] Work Phone: Cholesterol [Mass/Vol] 159 mg/dL <200 [facility] Work Phone: Comment on above: <200 mg/dL Desirable 200-240 mg/dL Borderline >240 mg/dL High Risk Eosinophils/100 WBC (Bld) 1.7 % 0-5 [facility] Work Phone: Glucose [Mass/Vol] 157 mg/dL 74-106 [facility] Work Phone: Comment on above: Fasting Glucose resu lt greater than or equal to 126 mg/dL suggests DIABETES MELLITUS per A.D.A. criteria. Neutrophils (Bld) [#/Vol] 5.3 10*3/uL 2.0-7.7 [facility] Work Phone: Neutrophils/100 WBC (Bld) 61.8 % 47-70 [facility] Work Phone: Potassium [Moles/Vol] 4.2 mmol/L 3.5-5.1 [facility] Work Phone: Comment on above: Slight Hemolysis, Re sult may be falsely increased. Protein [Mass/Vol] 7.2 g/dL 6.4-8.2 [facility] Work Phone: Sodium [Moles/Vol] 140 mmol/L 136-145 [facility] Work Phone: Triglyceride [Mass/Vol] 211 mg/dL <199 [facility] Work Phone: Comment on above: The drugs N-Acetylcy steine and Metamizole may falsely depress this assay.Serum Triglycerides Reference Interval Normal <150 mg/dL Borderline high 150 - 199 mg/dL High 200 - 499 mg/dL Very High > or = 500 mg/dL WBC (Bld) [#/Vol] 8.6 10*3/uL 4.4-11.0 [facility] Work Phone: Blood erythrocytes count (nu mber/volume)on 11-06-2021 RBC (Bld) [#/Vol] 5.18 10*6/uL 4.6-6.2 [facility] Work Phone: Blood hemoglobin measurement (mass/volume)on 11-06-2021 Hemoglobin (Bld) [Mass/Vol] 15.6 g/dL 13.0-16.5 [facility] Work Phone: Blood lymphocytes/100 leukoc yteson 11-06-2021 Lymphocytes/100 WBC (Bld) 26.4 % 19-41 [facility] Work Phone: Blood monocytes/100 leukocyt eson 11-06-2021 Monocytes/100 WBC (Bld) 8.3 % 0-10 [facility] Work Phone: Blood platelet mean volumeon 11-06-2021 Platelet mean volume (Bld) [Entitic vol] 10.3 fL 6.2-12.0 [facility] Work Phone: Determination of erythrocyte mean corpuscular volume (MCV)on 11-06-2021 MCV (RBC) [Entitic vol] 92.9 fL 80-94 [facility] Work Phone: Hematocrit Auto (Bld) [Volum e fraction]on 11-06-2021 Hematocrit (Bld) [Volume fraction] 48.1 % 40-54 [facility] Work Phone: Laboratory - Chemistry and C hemistry - challengeon 11-06-2021 ALP [Catalytic activity/Vol] 95 U/L 45-117 [facility] Work Phone: ALT [Catalytic activity/Vol] 27 U/L 16-61 [facility] Work Phone: CO2 [Moles/Vol] 25.0 mmol/L 21.0-32.0 [facility] Work Phone: Globulin (S) [Mass/Vol] 3.6 g/dL 2.2-4.2 [facility] Work Phone: Urea nitrogen/Creatinine [Mass ratio] 16.7 mg/mg 10-20 [facility] Work Phone: Laboratory - Hematology and Cell countson 11-06-2021 Erythrocyte distribution width (RBC) [Entitic vol] 49.7 fL 35.1-43.9 [facility]: Erythrocyte distribution width (RBC) [Ratio] 14.6 % 11.6-14.6 [facility] Work Phone: Immature granulocytes/100 WBC (Bld) 1.200 % 0.0-0.9 [facility] Work Phone: Comment on above: IG% - Immature Granu locytes (promyelocytes, myelocytes and metamyelocytes) > 1% indicates that a LEFT SHIFT is Present. MCH (RBC) [Entitic mass] 30.1 pg 27.0-32.0 [facility] Work Phone: Nucleated RBC/100 WBC (Bld) [Ratio] 0 % 0-5 [facility] Work Phone: MCHC Auto (RBC) [Mass/Vol]on 11-06-2021 MCHC (RBC) [Mass/Vol] 32.4 g/dL 32-36 [facility] Work Phone: No Panel Informationon 11-06 Estimated GFR (MDRD) Amer 91 mL/min >60 [facility] Work Phone: Comment on above: GFR Calc Estimated GFR (MDRD) Non-Af Amer 75 mL/min >60 [facility] Work Phone: Comment on above: Non- GFR Calc Vitamin D 25-Hydroxy 32.3 ng/mL [facility] Work Phone: Comment on above: Vitamin D 25(OH) Sta tus Range Deficiency <20 ng/mL (50nmol/L) Insufficiency 20 - 30 ng/mL (50 - 75 nmol/L) Sufficiency 30 - 100 ng/mL (75 - 250 nmol/L) Toxicity >100 ng/mL (>250 nmol/L) Platelets bldon 11-06-2021 Platelets (Bld) [#/Vol] 195 10*3/uL 150-450 [facility] Work Phone: Serum or plasma albumin shameka urement (mass/volume)on 11-06-2021 Albumin [Mass/Vol] 3.6 g/dL 3.2-5.0 [facility] Work Phone: Serum or plasma albumin/glob ulin mass ratioon 11-06-2021 Albumin/Globulin [Mass ratio] 1.0 {ratio} 0.9-2.4 [facility] Work Phone: Serum or plasma calcium shameka urement (mass/volume)on 11-06-2021 Calcium [Mass/Vol] 9.5 mg/dL 8.5-10.1 [facility] Work Phone: Serum or plasma cholesterol in HDL measurement (mass/volume)on 11-06-2021 Cholesterol in HDL [Mass/Vol] 42 mg/dL >40 [facility] Work Phone: Comment on above: The drugs N-Acetylcy steine and Metamizole may falsely depress this assay. Reference Range HDL <40 mg/dL Low HDL Cholesterol HDL >or= 60 mg/dL High HDL Cholesterol Serum or plasma cholesterol in VLDL measurement (mass/volume)on 11-06-2021 Cholesterol in VLDL [Mass/Vol] 42 mg/dL 5-40 [facility] Work Phone: Serum or plasma creatinine m easurement (mass/volume)on 11-06-2021 Creatinine [Mass/Vol] 1.02 mg/dL 0.70-1.30 [facility] Work Phone: Comment on above: The validity of the calculated GFR & GFRAA in patients over 70 years has not been determined. Clinical correlation is essential. Serum or plasma low density lipoprotein (LDL) cholesterol measurement (mass/volume)on 11-06-2021 Cholesterol in LDL [Mass/Vol] 75 mg/dL 0-130 [facility] Work Phone: Serum or plasma urea nitroge n measurement (mass/volume)on 11-06-2021 Urea nitrogen [Mass/Vol] 17 mg/dL 7-18 [facility] Work Phone: Thin prep Papanicolaou smear with manual screeningon 11-06-2021 Thin prep Papanicolaou smear with manual screening 14 U/L 15-37 [facility] Work Phone: Comment on above: Slight Hemolysis, Re sult may be falsely increased. Thin prep Papanicolaou smear with manual screening 7 5-15 [facility] Work Phone: Whole blood hemoglobin A1c/t otal hemoglobin ratio (mass fraction)on 11-06-2021 HbA1c (Bld) [Mass fraction] 7.3 % 3.8-5.6 [facility] Work Phone: Comment on above: Normal < 5.7 % Predi abetic 5.7 - 6.4 % Diabetic >or= 6.5 % Please note range changes. Absolute lymphocyte counton 07-31-2021 Lymphocytes Auto (Unsp spec) [#/Vol] 2.72 10*3/uL 0.83-4.51 [facility] Work Phone: Basophil percentageon 2021 Basophils/100 WBC (Bld) 0.6 % 0-1 [facility] Work Phone: Bilirubin [Mass/Vol] 0.70 mg/dL 0.20-1.00 [facility] Work Phone: Comment on above: For patients on eltr ombopag therapy, use of Dimension [place] TBIL is not recommended. Chloride [Moles/Vol] 108 mmol/L 98-107 [facility] Work Phone: Cholesterol [Mass/Vol] 139 mg/dL <200 [facility] Work Phone: Comment on above: <200 mg/dL Desirable 200-240 mg/dL Borderline >240 mg/dL High Risk Eosinophils/100 WBC (Bld) 5.1 % 0-5 [facility] Work Phone: Glucose [Mass/Vol] 159 mg/dL 74-106 [facility] Work Phone: Comment on above: Fasting Glucose resu lt greater than or equal to 126 mg/dL suggests DIABETES MELLITUS per A.D.A. criteria. Neutrophils (Bld) [#/Vol] 4.6 10*3/uL 2.0-7.7 [facility] Work Phone: Neutrophils/100 WBC (Bld) 52.6 % 47-70 [facility] Work Phone: Potassium [Moles/Vol] 3.9 mmol/L 3.5-5.1 [facility] Work [facility]: Protein [Mass/Vol] 7.3 g/dL 6.4-8.2 [facility] Work Phone: Sodium [Moles/Vol] 140 mmol/L 136-145 [facility] Work Phone: Triglyceride [Mass/Vol] 155 mg/dL <199 [facility] Work Phone: Comment on above: The drugs N-Acetylcy steine and Metamizole may falsely depress this assay.Serum Triglycerides Reference Interval Normal <150 mg/dL Borderline high 150 - 199 mg/dL High 200 - 499 mg/dL Very High > or = 500 mg/dL WBC (Bld) [#/Vol] 8.7 10*3/uL 4.4-11.0 [facility] Work Phone: Blood erythrocytes count (nu mber/volume)on 07-31-2021 RBC (Bld) [#/Vol] 4.87 10*6/uL 4.6-6.2 [facility] Work Phone: Blood hemoglobin measurement (mass/volume)on 07-31-2021 Hemoglobin (Bld) [Mass/Vol] 14.8 g/dL 13.0-16.5 [facility] Work Phone: Blood lymphocytes/100 leukoc yteson 07-31-2021 Lymphocytes/100 WBC (Bld) 31.4 % 19-41 [facility] Work Phone: Blood monocytes/100 leukocyt eson 07-31-2021 Monocytes/100 WBC (Bld) 9.1 % 0-10 [facility] Work Phone: Blood platelet mean volumeon 07-31-2021 Platelet mean volume (Bld) [Entitic vol] 10.1 fL 6.2-12.0 [facility] Work Phone: Determination of erythrocyte mean corpuscular volume (MCV)on 07-31-2021 MCV (RBC) [Entitic vol] 92.4 fL 80-94 [facility] Work Phone: Hematocrit Auto (Bld) [Volum e fraction]on 07-31-2021 Hematocrit (Bld) [Volume fraction] 45.0 % 40-54 [facility] Work Phone: Laboratory - Chemistry and C hemistry - challengeon 07-31-2021 ALP [Catalytic activity/Vol] 94 U/L 45-117 [facility] Work Phone: ALT [Catalytic activity/Vol] 28 U/L 16-61 [facility] Work Phone: CO2 [Moles/Vol] 24.0 mmol/L 21.0-32.0 [facility] Work Phone: Globulin (S) [Mass/Vol] 3.6 g/dL 2.2-4.2 [facility] Work Phone: Urea nitrogen/Creatinine [Mass ratio] 15.0 mg/mg 10-20 [facility] Work Phone: Laboratory - Hematology and Cell countson 07-31-2021 Erythrocyte distribution width (RBC) [Entitic vol] 46.5 fL 35.1-43.9 [facility] Work Phone: Erythrocyte distribution width (RBC) [Ratio] 13.8 % 11.6-14.6 [facility] Work Phone: Immature granulocytes/100 WBC (Bld) 1.200 % 0.0-0.9 [facility] Work Phone: Comment on above: IG% - Immature Granu locytes (promyelocytes, myelocytes and metamyelocytes) > 1% indicates that a LEFT SHIFT is Present. MCH (RBC) [Entitic mass] 30.4 pg 27.0-32.0 [facility] Work Phone: Nucleated RBC/100 WBC (Bld) [Ratio] 0 % 0-5 [facility] Work Phone: MCHC Auto (RBC) [Mass/Vol]on 07-31-2021 MCHC (RBC) [Mass/Vol] 32.9 g/dL 32-36 [facility] Work Phone: No Panel Informationon 07-31 Urine Microalbumin/Creatinine Ratio 11.0 mg/g CRE <30 [facility] Work Phone: Estimated GFR (MDRD) Amer 101 mL/min >60 [facility] Work Phone: Comment on above: GFR Calc Estimated GFR (MDRD) Non-Af Amer 83 mL/min >60 [facility] Work Phone: Comment on above: Non- GFR Calc Vitamin D 25-Hydroxy 30.5 ng/mL [facility] Work Phone: Comment on above: Vitamin D 25(OH) Sta tus Range Deficiency <20 ng/mL (50nmol/L) Insufficiency 20 - 30 ng/mL (50 - 75 nmol/L) Sufficiency 30 - 100 ng/mL (75 - 250 nmol/L) Toxicity >100 ng/mL (>250 nmol/L) Platelets bldon 07-31-2021 Platelets (Bld) [#/Vol] 206 10*3/uL 150-450 [facility] Work Phone: Serum or plasma albumin shameka urement (mass/volume)on 07-31-2021 Albumin [Mass/Vol] 3.7 g/dL 3.2-5.0 [facility] Work Phone: Serum or plasma albumin/glob ulin mass ratioon 07-31-2021 Albumin/Globulin [Mass ratio] 1.0 {ratio} 0.9-2.4 [facility] Work Phone: Serum or plasma calcium shameka urement (mass/volume)on 07-31-2021 Calcium [Mass/Vol] 9.3 mg/dL 8.5-10.1 [facility] Work Phone: Serum or plasma cholesterol in HDL measurement (mass/volume)on 07-31-2021 Cholesterol in HDL [Mass/Vol] 41 mg/dL >40 [facility] Work Phone: Comment on above: The drugs N-Acetylcy steine and Metamizole may falsely depress this assay. Reference Range HDL <40 mg/dL Low HDL Cholesterol HDL >or= 60 mg/dL High HDL Cholesterol Serum or plasma cholesterol in VLDL measurement (mass/volume)on 07-31-2021 Cholesterol in VLDL [Mass/Vol] 31 mg/dL 5-40 [facility] Work Phone: Serum or plasma creatinine m easurement (mass/volume)on 07-31-2021 Creatinine [Mass/Vol] 0.93 mg/dL 0.70-1.30 [facility] Work Phone: Comment on above: The validity of the calculated GFR & GFRAA in patients over 70 years has not been determined. Clinical correlation is essential. Serum or plasma low density lipoprotein (LDL) cholesterol measurement (mass/volume)on 07-31-2021 Cholesterol in LDL [Mass/Vol] 67 mg/dL 0-130 [facility] Work Phone: Serum or plasma urea nitroge n measurement (mass/volume)on 07-31-2021 Urea nitrogen [Mass/Vol] 14 mg/dL 7-18 [facility] Work Phone: Thin prep Papanicolaou smear with manual screeningon 07-31-2021 Thin prep Papanicolaou smear with manual screening 8.4 mg/L NO RANGE EST. [facility] Work Phone: Thin prep Papanicolaou smear with manual screening 15 U/L 15-37 [facility] Work Phone: Thin prep Papanicolaou smear with manual screening 8 5-15 [facility] Work Phone: Urine creatinine measurement (mass/volume)on 07-31-2021 Creatinine (U) [Mass/Vol] 76.40 mg/dL NO RANGE EST. [facility] Work Phone: Whole blood hemoglobin A1c/t otal hemoglobin ratio (mass fraction)on 07-31-2021 HbA1c (Bld) [Mass fraction] 6.7 % 3.8-5.6 [facility] Work Phone: Comment on above: Normal < 5.7 % Predi abetic 5.7 - 6.4 % Diabetic >or= 6.5 % Please note range changes. Absolute lymphocyte counton 04-09-2021 Lymphocytes Auto (Unsp spec) [#/Vol] 2.20 10*3/uL 0.83-4.51 [facility] Work Phone: Basophil percentageon 2021 Basophils/100 WBC (Bld) 0.7 % 0-1 [facility] Work Phone: Bilirubin [Mass/Vol] 0.60 mg/dL 0.20-1.00 [facility] Work Phone: Comment on above: For patients on eltr ombopag therapy, use of Dimension [place] TBIL is not recommended. Chloride [Moles/Vol] 106 mmol/L 98-107 [facility] Work Phone: Cholesterol [Mass/Vol] 168 mg/dL <200 [facility] Work Phone: Comment on above: <200 mg/dL Desirable 200-240 mg/dL Borderline >240 mg/dL High Risk Eosinophils/100 WBC (Bld) 2.0 % 0-5 [facility] Work Phone: Glucose [Mass/Vol] 209 mg/dL 74-106 [facility] Work Phone: Comment on above: Glucose result great er than or equal to 200 mg/dLsuggests DIABETES MELLITUS per A.D.A. criteria. Neutrophils (Bld) [#/Vol] 5.2 10*3/uL 2.0-7.7 [facility] Work Phone: Neutrophils/100 WBC (Bld) 62.5 % 47-70 [facility] Work Phone: Potassium [Moles/Vol] 3.9 mmol/L 3.5-5.1 [facility] Work Phone: Protein [Mass/Vol] 7.2 g/dL 6.4-8.2 [facility] Work Phone: Sodium [Moles/Vol] 139 mmol/L 136-145 [facility] Work Phone: Triglyceride [Mass/Vol] 240 mg/dL [facility] Work Phone: Comment on above: The drugs N-Acetylcy steine and Metamizole may falsely depress this assay.Serum Triglycerides Reference Interval Normal <150 mg/dL Borderline high 150 - 199 mg/dL High 200 - 499 mg/dL Very High > or = 500 mg/dL WBC (Bld) [#/Vol] 8.3 10*3/uL 4.4-11.0 [facility]: Blood erythrocytes count (nu mber/volume)on 04-09-2021 RBC (Bld) [#/Vol] 4.65 10*6/uL 4.6-6.2 [facility]: Blood hemoglobin measurement (mass/volume)on 04-09-2021 Hemoglobin (Bld) [Mass/Vol] 14.5 g/dL 13.0-16.5 [facility] Work Phone: Blood lymphocytes/100 leukoc yteson 04-09-2021 Lymphocytes/100 WBC (Bld) 26.4 % 19-41 [facility] Work Phone: Blood monocytes/100 leukocyt eson 04-09-2021 Monocytes/100 WBC (Bld) 7.3 % 0-10 [facility] Work Phone: Blood platelet mean volumeon 04-09-2021 Platelet mean volume (Bld) [Entitic vol] 10.2 fL 6.2-12.0 [facility] Work Phone: Determination of erythrocyte mean corpuscular volume (MCV)on 04-09-2021 MCV (RBC) [Entitic vol] 92.0 fL 80-94 [facility] Work Phone: Hematocrit Auto (Bld) [Volum e fraction]on 04-09-2021 Hematocrit (Bld) [Volume fraction] 42.8 % 40-54 [facility] Work Phone: Laboratory - Chemistry and C hemistry - challengeon 04-09-2021 ALP [Catalytic activity/Vol] 85 U/L 45-117 [facility] Work Phone: ALT [Catalytic activity/Vol] 33 U/L 16-61 [facility] Work Phone: CO2 [Moles/Vol] 25.0 mmol/L 21.0-32.0 [facility] Work Phone: Globulin (S) [Mass/Vol] 3.6 g/dL 2.2-4.2 [facility] Work Phone: Urea nitrogen/Creatinine [Mass ratio] 16.1 mg/mg 10-20 [facility] Work Phone: Laboratory - Hematology and Cell countson 04-09-2021 Erythrocyte distribution width (RBC) [Entitic vol] 44.4 fL 35.1-43.9 [facility] Work Phone: Erythrocyte distribution width (RBC) [Ratio] 13.2 % 11.6-14.6 [facility] Work Phone: Immature granulocytes/100 WBC (Bld) 1.100 % 0.0-0.9 [facility] Work Phone: Comment on above: IG% - Immature Granu locytes (promyelocytes, myelocytes and metamyelocytes) > 1% indicates that a LEFT SHIFT is Present. MCH (RBC) [Entitic mass] 31.2 pg 27.0-32.0 [facility] Work Phone: Nucleated RBC/100 WBC (Bld) [Ratio] 0 % 0-5 [facility] Work Phone: MCHC Auto (RBC) [Mass/Vol]on 04-09-2021 MCHC (RBC) [Mass/Vol] 33.9 g/dL 32-36 [facility] Work Phone: No Panel Informationon 04-09 Estimated GFR (MDRD) Amer 110 mL/min >60 [facility] Work Phone: Comment on above: GFR Calc Estimated GFR (MDRD) Non-Af Amer 91 mL/min >60 [facility] Work Phone: Comment on above: Non- GFR Calc Urine Microalbumin/Creatinine Ratio 23.9 mg/g CRE <30 [facility] Work Phone: Platelets bldon 04-09-2021 Platelets (Bld) [#/Vol] 200 10*3/uL 150-450 [facility] Work Phone: Serum or plasma albumin shameka urement (mass/volume)on 04-09-2021 Albumin [Mass/Vol] 3.6 g/dL 3.2-5.0 [facility] Work Phone: Serum or plasma albumin/glob ulin mass ratioon 04-09-2021 Albumin/Globulin [Mass ratio] 1.0 {ratio} 0.9-2.4 [facility] Work Phone: Serum or plasma calcium shameka urement (mass/volume)on 04-09-2021 Calcium [Mass/Vol] 9.0 mg/dL 8.5-10.1 [facility] Work Phone: Serum or plasma cholesterol in HDL measurement (mass/volume)on 04-09-2021 Cholesterol in HDL [Mass/Vol] 46 mg/dL [facility] Work Phone: Comment on above: The drugs N-Acetylcy steine and Metamizole may falsely depress this assay. Reference Range HDL <40 mg/dL Low HDL Cholesterol HDL >or= 60 mg/dL High HDL Cholesterol Serum or plasma cholesterol in VLDL measurement (mass/volume)on 04-09-2021 Cholesterol in VLDL [Mass/Vol] 48 mg/dL 5-40 [facility] Work Phone: Serum or plasma creatinine m easurement (mass/volume)on 04-09-2021 Creatinine [Mass/Vol] 0.87 mg/dL 0.70-1.30 [facility] Work Phone: Comment on above: The validity of the calculated GFR & GFRAA in patients over 70 years has not been determined. Clinical correlation is essential. Serum or plasma low density lipoprotein (LDL) cholesterol measurement (mass/volume)on 04-09-2021 Cholesterol in LDL [Mass/Vol] 74 mg/dL 0-130 [facility] Work Phone: Serum or plasma urea nitroge n measurement (mass/volume)on 04-09-2021 Urea nitrogen [Mass/Vol] 14 mg/dL 7-18 [facility] Work Phone: Thin prep Papanicolaou smear with manual screeningon 04-09-2021 Thin prep Papanicolaou smear with manual screening 20 U/L 15-37 [facility] Work Phone: Thin prep Papanicolaou smear with manual screening 8 07-07 [facility] Work Phone: Thin prep Papanicolaou smear with manual screening 23.9 mg/L NO RANGE EST. [facility] Work Phone: Urine creatinine measurement (mass/volume)on 04-09-2021 Creatinine (U) [Mass/Vol] 100.00 mg/dL NO RANGE EST. [facility] Work Phone: Whole blood hemoglobin A1c/t otal hemoglobin ratio (mass fraction)on 04-09-2021 HbA1c (Bld) [Mass fraction] 7.6 % 3.8-5.6 [facility] Work Phone: Comment on above: Normal < 5.7 % Predi abetic 5.7 - 6.4 % Diabetic >or= 6.5 % Please note range changes. CORONAVIRUS PCR [CCL]on 02-23 SEND TO IC? YES Normal [facility] Comment on above: Performed By: #### [id number] #### [facility],[address] [place] [address] COVID 19 Result PUBLIC HEALTH POLICY ANALYST Positive Abnormal [facility] Comment on above: Result Comment: Posi tive for COVID19 (SARS CoV2) by PCR.(*) This test was developed and its performance characteristics determined by [facility]'s [facility] Medicine [place]. This test has been authorized by FDA under an Emergency Use Authorization (EUA). This test has been validated in accordance with the FDA's Guidance Document Policy for Diagnostics Testing in Laboratories Certified to Perform High Complexity Testing under CLIA prior to Emergency use Authorization for Coronavirus Disease 2019 during the Public Health Emergency issued on April 23, [place] [address] Bridger Rae III, M.D. [id number] Performed By: #### [id number] #### [facility],[address] [place] [id number] COVID 19 Source PUBLIC HEALTH POLICY ANALYST PUBLIC HEALTH POLICY ANALYST Normal [facility] Comment on above: Performed By: #### [id number] #### [facility],[address] [place] [id number] Vital Signs Date Time Vital Sign Value Performing Clinician Faci renetta 10-11-2024 14:35-0400 Body height 177.[address] Keke Landeros MD Work Phone: 9(505)438-373514 [place] [address] 10-11-2024 14:35-0400 Body mass index (BMI) [Ratio] 29.8 kg/m2 Dr. Keke Landeros MD Work Phone: 4(971)830-988146 [place] [address] 10-11-2024 14:35-0400 Body weight 94.[address] Keke Landeros MD Work Phone: 1(430)894-267564 [address] 10-11-2024 14:35-0400 Diastolic blood pressure 70 mm[Hg] Dr. Keke Landeros MD Work Phone: 9(198)743-731814 [place] [address] 10-11-2024 14:35-0400 Heart rate 103 /min Dr. Keke Landeros MD Work Phone: 3(246)042-803264 [address] 10-11-2024 14:35-0400 Respiratory rate 16 /min Dr. Keke Landeros MD Work Phone: 7(494)258-355014 [place] [address] 10-11-2024 14:35-0400 Systolic blood pressure 103 mm[Hg] Dr. Keke Landeros MD Work Phone: 9(665)059-237314 [place] [address] 09-28-2024 15:10-0400 Body temperature 98.3 [degF] Dr. Keke Landeros MD Work Phone: 4(337)505-368014 [place] [address] 09-28-2024 15:10-0400 Diastolic blood pressure 78 mm[Hg] Dr. Keke Landeros MD Work Phone: 1(934)014-246814 [place] [address] 09-28-2024 15:10-0400 Heart rate 100 /min Dr. Keke Landeros MD Work Phone: [facility] 09-28-2024 15:10-0400 Respiratory rate 18 /min Dr. Keke Landeros MD Work Phone: [facility] 09-28-2024 15:10-0400 SaO2% (BldA) [Mass fraction] 95 % Dr. Keke Landeros MD Work Phone: 4(028)565-675714 [place] [address] 09-28-2024 15:10-0400 Systolic blood pressure 136 mm[Hg] Dr. Keke Landeros MD Work Phone: 4(214)529-207614 [place] [address] 09-28-2024 14:07-0400 Body height 177.[address] Keke Landeros MD Work Phone: 0(258)037-805714 [place] [address] 09-28-2024 14:07-0400 Body mass index (BMI) [Ratio] 30.9 kg/m2 Dr. Keke Landeros MD Work Phone: 9(741)618-407414 [place] [address] 09-28-2024 14:07-0400 Body weight [address] Keke Landeros MD Work Phone: 1(820)848-864314 [place] [address] 04-19-2024 12:56-0500 Body height 177.[address] Keke Landeros MD Work Phone: 2(474)355-773764 [address] 04-19-2024 12:56-0500 Body mass index (BMI) [Ratio] 31.2 kg/m2 Dr. Keke Landeros MD Work Phone: 6(176)475-386214 [place] [address] 04-19-2024 12:56-0500 Body weight 98.[address] Keke Landeros MD Work Phone: [facility] 04-19-2024 12:56-0500 Diastolic blood pressure 72 mm[Hg] Dr. Keke Landeros MD Work Phone: 4(707)586-269414 [place] [address] 04-19-2024 12:56-0500 Heart rate 103 /min Dr. Keke Landeros MD Work Phone: 2(227)483-954114 [place] [address] 04-19-2024 12:56-0500 Respiratory rate 18 /min Dr. Keke Landeros MD Work Phone: [facility] 04-19-2024 12:56-0500 SaO2% (BldA) [Mass fraction] 94 % Dr. Keke Landeros MD Work Phone: 8(574)997-032814 [place] [address] 04-19-2024 12:56-0500 Systolic blood pressure 106 mm[Hg] Dr. Keke Landeros MD Work Phone: 7(756)453-308464 [address] 02-21-2024 13:07-0500 Body temperature 98.2 [degF] Dr. Keke Landeros MD Work Phone: 6(828)464-785546 [place] [address] 02-21-2024 13:07-0500 Diastolic blood pressure 62 mm[Hg] Dr. Keke Landeros MD Work Phone: 9(390)722-353246 [place] [address] 02-21-2024 13:07-0500 Heart rate 69 /min Dr. Keke Landeros MD Work Phone: 4(708)026-050164 [address] 02-21-2024 13:07-0500 Respiratory rate 17 /min Dr. Keke Landeros MD Work Phone: 3(475)657-440464 [address] 02-21-2024 13:07-0500 SaO2% (BldA) [Mass fraction] 95 % Dr. Keke Landeros MD Work Phone: 8(846)575-093214 [place] [address] 02-21-2024 13:07-0500 Systolic blood pressure 118 mm[Hg] Dr. Keke Landeros MD Work Phone: 4(355)509-397514 [place] [address] 02-04-2024 10:09-0500 Body mass index (BMI) [Ratio] 29.4 kg/m2 Dr. Keke Landeros MD Work Phone: 4(081)837-441514 [place] [address] 02-04-2024 10:09-0500 Body temperature 98.2 [degF] Dr. Keke Landeros MD Work Phone: 7(375)038-476714 [place] [address] 02-04-2024 10:09-0500 Body weight 92.[address] Keke Landeros MD Work Phone: 3(512)339-411314 [place] [address] 02-04-2024 10:09-0500 Diastolic blood pressure 79 mm[Hg] Dr. Keke Landeros MD Work Phone: [facility] 02-04-2024 10:09-0500 Heart rate 105 /min Dr. Keke Landeros MD Work Phone: [facility] 02-04-2024 10:09-0500 Respiratory rate 16 /min Dr. Keke Landeros MD Work Phone: [facility] 02-04-2024 10:09-0500 SaO2% (BldA) [Mass fraction] 98 % Dr. Keke Landeros MD Work Phone: [facility] 02-04-2024 10:09-0500 Systolic blood pressure 118 mm[Hg] Dr. Keke Landeros MD Work Phone: [facility] 02-25-2023 09:34-0500 Body temperature 98.1 [degF] Dr. Keke Landeros Work Phone: [facility] 02-25-2023 09:34-0500 Diastolic blood pressure 58 mm[Hg] Dr. Keke Landeros Work Phone: [facility] 02-25-2023 09:34-0500 Heart rate 91 /min Dr. Keke Landeros Work Phone: [facility] 02-25-2023 09:34-0500 Respiratory rate 16 /min Dr. Keke Landeros Work Phone: [facility] 02-25-2023 09:34-0500 SaO2% (BldA) [Mass fraction] 93 % Dr. Keke Landeros Work Phone: [facility] 02-25-2023 09:34-0500 Systolic blood pressure 124 mm[Hg] Dr. Keke Landeros Work Phone: [facility] 07-19-2022 11:04-0400 Body height 177.[address] Keke Landeros Work Phone: [facility] 07-19-2022 11:04-0400 Body mass index (BMI) [Ratio] 31.8 kg/m2 Dr. Keke Landeros Work Phone: [facility] 07-19-2022 11:04-0400 Body temperature 97.8 [degF] Dr. Keke Landeros Work Phone: [facility] 07-19-2022 11:04-0400 Body weight 100.[address] Keke Landeros Work Phone: [facility] 07-19-2022 11:04-0400 Diastolic blood pressure 70 mm[Hg] Dr. Keke Landeros Work Phone: [facility] 07-19-2022 11:04-0400 Heart rate 90 /min Dr. Keke Landeros Work Phone: [facility] 07-19-2022 11:04-0400 Respiratory rate 16 /min Dr. Keke Landeros Work Phone: [facility] 07-19-2022 11:04-0400 SaO2% (BldA) [Mass fraction] 98 % Dr. Keke Landeros Work Phone: [facility] 07-19-2022 11:04-0400 Systolic blood pressure 118 mm[Hg] Dr. 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 Keke Landeros MD Work Phone: [facility] Start: 10-13-2024 End: 10-13-[address] Keke Landeros MD Work Phone: -Laboratory [facility] Start: 10-13-2024 End: 10-13-[address] Wood Harris MD -Laboratory [facility] Start: 10-13-2024 End: 10-13-2024 ambulatory Wood Harris Facility:[facility] Start: 10-11-2024 End: 10-11-2024 Patient encounter procedure Yaima Coon [place] -[facility] Work Phone: Start: 10-11-2024 End: 10-11-[address] Keke Landeros MD Work Phone: -[facility] Start: 10-10-2024 End: 10-10-[address] RHIANNON SOSA MD [facility] Start: 10-10-2024 End: 10-10-[address] RHIANNON SOSA MD Facility:[facility] Start: 09-30-2024 End: 09-30-[address] Wood Harris MD -Radiology [place] Work Phone: Start: 09-30-2024 End: 09-30-[address] Keke Landeros MD Work Phone: -[facility] Start: 09-28-2024 End: 09-28-2024 Emergency department patient visit Dr. Keke Landeros MD Work Phone: -Emergency Department Work Phone: Start: 07-20-2024 End: 07-20-[address] Keke Landeros MD Work Phone: [facility] Work Phone: Start: 07-20-2024 End: 07-20-[address] Keke Landeros MD -[facility] Work Phone: Start: 07-20-2024 End: 07-20-2024 ambulatory Keke Landeros Facility:[facility] Start: 07-05-2024 End: 07-05-[address] Stu Eduardo MD -[facility] Work Phone: Start: 07-05-2024 End: 07-05-2024 ambulatory Keke Landeros Facility:[facility] Start: 05-27-2024 ambulatory Keke Landeros Facilit y:[facility] Start: 2024 End: [address] Keke Landeros MD Work Phone: [facility] Work Phone: Start: 2024 End: [address] Keke Landeros MD -Radiology, [place] Work Phone: Start: 2024 End: 2024 ambulatory Keke Landeros Facility:[facility] Start: 04-19-2024 End: 04-19-[address] Orion Yadav MD -[facility] Work Phone: Start: 04-19-2024 End: 04-19-2024 ambulatory Orion Yadva Facility:[facility] Start: 04-05-2024 End: 04-05-[address] Keke Landeros MD -Laboratory, [place] Work Phone: Start: 04-05-2024 End: 04-05-2024 ambulatory Keke Landeros Facility:[facility] Start: 02-21-2024 End: 02-21-2024 Patient encounter procedure Keke Mckeon PUBLIC HEALTH POLICY ANALYST-[facility] Work Phone: Start: 02-21-2024 End: 02-21-2024 ambulatory Keke Landeros Facility:[facility] Start: 02-04-2024 End: 02-04-2024 Patient encounter procedure Will GENTILE -[facility] Work Phone: Start: 02-04-2024 End: 02-04-2024 ambulatory Will GENTILE Facility:[facility] Start: 01-01-2024 End: 01-01-2024 ambulatory Keke Landeros Facility:[facility] Start: 06-29-2023 End: 06-29-2023 ambulatory [facility] Work Phone: Start: 06-29-2023 End: 06-29-2023 Patient encounter procedure [facility] Work Phone: Start: 06-18-2023 End: 06-23-[address] Keke Landeros Work Phone: [facility] Work Phone: Start: 06-18-2023 End: 06-23-[address] Keke Landeros Work Phone: [facility] Work Phone: Start: 03-30-2023 End: 03-30-[address] Keke Landeros Work Phone: [facility] Work Phone: Start: 03-30-2023 End: 03-30-[address] Keke Landeros Work Phone: [facility] Work Phone: Start: 02-25-2023 End: 02-25-[address] Keke Landeros Work Phone: [facility] Work Phone: Start: 12-26-2022 End: 12-26-2022 ambulatory [facility] Work Phone: Start: 12-26-2022 End: 12-26-2022 Patient encounter procedure [facility] Work Phone: Start: 11-12-2022 End: 11-12-2022 ambulatory [facility] Work Phone: Start: 11-12-2022 End: 11-12-2022 Patient encounter procedure [facility] Start: 09-22-2022 End: 09-22-[address] Keke Landeros Work Phone: [facility] Work Phone: Start: 09-22-2022 End: 09-22-[address] Keke Landeros Work Phone: [facility] Work Phone: Start: 07-19-2022 End: 07-19-[address] Keke Landeros Work Phone: [facility] Work Phone: Start: 07-07-2022 End: 07-07-[address] Keke Landeros Work Phone: [facility] Work Phone: Start: 04-02-2022 End: 04-02-2022 ambulatory [facility] Work Phone: Start: 04-02-2022 End: 04-02-2022 Patient encounter procedure [facility] Start: 11-06-2021 End: 11-06-2021 ambulatory [facility] Work Phone: Start: 11-06-2021 End: 11-06-2021 Patient encounter procedure [facility] Start: 07-31-2021 End: 07-31-[address] Keke Landeros Work Phone: [facility] Start: 05-30-2021 Non-patient / Non-visit Dr. Sierra Landeros Work Phone: [facility] Start: 05-30-2021 End: 05-30-[address] [facility] Start: 04-25-2021 End: 04-25-[address] Keke Landeros Work Phone: [facility]-Radiology, [place] Start: 04-09-2021 End: 04-09-2021 Patient encounter procedure Dr. Keke Landeros Work Phone: [facility] Start: 03-08-2020 End: 03-08-2020 Patient encounter procedure KATHY APONTE [facility] Procedures Date Procedure Procedure Detail Performing Clinician Start: 10-13-[address] Keke lozano MD Work Phone: Comment on above: Test Ordered: [id number] Stool CultureSalmonella/Shigella Screen Note: CB Final report Reference Range: .Result 1 Comment CB Reference Range: .No Salmonella or Shigella recovered.Campylobacter Culture Note: CB Final report Reference Range: .Result 1 Comment CB Reference Range: .No Campylobacter species isolated.E coli Shiga Toxin EIA Negative CB Reference Range: NegativePerformed at: - [id number] Director: Chris Murcia PhD, Phone: [phone] Start: 10-13-2024 Clostridium diffic[address] e detection Dr. Keke Landeros MD Work Phone: Start: 09-30-2024 X-ray of bilateral r ibs, three views without chest x-ray Dr. Keke Landeros MD Work Phone: Start: 09-30-2024 X-ray of sternum, tw o or more views Dr. Keke Landeros MD Work Phone: Start: 09-30-2024 Plain X-ray of clavicle Dr. Keke Landeros MD Work Phone: Start: 09-30-2024 Plain x-ray of pelvi s and lower extremity Dr. Keke Landeros MD Work Phone: Start: 09-30-2024 X-ray of lumbosacral spine Dr. Keke Landeros MD Work Phone: Start: 09-28-2024 CT of head without contrast Dr. Keke Landeros MD Work Phone: Start: 07-20-2024 Assay of prostate sp ecific antigen total Dr. Keke Landeros MD Work Phone: Comment on above: This test was perfor med using the [employer] tPSA method. Measured values of a patient sample can vary depending on the testing procedure used. PSA values determined on patient samples by different testing procedures cannot be used interchangeably. If there is a change in PSA assays while monitoring therapy, sequential testing should be performed to confirm baseline values. Start: 07-20-2024 Vitamin D, 25-hydrox y measurement Dr. Keke Landeros MD Work Phone: Comment on above: Vitamin D StatusDefi ciency: <20 ng/mL (50nmol/L)Insufficiency: 20-30 ng/mL (50-75 nmol/L)Sufficiency: 30-100 ng/mL (75-250 nmol/L)Toxicity: >100 ng/mL (>250 nmol/L) Start: 07-05-2024 MRI of lumbar spine Dr. Keke Landeros MD Work Phone: Start: 2024 X-ray of lumbar spin e, two or three views Dr. Keke Landeros MD Work Phone: Start: 2024 XR knee, [address] Sierra Landeros MD Work Phone: Start: 2024 Plain x-ray of pelvi s and lower extremity Dr. Keke Landeros MD Work Phone: Start: 04-19-2024 Evaluation of diagno stic study results Dr. Keke Landeros MD Work Phone: Start: 04-05-2024 Urnls dip stick/tabl et reagent auto microscopy Dr. Keke Landeros MD Work Phone: Start: 04-05-2024 Measurement of renal function Dr. Keke Landeros MD Work Phone: Comment on above: GFR Calc Start: 04-05-[address] Keke Landeros MD Work Phone: Start: 04-05-2024 Urine microalbumin/c reatinine ratio measurement Dr. Keke Landeros MD Work Phone: Start: 04-05-2024 Vitamin D, 25-hydrox y measurement Dr. Keke Landeros MD Work Phone: Comment on above: Vitamin D 25(OH) Sta tus Range Deficiency <20 ng/mL (50nmol/L) Insufficiency 20 - 30 ng/mL (50 - 75 nmol/L) Sufficiency 30 - 100 ng/mL (75 - 250 nmol/L) Toxicity >100 ng/mL (>250 nmol/L) Start: 11-12-2022 Lactoferrin measurement Start: 04-25-2021 Plain x-ray of pelvi s and lower extremity Dr. Keke Landeros Work Phone: Start: 04-25-2021 Radiologic examinati on of knee Dr. Keke Landeros Work Phone: Excision of bunion DR RHIANNON SOSA MD Comment on above: LEFT Plantar fasciitis of right foot (disorder) DR RHIANNON SOSA MD Tonsillectomy and adenoidectomy DR RHIANNON SOSA MD Plan of Treatment Date Care Activity Detail Author Start: 10-13-2024 Ova and Parasites Ova and Parasites [facility] Start: 10-11-2024 Evaluation of diagnostic study results [facility] Start: 09-28-2024 [facility] Start: 09-28-2024 Simple repair scalp/neck/ax/genit/trunk 2.5cm/< RPR S/N/AX/GEN/TRNK 2.5CM/< [facility] Start: 11-12-2022 Elastase, pancreatic (el-1), fecal; quantitative [facility] Ova OR parasites identification [facility] Patient Education ED Concussion ED Laceration Scalp Stitches or [place] [facility] Work Phone: [facility] Immunizations Immunization Date Immunization Notes Care Provider Dania olivares 06-28-2024 hepatitis B vaccine, adult dosage DR RHIANNON SOSA MD [facility] 02-11-2024 hepatitis B vaccine, adult dosage DR RHIANNON SOSA MD [facility] 01-13-2024 hepatitis B vaccine, adult dosage DR RHIANNON SOSA MD [facility] 11-04-2023 pneumococcal 20-chhaya nt conjugate vaccine DR RHIANNON SOSA MD [facility] 08-22-[address] RHIANNON SOSA MD [facility] 04-18-[address] RHIANNON SOSA MD [facility] 02-04-2021 SARS-CoV-2 mRNA (tozinameran) vaccine DR RHIANNON SOSA MD [facility] 01-23-2021 SARS-CoV-2 (COVID-19 ) mRNA-[address] RHIANNON SOSA MD [facility] 07-27-2020 SARS-CoV-2 mRNA (tozinameran) vaccine DR RHIANNON SOSA MD [facility] 07-06-2020 SARS-CoV-2 mRNA (tozinameran) vaccine DR RHIANNON SOSA MD [facility] 11-25-2019 influenza virus vaccine, unspecified formulation DR RHIANNON SOSA MD [facility] 12-01-2017 influenza virus vaccine, unspecified formulation DR RHIANNON SOSA MD [facility] 01-30-2017 influenza virus vaccine, unspecified formulation DR RHIANNON SOSA MD [facility] 01-30-2017 pneumococcal conjuga te vaccine, [address] RHIANNON SOSA MD [facility] 03-29-2013 zoster vaccine, live DR PATRICIA SOSA MD [facility] Payers Date Payer Category Payer Medicare [id number] 2024 Medicare [id number] 2024 Private Health Insurance [id number] 2023 Self-pay [id number] 2020 Unknown [id number] 2015 Private Health Insurance [id number] 2008 Medicare [id number] 1945 Unknown [id number]. 651 1945 Unknown [id number]. 627 1945 Unknown [id number] .840.1.505908.3.579.2. 627 Self-pay SELF PAY BY [facility] REQUEST [id number] Unknown [id number] Unknown [id number] 2.16840.1.658701.3.579.2. 462 Unknown [id number] 2.16.840.1.188526.3.579.2. 462 Unknown [id number] 2.16.840.1.075665.3.579.2. 462 Unknown [id number] 2.16.840.1.371230.3.579.2. 462 Unknown [id number] 2.16.840.1.044739.3.579.2. 462 Unknown [id number] 2.16.840.1.094722.3.579.2. 462 Unknown [id number] 2.16.840.1.568841.3.579.2. 462 Unknown [id number] 2.16.840.1.872037.3.579.2. 462 Unknown [id number] 2.16.840.1.234580.3.579.2. 462 Unknown [id number] 2.16.840.1.674981.3.579.2. 462 Unknown [id number] 2.16.840.1.792353.3.579.2. 462 Unknown [id number] 2.16.840.1.167635.3.579.2. 462 Unknown [id number] 2.16.840.1.132449.3.579.2. 462 Unknown [id number] 2.16.840.1.434395.3.579.2. 462 Social History Date Type Detail Facility Start: 03-16-2020 End: 02-25-2023 Tobacco smoking status [facility] Unknown if ever smoked [facility] Start: 1945 Sex Assigned At Male [facility] Start: 08-31-2023 End: 10-10-2024 Tobacco smoking status NHIS Ex-smoker (finding) [facility] Start: 05-20-2024 End: 09-01-2024 Sex Male (finding) [facility] Sexual Orientation [facility] Clinical Notes 02-04-2024 to 11-02-2024 Note Date & Type Note Facility 11-02-2024 Note Discharge Instructions Thank you for allowing [facility] to assist you with your healthcare needs. The following is important discharge information regarding your hospital visit. Your Care Team MD [facility] Your Diagnosis BPH (benign prostatic hyperplasia) Diabetes mellitus S/P total right hip arthroplasty What to do next Follow Up Appointments Follow Up with [facility] When:11/04/2024 01:00 PM EDT Where:[address] [place] [address]- [phone] Additional Information: This is your first physical therapy appointment. Follow-up as scheduled. Follow Up with JUANJO SIMMONS PA-C, Orthopedic When:11/16/2024 03:00 PM EDT Where:[address] [facility], [facility] [place] [address] [phone] Additional Information: This is your post-op appointment. Follow-up as scheduled. The Following Treatments Have Been Ordered for You Discharge Labs No qualifying data available. Discharge Radiology No qualifying data available. Other Therapies No qualifying data available. Post Acute Orders No qualifying data available. Allergies Tolectin Hives metFORMIN Gastrointestinal upset penicillin hives Medications Please ask your primary doctor or pharmacist before taking any other medication not listed, including over the counter drugs, herbal medications, vitamins and or supplements as they may interact with your home medications. What How Much When Why Instructions Last Dose New aspirin 81 Milligram by mouth Twice daily with meals Duration: 30 Days Take 81 mg aspirin twice daily with food for 4 weeks postoperatively for DVT prophylaxis. today @ 0814 New docusate-senna (Senokot S 50 mg-8.6 mg oral tablet) 2 tab(s) by mouth Two (2) times a day Duration: 3 Days Take until first bowel movement, then as needed Pickup at [facility] today @ 0814 New famotidine (Pepcid 20 mg oral tablet) 1 tab(s) by mouth Once a day Pickup at [facility] today @ 0814 New meloxicam (Mobic 7.5 mg oral tablet) 1 tab(s) by mouth Twice daily with meals Do not take any other nonsteroidal anti-inflammatories while on meloxicam/ Mobic. Pickup at [facility] New oxyCODONE (oxyCODONE 5 mg oral tablet ( IMMEDIATE release )) See instructions S/P total right hip arthroplasty 1-2 tab(s) Oral q4h, As needed for as needed for pain Pickup at [facility] today @ 1010 Changed acetaminophen (Tylenol) 1,000 Milligram by mouth Three (3) times a day not to exceed 3000 mg/ day today @ 0814 Unchanged ascorbic acid (Vitamin C 250 mg oral tablet) 1 tab(s) by mouth Once a day Unchanged bacillus coagulans-inulin (Probiotic Formula (Bacillus Coagulans) oral capsule) 1 cap by mouth Once a day Unchanged cholecalciferol (Vitamin D (3) 45 units oral capsule) Unchanged cyanocobalamin (Vitamin B12 50 mcg oral tablet) 1 tab(s) by mouth Every day Unchanged cyclobenzaprine (cyclobenzaprine 5 mg oral tablet) 1 tab(s) by mouth Three (3) times a day Unchanged DULoxetine (DULoxetine 30 mg oral delayed release capsule) 1 cap by mouth Two (2) times a day today @ 0814 Unchanged empagliflozin (Jardiance 25 mg oral tablet) 1 tab(s) by mouth Once a day (in the morning) today @ 0814 Unchanged finasteride (finasteride 5 mg oral tablet) 1 tab(s) by mouth Every day today @ 0814 Unchanged glimepiride (glimepiride 2 mg oral tablet) 1 tab(s) by mouth Once a day Take with food today @ 0814 Unchanged rosuvastatin (rosuvastatin 5 mg oral tablet) 1 tab(s) by mouth Every day atorvastatin on 11/01 @ 2114 Unchanged semaglutide (Ozempic 8 mg/ 3 mL (2 mg dose) subcutaneous solution) 2 Milligram Subcutaneous Every week in the abdomen, thigh, or upper arm Unchanged tamsulosin (tamsulosin 0.4 mg oral capsule) 1 cap by mouth Two (2) times a day today @ 0814 Unchanged vitamin E (vitamin E 100 intl units oral capsule) 1 cap by mouth Every day Unchanged zinc acetate (zinc (as acetate) 50 mg oral capsule) 1 cap by mouth Three (3) times a day Pharmacy Information [facility]: [address] [place], [place] [phone] Please take this list to your next doctor s visit. Bring all medications you take, including over the counter medications, herbals and other supplements with you to your doctor s visit. Patients and families are reminded to discard old lists and to update any records with all medication providers or retail pharmacies. Education Materials [facility] Post-operative Instructions PLEASE FOLLOW [facility] POST-OP INSTRUCTIONS GIVEN WATCH FOR SIGNS OF INFECTION: call the office ([phone]) if experencing any of the following: (Usually appears 36-48 hours after surgery) Increased temperature (101 degrees Fahrenheit or higher) Redness or swelling Increased uncontrolled pain Foul odor or drainage Calf discomfort Significant swelling Or if having any chest pain, shortness of breath, or difficulty breathing or swallowing call the office or go the nearest Emergency Room. If you have any questions, please call your doctor at the number listed on your follow up instructions. Form: 338A ([id number]) R: 06/29 Additional Information VACCINATE! IT SAVES LIVES! Members of the community who have not yet received the COVID-19 vaccine and would like to receive it can visit one of [facility] vaccine clinics. There are many vaccine clinic locations within the [facility]. For locations and available times, please visit https://gettheshot.coronavirus.o hio.gov/. It is important to note that some COVID mobile vaccine clinics are held outdoors and may be canceled in rainy or stormy conditions. To learn more about pediatric vaccinations (ages 5-11), we invite you to visit the [employer] [facility] webpage. [email or web address].[email or web address]/p [email or web address] To learn more about the COVID-19 vaccine, we invite you to visit the CDC website for a list of frequently asked questions.https://www.cdc.gov/co ronavirus/2019-ncov/vaccines/faq .html [facility] Patient Portal Access Instructions: Stay connected with your healthcare team and access your personal medical information anytime with the [facility] Patient Portal. Please follow the directions below to create your [facility] account: 1.Access the email account you provided upon registration to the hospital/physician office.2.Look for an invitation email from [facility].3.Open the email and access the invitation link: Accept Invitation to [employer]4.Fill in the required ventura to create your account. To access your account, visit [employer]. Click the blue button labeled Access Patient Portal and then log in with the username and password that you created in the steps above. You will be able to view your test results, lab results, a summary of your visits, upcoming appointments and more. There is also a convenient messaging option where you can send secure messages to your provider. In addition, you will have the ability to download any documents or summaries to your computer and/or send the information securely to a physician. Remember that your healthcare information is confidential, so carefully consider who you will allow to register on the [facility] [facility] [facility] [employer] Patient Portal for access to your information. You can also access the [facility] [facility] Patient Portal on the [employer] dev. Simply click on Patient Portal and then log into your account. If you would like to receive a full copy of your medical records, please contact the [facility] Medical Records Department by calling [phone], Thursday through Thursday between 8 a.m. and 4:30 p.m. HOW TO SAFELY DISPOSE OF PRESCRIPTION MEDICATIONS Please use one of the following methods to safely dispose of your unused medications. 1.Use a drug disposal kit: the drug disposal pouch allows you to safely discard your old and unused drugs. Ask your nurse to give you one when you are discharged.2.Visit a local take-back location: Many local pharmacies and police departments have programs that collect old and unwanted prescription drugs. Call your local pharmacy or go to http://[employer]/3U1Lb1x to find one close to you.3.Make use of household items: Use cat litter or old coffee grounds to dispose medications if other options are not available. Mix your drugs with these household products, seal them in an airtight container and throw it into the garbage. Call [facility]: [phone] to be sure your drugs can be disposed of in this way. Some medicines may require a different approach.4.Never flush your medications down the toilet. IF YOU HAVE BEEN PRESCRIBED AN OPIOID FOR PAIN If you have been prescribed an opioid (such as hydrocodone, oxycodone or morphine), it is critical to understand the possible side effects and risks of opioid pain medications. Even when taken as directed, opioids can have several side effects including: Tolerance, meaning you might need to take more of a medication for the same pain relief. Nausea, vomiting and/or constipation. Sleepiness, dizziness, dry mouth, confusion, depression or itching. Physical dependence, meaning you have withdrawal symptoms when a medication is stopped, can develop within a few days. KNOW YOUR RESPONSIBILITIES It is important to know exactly how much and how often to take the opioid pain medications you are prescribed. Never take opioids in higher amounts or more often than prescribed. Do not combine opioids with alcohol or other drugs that cause drowsiness, such as benzodiazepines, also known as benzos, including diazepam and alprazolam, muscle relaxants or sleep aids. Never sell or share prescription opioids. This is illegal. Store opioids in a secure place and out of reach of others (including children, family, friends and visitors). The last page of this document has been signed and retained as a CHART COPY. Signatures Patient Education Materials [facility] Post-op Instruction 09/2016 (41896) Medication Leaflets My discharge plan and instructions have been reviewed and explained to me and I,DINAH VALIENTE understand my current condition and have read and understand these discharge instructions. I have received a written copy of the plan/instructions. If I have questions, I am aware that I should contact my doctor. 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 Patient denies any chest pain, shortness of breath, dizziness, lightheadedness, nausea or vomiting, or calf pain. No adverse overnight events. Pain has been controlled on medications. Patient has been able to urinate on his own. He does have benign prostatic hyperplasia. He also sees a urologist. Patient did have a mild concussion 3 weeks ago in which he was told to avoid nonsteroidal anti-inflammatories. We are going to reach out the patient's primary care provider if we can have patient use these postoperatively. Objective Vitals and Measurements T: 36.6 C (Oral) TMIN: 36.4 C (Oral) TMAX: 36.8 C (Oral) HR: 95 (Monitored) RR: 18 BP: 122/80 SpO2: 90% HT: 177.8 cm WT: 92.5 kg BMI: 29.26 Intake and Output Last 24 hours Intake Medication 651.60 Oral Intake 480.00 Administration Information 1490.65 Supplement Intake 240.00 Output Intra-Op EBL 300.00 Urine Count 2.00 Total Summary Total Intake 2862.25 Total Output 300.00 Fluid Balance 2562.25 Physical Exam Vital signs stable, afebrile Left hip is soft and supple SCD's and ANA Hose in place bilaterally Patient is able to plantarflex and dorsiflex actively Sensation is intact to saphenous, sural, superficial and deep peroneal, and tibial distribution Dressing is clean dry and intact Negative signs and symptoms of DVT, negative Homans bilaterally Weight Dosing Weight: 92.5 kg (11/01/24) Dosing Weight: 92.5 kg (11/01/24) Medications Medications (28) Active Scheduled: (17) acetaminophen 500 mg Tablet 1,000 mg 2 tab(s), Oral, q8h aspirin 81 mg EC 81 mg 1 tab(s), Oral, BIDM atorvastatin 10 mg tablet 10 mg 1 tab(s), Oral, qHS bisacodyl 5 mg EC tablet 10 mg 2 tab(s), Oral, Once docusate sodium 100 mg Capsule 100 mg 1 cap(s), Oral, BID docusate-senna (Senokot S) 50 mg-8.6 mg Tablet 2 tab(s), Oral, BID duloxetine [address] capsule 30 mg 1 cap(s), Oral, BID empagliflozin 25 mg tablet 25 mg 1 tab(s), Oral, qAM famotidine 20 mg tablet 20 mg 1 tab(s), Oral, qDay finasteride 5 mg tablet 5 mg 1 tab(s), Oral, Daily glimepiride 2 mg Tablet 2 mg 1 tab(s), Oral, qDay insulin lispro 100 units/mL Soln COA (3 mL) Give 0-5 units/dose, Subcutaneous, TIDAC magnesium hydroxide 8% Suspension 30 mL UD 30 mL, Oral, Daily meloxicam 7.5 mg tablet 7.5 mg 1 tab(s), Oral, BIDM multivitamin (Myadec) with minerals Therapeutic Multiple Vitamins with Minerals Tablet 1 tab(s), Oral, qDayM ondansetron 2 mg/ 1 mL 2 mL INJ 4 mg 2 mL, IV Push, q8h tamsulosin 0.4 mg Capsule 0.4 mg 1 cap(s), Oral, BID Continuous: (0) PRN: (11) acetaminophen 325 mg Tablet 650 mg 2 tab(s), Oral, q4h diphenhydramine 25 mg tablet 25 mg 1 tab(s), Oral, q6h diphenhyDRAMINE 50 mg/mL (1 mL) INJ 25 mg 0.5 mL, IV Push, q6h ketorolac 30 mg/mL (1 mL) vial 15 mg 0.5 mL, IV Push, q6h melatonin 3 mg tablet 3 mg 1 tab(s), Oral, qHS morphine 2 mg/mL 1 mL syringe 2 mg 1 mL, IV Push, q1h ondansetron 2 mg/ 1 mL 2 mL INJ 4 mg 2 mL, IV Push, q8h oxycodone 5 mg tablet (immediate release) 5 mg 1 tab(s), Oral, q4h oxycodone 5 mg tablet (immediate release) 10 mg 2 tab(s), Oral, q4h prochlorperazine 10 mg/2 mL vial 5 mg 1 mL, IV Push, q6h sodium biphosphate-sodium phosphate 19 gm-7 gm Enema 133 mL, Rectal, qDay Lab Results 11/02 05:42 WBC: 15.3 H Hgb: 12.9 L Hct: 37.7 L Platelet: 191 Neutrophil %: 82.2 H Glucose Level: 200 H Sodium Level: 136 Potassium Level: 4.2 BUN: 26 H Creatinine Lvl (s): 0.88 EKG No qualifying data available. Assessment/Plan 1. Status post direct anterior right total hip arthroplasty postop day #1 2. Continue pain medications: Tylenol and oxycodone. I am going to give patient prescription of meloxicam and we are reaching out to the primary care provider to see if we are able to resume nonsteroidal anti-inflammatories. He did sustain a concussion over 3 weeks ago. Discussed with the patient he is not to take this until we have contacted the primary care provider. He voiced understanding and agreement. 3. DVT prophylaxis: Take 81 mg aspirin twice daily with food for 4 weeks postoperatively for DVT prophylaxis. Patient denies past history of DVT or pulmonary embolism. Patient will continue with ANA hose for 2 weeks postoperatively 4. Physical therapy: Weightbearing as tolerated with walker, continue anterior hip precautions 5. H & H: 12.9/37.7, asymptomatic. Postoperative drop in hemoglobin from surgery without intraoperative complications. At this time there is no need for treatment. 6. Reactive Leukocytosis: currently 15.3, afebrile. Patient did receive decadron intra-operatively. No clinical signs of infection. 7. Encouraged incentive spirometry 8. Continue postoperative medical management per medicine 9. Postoperative constipation: Discussed with the patient to continue stool softener until first bowel movement. After first bowel movement patient can then take as needed. They were also instructed that if they are not able to have a bowel movement within 3 days they are to contact our office for change of medication. Patient voiced understanding. 10. Disposition: Plan will be for discharge home this afternoon as long as patient remains medically stable, tolerates therapy, and pain is adequately controlled. Patient would like his prescriptions E scribed to [facility]. We are reaching out to the patient's primary care provider with regards to nonsteroidal anti-inflammatory use. We will give him a prescription and I will contact him upon discharge if he is allowed to use this. He did voiced understanding. Patient will follow-up per postoperative instructions. He has outpatient physical therapy established. Patient will contact our office with any concerns or questions upon discharge. Extra amount of time was spent with the patient and his discussing postoperative treatment. Patient has been able to urinate on his own. We discussed the potential for urinary retention postoperatively and if he has any complications he is to contact his urologist. I have reviewed the [place] Automated Rx Reporting System (OARRS) report for this patient for refill pattern and other prescriber involvement as part of the appropriate surveillance for the provision of acute and chronic controlled medications. The report was requested and reviewed on the date of this entry, and was considered in the prescribing process This dictation was created using voice recognition software. Phonetic and/or grammatical errors may exist. Digitally Signed by FORREST CASTELLANO PA-C on 11/02/2024 07:53 AM [facility] 11-02-2024 Hospital Discharg e instructions Patient Education 11/02/2024 07:54:11 5 - [facility] Post-op Instruction 09/2016 ([id number]) [facility] Post-operative Instructions PLEASE FOLLOW [facility] POST-OP INSTRUCTIONS GIVEN WATCH FOR SIGNS OF INFECTION: call the office ([phone]) if experencing any of the following: (Usually appears 36-48 hours after surgery) Increased temperature (101 degrees Fahrenheit or higher) Redness or swelling Increased uncontrolled pain Foul odor or drainage Calf discomfort Significant swelling Or if having any chest pain, shortness of breath, or difficulty breathing or swallowing call the office or go the nearest Emergency Room. If you have any questions, please call your doctor at the number listed on your follow up instructions. Form: 338A ([id number]) R: 06/29 Follow Up Care 09/01/2024 13:15:11 With:[facility] Address: [address] [place] [phone] When:11/04/2024 13:00:00 Comments:This is your first physical therapy appointment. Follow-up as scheduled. With:JUANJO SIMMONS PA-C, Orthopedic Address: [address] [place] [address], [address] [facility], [place] [address] [phone] When:11/16/2024 15:00:00 Comments:This is your post-op appointment. Follow-up as scheduled. [facility] 11-02-2024 Note Date of Service November 02, 2024 Subjective The patient was sitting in bed upon examination with present. Patient denies any chest pain, shortness of breath, dizziness, lightheadedness, nausea or vomiting, or calf pain. No adverse overnight events. Pain has been controlled on medications. Patient has been able to urinate on his own. He does have benign prostatic hyperplasia. He also sees a urologist. Patient did have a mild concussion 3 weeks ago in which he was told to avoid nonsteroidal anti-inflammatories. We are going to reach out the patient's primary care provider if we can have patient use these postoperatively. Objective Vitals and Measurements T: 36.6 C (Oral) TMIN: 36.4 C (Oral) TMAX: 36.8 C (Oral) HR: 95 (Monitored) RR: 18 BP: 122/80 SpO2: 90% HT: 177.8 cm WT: 92.5 kg BMI: 29.26 Intake and Output Last 24 hours Intake Medication 651.60 Oral Intake 480.00 Administration Information 1490.65 Supplement Intake 240.00 Output Intra-Op EBL 300.00 Urine Count 2.00 Total Summary Total Intake 2862.25 Total Output 300.00 Fluid Balance 2562.25 Physical Exam Vital signs stable, afebrile Left hip is soft and supple SCD's and ANA Hose in place bilaterally Patient is able to plantarflex and dorsiflex actively Sensation is intact to saphenous, sural, superficial and deep peroneal, and tibial distribution Dressing is clean dry and intact Negative signs and symptoms of DVT, negative Homans bilaterally Weight Dosing Weight: 92.5 kg (11/01/24) Dosing Weight: 92.5 kg (11/01/24) Medications Medications (28) Active Scheduled: (17) acetaminophen 500 mg Tablet 1,000 mg 2 tab(s), Oral, q8h aspirin 81 mg EC 81 mg 1 tab(s), Oral, BIDM atorvastatin 10 mg tablet 10 mg 1 tab(s), Oral, qHS bisacodyl 5 mg EC tablet 10 mg 2 tab(s), Oral, Once docusate sodium 100 mg Capsule 100 mg 1 cap(s), Oral, BID docusate-senna (Senokot S) 50 mg-8.6 mg Tablet 2 tab(s), Oral, BID duloxetine [address] capsule 30 mg 1 cap(s), Oral, BID empagliflozin 25 mg tablet 25 mg 1 tab(s), Oral, qAM famotidine 20 mg tablet 20 mg 1 tab(s), Oral, qDay finasteride 5 mg tablet 5 mg 1 tab(s), Oral, Daily glimepiride 2 mg Tablet 2 mg 1 tab(s), Oral, qDay insulin lispro 100 units/mL Soln COA (3 mL) Give 0-5 units/dose, Subcutaneous, TIDAC magnesium hydroxide 8% Suspension 30 mL UD 30 mL, Oral, Daily meloxicam 7.5 mg tablet 7.5 mg 1 tab(s), Oral, BIDM multivitamin (Myadec) with minerals Therapeutic Multiple Vitamins with Minerals Tablet 1 tab(s), Oral, qDayM ondansetron 2 mg/ 1 mL 2 mL INJ 4 mg 2 mL, IV Push, q8h tamsulosin 0.4 mg Capsule 0.4 mg 1 cap(s), Oral, BID Continuous: (0) PRN: (11) acetaminophen 325 mg Tablet 650 mg 2 tab(s), Oral, q4h diphenhydramine 25 mg tablet 25 mg 1 tab(s), Oral, q6h diphenhyDRAMINE 50 mg/mL (1 mL) INJ 25 mg 0.5 mL, IV Push, q6h ketorolac 30 mg/mL (1 mL) vial 15 mg 0.5 mL, IV Push, q6h melatonin 3 mg tablet 3 mg 1 tab(s), Oral, qHS morphine 2 mg/mL 1 mL syringe 2 mg 1 mL, IV Push, q1h ondansetron 2 mg/ 1 mL 2 mL INJ 4 mg 2 mL, IV Push, q8h oxycodone 5 mg tablet (immediate release) 5 mg 1 tab(s), Oral, q4h oxycodone 5 mg tablet (immediate release) 10 mg 2 tab(s), Oral, q4h prochlorperazine 10 mg/2 mL vial 5 mg 1 mL, IV Push, q6h sodium biphosphate-sodium phosphate 19 gm-7 gm Enema 133 mL, Rectal, qDay Lab Results 11/02 05:42 WBC: 15.3 H Hgb: 12.9 L Hct: 37.7 L Platelet: 191 Neutrophil %: 82.2 H Glucose Level: 200 H Sodium Level: 136 Potassium Level: 4.2 BUN: 26 H Creatinine Lvl (s): 0.88 EKG No qualifying data available. Assessment/Plan 1. Status post direct anterior right total hip arthroplasty postop day #1 2. Continue pain medications: Tylenol and oxycodone. I am going to give patient prescription of meloxicam and we are reaching out to the primary care provider to see if we are able to resume nonsteroidal anti-inflammatories. He did sustain a concussion over 3 weeks ago. Discussed with the patient he is not to take this until we have contacted the primary care provider. He voiced understanding and agreement. 3. DVT prophylaxis: Take 81 mg aspirin twice daily with food for 4 weeks postoperatively for DVT prophylaxis. Patient denies past history of DVT or pulmonary embolism. Patient will continue with ANA hose for 2 weeks postoperatively 4. Physical therapy: Weightbearing as tolerated with walker, continue anterior hip precautions 5. H & H: 12.9/37.7, asymptomatic. Postoperative drop in hemoglobin from surgery without intraoperative complications. At this time there is no need for treatment. 6. Reactive Leukocytosis: currently 15.3, afebrile. Patient did receive decadron intra-operatively. No clinical signs of infection. 7. Encouraged incentive spirometry 8. Continue postoperative medical management per medicine 9. Postoperative constipation: Discussed with the patient to continue stool softener until first bowel movement. After first bowel movement patient can then take as needed. They were also instructed that if they are not able to have a bowel movement within 3 days they are to contact our office for change of medication. Patient voiced understanding. 10. Disposition: Plan will be for discharge home this afternoon as long as patient remains medically stable, tolerates therapy, and pain is adequately controlled. Patient would like his prescriptions E scribed to drug [facility] in [facility]. We are reaching out to the patient's primary care provider with regards to nonsteroidal anti-inflammatory use. We will give him a prescription and I will contact him upon discharge if he is allowed to use this. He did voiced understanding. Patient will follow-up per postoperative instructions. He has outpatient physical therapy established. Patient will contact our office with any concerns or questions upon discharge. Extra amount of time was spent with the patient and his discussing postoperative treatment. Patient has been able to urinate on his own. We discussed the potential for urinary retention postoperatively and if he has any complications he is to contact his urologist. I have reviewed the [place] Automated Rx Reporting System (OARRS) report for this patient for refill pattern and other prescriber involvement as part of the appropriate surveillance for the provision of acute and chronic controlled medications. The report was requested and reviewed on the date of this entry, and was considered in the prescribing process This dictation was created using voice recognition software. Phonetic and/or grammatical errors may exist. Digitally Signed by FORREST CASTELLANO PA-C on 11/02/2024 07:53 AM [facility] 11-01-2024 Anesthesiology Consult note Patient: DINAH VALIENTE Age: 79 years Sex: Male : 1945 Associated Diagnoses: None Author: CARMELITA MIXON TUMBLING INSTRUCTOR-SUPERVISOR BORDER DEPARTMENT Assessment Postanesthesia assessment Vitals: Vital signs from flowsheet : Vital Signs 11/01/2024 14:20 EDT Respiratory Rate 18 br/min 11/01/2024 13:16 EDT Heart Rate Monitored 95 bpm Respiratory Rate 20 br/min Systolic Blood Pressure Non-Invasive 110 mmHg Diastolic Blood Pressure Non-Invasive 76 mmHg 11/01/2024 12:51 EDT Heart Rate Monitored 98 bpm Respiratory Rate 19 br/min Systolic Blood Pressure Non-Invasive 101 mmHg Diastolic Blood Pressure Non-Invasive 77 mmHg 11/01/2024 12:48 EDT Temperature Oral 36.4 DegC Heart Rate Monitored 98 bpm Respiratory Rate 19 br/min Systolic Blood Pressure Non-Invasive 119 mmHg Diastolic Blood Pressure Non-Invasive 78 mmHg 11/01/2024 12:31 EDT Heart Rate Monitored 98 bpm Respiratory Rate 18 br/min Systolic Blood Pressure Non-Invasive 111 mmHg Diastolic Blood Pressure Non-Invasive 49 mmHg 11/01/2024 12:15 EDT Heart Rate Monitored 92 bpm Respiratory Rate 15 br/min Systolic Blood Pressure Non-Invasive 114 mmHg Diastolic Blood Pressure Non-Invasive 78 mmHg 11/01/2024 12:06 EDT Heart Rate Monitored 93 bpm Respiratory Rate 16 br/min Systolic Blood Pressure Non-Invasive 119 mmHg Diastolic Blood Pressure Non-Invasive 80 mmHg 11/01/2024 11:55 EDT Heart Rate Monitored 95 bpm Respiratory Rate 21 br/min HI Systolic Blood Pressure Non-Invasive 91 mmHg Diastolic Blood Pressure Non-Invasive 75 mmHg 11/01/2024 11:40 EDT Heart Rate Monitored 95 bpm Respiratory Rate 21 br/min HI Systolic Blood Pressure Non-Invasive 112 mmHg Diastolic Blood Pressure Non-Invasive 74 mmHg 11/01/2024 11:34 EDT Heart Rate Monitored 96 bpm Respiratory Rate 17 br/min Systolic Blood Pressure Non-Invasive 81 mmHg LOW Diastolic Blood Pressure Non-Invasive 54 mmHg LOW 11/01/2024 11:30 EDT Heart Rate Monitored 91 bpm Respiratory Rate 20 br/min Systolic Blood Pressure Non-Invasive 103 mmHg Diastolic Blood Pressure Non-Invasive 64 mmHg 11/01/2024 11:25 EDT Heart Rate Monitored 94 bpm Respiratory Rate 18 br/min Systolic Blood Pressure Non-Invasive 101 mmHg Diastolic Blood Pressure Non-Invasive 59 mmHg LOW 11/01/2024 11:20 EDT Temperature Skin 36.4 DegC Heart Rate Monitored 91 bpm Respiratory Rate 18 br/min Systolic Blood Pressure Non-Invasive 99 mmHg Diastolic Blood Pressure Non-Invasive 66 mmHg 11/01/2024 11:15 EDT Heart Rate Monitored 97 bpm bpm Respiratory Rate - Anes 29 br/min br/min Systolic Blood Pressure Non-Invasive 115 mmHg mmHg Diastolic Blood Pressure Non-Invasive 66 mmHg mmHg 11/01/2024 11:10 EDT Heart Rate Monitored 97 bpm bpm Respiratory Rate - Anes 24 br/min br/min Systolic Blood Pressure Non-Invasive 105 mmHg mmHg Diastolic Blood Pressure Non-Invasive 66 mmHg mmHg 11/01/2024 11:05 EDT Heart Rate Monitored 106 bpm bpm Respiratory Rate - Anes 22 br/min br/min Systolic Blood Pressure Non-Invasive 119 mmHg mmHg Diastolic Blood Pressure Non-Invasive 79 mmHg mmHg 11/01/2024 11:00 EDT Heart Rate Monitored 111 bpm bpm Respiratory Rate - Anes 23 br/min br/min Systolic Blood Pressure Non-Invasive 115 mmHg mmHg Diastolic Blood Pressure Non-Invasive 65 mmHg mmHg 11/01/2024 10:55 EDT Heart Rate Monitored 112 bpm bpm Respiratory Rate - Anes 21 br/min br/min Systolic Blood Pressure Non-Invasive 121 mmHg mmHg Diastolic Blood Pressure Non-Invasive 70 mmHg mmHg 11/01/2024 10:50 EDT Heart Rate Monitored 102 bpm bpm Respiratory Rate - Anes 9 br/min br/min Systolic Blood Pressure Non-Invasive 97 mmHg mmHg Diastolic Blood Pressure Non-Invasive 74 mmHg mmHg 11/01/2024 10:45 EDT Heart Rate Monitored 101 bpm bpm Respiratory Rate - Anes 23 br/min br/min Systolic Blood Pressure Non-Invasive 99 mmHg mmHg Diastolic Blood Pressure Non-Invasive 70 mmHg mmHg 11/01/2024 10:40 EDT Heart Rate Monitored 98 bpm bpm Respiratory Rate - Anes 21 br/min br/min Systolic Blood Pressure Non-Invasive 116 mmHg mmHg Diastolic Blood Pressure Non-Invasive 79 mmHg mmHg 11/01/2024 10:35 EDT Heart Rate Monitored 103 bpm bpm Respiratory Rate - Anes 17 br/min br/min Systolic Blood Pressure Non-Invasive 106 mmHg mmHg Diastolic Blood Pressure Non-Invasive 74 mmHg mmHg 11/01/2024 10:30 EDT Heart Rate Monitored 108 bpm bpm Respiratory Rate - Anes 21 br/min br/min Systolic Blood Pressure Non-Invasive 123 mmHg mmHg Diastolic Blood Pressure Non-Invasive 83 mmHg mmHg 11/01/2024 10:25 EDT Heart Rate Monitored 94 bpm bpm Respiratory Rate - Anes 16 br/min br/min Systolic Blood Pressure Non-Invasive 81 mmHg mmHg Diastolic Blood Pressure Non-Invasive 61 mmHg mmHg 11/01/2024 10:20 EDT Heart Rate Monitored 89 bpm bpm Respiratory Rate - Anes 8 br/min br/min Systolic Blood Pressure Non-Invasive 95 mmHg mmHg Diastolic Blood Pressure Non-Invasive 77 mmHg mmHg 11/01/2024 10:15 EDT Heart Rate Monitored 87 bpm bpm Respiratory Rate - Anes 11 br/min br/min Systolic Blood Pressure Non-Invasive 86 mmHg mmHg Diastolic Blood Pressure Non-Invasive 62 mmHg mmHg 11/01/2024 10:10 EDT Heart Rate Monitored 90 bpm bpm Respiratory Rate - Anes 10 br/min br/min Systolic Blood Pressure Non-Invasive 79 mmHg mmHg Diastolic Blood Pressure Non-Invasive 61 mmHg mmHg 11/01/2024 10:05 EDT Heart Rate Monitored 85 bpm bpm Respiratory Rate - Anes 16 br/min br/min Systolic Blood Pressure Non-Invasive 102 mmHg mmHg Diastolic Blood Pressure Non-Invasive 73 mmHg mmHg 11/01/2024 10:00 EDT Heart Rate Monitored 94 bpm bpm Respiratory Rate - Anes 16 br/min br/min Systolic Blood Pressure Non-Invasive 88 mmHg mmHg Diastolic Blood Pressure Non-Invasive 74 mmHg mmHg 11/01/2024 9:55 EDT Heart Rate Monitored 100 bpm bpm Respiratory Rate - Anes 16 br/min br/min Systolic Blood Pressure Non-Invasive 79 mmHg mmHg Diastolic Blood Pressure Non-Invasive 57 mmHg mmHg 11/01/2024 9:50 EDT Heart Rate Monitored 91 bpm bpm Respiratory Rate - Anes 4 br/min br/min Systolic Blood Pressure Non-Invasive 87 mmHg mmHg Diastolic Blood Pressure Non-Invasive 69 mmHg mmHg 11/01/2024 9:45 EDT Heart Rate Monitored 99 bpm bpm Respiratory Rate - Anes 13 br/min br/min Systolic Blood Pressure Non-Invasive 102 mmHg mmHg Diastolic Blood Pressure Non-Invasive 76 mmHg mmHg 11/01/2024 9:40 EDT Heart Rate Monitored 102 bpm bpm Respiratory Rate - Anes 16 br/min br/min Systolic Blood Pressure Non-Invasive 121 mmHg mmHg Diastolic Blood Pressure Non-Invasive 89 mmHg mmHg 11/01/2024 9:35 EDT Heart Rate Monitored 104 bpm bpm Respiratory Rate - Anes 12 br/min br/min Systolic Blood Pressure Non-Invasive 119 mmHg mmHg Diastolic Blood Pressure Non-Invasive 75 mmHg mmHg 11/01/2024 9:30 EDT Respiratory Rate - Anes 11 br/min br/min (Modified) Systolic Blood Pressure Non-Invasive 134 mmHg mmHg Diastolic Blood Pressure Non-Invasive 84 mmHg mmHg 11/01/2024 9:29 EDT Systolic Blood Pressure Non-Invasive 129 mmHg mmHg Diastolic Blood Pressure Non-Invasive 85 mmHg mmHg 11/01/2024 7:51 EDT Temperature Temporal Artery 36.3 DegC Peripheral Pulse Rate 98 bpm Respiratory Rate 16 br/min Systolic Blood Pressure Non-Invasive 127 mmHg Diastolic Blood Pressure Non-Invasive 88 mmHg . Mental status: at preoperative baseline. Respiratory function: lungs are clear to auscultation, respirations are non-labored. Respiratory support: none. CV function: Normal rate, Regular rhythm. Cardiovascular support: none. Pain: Quality aching, Post op control (oral analgesic, intravenous analgesic). Nausea status: denies nausea. Postoperative hydration status: within normal limits. Digitally Signed by CARMELITA MIXON on 11/01/2024 03:15 PM [facility] 11-01-2024 Note Exam Date Time Procedure Performing Provider Status 11/01/24 11:35 AM XR Hip Right w/Pelvis 4 Views THEO MOELLER DO; Auth (Verified) [id number] ORIGINAL EXAMINATION: 1 x-ray view of the pelvis and 2 x-ray views of the right hip. COMPARISON: None. HISTORY: ORDERING SYSTEM PROVIDED HISTORY: Reason for Exam: Status Post Arthroplasty FINDINGS: Status post right hip arthroplasty. Hardware appears intact without evidence of loosening. No acute periprosthetic fracture. Moderate degenerative changes of the left hip. Pelvic ring is intact. SI joints are symmetric. Degenerative changes are noted within the lower lumbar spine. Soft tissue gas along the right hip is postoperative in etiology. IMPRESSION: Expected postsurgical changes of right hip arthroplasty. Interpreted by: Theo Moeller Preliminary Report By: Theo Moeller Electronically signed By Theo Moeller Dictated Date: 11/01/2024 12:10:18 PM Prelim Date: 11/01/2024 12:11:22 PM Sign Date: 11/01/2024 12:11:22 PM Ordering Provider: RHIANNON SOSA [facility]09-09-2025 Note* Exam Date Time Procedure Performing Provider Status 11/01/24 11:16 AM XR Fluoro 1-2 Hrs Tech Time Modified [id number] ORIGINAL Images acquired, not reported on this accession number. [facility]09-09-2025 Anesthesiology Consult note Patient: DINAH VALIENTE Age: 79 years Sex: Male : 1945 Associated Diagnoses: None Author: CARMELITA MIXON APRN-ELIAS Preoperative Information Anesthesia history Patient's history: negative. Family's history: negative. Health Status Allergies: Allergic Reactions (Selected) Severity Not Documented MetFORMIN- Gastrointestinal upset. Penicillin- No reactions were documented. Tolectin- Hives., Allergies (3) ActiveSeverityReaction penicillinNone Documented metFORMINGastrointestinal upset TolectinHives Current medications: (Selected) Inpatient Medications Ordered Bolus LR 1000 mL: 1,000 mL, IV Bolus, PREOP pharm Decadron: 10 mg, 1 mL, IV Push, AsDirected LR 1,000 mL: 20 mL/hr, Intravenous, Stop: 11/01/24 23:59:00 EDT Naropin 100 mg + Toradol 15 mg + morphine 2.5 mg + EPINEPHrine 0.3 m mg, 20 mL, mL/hr, Other,PREOP pharm Naropin 100 mg + Toradol 15 mg + morphine 2.5 mg + EPINEPHrine 0.3 m mg, 20 mL, mL/hr, Other,PREOP pharm ceFAZolin: 2 gram(s), 200 mL/hr, IV Piggyback, PREOP pharm tranexamic acid 1 g / 100 mL 0.7% NaCl PMX: 1 gram(s), 100 mL, 300 mL/hr, IV Piggyback, AsDirected tranexamic acid 1 g / 100 mL 0.7% NaCl PMX: 1 gram(s), 100 mL, 300 mL/hr, IV Piggyback, AsDirected Documented Medications Documented DULoxetine 30 mg oral delayed release capsule: 30 mg, 1 cap(s), Oral, BID, 0 Refill(s) Jardiance 25 mg oral tablet: 25 mg, 1 tab(s), Oral, qAM, 30 tab(s), 0 Refill(s) Ozempic 8 mg/3 mL (2 mg dose) subcutaneous solution: 2 mg, Subcutaneous, qWeek, in the abdomen, thigh, or upper arm, 3 mL, 0 Refill(s) Probiotic Formula (Bacillus Coagulans) oral capsule: 1 cap(s), Oral, qDay, 30 cap(s), 0 Refill(s) Vitamin B12 50 mcg oral tablet: 50 mcg, 1 tab(s), Oral, Daily, 0 Refill(s) Vitamin C 250 mg oral tablet: 250 mg, 1 tab(s), Oral, qDay, 30 tab(s), 0 Refill(s) Vitamin D (3) 45 units oral capsule: 0 Refill(s) acetaminophen 500 mg oral capsule: 500 mg, 1 cap(s), Oral, q4h, PRN: for pain, 60 cap(s), 0 Refill(s) cyclobenzaprine 5 mg oral tablet: 5 mg, 1 tab(s), Oral, TID, 30 tab(s), 0 Refill(s) finasteride 5 mg oral tablet: 5 mg, 1 tab(s), Oral, Daily, 0 Refill(s) glimepiride 2 mg oral tablet: 2 mg, 1 tab(s), Oral, qDay, Take with food, 0 Refill(s) rosuvastatin 5 mg oral tablet: 5 mg, 1 tab(s), Oral, Daily, 0 Refill(s) tamsulosin 0.4 mg oral capsule: 0.4 mg, 1 cap(s), Oral, BID, 0 Refill(s) vitamin E 100 intl units oral capsule: 100 unit(s), 1 cap(s), Oral, Daily, 0 Refill(s) zinc (as acetate) 50 mg oral capsule: 50 mg, 1 cap(s), Oral, TID, 250 cap(s), 0 Refill(s), Medications (8) Active Scheduled: (7) ceFAZolin 2 gram(s), IV Piggyback, PREOP pharm dexamethasone 10 mg/mL (1mL) SDV 10 mg 1 mL, IV Push, AsDirected Lactated Ringers Injection 1000 mL * Bolus * 1,000 mL, IV Bolus, PREOP pharm ropivacaine 100 mg + ketorolac 15 mg + morphine 2.5 mg + epinephrine 0.3 mg 100 mg 20 mL, Other, PREOP pharm ropivacaine 100 mg + ketorolac 15 mg + morphine 2.5 mg + epinephrine 0.3 mg 100 mg 20 mL, Other, PREOP pharm tranexamic acid PMX 1 gram(s) 100 mL, IV Piggyback, AsDirected tranexamic acid PMX 1 gram(s) 100 mL, IV Piggyback, AsDirected Continuous: (1) Lactated Ringers 1,000 mL 1,000 mL, Intravenous, 20 mL/hr PRN: (0) Problem list: Active Problems (6) BPH (benign prostatic hyperplasia) Concussion Diabetes mellitus Heart murmur Hyperlipidemia Osteoarthritis Histories Past Medical History: No active or resolved past medical history items have been selected or recorded. Family History: Cancer Brother Father Heart attack Mother Procedure history: Bunionectomy ([id number]). Comments: 10/10/2024 11:44 EDT - LEWIS Khoury LEFT Tonsillectomy and adenoidectomy ([id number]). Plantar fasciitis of right foot ([id number]). Social History: Social & Psychosocial Habits Alcohol 11/01/2024 Use: Never Substance Abuse 11/01/2024 Use: Never Tobacco 11/01/2024 Tobacco Use: Former smoker, quit more Home/Environment 11/01/2024 Domestic Concerns None Lives In Single level home Spouse Name MARTI Marital Status of Patient if Patient Independent Adult: Nutrition/Health 11/01/2024 Type of diet: Regular Eating Difficulties None Physical Examination Vital Signs 11/01/2024 7:51 EDT Temperature Temporal Artery 36.3 DegC Peripheral Pulse Rate 98 bpm Respiratory Rate 16 br/min Systolic Blood Pressure Non-Invasive 127 mmHg Diastolic Blood Pressure Non-Invasive 88 mmHg Vital Signs (last 24 hrs) Last Charted Temp Wgwxqqdy20.3 DegC (NOV 01 07:51) [id number] mmHg (NOV 01 07:51) DBP88 mmHg (NOV 01 07:51) Measurements from flowsheet : Measurements 11/01/2024 7:51 EDT Height 177.8 cm Height in inches 70 inch(es) Admission Weight 92.5 kg Weight Lbs 203.5 lb [place] Body Weight 73.00 kg Admission Body Mass Index 29.26 m2 Pain assessment: Pain Assessment 11/01/2024 7:51 EDT Primary Pain Location Hip Primary Pain Intensity 5 Pain Scale Type 0-10 Pain scale . General: Alert and oriented. Airway: Normal temporomandibular joint mobility. Mallampati classification: II (soft palate, fauces, uvula visible). Dentition Evaluation: Denies loose/chipped teeth. Respiratory: Lungs are clear to auscultation, Respirations are non-labored. Cardiovascular: Normal rate, Regular rhythm. Neurologic: Alert, Oriented. Review / Management Results review: No qualifying data available , Lab results 11/01/2024 9:03 EDT SN - CAt - Case Attendee SN - CAt - Case Attendee SN - CAt - Case Attendee SN - CAt - Case Attendee SN - CAt - Case Attendee SN - CAt - Case Attendee SN - CAt - Case Attendee SN - CAt - Case Attendee SN - CAt - Case Attendee SN - CAt - Case Attendee SN - CAt - Case Attendee SN - CAt - Case Attendee SN - CAt - Role Performed Primary Surgeon SN - CAt - Role Performed Sat Tutor 1 SN - CAt - Role Performed Scrub 1 SN - CAt - Role Performed SUPERVISOR BORDER DEPARTMENT SN - CAt - Role Performed Financial Services Specialist 1 SN - CAt - Role Performed Head Transfer Clerk 11/01/2024 9:02 EDT SN - Preop - CTm Pt Ready for OR/Proced 11/01/2024 8:36 11/01/2024 8:37 EDT SN - Preop - CTm Pt in SDS Room 11/01/2024 7:32 11/01/2024 8:37 EDT IV Present Present Anesthesia Extension Set Applied Yes Director Patient On Yes CHG Preoperative Wash/Wipe Site specific wipe Preop Nasal Swab Povidone-Iodine 11/01/2024 8:26 EDT celecoxib 400 mg mg citric acid-sodium citrate Not Done: Not Appropriate at this Time (Not Done) 11/01/2024 8:25 EDT famotidine 20 mg mg 11/01/2024 8:19 EDT Continuous IV Infusions LR Antecubital Left 11/01/2024 22 gauge Peripheral IV Activity: Insert new site Peripheral IV Dressing Condition: Clean, Dry, Intact Peripheral IV Dressing Activity: Applied, Transparent dressing Peripheral IV Line Status/Patency: Continuous infusion Peripheral IV Site Condition: No complications Peripheral IV Equipment: Extension set, PRN Adaptor Peripheral IV Number of Attempts: 1 11/01/2024 7:51 EDT Height 177.8 cm Height in inches 70 inch(es) Admission Weight 92.5 kg Weight Lbs 203.5 lb [place] Body Weight 73.00 kg Admission Body Mass Index 29.26 m2 Temperature Temporal Artery 36.3 DegC Peripheral Pulse Rate 98 bpm Respiratory Rate 16 br/min Systolic Blood Pressure Non-Invasive 127 mmHg Diastolic Blood Pressure Non-Invasive 88 mmHg Primary Pain Location Hip Primary Pain Intensity 5 Pain Scale Type 0-10 Pain scale Heart Rhythm Regular Dorsalis Pedis Pulse, Left 2+ Normal Dorsalis Pedis Pulse, Right 2+ Normal Respirations Unlabored Respiratory Pattern Regular Breath Sounds Auscultated Anterior and posterior All Lobes Breath Sounds Clear Oxygen Therapy Room air Oxygen Saturation 98 % Skin Description Normal for ethnicity Skin Temperature Warm Skin Integrity Not intact Level of Consciousness Alert Left Upper Extremity Strength Strong Right Upper Extremity Strength Strong Left Lower Extremity Strength Moderate Right Lower Extremity Strength Moderate Tone All Extremities Normal Sensation All Extremities Intact Affect/Behavior Appropriate, Calm, Cooperative Orientation Oriented x 4 Positioning Repositions self Activity Status ADL Awake Standard Safety ID band on, Allergy Band on, Call device within reach, Bed in low position, Wheels locked, Safety level maintained 11/01/2024 7:47 EDT Blood Glucose, Capillary 156 mg/dL HI Allergies Yes Consent Form Signed Yes Patient Dressed In Hospital gown CHG Preoperative Wash/Wipe Night before procedure, Day of procedure CHG Skin Prep Completed for Eligible Surgery History & Physical On Chart Yes Belongings At Bedside Glasses, Pants, Shirt, Shoes, Socks, Walker NPO Status Maintained Allergy Band on and Verified Yes Patient ID Band on and Verified Yes Implants Verified Yes Pacemaker/AICD Verified Yes Site Verified by Patient/Family Yes Last Fluid Intake 10/31/2024 21:30 Last Food Intake 10/31/2024 21:30 11/01/2024 7:44 EDT ELFEGO/TKA Survey Type Preoperative survey ELFEGO/TKA Procedure Type Right hip replacement ELFEGO/TKA Date Of PRO Data Collection 11/01/2024 7:44 ELFEGO/TKA Mode Of Data Collection Electronic (web-based, EHR, etc.) Person Completing The Survey Self Chronic Use Of Narcotics >= 90 Days No ELFEGO/TKA Pain Nonoperative LE Joint P7D Severe ELFEGO/TKA Generic PROM Version PROMIS-Global version 1.1 ELFEGO/TKA Comfort Level Fill Out Form Somewhat ELFEGO/TKA Currently Back Pain is Very mild HOOS Stairs None HOOS Uneven Surface Moderate HOOS Rise From Sitting Mild HOOS Bend and Block Splitter Operator None HOOS Lying In Bed Moderate HOOS Sitting None HOOS JR Raw Score 5 ELFEGO/TKA Patient-Reported Outcome Note ELFEGO/TKA Patient-Reported Outcomes 11/01/2024 7:42 EDT Designated Person #1 We May Share GUTIERREZ KIDD [phone] Designated Person #1 Relationship Spouse Privacy Restrictions Requested None Status N/A Sensory Deficits None Sleep Apnea Snore Yes Sleep Apnea Tired Yes Sleep Apnea Obstruction No Sleep Apnea Pressure No Sleep Apnea BMI No Sleep Apnea Age Yes Sleep Apnea Neck No Sleep Apnea Gender Yes Sleep Apnea Score 4 Diagnosed With Sleep Apnea No Advanced Directives Yes Advance Directive Type [place] Durable Power of Toddler Lead Teacher for [place], [place] Declaration (Living Will) Advance Directive Location Indicates that Le has been given copy Infectious Disease Symptoms Patient states no symptoms Infectious Disease Recent Exposure No Alcohol and Drug Use No Employee of Institutional Living No Health Care Employee No History of Exposure to TB No History of Positive Chest X-Ray for TB No History of Positive TB Skin Test No Homeless No Known Immunosuppression No Recent Immigrant No Resident of Institutional Living No Bloody Sputum No Fatigue No Fever No Loss of Appetite No Night Sweats No Persistent Cough > 3 Weeks No Weight Loss No Pre-Op Patient Education NPO after midnight, No smoking after midnight, No makeup, No jewelry, Aware of surgery location, Pre-op education done, 1 bottle CHG wash with instructions given, Instructed to take ordered medications, SSI prevention handout given SN - Preprocedure Comments Spoke with patient, Verbalizes/Nonverbally indicates understanding, Other: TAMSULOSIN Barriers to Learning None evident Teaching Method Explanation, Printed materials Preferred Spoken Language Pakistani Preferred Written Language Pakistani Teaching Evaluation Verbalizes/Nonverbally indicates understanding Total Joint Book Given Yes Safety Brochure Information Reviewed Yes Le Welcome Video Viewed No Patient's Current Physicians Patient's Current Physicians History of Malignant Hyperthermia No Discharge To, Anticipated Home with family care Prev Test Positive/Diagnosis w/COVID-19 No Current Quarantine/Isolated any Illness No Any Contact with Sick Animals/Birds No Traveled Anywhere in Last 30 Days No Lost Weight Unintentionally Recently No Eat Poorly Due to Decreased Appetite No Total MST Score 0 N/A Personal Devices, Patient Valuables Glasses, Hearing aid, left, Hearing aid, right Anesthesia/Transfusions Prior anesthesia Admission Note-Nursing Same Day Patient History . Assessment and Plan [place] [employer] Anesthesiologists (ASA) physical status classification: Class III. Anesthetic Preoperative Plan Anesthetic technique: Spinal. Regional: Spinal. Postoperative pain management: Per surgeon. Risks discussed: nausea, vomiting, headache, dental injury, hypotension, allergic reaction, seriouscomplications. Informed consent: signed by patient. Digitally Signed by CARMELITA MIXON on 11/01/2024 09:05 AM [facility]08-19-2025 Evaluation note* Diagnosis Onset Date Resolution Status Admit Date Aortic valve stenosis acute Sep 2:28pm Hyperlipidemia acute September 2:28pm Hypotension acute October 11, 2024 2:28pm Tachycardia acute October 11, 2024 2:28pm [facility] Work Phone: [phone]) 536-261708-19-2025 Evaluation note* Diagnosis Onset Date Resolution Status Admit Date Aortic valve stenosis acute Sep 2:28pm Hyperlipidemia acute September 2:28pm Hypotension acute October 11, 2024 2:28pm Tachycardia acute October 11, 2024 2:28pm Diarrhea acute October 19, 2 025 10:25am [facility] Work Phone: 1(857) 989-929808-18-2025 Note* Exam Date Time Procedure Performing Provider Status 10/10/24 11:47 AM XR Chest 2 Views RADHA LUU MD; [facility] (Verified) [id number] ORIGINAL EXAMINATION: TWO XRAY VIEWS OF THE CHEST TECHNIQUE: CHEST PA and LATERAL COMPARISON: None. HISTORY: ORDERING SYSTEM PROVIDED HISTORY: Reason for Exam: History of TB, preoperative FINDINGS: The heart is normal in size. The mediastinal silhouette is unremarkable. Atherosclerosis of the aorta. No consolidation. No vascular congestion. No pleural effusion or pneumothorax. No aggressive osseous lesions. IMPRESSION: No acute radiographic finding. I have personally reviewed the images of this examination and agree with the resident's findings and interpretation. Interpreted by: Radha Luu MD Preliminary Report By: Shawn Man Electronically signed By Radha Luu MD Dictated Date: 10/10/2024 3:44:58 PM Prelim Date: 10/10/2024 5:16:30 PM Sign Date: 10/10/2024 5:16:30 PM Ordering Provider: [facility]08-08-2025 Radiology Diagnostic study note [facility] Imaging Services [address], [place] [id number] L/S Spine Min 4 Views MR#: [id number] Acct: [id number] Name: DINAH VALIENTE Rep #: [id number] : 1945 M 79 From: Alexis So MD PCP: Dr. Keke Landeros MD Status: RE G CLI Study:L/S Spine Min 4 Views Date of Exam: 09/30/24 Exam# [id number] Ordering Dr: Wood Harris MD PROCEDURE: L/S SPINE MIN 4 VIEWS 09/30/2024 REASON FOR EXAM: RECENT FALL, BACK AND HIP PAIN TECHNIQUE: L/S SPINE MIN 4 VIEWS COMPARISON: Prior study dated 2024. FINDINGS: Curvature: No significant scoliosis is seen. Other findings: Anterior spondylosis at the L1-L2 as well as the L3-L4 levels. Disc space narrowingat the L5-S1 level as well as at the T12-L1 and L1-L2 levels. Facet joint osteoarthritis. Degenerative changes of the sacroiliac joints as well as both hip joints worse on the right side. RAD/L/S Spine Min 4 Views IMPRESSION: Degenerative changes as described. There has been essentially no change. Reading Location: [id number] CC: Dr. Keke Landeros MD; Dr. Wood Harris MD ~ Automation Engineering Manager: Signed [facility]08-08-2025 Radiology Diagnostic study note [facility] Imaging Services [address], [place] [id number] Clavicle MR#: [id number] Acct: [id number] Name: DINAH VALIENTE Rep #: [id number] : 1945 M 79 From: Alexis So MD PCP: Dr. Keke Landeros MD Status: JOHNSON G CLI Study:Clavicle Date of Exam: 09/30/24 Exam# [id number] Ordering Dr: Wood Harris MD PROCEDURE: CLAVICLE 09/30/2024 REASON FOR EXAM: FALL Pain following a fall. TECHNIQUE: CLAVICLE COMPARISON: None FINDINGS: RIGHT CLAVICLE: Bones right: No fracture seen. Joints right: Osteoarthritis of the acromioclavicular joint. Soft tissues right: No soft tissue swelling RAD/Clavicle IMPRESSION: Osteoarthritis of the acromioclavicular joint. No fracture seen. Reading Location: [id number] CC: Dr. Keke Landeros MD; Dr. Wood Harris MD ~ Automation Engineering Manager: Signed [facility]08-08-2025 Radiology Diagnostic study note [facility] Imaging Services [address] [place] [id number] Clavicle MR#: [id number] Acct: [id number] Name: DINAH VALIENTE Rep #: [id number] : 1945 M 79 From: Alexis So MD PCP: Dr. Keke Landeros MD Status: JOHNSON G CLI Study:Clavicle Date of Exam: 09/30/24 Exam# [id number] Ordering Dr: Wood Harris MD PROCEDURE: CLAVICLE 09/30/2024 REASON FOR EXAM: RECENT FALL TECHNIQUE: CLAVICLE. Two views of the left clavicle were obtained COMPARISON: None FINDINGS: LEFT CLAVICLE: Osteoarthritis of the left acromioclavicular joint. No clavicular fracture or dislocation. RAD/Clavicle IMPRESSION: Degenerative changes of the left acromioclavicular joint. No evidence of fracture or dislocation. Reading Location: [facility] CC: Dr. Keke Landeros MD; Dr. Wood Harris MD ~ Automation Engineering Manager: Signed [facility]08-08-2025 Radiology Diagnostic study note [facility] Imaging Services [address], [place] [address] Sternum min 2 Views MR#: [id number] Acct: [id number] Name: DINAH VALIENTE Rep #: [id number] : 1945 M 79 From: Alexis So MD PCP: Dr. Keke Landeros MD Status: RE G CLI Study:Sternum min 2 Views Date of Exam: 09/30/24 Exam# [id number] Ordering Dr: Wood Harris MD PROCEDURE: STERNUM MIN 2 VIEWS 09/30/2024 REASON FOR EXAM: FALL TECHNIQUE: STERNUM MIN 2 VIEWS COMPARISON: None FINDINGS: Three views were obtained. No sternal fracture is seen. RAD/Sternum min 2 Views IMPRESSION: No sternal fracture is seen. Reading Location: DANIELLE CC: Dr. Keke Landeros MD; Dr. Wood Harris MD ~ Automation Engineering Manager: Signed [facility]08-08-2025 Radiology Diagnostic study note [facility] Imaging Services [address] [place] [address] Ribs Bilat 3V No CXR MR#: [id number] Acct: [id number] Name: DINAH VALIENTE Rep #: [id number] : 1945 M 79 From: Alexis So MD PCP: Dr. Keke Landeros MD Status: RE G CLI Study:Ribs Bilat 3V No CXR Date of Exam: 09/30/24 Exam# [id number] Ordering Dr: Wood Harris MD PROCEDURE: RIBS BILAT 3V NO CXR 09/30/2024 REASON FOR EXAM: FELL 2 DAYS AGO, CHEST DISCOMFORT/PAIN TECHNIQUE: RIBS BILAT 3V NO CXR. Multiple views of both right and left ribs were obtained. COMPARISON: None FINDINGS: There is no evidence of rib fracture. Increased markings at the lung bases suggestive of bibasilar scarring. Osteoarthritis of both shoulder joints. RAD/Ribs Bilat 3V No CXR IMPRESSION: No acute fracture seen. Findings suggestive of mild bibasilar linear scarring. Reading Location: [id number] CC: Dr. Keke Landeros MD; Dr. Wood Harris MD ~ Automation Engineering Manager: Signed [facility]08-08-2025 Radiology Diagnostic study note [facility] Imaging Services [address] [place] [id number] Hips B/L min 2 views w/ Pelvis MR#: [id number] Acct: [id number] Name: DINAH VALIENTE Rep #: [id number] : 1945 M 79 From: Alexis So MD PCP: Dr. Keke Landeros MD Status: RE G CLI Study:Hips B/L min 2 views w/ Pelvis Date of Exam: 09/30/24 Exam# [id number] Ordering Dr: Wood Harris MD PROCEDURE: HIPS B/L MIN 2 VIEWS W/ PELVIS 09/30/2024 REASON FOR EXAM: RECENT FALL, BACK AND HIP PAIN TECHNIQUE: HIPS B/L MIN 2 VIEWS W/ PELVIS Laterality: Bilateral. COMPARISON: Prior study dated 2024. FINDINGS: Marked degree of joint space narrowing of the right hip joint with a subchondralsclerosis. This is in keeping with severe osteoarthritis and possible avascular necrosis. This has worsened as compared to prior study. Moderate degree of joint space narrowing involving the left hip joint. Mild degenerative changes ofthe sacroiliac joints bilaterally. No acute fracture is seen. Calcified phleboliths. RAD/Hips B/L min 2 views w/ Pelvis IMPRESSION: Joint space narrowing of both hip joints worse on the right side with the markeddegree of osteoarthritis and possible avascular necrosis. This has progressed as compared to prior study. Reading Location: [id number] CC: Dr. Keke Landeros MD; Dr. Wood Harris MD ~ Automation Engineering Manager: Signed [facility]08-06-2025 Discharge summary [facility] Medical Records Department [address] [place] [address] Emergency Department Summary 09/28/24 MR#: [id number] Acct: [id number] Name: DINAH VALIENTE Rep #:[id number] : 1945 79 From: Karthik Shaw MD PCP: Dr. Keke Landeros MD Status:RE G ER Location: ED HPI History of Present Illness Chief Complaint: Laceration Detail of Chief Complaint: Fall with head trauma Informant: patient Onset/Context/Timing Onset: Today and Hours Mechanism/Context: Blunt Injury and Fall Location of pain/injuries: - (Occiput region) Quality of Pain: Dull Location: Back of the head Current Severity: Mild Maximum Severity: Moderate Worsened by: Fall and blunt trauma Relieved by: Nothing Associated Symptoms Associated Symptoms: Positive for Loss of consciousness; Negative for Parasthesias, Weakness, Loss of function, Inability to ambulate or Amnesia Length of loss of consciousness: Uncertain, suspect brief per 's account of what happened Narrative Narrative: Patient is an 79-year-old male. He has history of hypertension, hyperlipidemia,type 2 diabetes, mild aortic stenosis, BPH who presents after mechanical fall. He was going up the steps. He lost his balance and fell backwards. He had brief loss of conscious. states he was not appropriate. He does complain of headache. He is on no antithrombotic or anticoagulant. He denies double vision, blurred vision or loss of vision. Eyes casey ears or decreased hearing. He does complain of jaw pain. He denies chest pain. He denies shortness of breath. He denies nausea or vomiting. He denies low back pain. He denies pain in his upper or lower extremity other than hip pain is chronic and scheduled fortotal hip arthroplasty. Prior similar symptoms: No Recent Illness/Hospitalization: No PFSH PFSH Medical History Benign essential hypertension Hyperlipidemia Type 2 diabetes mellitus Mild aortic stenosis Hypotension Obesity BPH (benign prostatic hyperplasia) Urine frequency History of colon polyps Acute maxillary sinusitis, unspecified Diabetes Home Medications ?Medication ?Instructions ?Recorded ?Last Taken ?Type cholecalciferol (vitamin D3) 25 1,000 unit PO DAILY Unknown History mcg (1,000 unit) capsule finasteride 5 mg tablet 5 mg PO DAILY 04/25/16 Unkno wn History tamsulosin 0.4 mg capsule 0.4 mg PO BID 04/25/16 Unkno wn History ascorbic acid (vitamin C) 1,000 mg 1,000 mg PO DAILY 0 03/13/20 Unknown History tablet cyanocobalamin (vitamin B-12) 5,000 mcg PO DAILY 03/13 Unknown History 1,000 mcg capsule glucosamine HCl 500 mg tablet 1,000 mg PO DAILY Unknown History rosuvastatin 5 mg tablet 5 mg PO QHS 03/13/20 Unknown History vitamin E 100 unit capsule 100 unit PO DAILY 03/13/20 Unknown History zinc 50 mg tablet 50 mg PO DAILY 03/13/20 Unkn own History empagliflozin 25 mg tablet 25 mg PO DAILY 08/18/23 Unk nown History (Jardiance) ketoconazole 2 % shampoo topical 08/18/23 Unknown His tory semaglutide 2 mg/dose (8 mg/3 mL) mg subcut 08/18/23 U nknown History subcutaneous pen injector (Ozempic) duloxetine 30 mg capsule,delayed 30 mg PO DAILY Unknown History release glimepiride 2 mg tablet 2 mg PO DAILY 09/28/24 Unkno wn History naproxen 500 mg tablet 500 mg PO BID PRN PRN pain 0 09/28/24 Unknown History Allergy/AdvReac Type Severity Reaction Status Date / Time Penicillins (PCN) Allergy Hives Verified 09/28/24 14:10 tolmetin (From Tolectin) Allergy Hives Verified 09/28/24 14:10 metformin AdvReac Diarrhea Verified 09/28/24 14:10 Family History Mother Heart disease Father Cancer Myocardial infarction Brother Cancer Surgical History History of wisdom tooth extraction History of bunionectomy History of adenoidectomy History of bilateral cataract extraction History of tonsillectomy Social History (Updated 09/28/24 @ 14:[address] Karthik Shaw MD) household members: spouse Smoking Status: Former smoker how long ago did patient quit smokin years ago alcohol intake: never substance use type: does not use caffeine: Yes ROS ROS ED Constitutional Constitutional ED: Denies chills or fever(s) Eyes Eyes: Denies blurry vision or change in vision ENT ENT ED: Denies rhinorrhea Cardiovascular Cardiovascular: Denies chest pain or palpitations Respiratory/Chest Respiratory/Chest: Denies cough, dyspnea or dyspnea on exertion Gastrointestinal Gastrointestinal: Denies nausea or vomiting Musculoskeletal Musculoskeletal: Denies back pain or neck pain Integumentary Reports other Details: Laceration occipital area. Neurologic Neurologic: Reports headache(s); Denies paresthesias or weakness Hematologic/Lymphatic Hematologic/Lymphatic: Denies easy bleeding or easy bruising EXAM Physical Exam Const Vital Signs: 09/28/24 14:07 Temperature 98.1 F Temperature Source Oral Pulse Rate 100 Respiratory Rate 16 Blood Pressure 115/76 Blood Pressure Mean 89 Pulse Ox 96 Oxygen Delivery Method Room Air Positive well nourished and well developed General Appearance ED: well developed and NAD HEENT HEENT Narrative: Occipital area. There is no depression. There is no clinical findings of basilar skull fracture. There is no tenderness over the right or left TMJ joint. He is able to open and close his mouth completely. His teeth are aligned. There is no dental trauma. There is no epistaxis. trauma and tenderness Nose: Negative for septum abnormal Eyes PERRL and EOMs intact bilaterally General Eye ED: Yes other Other Details: There is no subconjunctival hemorrhage. There is no nystagmus. Neck full ROM Neck Narrative: There is no midline posterior neck pain he has full active range of motion without discomfort. General: Negative for tenderness Resp normal respiratory effort and clear to auscultation bilaterally Cardio regular rhythm, S1 normal heart sound, S2 normal heart sound and no murmurs Rate: regular rate GI normal to inspection, nondistended, normoactive bowel sounds, non-tender and no masses Back/Spine normal to inspection Extremity normal to inspection and full ROM Neuro No oriented x3, CN's II-XII intact bilaterally, moves all extremities, no focal motor deficits and no sensory deficits noted Neuro Narrative: Equivocal Babinski on the left. There is no clonus at the ankles. There is no dysmetria. [place] Coma Scale: document GCS findings Spontaneous Obeys Commands Confused 14 Psych mental status grossly normal and thought process normal Skin no rashes or lesions noted, No no wounds, skin turgor normal and no jaundice Skin Narrative: Scalp laceration occipital region. PROC Procedures Other Procedures Procedure(s): Scalp laceration 1.3 cm Patient was prepped draped sterile manner. The wound was cleansed. There is nopalpable pression. There is no foreign body noted. Patient's wound was anesthetized with 1% lidocaine by local infiltration. A total of 1 cc was infiltrated. Wound was closed using sona. 2 sona were placed. Patient t olerated procedure. He was informed of the CAT scan results. MDM MDM MDM Narrative Medical decision making narrative: With complaint of headache, loss of conscious, GCS of [address] head rule imaging is required. Imaging of the head was obtained. Since he has no midline posterior neck pain full active range of motion without pain and a nonfocal neurologic exam imaging of the neck was not obtained. Will staple his laceration once imaging has been done and I have reviewed. He has been made NPO. Prior records were reviewed. History & Record Review Additional record(s) reviewed:: Prior outpatient record (Outpatient cardiovascular exam for orthopedic clearance. Seen at urgent care for sinusitis. Seen at urgent care November 2021 for upper respiratory tract infection.) and Prior ED visit (Most recent ER visit was November 2018 for dizziness. He was seen by Dr. Cohen.) Radiography Diagnostic Testing: Clinical Impression(s) from Imaging Studies Brain CT 09/28/24 14:26 IMPRESSION: CHRONIC CHANGES. Scalp hematoma overlying the posterior left parietal bone and left occipital bone. Reading Location: [id number] CT of the head reveals no evidence of subdural hematoma, epidural hematoma, traumatic subarachnoid hemorrhage or intraparenchymal contusion. There is evidence of right frontal and maxillary sinus disease and some mild right sided ethmoid disease. Awaiting formal read by radiologist [id number]. Discharge Plan Triage Chief Complaint: Laceration ED Provider: Karthik Shaw Dx/Rx/DC Orders Clinical Impression: Concussion with loss of consciousness, Type 2 diabetes mellitus, Hyperlipidemia, Benign essential hypertension, Aortic valve stenosis, Lacerationof occipital region of scalp, Skin tear of left elbow without complication, Injury due to fall Instructions: ED Concussion, ED Laceration Scalp Stitches or [place] Prescriptions: No Action Jardiance 25 mg tablet 25 mg PO DAILY Patient Comments: TAKE 1 TABLET BY MOUTHCONCE DAILYC Ozempic 2 mg/dose (8 mg/3 mL) pen injector subcut Patient Comments: INJECT 2MG SUBCUTANEOUSLYNONCE A WEEK ketoconazole 2 % shampoo topical Patient Comments: Use one Application twice a week, leave in for 5 minutes before rinsing out tamsulosin 0.4 MG capsule 0.4 mg PO BID finasteride 5 MG tablet 5 mg PO DAILY cholecalciferol (vitamin D3) 1,000 UNIT capsule 1,000 unit PO DAILY rosuvastatin 5 MG tablet 5 mg PO QHS ascorbic acid (vitamin C) 1,000 MG tablet 1,000 mg PO DAILY vitamin E 100 UNIT capsule 100 unit PO DAILY zinc 50 MG tablet 50 mg PO DAILY glucosamine HCl 500 MG tablet 1,000 mg PO DAILY cyanocobalamin (vitamin B-12) 1,000 MCG capsule 5,000 mcg PO DAILY duloxetine 30 mg capsule,delayed release(DR/EC) 30 mg PO DAILY glimepiride 2 mg tablet 2 mg PO DAILY naproxen 500 mg tablet 500 mg PO BID PRN PRN (Reason: pain) Primary Care Provider: Keke Landeros Referrals: Keke Landeros MD [Primary Care Provider] - 10 Day for suture removal Print Language: Pakistani Disposition Disposition: Home, Self Care What to do if you have Problems For any increased pain, shortness of breath, bleeding, nausea or vomiting, chestpain, or any unexpected problems, contact your Primary Care Provider. Call [facility] ([phone]) or report tothe closest Emergency Room. Call 911 if necessary. 09/28/24 0106 Cosigner Signature (if applicable): CC: Dr. Keke Landeros MD ~ Signed [facility]08-06-2025 Radiology Diagnostic study note [facility] Imaging Services [address] [place] [address] Brain/Head without Contrast MR#: [id number] Acct: [id number] Name: DINAH VALIENTE Rep #: [id number] : 1945 M 79 From: Alexis So MD PCP: Dr. Keke Landeros MD Status: RE G ER Study:Brain/Head without Contrast Date of Exa m: 09/28/24 Exam# [id number] Ordering Dr: Grover Shaw MD PROCEDURE: BRAIN/HEAD WITHOUT CONTRAST 09/28/2024 REASON FOR EXAM: TRAUMA, GCS 14 Laceration to the left side of the skull. Confusion. TECHNIQUE: BRAIN/HEAD WITHOUT CONTRAST Coronal and Sagittal reconstruction series were provided. One or more dose reduction techniques were used (e.g., Automated exposure control, adjustment of the mA and/or kV according to patient size, use of iterative reconstruction technique. RADIATION DOSE SUMMARY: CTDlvol: 44.99 mGy DLP: 846.73 mGycm COMPARISON: Prior study dated November 25, 2018. FINDINGS: Brain: Low density in the periventricular white matter suggests mild chronic small vessel ischemic changes. CSF Spaces: Mild generalized cerebral atrophy atherosclerotic calcification of the cavernous portions of the internal carotid arteries. Sinuses/Mastoids: Opacification of the right maxillary sinus. Partial opacification of the right ethmoid sinus. Bones: There is evidence of scalp hematoma overlying the left posterior parietaloccipital bone. CT/Brain/Head without Contrast IMPRESSION: CHRONIC CHANGES. Scalp hematoma overlying the posterior left parietal bone and left occipital bone. Reading Location: [id number] CC: Dr. Keke Landeros MD; Dr. Karthik Shaw MD ~ Automation Engineering Manager: Signed [facility]08-06-2025 Discharge summary Author Karthik Shaw [facility] Note Date/Time September 28, 2024 3:0 4pm [facility] Medical Records Department [address] [place] [address] Emergency Department Summary 09/28/24 MR#: [id number] Acct: [id number] Name: DINAH VALIENTE Rep #:[id number] : 1945 79 From: Karthik Shaw MD PCP: Dr. Keke Landeros MD Status:RE G ER Location: ED HPI History of Present Illness Chief Complaint: Laceration Detail of Chief Complaint: Fall with head trauma Informant: patient Onset/Context/Timing Onset: Today and Hours Mechanism/Context: Blunt Injury and Fall Location of pain/injuries: - (Occiput region) Quality of Pain: Dull Location: Back of the head Current Severity: Mild Maximum Severity: Moderate Worsened by: Fall and blunt trauma Relieved by: Nothing Associated Symptoms Associated Symptoms: Positive for Loss of consciousness; Negative for Parasthesias, Weakness, Loss of function, Inability to ambulate or Amnesia Length of loss of consciousness: Uncertain, suspect brief per 's account of what happened Narrative Narrative: Patient is an 79-year-old male. He has history of hypertension, hyperlipidemia,type 2 diabetes, mild aortic stenosis, BPH who presents after mechanical fall. He was going up the steps. He lost his balance and fell backwards. He had brief loss of conscious. states he was not appropriate. He does complain of headache. He is on no antithrombotic or anticoagulant. He denies double vision, blurred vision or loss of vision. Eyes casey ears or decreased hearing. He does complain of jaw pain. He denies chest pain. He denies shortness of breath. He denies nausea or vomiting. He denies low back pain. He denies pain in his upper or lower extremity other than hip pain is chronic and scheduled for total hip arthroplasty. Prior similar symptoms: No Recent Illness/Hospitalization: No PFSH PFS Medical History Benign essential hypertension Hyperlipidemia Type 2 diabetes mellitus Mild aortic stenosis Hypotension Obesity BPH (benign prostatic hyperplasia) Urine frequency History of colon polyps Acute maxillary sinusitis, unspecified Diabetes Home Medications ?Medication ?Instructions ?Recorded ?Last Taken ?Type cholecalciferol (vitamin D3) 25 1,000 unit PO DAILY Unknown History mcg (1,000 unit) capsule finasteride 5 mg tablet 5 mg PO DAILY 04/25/16 Unkno wn History tamsulosin 0.4 mg capsule 0.4 mg PO BID 04/25/16 Unkno wn History ascorbic acid (vitamin C) 1,000 mg 1,000 mg PO DAILY 0 03/13/20 Unknown History tablet cyanocobalamin (vitamin B-12) 5,000 mcg PO DAILY 03/13 Unknown History 1,000 mcg capsule glucosamine HCl 500 mg tablet 1,000 mg PO DAILY Unknown History rosuvastatin 5 mg tablet 5 mg PO QHS 03/13/20 Unknown History vitamin E 100 unit capsule 100 unit PO DAILY 03/13/20 Unknown History zinc 50 mg tablet 50 mg PO DAILY 03/13/20 Unkn own History empagliflozin 25 mg tablet 25 mg PO DAILY 08/18/23 Unk nown History (Jardiance) ketoconazole 2 % shampoo topical 08/18/23 Unknown His tory semaglutide 2 mg/dose (8 mg/3 mL) mg subcut 08/18/23 U nknown History subcutaneous pen injector (Ozempic) duloxetine 30 mg capsule,delayed 30 mg PO DAILY Unknown History release glimepiride 2 mg tablet 2 mg PO DAILY 09/28/24 Unkno wn History naproxen 500 mg tablet 500 mg PO BID PRN PRN pain 0 09/28/24 Unknown History Allergy/AdvReac Type Severity Reaction Status Date / Time Penicillins (PCN) Allergy Hives Verified 09/28/24 14:10 tolmetin (From Tolectin) Allergy Hives Verified 09/28/24 14:10 metformin AdvReac Diarrhea Verified 09/28/24 14:10 Family History Mother Heart disease Father Cancer Myocardial infarction Brother Cancer Surgical History History of wisdom tooth extraction History of bunionectomy History of adenoidectomy History of bilateral cataract extraction History of tonsillectomy Social History (Updated 09/28/24 @ 14:[address] Karthik Shaw MD) household members: spouse Smoking Status: Former smoker how long ago did patient quit smokin years ago alcohol intake: never substance use type: does not use caffeine: Yes ROS ROS ED Constitutional Constitutional ED: Denies chills or fever(s) Eyes Eyes: Denies blurry vision or change in vision ENT ENT ED: Denies rhinorrhea Cardiovascular Cardiovascular: Denies chest pain or palpitations Respiratory/Chest Respiratory/Chest: Denies cough, dyspnea or dyspnea on exertion Gastrointestinal Gastrointestinal: Denies nausea or vomiting Musculoskeletal Musculoskeletal: Denies back pain or neck pain Integumentary Reports other Details: Laceration occipital area. Neurologic Neurologic: Reports headache(s); Denies paresthesias or weakness Hematologic/Lymphatic Hematologic/Lymphatic: Denies easy bleeding or easy bruising EXAM Physical Exam Const Vital Signs: 09/28/24 14:07 Temperature 98.1 F Temperature Source Oral Pulse Rate 100 Respiratory Rate 16 Blood Pressure 115/76 Blood Pressure Mean 89 Pulse Ox 96 Oxygen Delivery Method Room Air Positive well nourished and well developed General Appearance ED: well developed and NAD HEENT HEENT Narrative: Occipital area. There is no depression. There is no clinical findings of basilar skull fracture. There is no tenderness over the right or left TMJ joint. He is able to open and close his mouth completely. His teeth are aligned. There is no dental trauma. There is no epistaxis. trauma and tenderness Nose: Negative for septum abnormal Eyes PERRL and EOMs intact bilaterally General Eye ED: Yes other Other Details: There is no subconjunctival hemorrhage. There is no nystagmus. Neck full ROM Neck Narrative: There is no midline posterior neck pain he has full active range of motion without discomfort. General: Negative for tenderness Resp normal respiratory effort and clear to auscultation bilaterally Cardio regular rhythm, S1 normal heart sound, S2 normal heart sound and no murmurs Rate: regular rate GI normal to inspection, nondistended, normoactive bowel sounds, non-tender and no masses Back/Spine normal to inspection Extremity normal to inspection and full ROM Neuro No oriented x3, CN's II-XII intact bilaterally, moves all extremities, no focal motor deficits and no sensory deficits noted Neuro Narrative: Equivocal Babinski on the left. There is no clonus at the ankles. There is no dysmetria. Jayla Coma Scale: document GCS findings Spontaneous Obeys Commands Confused 14 Psych mental status grossly normal and thought process normal Skin no rashes or lesions noted, No no wounds, skin turgor normal and no jaundice Skin Narrative: Scalp laceration occipital region. PROC Procedures Other Procedures Procedure(s): Scalp laceration 1.3 cm Patient was prepped draped sterile manner. The wound was cleansed. There is nopalpable pression. There is no foreign body noted. Patient's wound was anesthetized with 1% lidocaine by local infiltration. A total of 1 cc was infiltrated. Wound was closed using sona. 2 sona were placed. Patient tolerated procedure. He was informed of the CAT scan results. MDM MDM MDM Narrative Medical decision making narrative: With complaint of headache, loss of conscious, GCS of [address] head rule imaging is required. Imaging of the head was obtained. Since he has no midline posterior neck pain full active range of motion without pain and a nonfocal neurologic exam imaging of the neck was not obtained. Will staple his laceration once imaging has been done and I have reviewed. He has been made NPO. Prior records were reviewed. History & Record Review Additional record(s) reviewed:: Prior outpatient record (Outpatient cardiovascular exam for orthopedic clearance. Seen at urgent care for sinusitis. Seen at urgent care November 2021 for upper respiratory tract infection.) and Prior ED visit (Most recent ER visit was November 2018 for dizziness. He was seen by Dr. Cohen.) Radiography Diagnostic Testing: Clinical Impression(s) from Imaging Studies Brain CT 09/28/24 14:26 IMPRESSION: CHRONIC CHANGES. Scalp hematoma overlying the posterior left parietal bone and left occipital bone. Reading Location: [facility] CT of the head reveals no evidence of subdural hematoma, epidural hematoma, traumatic subarachnoid hemorrhage or intraparenchymal contusion. There is evidence of right frontal and maxillary sinus disease and some mild right sided ethmoid disease. Awaiting formal read by radiologist [id number]. Discharge Plan Triage Chief Complaint: Laceration ED Provider: Karthik Shaw Dx/Rx/DC Orders Clinical Impression: Concussion with loss of consciousness, Type 2 diabetes mellitus, Hyperlipidemia, Benign essential hypertension, Aortic valve stenosis, Lacerationof occipital region of scalp, Skin tear of left elbow without complication, Injury due to fall Instructions: ED Concussion, ED Laceration Scalp Stitches or Sona Prescriptions: No Action Jardiance 25 mg tablet 25 mg PO DAILY Patient Comments: TAKE 1 TABLET BY MOUTHCONCE DAILYC Ozempic 2 mg/dose (8 mg/3 mL) pen injector subcut Patient Comments: INJECT 2MG SUBCUTANEOUSLYNONCE A WEEK ketoconazole 2 % shampoo topical Patient Comments: Use one Application twice a week, leave in for 5 minutes before rinsing out tamsulosin 0.4 MG capsule 0.4 mg PO BID finasteride 5 MG tablet 5 mg PO DAILY cholecalciferol (vitamin D3) 1,000 UNIT capsule 1,000 unit PO DAILY rosuvastatin 5 MG tablet 5 mg PO QHS ascorbic acid (vitamin C) 1,000 MG tablet 1,000 mg PO DAILY vitamin E 100 UNIT capsule 100 unit PO DAILY zinc 50 MG tablet 50 mg PO DAILY glucosamine HCl 500 MG tablet 1,000 mg PO DAILY cyanocobalamin (vitamin B-12) 1,000 MCG capsule 5,000 mcg PO DAILY duloxetine 30 mg capsule,delayed release(DR/EC) 30 mg PO DAILY glimepiride 2 mg tablet 2 mg PO DAILY naproxen 500 mg tablet 500 mg PO BID PRN PRN (Reason: pain) Primary Care Provider: Keke Landeros Referrals: Keke Landeros MD [Primary Care Provider] - 10 Day for suture removal Print Language: Pakistani Disposition Disposition: Home, Self Care What to do if you have Problems For any increased pain, shortness of breath, bleeding, nausea or vomiting, chestpain, or any unexpected problems, contact your Primary Care Provider. Call [facility] ([phone]) or report to the closest Emergency Room. Call 911 if necessary. 09/28/24 1504 <Electronically signed by Karthik Shaw MD> Cosigner Signature (if applicable): CC: Dr. Keke Landeros MD ~ Signed [facility] Work Phone: 1(380) 566-805603-21-2025 Radiology Diagnostic study note [facility] Imaging Services [address], [place] [id number] Lumbar Spine 2 or 3 Views MR#: [id number] Acct: [id number] Name: DINAH VALIENTE Rep #: [id number] : 1945 M 79 From: Erin Blount MD PCP: Dr. Keke Landeros MD Status: RE G CLI Study:Lumbar Spine 2 or 3 Views Date of Exam: 05/13/24 Exam# [id number] Ordering Dr: Keke Landeros MD EXAM: XR Lumbosacral Spine, 2 or 3 Views CLINICAL INDICATION: PAIN, FACET ARTHROPATHY TECHNIQUE: Frontal and lateral views of the lumbar spine and sacrum. COMPARISON: No relevant prior studies available. FINDINGS: VERTEBRAE: Moderate endplate degenerative changes of L3-S1. Moderate facet arthropathy of L4-S1. Noacute fracture. Normal alignment. SACRUM/COCCYX: Unremarkable as visualized. No acute fracture. DISC SPACES: No acute findings. No significant narrowing. SOFT TISSUES: Unremarkable. VASCULATURE: Scattered calcified atherosclerotic disease of aorta. RAD/Lumbar Spine 2 or 3 Views IMPRESSION: Degenerative changes as above. Reading Location: [facility] CC: Dr. Keke Landeros MD ~ Automation Engineering Manager: Signed [facility]03-21-2025 Radiology Diagnostic study note [facility] Imaging Services [address] [place], [place] [address] HIP, UNI W/ Pelvis 2-3 Views MR#: [id number] Acct: [id number] Name: DINAH VALIENTE Rep #: [id number] : 1945 M 79 From: Erin Blount MD PCP: Dr. Keke Landeros MD Status: RE G CLI Study:HIP, UNI W/ Pelvis 2-3 Views Date of Ex am: 05/13/24 Exam# [id number] Ordering Dr: Keke Landeros MD EXAM: XR Right Hip With Pelvis When Performed, 2 or 3 Views CLINICAL INDICATION: PAIN TECHNIQUE: Two or three views of the right hip with pelvis when performed. COMPARISON: No relevant prior studies available. FINDINGS: BONES/JOINTS: Mild to moderate degenerative changes of the right hip joint. Noacute fracture. No dislocation. SOFT TISSUES: Soft tissue swelling. RAD/HIP, UNI W/ Pelvis 2-3 Views IMPRESSION: Degenerative changes as above. Reading Location: [facility] CC: Dr. Keke Landeros MD ~ Automation Engineering Manager: Signed [facility]03-21-2025 Radiology Diagnostic study note [facility] Imaging Services [address] [place] [address] Knee 3 Views MR#: [id number] Acct: [id number] Name: DINAH VALIENTE Rep #: [id number] : 1945 M 79 From: Erin Blount MD PCP: Dr. Keke Landeros MD Status: RE G CLI Study:Knee 3 Views Date of Exam: 5 Exam# [id number] Ordering Dr: Keke Landeros MD EXAM: XR Right Knee, 3 Views CLINICAL INDICATION: PAIN TECHNIQUE: Three views of the right knee. COMPARISON: No relevant prior studies available. FINDINGS: BONES/JOINTS: Mild joint space narrowing of the medial compartment of the knee joint. No acute fracture. No dislocation. SOFT TISSUES: Unremarkable. RAD/Knee 3 Views IMPRESSION: Degenerative changes as above. Reading Location: [facility] CC: Dr. Keke Landeros MD ~ Automation Engineering Manager: Signed [facility]02-25-2025 Evaluation note* Diagnosis Onset Date Resolution Status Admit Date Aortic valve stenosis acute Mar 12:53pm Benign essential hypertension acute April 19, 2024 12:53pm Hyperlipidemia acute March 272024 12:53pm Type 2 diabetes mellitus acute April 19, 2024 12:53pm [facility] Work Phone: 1(699) 980-583312-12-2024 Evaluation note* Diagnosis Onset Date Resolution Status Admit Date Acute sinusitis chronic February 04, 2024 9:51am Acute sinusitis chronic February 21, 2024 12:58pm Aortic valve stenosis acute Mar 12:53pm Benign essential hypertension acute April 19, 2024 12:53pm Hyperlipidemia acute March 272024 12:53pm Type 2 diabetes mellitus acute April 19, 2024 12:53pm [facility] Work Phone: Chief complaint+Reason for visit Narrative* Chief Complaint EORDER CHEST CONGESTION/SINUS PRESSURE EORDER Reason for Visit COVID-19 [facility] Work Phone: Chief complaint+Reason for visit Narrative* Chief Complaint CHEST CONGESTION/SIN US PRESSURE EORDER DWD Reason for Visit COVID-19 [facility] Work Phone: Evaluation + Plan note Future Appointments [facility] Evaluation noteNo assessment information available [facility] Work Phone: Evaluation note* Diagnosis Onset Date Resolution Status Acute maxillary sinusitis, unspecified acute [facility] Work Phone: Evaluation note* Diagnosis Onset Date Resolution Status COVID-19 acute [facility] Work Phone: Evaluation note* Diagnosis Onset Date Resolution Status Admit Date Aortic valve stenosis acute Sep 2:28pm Benign essential hypertension acute October 11, 2024 2:28pm Hyperlipidemia acute September 2:28pm [facility] Work Phone: Hospital course Narrative No data available for this section [facility] Hospital Discharge instructions No data available for this section [facility] Progress note No data available for this section [facility] Reason for referral (narrative)No reason for referral [facility] Work [facility]: Summary Purpose Family History No Family History Records Found Relationship Condition Age at Onset Recorded Date/T nirmal mother Cardiac disease Unknown father Malignant neoplasm Unknown Myocardial infarction Unknown brother Malignant neoplasm Unknown Relationship Condition Age at Onset Recorded Date/T nirmal mother Cardiac disease Unknown Diabetes mellitus Unknown father Malignant neoplasm Unknown Myocardial infarction Unknown brother Malignant neoplasm Unknown Advance Directives No Advanced Directives Records Found Advance Directive Response Recorded Date/ Time Living Will Yes March 13 1:40pm Power of Toddler Lead Teacher Yes March 13, 2020 1:40pm Advance Directive Response Recorded Date/ Time Living Will Yes March 13 12:40pm Power of Toddler Lead Teacher Yes March 13, 2020 12:40pm Advance Directive Response Recorded Date/ Time Do you have a Healthcare Pow er of Toddler Lead Teacher? Yes September 28, 2024 2:11pm Name of Medical Power of Toddler Lead Teacher PEGGY LYONS R- September 28, 2024 2:11pm Chief Complaint and Reason for Visit Chief Complaint EORDER MURMUR Chief Complaint EORDER MURMUR E ORDER Chief Complaint E ORDER Chief Complaint EORDER Chief Complaint PSA - EORDER FROM DR LANDEROS ALSO COUGH/SINUS DISCHARGE EORDER Reason for Visit Acute maxillary sinu sitis, unspecified Chief Complaint EORDER EORDER Chief Complaint EORDER DWD EORDER Chief Complaint Admit Date HEAD CONGESTION, SORE THROAT, COUGH Dece mber 2023 9:51am EARS RINGING February 21, 2024 12:58pm EORDER April 05, 2024 7:43am 6 M FU April 19, 2024 12:53pm EORDERS-LUMBAR SPINE, RIGHT HIP, RIGHT K NEE 2024 1:11pm Reason for Visit Admit Date Acute sinusitis February 04, 2024 9:51am Acute sinusitis February 21, 2024 12:58pm Aortic valve stenosis April 19 12:53pm Benign essential hypertension March 272024 12:53pm Hyperlipidemia April 19, 2024 12:53pm Type 2 diabetes mellitus April 19, 2024 12:53pm Chief Complaint Admit Date EORDER April 05, 2024 7:43am 6 M FU April 19, 2024 12:53pm EORDERS-LUMBAR SPINE, RIGHT HIP, RIGHT K NEE 2024 1:11pm LUMBAR RAD July 05, 2024 3:34p m EODHEERAJ- LETI/ PSA-VANI July 20, 2 025 7:21am Reason for Visit Admit Date Aortic valve stenosis April 19 12:53pm Benign essential hypertension March 272024 12:53pm Hyperlipidemia April 19, 2024 12:53pm Type 2 diabetes mellitus April 19, 2024 12:53pm Chief Complaint Admit Date LUMBAR RAD July 05, 2024 3:34p m EODHEERAJ- JRNER/ PSA-VANI July 20, 2 025 7:21am fall September 28, 2024 2:0 7pm Chief Complaint Admit Date LUMBAR RAD July 05, 2024 3:34p m EORDER- SCHINNER/ PSA-VANI July 20, 2 025 7:21am fall September 28, 2024 2:0 7pm Hypotension/Tachycardia/Surgery Clearanc e Review October 11, 2024 2:28pm Reason for Visit Admit Date Aortic valve stenosis October 11, 2024 2:28pm Benign essential hypertension September 2:28pm Hyperlipidemia October 11, 2024 2: 28pm Chief Complaint Admit Date LUMBAR RAD July 05, 2024 3:34p m EORDER- SCHINNER/ PSA-VANI July 20, 2 025 7:21am fall September 28, 2024 2:0 7pm Hypotension/Tachycardia/Surgery Clearanc e Review October 11, 2024 2:28pm DIARRHEA HAS HIP REPLACEMENT SCHED 5 October 19, 2024 10:25am Reason for Visit Admit Date Aortic valve stenosis October 11, 2024 2:28pm Hyperlipidemia October 11, 2024 2: 28pm Hypotension October 11, 2024 2: 28pm Tachycardia October 11, 2024 2: 28pm Reason for Visit Admit Date Aortic valve stenosis October 11, 2024 2:28pm Hyperlipidemia October 11, 2024 2: 28pm Hypotension October 11, 2024 2: 28pm Tachycardia October 11, 2024 2: 28pm Diarrhea October 19, 2024 10 :25am Additional Source Comments (unrecognized sect ion and content) No Status Records FoundNo Status Records FoundNo Status Records Found INFORMATION SOURCE (unrecogn ized section and content) DATE CREATED AUTHOR 03/17/2020 [facility] DATE CREATED AUTHOR AUTHOR'S ORGANIZ ATION 11/03/2024 [facility] DATE CREATED AUTHOR AUTHOR'S ORGANIZ ATION 11/09/2024 [facility] Goals (unrecognized section and content) Goals may be documented in a n alternate sectionGoals may be documented in an alternate sectionGoals may be documented in an alternate sectionGoals may be documented in an alternate sectionGoals may be documented in an alternate sectionGoals may be documented in an alternate sectionGoals may be documented in an alternate sectionGoals may be documented in an alternate sectionGoals may be documented in an alternate sectionGoals may be documented in an alternate sectionGoals may be documented in an alternate sectionGoals may be documented in an alternate sectionGoals may be documented in an alternate sectionGoals may be documented in an alternate section No data available for this sectionGoals may be documented in an alternate sectionGoals may be documented in an alternate sectionGoals may be documented in an alternate section No data available for this section Care Teams (unrecognized sec tion and content) Team Status: Active Member Role Status Dates Dr. Keke Wu MD Family Provider Active Dr. Keke Landeros MD Primary Care Provider Active Team Status: Inactive Member Role Status Dates Dr. Keke Landeros MD Primary Care Pr ovider, Attending Provider, Referring Provider Active Team Status: Inactive Member Role Status Dates Dr. Keke Landeros MD Primary Care Provider, Referr ing Provider Active Rhiannon GENTILE, PA Attending Provider Active Team Status: Inactive Member Role Status Dates Dr. Keke Landeros MD Primary Care Provider Active Dr. Ronald Ludwig MD Attending Provider, Referr ing Provider Active Team Status: Inactive Member Role Status Dates Dr. Keke Landeros MD Primary Care Provider, Referr ing Provider Active Will GENTILE PA Attending Provider Active Team Status: Inactive Member Role Status Dates Dr. Keke Landeros MD Primary Care Provider Active Self Referred Attending Provider Active Team Status: Active Member Role Status Dates Dr. Keke Landeros MD Primary Care Provider Active Team Status: Inactive Member Role Status Dates Dr. Keke Landeros MD Primary Care Provider Active Start: February 04, 2024 End: February 04, 2024 Dr. Keke Landeros MD Referring Provider Active Start: February 04, 2024 End: February 04, 2024 Will GENTILE, PA Attending Provider Active Sta rt: February 04, 2024 End: February 04, 2024 Team Status: Inactive Member Role Status Dates Dr. Keke Landeros MD Primary Care Provider Active Start: February 21, 2024 End: February 21, 2024 Dr. Keke Landeros MD Referring Provider Active Start: February 21, 2024 End: February 21, 2024 Keke Mckeon PUBLIC HEALTH POLICY ANALYST, PUBLIC HEALTH POLICY ANALYST-C Attending Provider Active S tart: February 21, 2024 End: February 21, 2024 Team Status: Inactive Member Role Status Dates Dr. Keke Landeros MD Primary Care Provider Active Start: April 05, 2024 End: April 05, 2024 Dr. Keke Landeros MD Attending Provider Active Start: April 05, 2024 End: April 05, 2024 Dr. Keke Landeros MD Referring Provider Active Start: April 05, 2024 End: April 05, 2024 Team Status: Inactive Member Role Status Dates Dr. Keke Landeros MD Primary Care Provider Active Start: April 19, 2024 End: April 19, 2024 Dr. Keke Landeros MD Referring Provider Active Start: April 19, 2024 End: April 19, 2024 Dr. Orion Yadav MD Attending Provider Active Start: April 19, 2024 End: April 19, 2024 Team Status: Inactive Member Role Status Dates Dr. Keke Landeros MD Primary Care Provider Active Start: 2024 End: 2024 Dr. Keke Landeros MD Attending Provider Active Start: 2024 End: 2024 Dr. Keke Landeros MD Referring Provider Active Start: 2024 End: 2024 Team Status: Inactive Member Role Status Dates Dr. Keke Landeros MD Primary Care Provider Active Start: July 05, 2024 End: July 05, 2024 Dr. Stu Eduardo MD Attending Provider Active Start: July 05, 2024 End: July 05, 2024 Dr. Stu Eduardo MD Referring Provider Active Start: July 05, 2024 End: July 05, 2024 Team Status: Inactive Member Role Status Dates Dr. Keke Landeros MD Primary Care Provider Active Start: July 20, 2024 End: July 20, 2024 Dr. Keke Landeros MD Attending Provider Active Start: July 20, 2024 End: July 20, 2024 Dr. Keke Landeros MD Referring Provider Active Start: July 20, 2024 End: July 20, 2024 Dr. Ronlad Ludwig MD Other Provider Active Start: July 20, 2024 End: July 20, 2024 Team Status: Active Member Role/Relationship Status Dates Dr. Keke Landeros MD Primary Care Provider Active Team Status: Inactive Member Role/Relationship Status Dates Dr. Keke Landeros MD Primary Care Provider Active Start: July 05, 2024 End: July 05, 2024 Dr. Stu Eduardo MD Attending Provider Active Start: July 05, 2024 End: July 05, 2024 Dr. Stu Eduardo MD Referring Provider Active Start: July 05, 2024 End: July 05, 2024 Team Status: Inactive Member Role/Relationship Status Dates Dr. Keke Landeros MD Primary Care Provider Active Start: July 20, 2024 End: July 20, 2024 Dr. Keke Landeros MD Attending Provider Active Start: July 20, 2024 End: July 20, 2024 Dr. Keke Landeros MD Referring Provider Active Start: July 20, 2024 End: July 20, 2024 Dr. Ronald Ludwig MD Other Provider Active Start: July 20, 2024 End: July 20, 2024 Team Status: Inactive Member Role/Relationship Status Dates Dr. Keke Landeros MD Primary Care Provider Active Start: September 28, 2024 End: September 28, 2024 Dr. Karthik Shaw MD Emergency Provider Active Sta rt: September 28, 2024 End: September 28, 2024 Team Status: Inactive Member Role/Relationship Status Dates Dr. Keke Landeros MD Primary Care Provider Active Start: September 28, 2024 End: September 28, 2024 Dr. Karthik Shaw MD Attending Provider Active Sta rt: September 28, 2024 End: September 28, 2024 Dr. Karthik Shaw MD Emergency Provider Active Sta rt: September 28, 2024 End: September 28, 2024 Team Status: Inactive Member Role/Relationship Status Dates Dr. Keke Landeros MD Primary Care Provider Active Start: September 30, 2024 End: September 30, 2024 Dr. Wood Harris MD Attending Provider Active Start: September 30, 2024 End: September 30, 2024 Dr. Wood Harris MD Referring Provider Active Start: September 30, 2024 End: September 30, 2024 Team Status: Inactive Member Role/Relationship Status Dates Dr. Keke Landeros MD Primary Care Provider Active Start: October 11, 2024 End: October 11, 2024 Dr. Keke Landeros MD Referring Provider Active Start: October 11, 2024 End: October 11, 2024 Yaima Coon PA, PA Attending Provider Active Start: October 11, 2024 End: October 11, 2024 Team Status: Active Member Role/Relationship Status Dates Dr. Keke Landeros MD Primary Care Provider Active Start: October 13, 2024 Dr. Wood Harris MD Attending Provider Active Start: October 13, 2024 Team Status: Inactive Member Role/Relationship Status Dates Dr. Keke Landeros MD Primary Care Provider Active Start: October 19, 2024 End: October 19, 2024 Dr. Keke Landeros MD Referring Provider Active Start: October 19, 2024 End: October 19, 2024 Dr. Denilson Mckeon DO Attending Provider Active Start: October 19, 2024 End: October 19, 2024 Team Status: Inactive Member Role/Relationship Status Dates Dr. Keke Landeros MD Primary Care Provider Active Start: October 13, 2024 End: October 13, 2024 Dr. Wood Harris MD Attending Provider Active Start: October 13, 2024 End: October 13, 2024 FOR RECORDS PERTAINING TO PATIENTS WHO ARE [...] BE BASED ON THE PRIMARY CLINICAL RECORDS. [facility] [email or web address] provides no warranty or guarantee of the accuracy or completeness of information in this document.
[2025-01-09 10:28] LABS: Hematocrit 45.5 % (40-54); Hemoglobin 14.9 g/dL (13.0-16.5); Immature Granulocytes Count 0.090 X10^3/uL (0.0-0.0); Mean Corp Hgb Conc 32.7 g/dL (32-36); Mean Corpuscular Volume 92.3 fL (80-94); Mean Platelet Vol. 9.8 fl (6.2-12.0); NRBC Flagged by Analyzer 0 % (0-5); Platelet Count 201 K/mm3 (150-450); RBC Distribution Width CV 14.2 % (11.6-14.6); RBC Distribution Width SD 48.1 fl (35.1-43.9); Red Blood Count 4.93 M/mm3 (4.6-6.2); White Blood Count 7.5 K/mm3 (4.4-11.0)
[2025-01-09 11:02] LABS: Creatinine, Urine (random) 90.50 mg/dL (39.00-259.00); Microalbumin,Random Urine < 12.0 mg/L (<20 mg/L)
[2025-01-09 11:55] LABS: AST(SGOT) 16 U/L (<=37); Alanine Aminotransfer ALT/SGPT 12 U/L (<=46); Albumin, Serum 4.1 g/dL (3.4-4.8); Alkaline Phosphatase 95 U/L (40-129); Anion Gap 12 (5-15); BUN 17 mg/dL (4-19); BUN/Creat Ratio 19.9 RATIO (10-20); Calcium,Total 9.7 mg/dL (7.6-11.0); Carbon Dioxide 23.8 mmol/L (21.0-32.0); Chloride 104 mmol/L (98-108); Cholesterol 187 mg/dL (<=200); Globulin 2.7 g/dL (2.2-4.2); Glucose 128 mg/dL (70-99); Low Density Lipoprotein Calc. 101 mg/dL; Potassium 4.3 mmol/L (3.3-5.1); Triglycerides 235 mg/dL; Very Low Density Lipoprotein 47 mg/dL (5-40); cholesterol:hdl ratio screen 4.11
== END | disposition home or self-care (01) ==
LOC: MTLAB 07:22
PROVIDERS: PCP Family Medicine; Referring Provider Family Medicine; Visit Provider Family Medicine
DX: E11.69 Type 2 diabetes mellitus with other specified complication (principal)
CPT/HCPCS: 36415; 80053; 80061; 82043; 82570; 83036; 85025